=== PATIENT | female | born 1955 | race Caucasian/White ===

== ENCOUNTER 2016-11-27 12:32 | Inpatient (IN) | payer OTHER ==
[2016-11-27] MEDS ORDERED: ASPIRIN 81 MG CHEW PO STA (13:06)
[2016-11-27] MEDS ORDERED: NITROGLYCERIN OINT 1 INCH/GM PACKET TOPICAL STA (13:06)
--- NOTE | 2016-11-27 13:19 | ED ---
General Adult HPI - General Chief complaint: Extremity Problem,Nontraumatic Stated complaint: Left Arm/Leg Pain Time Seen by Provider: 11/27/16 13:02 Source: patient Mode of arrival: ambulatory Limitations: no limitations - History of Present Illness Initial comments: This 61-year-old white female presents with a complaint of having some left arm and left leg pain. She states that she has some numbness and tingling in her left arm as well. The onset occurred at approximately 9 AM today. It is intermittent in nature. It is associated with some chest tightness in the midsternal region as well some shortness of breath. It seems to radiate posteriorly her thorax. She states that the pain in her leg is more to the anterior aspect of the leg. She denies any previous similar incidents but apparently did have a myocardial infarction in 2 stents placed approximately one year ago. She denies any leg swelling or history of DVT or PE. She denies any other complaints or modifying factors. - Related Data Home Medications Medication Instructions Recorded Confirmed Albuterol Inhaler [Ventolin Hfa 2 puff INHALATION RT-Q6H PRN 11/27/16 11/27/16 Inhaler] L.acidoph,Paracasei, B.lactis 1 cap PO DAILY 11/27/16 11/27/16 [Probiotic] Lisinopril [Zestril] 2.5 mg PO DAILY 11/27/16 11/27/16 Spironolactone [Aldactone] 25 mg PO DAILY 11/27/16 11/27/16 Previous Rx's Medication Instructions Recorded Aspirin 325 mg PO DAILY #30 tab 07/17/15 Metoprolol Tartrate [Lopressor] 25 mg PO BID #60 tab 07/17/15 Atorvastatin [Lipitor] 80 mg PO HS #30 tab 08/05/15 Clopidogrel [Plavix] 75 mg PO DAILY #30 tab 08/05/15 Allergies Allergy/AdvReac Type Severity Reaction Status Date / Time cephalexin monohydrate Allergy Rash/Hives Verified 11/27/16 14:07 [From Keflex] Review of Systems ROS Statement: Those systems with pertinent positive or pertinent negative responses have been documented in the HPI. ROS Other: All systems not noted in ROS Statement are negative. Past Medical History Past Medical History: COPD, Hyperlipidemia, Hypertension History of Any Multi-Drug Resistant Organisms: None Reported Past Surgical History: Heart Catheterization With Stent, Orthopedic Surgery Past Anesthesia/Blood Transfusion Reactions: No Reported Reaction Date of Last Stent Placement:: 07/12/15 Past Psychological History: No Psychological Hx Reported Smoking Status: Former smoker Past Alcohol Use History: Daily Past Drug Use History: None Reported - Past Family History Mother Family Medical History: Cancer Father Family Medical History: No Reported History General Exam - General Exam Comments Initial Comments: GENERAL: The patient is well nourished and well hydrated. VITAL SIGNS: Heart rate, blood pressure, respiratory rate reviewed as recorded in nurse's notes. EYES: Pupils are round and reactive. Extraocular movements are intact. No conjunctival / lid redness or swelling. ENT: No external evidence of injury, swelling, or ecchymosis. Airway is patent. Throat is clear. NECK: Nontender. No swelling or evidence of injury. No subcutaneous emphysema. Trachea is midline. No thyroid mass. HEART: Regular rate and rhythm. Good peripheral pulses. LUNGS/CHEST: Mild wheezing noted bilaterally. No ecchymosis, subcutaneous emphysema, or tenderness. ABDOMEN: Abdomen soft without tenderness. No palpable masses or organomegaly. No peritoneal signs. No abdominal wall swelling or ecchymosis. EXTREMITIES: No extremity tenderness. Normal muscle tone and function. No thoracolumbar tenderness. NEUROLOGIC: Sensation is grossly intact. Cranial nerve exam reveals face is symmetrical, tongue is midline, speech is clear. SKIN: No abrasions or ecchymosis is noted. No induration or masses noted. PSYCHIATRIC: Alert and oriented. Appropriate behavior and judgment. Limitations: no limitations Course Vital Signs 11/27/16 11/27/16 11/27/16 12:50 13:30 14:19 Temperature 98.2 F Pulse Rate 63 59 L 56 L Respiratory 18 18 16 Rate Blood Pressure 184/77 165/71 167/70 O2 Sat by Pulse 99 98 98 Oximetry Medical Decision Making - Medical Decision Making The patient was seen and examined. All diagnostics were reviewed. EKG shows a normal sinus rhythm at a rate of 60. There is some T-wave inversions noted in V1 through the 4. These are actually improved as compared to old EKG. There is no ST elevation. The TN interval is 154, QRS duration is 88, and QTC intervals 422. She receives aspirin as well as some Nitropaste. Her blood pressure remains elevated and she receives labetalol intravenously. She is doing quite well on recheck and is in no distress. The chest x-ray shows signs of COPD but no other acute processes. The laboratory was all essentially within normal limits. Case will be discussed with internal medicine and she will be admitted for further cardiac evaluation and rule out the possibility of acute coronary syndrome. - Lab Data Result diagrams: 11/27/16 13:25 11/27/16 13:25 Lab Results 11/27/16 11/27/16 11/27/16 Range/Units 13:25 13:25 13:25 WBC 11.6 H (3.8-10.6) k/uL RBC 4.08 (3.80-5.40) m/uL Hgb 13.3 (11.4-16.0) gm/dL Hct 40.1 (34.0-46.0) % MCV 98.2 (80.0-100.0) fL MCH 32.6 (25.0-35.0) pg MCHC 33.2 (31.0-37.0) g/dL RDW 14.1 (11.5-15.5) % Plt Count 374 (150-450) k/uL Neutrophils % 74 % Lymphocytes % 17 % Monocytes % 4 % Eosinophils % 2 % Basophils % 1 % Neutrophils # 8.6 H (1.3-7.7) k/uL Lymphocytes # 2.0 (1.0-4.8) k/uL Monocytes # 0.5 (0-1.0) k/uL Eosinophils # 0.3 (0-0.7) k/uL Basophils # 0.1 (0-0.2) k/uL PT (9.0-12.0) sec INR (<1.1) APTT (22.0-30.0) sec Sodium 139 (137-145) mmol/L Potassium 4.7 (3.5-5.1) mmol/L Chloride 104 (98-107) mmol/L Carbon Dioxide 23 (22-30) mmol/L Anion Gap 12 mmol/L BUN 14 (7-17) mg/dL Creatinine 0.66 (0.52-1.04) mg/dL Est GFR (MDRD) Af Amer >60 (>60 ml/min/1.73 sqM) Est GFR (MDRD) Non-Af >60 (>60 ml/min/1.73 sqM) Glucose 96 (74-99) mg/dL Calcium 9.9 (8.4-10.2) mg/dL Magnesium 1.8 (1.6-2.3) mg/dL Total Bilirubin 0.9 (0.2-1.3) mg/dL AST 24 (14-36) U/L ALT 24 (9-52) U/L Alkaline Phosphatase 84 (38-126) U/L Total Creatine Kinase 41 (30-135) U/L CK-MB (CK-2) 0.6 (0.0-2.4) ng/mL CK-MB (CK-2) Rel Index 1.5 Troponin I <0.012 (0.000-0.034) ng/mL Total Protein 7.6 (6.3-8.2) g/dL Albumin 4.5 (3.5-5.0) g/dL 11/27/16 Range/Units 13:25 WBC (3.8-10.6) k/uL RBC (3.80-5.40) m/uL Hgb (11.4-16.0) gm/dL Hct (34.0-46.0) % MCV (80.0-100.0) fL MCH (25.0-35.0) pg MCHC (31.0-37.0) g/dL RDW (11.5-15.5) % Plt Count (150-450) k/uL Neutrophils % % Lymphocytes % % Monocytes % % Eosinophils % % Basophils % % Neutrophils # (1.3-7.7) k/uL Lymphocytes # (1.0-4.8) k/uL Monocytes # (0-1.0) k/uL Eosinophils # (0-0.7) k/uL Basophils # (0-0.2) k/uL PT 10.0 (9.0-12.0) sec INR 1.0 (<1.1) APTT 23.3 (22.0-30.0) sec Sodium (137-145) mmol/L Potassium (3.5-5.1) mmol/L Chloride (98-107) mmol/L Carbon Dioxide (22-30) mmol/L Anion Gap mmol/L BUN (7-17) mg/dL Creatinine (0.52-1.04) mg/dL Est GFR (MDRD) Af Amer (>60 ml/min/1.73 sqM) Est GFR (MDRD) Non-Af (>60 ml/min/1.73 sqM) Glucose (74-99) mg/dL Calcium (8.4-10.2) mg/dL Magnesium (1.6-2.3) mg/dL Total Bilirubin (0.2-1.3) mg/dL AST (14-36) U/L ALT (9-52) U/L Alkaline Phosphatase (38-126) U/L Total Creatine Kinase (30-135) U/L CK-MB (CK-2) (0.0-2.4) ng/mL CK-MB (CK-2) Rel Index Troponin I (0.000-0.034) ng/mL Total Protein (6.3-8.2) g/dL Albumin (3.5-5.0) g/dL Disposition Clinical Impression: Chest pain, Left arm pain, Left leg pain, Dyspnea, COPD (chronic obstructive pulmonary disease), Accelerated hypertension, Unstable angina Disposition: ADMITTED IP TO THIS [facility] Condition: Fair Time of Disposition: 14:58 Decision Date: 11/27/16 Decision Time: 14:58
[2016-11-27 14:03] LABS: Partial Thromboplastin Time 23.3 sec (22.0-30.0)
--- NOTE | 2016-11-27 14:03 | XR ---
EXAMINATION TYPE: XR chest 2V DATE OF EXAM: 11/27/2016 1:48 PM HISTORY: Chest Pain. REFERENCE: Previous study dated 08/01/2015. FINDINGS: The lungs are overinflated. The lungs are clear. Pleural space are clear. The heart is not enlarged. IMPRESSION: COPD.
[2016-11-27 14:05] LABS: Basophils # (A) 0.1 k/uL (0-0.2); Basophils % (A) 1 %; CH 32.6; CHCM 33.4; Eosinophils # (A) 0.3 k/uL (0-0.7); Eosinophils % (A) 2 %; HCT 40.1 % (34.0-46.0); HDW 2.38; HGB 13.3 gm/dL (11.4-16.0); Luc # (Auto) 0.18; Luc % (Auto) 2; Lymphocytes % (A) 17 %; MCH 32.6 pg (25.0-35.0); MCHC 33.2 g/dL (31.0-37.0); MCV 98.2 fL (80.0-100.0); Mean Platelet Volume 7.3; Monocytes # (A) 0.5 k/uL (0-1.0); Monocytes % (A) 4 %; Neutrophils # (A) 8.6 k/uL (1.3-7.7); Neutrophils % (A) 74 %; RBC 4.08 m/uL (3.80-5.40); RDW 14.1 % (11.5-15.5); WBC 11.6 k/uL (3.8-10.6); WBC (Perox) 11.01
[2016-11-27 14:07] LABS: ALT 24 U/L (9-52); AST 24 U/L (14-36); Alkaline Phosphatase 84 U/L (38-126); Anion Gap 12 mmol/L; Blood Urea Nitrogen 14 mg/dL (7-17); Calcium 9.9 mg/dL (8.4-10.2); Carbon Dioxide 23 mmol/L (22-30); Chloride 104 mmol/L (98-107); Glucose 96 mg/dL (74-99); Magnesium 1.8 mg/dL (1.6-2.3); Non-African American GFR(MDRD) >60 (>60 ml/min/1.73 sqM); Potassium 4.7 mmol/L (3.5-5.1); Sodium 139 mmol/L (137-145); Total Bilirubin 0.9 mg/dL (0.2-1.3); Total Protein 7.6 g/dL (6.3-8.2)
[2016-11-27 14:10] LABS: Creatine Kinase 41 U/L (30-135)
[2016-11-27 14:24] LABS: Creatine Kinase MB 0.6 ng/mL (0.0-2.4); Troponin I <0.012 ng/mL (0.000-0.034)
[2016-11-27] MEDS ORDERED: LABETALOL 5 MG/ML VIAL MDV IVP STA (14:55)
[2016-11-27] MEDS ORDERED: HEPARIN SODIUM,PORCINE 5,000 UNIT/ML 1 ML VIAL IV ONE (15:00)
[2016-11-27] MEDS ORDERED: hydrALAZINE HCL 20 MG/ML 1 ML VIAL IVP PRN (15:06)
[2016-11-27] MEDS ORDERED: NICOTINE 14MG/24HR PATCH TRANSDERM STA (15:07)
[2016-11-27] MEDS: HEPARIN SODIUM,PORCINE/D5W PMX 25,000 UNIT in DEXTROSE/WATER 1 500ML.BAG IV SCH (15:22)
[2016-11-27] MEDS: NITROGLYCERIN OINT 1 INCH/GM PACKET TOPICAL SCH ×2 (17:20→23:23)
[2016-11-27] MEDS: IPRATROPIUM-ALBUTEROL 3 ML NEB INHALATION SCH ×2 (18:38→21:07)
[2016-11-27] MEDS: NITROGLYCERIN SL TABS 0.4 MG TAB SUBLINGUAL PRN ×3 (19:33→19:44)
[2016-11-27] MEDS: METOPROLOL TARTRATE 25 MG TAB PO SCH (19:51)
[2016-11-27] MEDS: ATORVASTATIN 80 MG TAB PO SCH (19:56)
[2016-11-27 20:01] LABS: Creatine Kinase 37 U/L (30-135)
[2016-11-27] MEDS ORDERED: MORPHINE SULFATE 2 MG/ML SYRINGE IVP PRN (20:09)
[2016-11-27 20:14] LABS: Creatine Kinase MB 0.6 ng/mL (0.0-2.4); Troponin I <0.012 ng/mL (0.000-0.034)
[2016-11-27] MEDS: HEPARIN SODIUM,PORCINE 5,000 UNIT/ML 1 ML VIAL IV PRN (22:05)
[2016-11-28 02:26] LABS: Creatine Kinase 32 U/L (30-135)
[2016-11-28 02:39] LABS: Creatine Kinase MB 0.5 ng/mL (0.0-2.4); Troponin I <0.012 ng/mL (0.000-0.034)
[2016-11-28 05:02] LABS: Cholesterol 132 mg/dL (<200); HDL Cholesterol 57 mg/dL (40-60); Triglycerides 167 mg/dL (<150)
[2016-11-28] MEDS: NITROGLYCERIN OINT 1 INCH/GM PACKET TOPICAL SCH ×3 (05:14→20:39)
[2016-11-28] MEDS: HEPARIN SODIUM,PORCINE 5,000 UNIT/ML 1 ML VIAL IV PRN (05:18)
--- NOTE | 2016-11-28 08:08 | P.CRDCN ---
History of Present Illness Consult date: 11/28/16 Chief complaint: Chest discomfort History of present illness: This is a pleasant 61-year-old female patient with a past medical history significant for CAD with a prior stenting of the LAD was performed in 2014, hypertension, dyslipidemia, who continues to smoke, presented to the emergency room complaining of chest discomfort. The patient has been experiencing some left arm numbness. Yesterday she developed some chest discomfort with the left arm numbness and the chest discomfort did not go away so she decided to come to the hospital. She described the discomfort in the chest as a sharp kind of discomfort. Currently the patient is a pain free. The EKG showed sinus rhythm with T-wave inversion in the septal leads which is not known to her. She underwent 3 sets of cardiac enzymes came in to be unremarkable. The patient underwent stress test as an outpatient recently and I will obtain a copy of that. If the stress test was performed within the last 6 months and was normal we might be able to discharge the patient home. I will obtain the previous medical records from the office. Meanwhile the patient is in process to have an echocardiogram which we will follow-up with. Past Medical History Past Medical History: COPD, Hyperlipidemia, Hypertension, Myocardial Infarction ([place]) Additional Past Medical History / Comment(s): "HEARTBURN" Last Myocardial Infarction Date:: 2014 History of Any Multi-Drug Resistant Organisms: None Reported Past Surgical History: Heart Catheterization With Stent, Orthopedic Surgery Additional Past Surgical History / Comment(s): LT KNEE RECONSTRUCTIVE SX, CATARACTS, CYSTE REMOVED FROM BEHIND LT EAR Past Anesthesia/Blood Transfusion Reactions: No Reported Reaction Date of Last Stent Placement:: 07/12/15 Past Psychological History: No Psychological Hx Reported Additional Psychological History / Comment(s): PT LIVES WITH HER DESTINI IN A 2 STORY HOME-7 STEPS INTO HOME..PT INDEPENDANT. NO OUTSIDE SERVICES. NO MEDICAL EQUIPMENT Smoking Status: Current every day smoker Past Alcohol Use History: Heavy Additional Past Alcohol Use History / Comment(s): ADMIT TO AVERAGE OF 10 DRINKS PER WEEK BEER OR RUM PER WEEK. STARTED SMOKING 1967-SMOKING 1/2 PPD Past Drug Use History: None Reported - Past Family History Mother Family Medical History: Cancer Father Family Medical History: No Reported History Medications and Allergies Home Medications Medication Instructions Recorded Confirmed Type Albuterol Inhaler [Ventolin Hfa 2 puff INHALATION RT-Q6H PRN 05/01/17 05/01/17 History Inhaler] L.acidoph,Paracasei, B.lactis 1 cap PO DAILY 11/27/16 11/27/16 History [Probiotic] Lisinopril [Zestril] 2.5 mg PO DAILY 11/27/16 11/27/16 History Spironolactone [Aldactone] 25 mg PO DAILY 11/27/16 11/27/16 History Allergies Allergy/AdvReac Type Severity Reaction Status Date / Time cephalexin monohydrate Allergy Rash/Hives Verified 11/27/16 14:07 [From Keflex] Physical Exam Vitals: Vital Signs Temp Pulse Pulse Resp BP BP Pulse Ox 11/28/16 04:00 97.7 F 61 16 147/70 98 11/28/16 03:52 16 11/27/16 23:52 98.1 F 60 16 153/67 96 11/27/16 23:15 22 11/27/16 21:18 74 11/27/16 21:09 72 11/27/16 19:52 98.1 F 63 22 129/63 93 L 11/27/16 19:34 20 11/27/16 19:33 58 L 20 158/61 100 11/27/16 16:26 97.7 F 57 L 16 166/69 100 11/27/16 16:14 22 11/27/16 15:24 97.9 F 49 L 16 165/74 100 Intake and Output 11/27/16 11/28/16 11/28/16 22:59 06:59 14:59 Intake Total 95.255 259.911 Balance 95.255 259.911 Intake: IV 30 Heparin Sodium,Porcine/ 30 D5w Pmx 25,000 unit In Dextrose/Water 1 500ml. bag @ 12 UNITS/KG/HR 14. 36 mls/hr IV .Q24H BOYD Rx #:[id number] Intake, IV Titration 95.255 129.911 Amount Heparin Sodium,Porcine/ 95.255 129.911 D5w Pmx 25,000 unit In Dextrose/Water 1 500ml. bag @ 12 UNITS/KG/HR 14. 36 mls/hr IV .Q24H BOYD Rx #:[id number] Oral 100 Other: Voiding Method Toilet Toilet # Voids 3 Weight 58.8 kg - Constitutional General appearance: no acute distress - Respiratory Respiratory: bilateral: CTA - Cardiovascular Rhythm: regular Heart sounds: normal: S1, S2 Results 11/27/16 13:25 11/27/16 13:25 Cardiac Enzymes 11/27/16 11/28/16 Range/Units 19:11 01:29 CK-MB (CK-2) 0.6 0.5 (0.0-2.4) ng/mL Troponin I <0.012 <0.012 (0.000-0.034) ng/mL Coagulation 11/27/16 11/28/16 Range/Units 21:35 03:40 APTT 32.6 H 43.9 H (22.0-30.0) sec Lipids 11/28/16 Range/Units 03:40 Triglycerides 167 H (<150) mg/dL Cholesterol 132 (<200) mg/dL HDL Cholesterol 57 (40-60) mg/dL Current Medications Generic Name Dose Route Start Last Admin Trade Name Freq PRN Reason Stop Dose Admin Albuterol/Ipratropium 3 ml 11/27/16 16:00 11/27/16 21:07 Duoneb 0.5 Mg-3 Mg/3 Ml Soln INHALATION 3 ml RT-QID BOYD Administration Aspirin 325 mg 11/28/16 09:00 Aspirin PO DAILY [facility] Atorvastatin Calcium 80 mg 11/27/16 21:00 11/27/16 19:56 Lipitor PO 80 mg HS BOYD Administration Clopidogrel Bisulfate 75 mg 11/28/16 09:00 Plavix PO DAILY [facility] Heparin Sodium (Porcine) 0 unit 11/27/16 19:29 11/28/16 05:18 Heparin IV 1,470 unit PER PROTOCOL PRN Administration Low PTT Protocol Hydralazine HCl 10 mg 11/27/16 15:06 Apresoline IVP Q4H PRN Hypertension Heparin Sodium/Dextrose 25,000 500 mls @ 14.36 mls/hr 11/27/16 15:00 05:14 unit/ IV Solution IV 17 units/kg/hr .Q24H BOYD 20.35 mls/hr Protocol Titration 12 UNITS/KG/HR Lactobacillus Acidoph/Bulgaricus 1 each 11/28/16 09:00 Lactinex PO DAILY [facility] Lisinopril 2.5 mg 11/28/16 09:00 Zestril PO DAILY [facility] Metoprolol Tartrate 25 mg 11/27/16 21:00 11/27/16 19:51 Lopressor PO Not Given BID [facility] Morphine Sulfate 2 mg 11/27/16 20:09 11/27/16 20:47 Morphine Sulfate (Inj) IVP 2 mg Q4H PRN Administration Pain/Discomfort Nitroglycerin 1 inch 11/27/16 18:00 11/28/16 05:14 Nitro-Bid Oint TOPICAL Not Given Q6HR [facility] Nitroglycerin 0.4 mg 11/27/16 15:00 11/27/16 19:44 Nitrostat SUBLINGUAL 0.4 mg Q5M PRN Administration Chest Pain Spironolactone 25 mg 11/28/16 09:00 Aldactone PO DAILY [facility] Intake and Output 11/27/16 11/28/16 11/28/16 22:59 06:59 14:59 Intake Total 95.255 259.911 Balance 95.255 259.911 Intake: IV 30 Heparin Sodium,Porcine/ 30 D5w Pmx 25,000 unit In Dextrose/Water 1 500ml. bag @ 12 UNITS/KG/HR 14. 36 mls/hr IV .Q24H [facility]YD Rx #:[id number] Intake, IV Titration 95.255 129.911 Amount Heparin Sodium,Porcine/ 95.255 129.911 D5w Pmx 25,000 unit In Dextrose/Water 1 500ml. bag @ 12 UNITS/KG/HR 14. 36 mls/hr IV .Q24H BOYD Rx #:[id number] Oral 100 Other: Voiding Method Toilet Toilet # Voids 3 Weight 58.8 kg Assessment and Plan Plan: Assessment #1 atypical chest pain #2 known CAD with a prior stenting #3 significant history of smoking Plan #1 I will obtain the previous medical records from the office including the post a stress test #2 she had an echocardiogram which we will follow-up with.
[2016-11-28] MEDS ORDERED: DOBUTamine DRIP for NUC MED 500 MG in DEXTROSE/WATER 1 250ML.BAG IV ONE (08:23)
[2016-11-28] MEDS ORDERED: AMINOPHYLLINE 500 MG/20 ML VIAL IV PRN (09:17)
[2016-11-28] MEDS ORDERED: REGADENOSON 0.4 MG/5 ML SYRINGE IV ONE (09:17)
[2016-11-28] MEDS: IPRATROPIUM-ALBUTEROL 3 ML NEB INHALATION SCH ×5 (09:25→19:23)
--- NOTE | 2016-11-28 11:46 | NM ---
EXAMINATION TYPE: NM stress lexiscan cardiolite DATE OF EXAM: 11/28/2016 11:37 AM COMPARISON: NONE HISTORY: Chest pain TECHNIQUE: After the intravenous administration of 10.01 mCi Tc 99m Sestamibi - Cardiolite resting S PECT images acquired 45 minutes post injection. The patient received 0.4mg Lexiscan, 27.5 mCi Tc 99m Sestamibi - Stress images obtained [address] injection FINDINGS: Review of stress and rest SPECT images demonstrates decreased radio pharmaceutical uptake along the a nteroapical left ventricular myocardium on stress and rest images. In the periinfarct locations in th e anterior and inferior left ventricular ruggiero, there is some decreased uptake on stress images as co mpared to rest images. Gated analysis shows normal wall motion with an estimated left ventricular ej ection fraction of 46 %. IMPRESSION: Evidence of previous infarction along the anteroapical left ventricular myocardium with jose-infarct pharmacologically induced left ventricular myocardial ischemia.
--- NOTE | 2016-11-28 12:13 | ECHOF ---
Referral Reason:cp MEASUREMENTS -------- HEIGHT: 152.4 cm WEIGHT: 13.2 kg BP: 147/70 RVIDd: 2.4 cm (< 3.3) IVSd: 1.1 cm (0.6 - 1.1) LVIDd: 4.8 cm (3.9 - 5.3) LVPWd: 1.0 cm (0.6 - 1.1) IVSs: 1.9 cm LVIDs: 2.8 cm LVPWs: 1.4 cm LAESV Index (A-L): 50.44 ml/m Ao Diam: 3.1 cm (2.0 - 3.7) AV Cusp: 1.4 cm (1.5 - 2.6) LA Diam: 3.3 cm (2.7 - 3.8) MV EXCURSION: 17.918 mm (> 18.000) MV EF SLOPE: 98 mm/s (70 - 150) EPSS: 0.7 cm MV E Seamus: 0.94 m/s MV DecT: 239 ms MV A Seamus: 0.48 m/s MV E/A Ratio: 1.95 RAP: 5.00 mmHg RVSP: 47.86 mmHg FINDINGS -------- Sinus rhythm. This was a technically adequate study. There is borderline concentric left ventricular hypertrophy. Overall left ventricular systolic function is normal with, an EF between 60 - 65 %. The right ventricle is normal in size and function. LA is severely dilated >40 ml/m2 The right atrium is normal in size. Aortic valve is trileaflet and is mildly thickened. Mild mitral annular calcification present. There is trace to mild mitral regurgitation. [id number] tricuspid regurgitation present. There is mild pulmonary hypertension. The right ventricular systolic pressure, as measured by Doppler, is 47.86mmHg. The pulmonic valve is normal. The aortic root size is normal. There is no pericardial effusion. CONCLUSIONS -------- 1. Sinus rhythm. 2. The right ventricular systolic pressure, as measured by Doppler, is 47.86mmHg. 3. The aortic root size is normal. 4. There is no pericardial effusion. 5. There is borderline concentric left ventricular hypertrophy. 6. Overall left ventricular systolic function is normal with, an EF between 60 - 65 %. 7. LA is severely dilated >40 ml/m2 8. Aortic valve is trileaflet and is mildly thickened. 9. Mild mitral annular calcification present. 10. There is trace to mild mitral regurgitation. 11. Lgtl-km-fqolpiig tricuspid regurgitation present. 12. There is mild pulmonary hypertension. CREDIT OR LOANS OFFICER: Pretty Vega RDCS
[2016-11-28] MEDS: LACTOBACILLUS ACIDOPH & BULGAR 1 EACH PACKET PO SCH (13:13)
[2016-11-28] MEDS: CLOPIDOGREL 75 MG TAB PO SCH (13:14)
[2016-11-28] MEDS: SPIRONOLACTONE 25 MG TAB PO SCH (13:14)
[2016-11-28] MEDS: LISINOPRIL 2.5 MG TAB PO SCH (13:14)
[2016-11-28] MEDS: ASPIRIN 325 MG TAB PO SCH (13:14)
[2016-11-28] MEDS: METOPROLOL TARTRATE 25 MG TAB PO SCH ×2 (13:14→22:14)
--- NOTE | 2016-11-28 13:30 | US ---
EXAMINATION TYPE: US gallbladder DATE OF EXAM: 11/28/2016 12:53 PM COMPARISON: NONE CLINICAL HISTORY: abdominal pain. Chest and left arm pain EXAM MEASUREMENTS: Liver Length: 14.3 cm Gallbladder Wall: 0.2 cm CBD: 0.5 cm Right Kidney: 8.7 x 3.9 x 4.3 cm Pancreas: wnl in its visualized portions, pancreatic duct mildly prominent Liver: bowel gas limits views but appears somewhat coarse in echotexture Gallbladder: wnl Evidence for sonographic Meade's sign: no CBD: wnl Right Kidney: wnl Pancreatic duct mildly prominent at 4-5 mm. There is no ascites. IMPRESSION: Mildly prominent pancreatic duct. There may be underlying hepatocellular disease or fatty infiltration of the liver. Exam is limited.
--- NOTE | 2016-11-28 13:55 | EST ---
DATE OF SERVICE: 11/28/2016 AGE: 61Y SEX: F HT: 5'0" WT: 130 lbs. Lexiscan Cardiolite Stress Test *Heart Rate Blood Pressure *Rest: 61 Rest: 190/74 * *Max. Achieved: 102 Maximum BP: 205/82 85% PMHR: 128 100% PMHR: 134 *METS: - INDICATIONS: Chest pain. MEDICATIONS: - Baseline EKG revealed a normal sinus rhythm with precordial T-wave inversion, nonspecific type with minor nonspecific inferolateral ST abnormality. With Lexiscan administration, patient complained of transient shortness of breath and abdominal discomfort, heart rate ranged from 61 to 82 beats per minute and blood pressure changed from 180/80 to 205/84 and then came back to baseline. EKG remained inconclusive. IMPRESSION: 1. By EKG criteria, this is an inconclusive stress test because of resting EKG changes. 2. Patient was slightly hypertensive. 3. The nuclear scan results, which are more pertinent, will be reported by the radiologist.
--- NOTE | 2016-11-28 15:07 | HP ---
DATE OF ADMISSION: This dictation is both H&P and Discharge Summary. Patient is a 61-year-old, came in with numbness in the left arm which started yesterday morning when she woke up from sleep and lasted for 5 minutes. Not associated with food, nonpleuritic in nature, pressure-like sensation about 7/10 in severity and patient also has pain in the epigastric area and patient was evaluated by Cardiology. Troponins were obtained that were negative. EKG showed some old ischemic changes and patient is undergoing stress test. If that is negative, will obtain a right upper quadrant ultrasound for possibility of cholelithiasis. If both are negative, patient will be discharged on Prilosec as well. Patient was complaining of cough with brownish to greenish sputum production. Patient denied any shortness of breath and patient does have history of COPD and past medial history significant for COPD, hyperlipidemia, hypertension, myocardial infarction in the past, cardiac catheterization, a left knee constructive surgery. Patient continues to smoke. Denied any alcohol abuse or any drug abuse. REVIEW OF SYSTEMS: CONSTITUTIONAL: No fever, no malaise, no fatigue. HEENT: No recent visual problems or hearing problems. Denied any sore throat. CARDIOVASCULAR: As described in HPI. PULMONARY: No shortness of breath, no cough, no hemoptysis. GASTROINTESTINAL: No diarrhea, no nausea, no vomiting, no abdominal pain. Normoactive bowel sounds. NEUROLOGICAL: No headaches, no weakness, no numbness. HEMATOLOGICAL: Denies any bleeding or petechiae. GENITOURINARY: Denies any burning micturition, frequency, or urgency. MUSCULOSKELETAL/RHEUMATOLOGICAL: Denies any joint pain, swelling, or any muscle pain. ENDOCRINE: Denies any polyuria or polydipsia. The rest of the 14 point review of systems is negative. FAMILY HISTORY: Mother had cancer. Home medications include albuterol, lisinopril, spironolactone. ALLERGIES: Allergic to KEFLEX. PHYSICAL EXAM: Temperature 97.8, pulse of 64, respiratory rate of 16, blood pressure is 183/90, saturating at 98% on room air. GENERAL: The patient is alert and oriented x3, not in any acute distress. Well developed, well nourished. HEENT: Pupils are round and equally reacting to light. EOMI. No scleral icterus. No conjunctival pallor. Normocephalic, atraumatic. No pharyngeal erythema. No thyromegaly. CARDIOVASCULAR: S1 and S2 present. No murmurs, rubs, or gallops. PULMONARY: Chest is clear to auscultation, no wheezing or crackles. ABDOMEN: Soft, nontender, nondistended, normoactive bowel sounds. No palpable organomegaly. MUSCULOSKELETAL: No joint swelling or deformity. EXTREMITIES: No cyanosis, clubbing, or pedal edema. NEUROLOGICAL: Gross neurological examination did not reveal any focal deficits. SKIN: No rashes. LABORATORY DATA: CBC, CMP are abnormal for elevated WBC count of 11,600. ASSESSMENT AND PLAN: 1. Chest pain, appears to be atypical in nature although patient will undergo stress test. Patient is admitted for rule out unstable angina as well as acute coronary artery syndrome and gallbladder pathology needs to be ruled out as mentioned above. 2. Possibility of gastritis. 3. Coronary artery disease history with prior stenting. 4. Chronic obstructive pulmonary disease history, but patient does not have any chronic obstructive pulmonary disease exacerbation. Does have bronchitis for which patient will be discharged on doxycycline and leukocytosis secondary to bronchitis. After above-mentioned work-up and plan, patient will be discharged with doxycycline and Prilosec to follow with Dr. Farrell as an outpatient. 5. Extensive nicotine cessation counseling was provided. 6. Hyperlipidemia, hypertension.
[2016-11-28] MEDS: HEPARIN SODIUM,PORCINE/D5W PMX 25,000 UNIT in DEXTROSE/WATER 1 500ML.BAG IV SCH (20:38)
[2016-11-28] MEDS: ATORVASTATIN 80 MG TAB PO SCH (22:14)
[2016-11-29] MEDS: NITROGLYCERIN OINT 1 INCH/GM PACKET TOPICAL SCH ×3 (06:06→17:52)
[2016-11-29] MEDS: IPRATROPIUM-ALBUTEROL 3 ML NEB INHALATION SCH ×3 (07:47→16:05)
--- NOTE | 2016-11-29 08:36 | P.PN ---
Progress Note - Text This is a pleasant 61-year-old female patient with a past medical history significant for CAD with a prior stenting of the LAD was performed in 2015, hypertension, dyslipidemia, who continues to smoke, presented to the emergency room complaining of chest discomfort. The patient has been experiencing some left arm numbness. Yesterday she developed some chest discomfort with the left arm numbness and the chest discomfort did not go away so she decided to come to the hospital. She described the discomfort in the chest as a sharp kind of discomfort. Currently the patient is a pain free. The EKG showed sinus rhythm with T-wave inversion in the septal leads which is not known to her. She underwent 3 sets of cardiac enzymes came in to be unremarkable. The patient underwent myocardial perfusion imaging stress test and that showed apical infarct with jose-infarct ischemia. I am going to get the patient up and around and if she is asymptomatic she will be able to be discharged home. If she develop any chest discomfort or chest pain I would consider proceeding with heart catheterization.
[2016-11-29] MEDS: ASPIRIN 325 MG TAB PO SCH (09:23)
[2016-11-29] MEDS: LACTOBACILLUS ACIDOPH & BULGAR 1 EACH PACKET PO SCH (09:24)
[2016-11-29] MEDS: LISINOPRIL 2.5 MG TAB PO SCH (09:24)
[2016-11-29] MEDS: METOPROLOL TARTRATE 25 MG TAB PO SCH (09:24)
[2016-11-29] MEDS: CLOPIDOGREL 75 MG TAB PO SCH (09:24)
[2016-11-29] MEDS: SPIRONOLACTONE 25 MG TAB PO SCH (09:24)
[2016-11-29 12:19] VITALS: RESP 18
[2016-11-29 16:57] VITALS: BP 140/61; PULSE 55; TEMP 97.9
[2016-11-29] MEDS: HEPARIN SODIUM,PORCINE/D5W PMX 25,000 UNIT in DEXTROSE/WATER 1 500ML.BAG IV SCH (17:51)
--- NOTE | 2016-11-30 07:46 | DS ---
DATE OF ADMISSION: 11/29/2016 DATE OF DISCHARGE: 11/29/2016 I discharged the patient yesterday but Dr. Lambert of cardiology recommended to monitor her one more night because of her Lexiscan stress test findings, which basically showed old ischemic changes. Gallbladder ultrasound did not show any cholelithiasis. Patient is clinically doing well. Patient was seen and examined on the day of discharge. Vitals are stable. PHYSICAL EXAMINATION: GENERAL: The patient is alert and oriented x3, not in any acute distress. Well developed, well nourished. HEENT: Pupils are round and equally reacting to light. EOMI. No scleral icterus. No conjunctival pallor. Normocephalic, atraumatic. No pharyngeal erythema. No thyromegaly. CARDIOVASCULAR: S1 and S2 present. No murmurs, rubs, or gallops. PULMONARY: Chest is clear to auscultation, no wheezing or crackles. ABDOMEN: Soft, nontender, nondistended, normoactive bowel sounds. No palpable organomegaly. MUSCULOSKELETAL: No joint swelling or deformity. EXTREMITIES: No cyanosis, clubbing, or pedal edema. NEUROLOGICAL: Gross neurological examination did not reveal any focal deficits. SKIN: No rashes. Patient is being discharged today. Please refer to my dictation of H&P for further details of discharge from yesterday and hospital course.
== END 2016-11-29 18:05 | disposition home or self-care (01) | DRG 313 ==
LOC: EC 12:32 → 3OBS 15:01 → OBSVTOIN 11-29 12:02
PROVIDERS: ADMIT Internal Medicine; ATTEND Internal Medicine
DX: R07.89 Other chest pain (principal); I25.2 Old myocardial infarction; I10 Essential (primary) hypertension; I25.10 Atherosclerotic heart disease of native coronary artery without angina pectoris; J42 Unspecified chronic bronchitis; E78.5 Hyperlipidemia, unspecified; F17.200 Nicotine dependence, unspecified, uncomplicated; Z79.82 Long term (current) use of aspirin; Z79.02 Long term (current) use of antithrombotics/antiplatelets; Z79.899 Other long term (current) drug therapy; Z98.42 Cataract extraction status, left eye; Z98.41 Cataract extraction status, right eye
CPT/HCPCS: 36415; 71020; 76705; 78452; 80053; 80061; 82550; 82553; 83735; 84484; 85025; 85610; 85730; 93005; 93017; 93306; 94640; 94760; 96374; 96375; 96376; 99284

== ENCOUNTER 2017-02-14 13:33 | Day surgery (SDC) | payer OTHER ==
[2017-02-09 11:31] VITALS: BMI 25.7
[~2017-02-14 13:33] MED LIST: LACTATED RINGERS 1,000 ML IV SCH; LIDOCAINE 1% 20 ML VIAL (10MG/ML) FOR IV START INTRADERMA PRN
[2017-02-14 13:52] VITALS: RESP 16; TEMP 96.8
[2017-02-14] MEDS ORDERED: LIDOCAINE 1% INJ 10MG/ML (20 ML MDV) ONE (15:56)
[2017-02-14] MEDS ORDERED: PROPOFOL 10 MG/ML 20 ML VIAL IV ONE (15:56)
--- NOTE | 2017-02-14 15:57 | P.GSHP ---
History of Present Illness H&P Date: 02/14/17 Colonoscopy Screening Reported by patient. GI Symptoms: no abdominal pain; no color change in stool; no rectal bleeding; constipation Associated Symptoms: normal appetite; no fever; no chills; no nausea; no vomiting Context: no prior examination; no history of colon polyps; no history of ulcerative colitis or Crohn's Disease Family History: colon cancer (mother) ROS Additionally reports: Constitutional: No fever, chills or rigors. No weight loss or loss of appetite. HEENT: No difficulty with hearing, vision and swallowing. Lymphatic: No axillary, inguinal and cervical swellings. Endocrine: No thyroid disorders. Denies history of diabetes. Respiratory: No chest pain, shortness of breath, and cough. No hemoptysis. Cardiovascular: No palpitations, irregular HR Gastrointestinal: Denies heartburn. No change in bowel habits. No nausea or vomiting. Genitourinary: No increase in urinary frequency or urgency. No hematuria. Musculoskeletal: No back pain, joint stiffness or pain. Neurologic: No history of seizure disorder and headaches. Psychiatric: Denies depression or anxiety . No suicidal ideation. Hematologic: Denies any abnormal mucosal bleeding or easy bruising. Physical Exam Patient is a 61-year-old female. Constitutional: General Appearance: healthy-appearing and well-developed. Level of Distress: mild distress. Ambulation: ambulating normally. Psychiatric: Insight: good judgement. Orientation: to time, place, and person. Head: Head: normocephalic and atraumatic. Eyes: Lids and Conjunctivae: no discharge or pallor and non-injected. Sclerae: non-icteric. ENMT: Oropharynx: moist mucous membranes. Abdomen: Bowel Sounds: normal. Inspection and Palpation: no tenderness or guarding and soft and non-distended. Musculoskeletal:: Motor Strength and Tone: normal and normal tone. Joints, Bones , and Muscles: normal movement of all extremities. Extremities: no cyanosis or edema. Neurologic: Gait and Station: normal gait and station. Cranial Nerves: grossly intact. Assessment / Plan 1. Screening colonoscopy- . Cologuard postive 2. Informed consent obtained from the patient after explaining the risks, benefits and potential complications of colonoscopy including bleeding and perforation 3. Patient demonstrated understanding of the procedure and agreed to undergo colonoscopy with possible biopsy/polypectomy 4. Escript for bowel prep 5. Stop aspirin + plavix 5 days before . Get OK from micrographics services supervisor/Dr. Lambert 1. Constipation K59.00: Constipation, unspecified CONSTIPATION: CARE INSTRUCTIONS 2. Family history of cancer of colon Z80.0: Family history of malignant neoplasm of digestive organs 3. Chronic obstructive lung disease J44.9: Chronic obstructive pulmonary disease, unspecified CHRONIC OBSTRUCTIVE PULMONARY DISEASE (COPD): CARE INSTRUCTIONS LEARNING ABOUT COPD AND HOW TO PREVENT LUNG INFECTIONS 4. Hyperlipidemia E78.5: Hyperlipidemia, unspecified HIGH CHOLESTEROL: CARE INSTRUCTIONS 5. Stented coronary artery Z95.5: Presence of coronary angioplasty implant and graft 6. Nicotine dependence F17.200: Nicotine dependence, unspecified, uncomplicated STOPPING SMOKING: CARE INSTRUCTIONS Past Medical History Past Medical History: COPD, Hyperlipidemia, Hypertension, Myocardial Infarction ([place]) Additional Past Medical History / Comment(s): "HEARTBURN" Last Myocardial Infarction Date:: 2014 History of Any Multi-Drug Resistant Organisms: MRSA Date of last positivie culture/infection: ?2013 MDRO Source:: under nose Past Surgical History: Heart Catheterization With Stent, Orthopedic Surgery Additional Past Surgical History / Comment(s): LT KNEE RECONSTRUCTIVE SX, CATARACTS, CYSTE REMOVED FROM BEHIND LT EAR Past Anesthesia/Blood Transfusion Reactions: No Reported Reaction Date of Last Stent Placement:: 07/12/15 Smoking Status: Current every day smoker - Past Family History Mother Family Medical History: Cancer Father Family Medical History: No Reported History Medications and Allergies Home Medications Medication Instructions Recorded Confirmed Type Albuterol Inhaler [Ventolin Hfa 2 puff INHALATION RT-Q6H PRN 11/27/16 02/14/17 History Inhaler] Lisinopril [Zestril] 2.5 mg PO DAILY 11/27/16 02/14/17 History Spironolactone [Aldactone] 25 mg PO DAILY 11/27/16 02/14/17 History Allergies Allergy/AdvReac Type Severity Reaction Status Date / Time cephalexin monohydrate Allergy Rash/Hives Verified 02/14/17 13:39 [From Keflex] Surgical - Exam Vital Signs Temp Pulse Resp BP Pulse Ox 96.8 F L 78 16 176/62 100 02/14/17 13:51 02/14/17 13:51 02/14/17 13:51 02/14/17 13:51 02/14/17 13:51
--- NOTE | 2017-02-14 16:41 | P.OP ---
Date of Procedure: 02/14/17 Preoperative Diagnosis: Cologuard test positive Hyperlipidemia Myocardial infarction Coronary arteriosclerosis Pulmonary emphysema Chronic obstructive lung disease Postoperative Diagnosis: Same Procedure(s) Performed: Colonoscopy with cold bx 8 and hot snare polypectomy 1 Implants: Anesthesia: MAC Surgeon: Jeanine Reid Pathology: other Condition: stable Disposition: PACU Indications for Procedure: 61 years old female presents for screening colonoscopy. She had Colocort test which was positive. Informed consent obtained and she elected to undergo the procedure. Operative Findings: Multiple polyps throughout the colon. The largest one was in the rectum. Scattered diverticulosis throughout the colon. Description of Procedure: The patient was brought to the endoscopy suite and placed in lateral decubitus position. IV sedation was given as per anesthesia team. Patient was on continuous vitals and pulse oximetry monitoring throughout the procedure. A timeout was performed to verify correct patient and correct procedure. Perianal examination did not show any external hemorrhoids. Digital rectal examination was performed. No masses or gross blood. A well-lubricated Olympus colonoscope was passed per rectally and was gradually advanced beyond the sigmoid colon, splenic flexure, transverse colon, hepatic flexure and cecum. The ileocecal valve was visualized as well as the appendiceal orifice . The colonoscope was gradually withdrawn inspecting all the mucosal surfaces. Bowel prep was good. Multiple subcentimeter polyps identified. Polyp in the ascending colon 2, descending colon, rectum 4 were removed using cold biopsy forceps. There was large pedunculated polyp in the rectum which was removed using cold biopsy forceps. No masses, AV malformations noted. Scattered diverticulosis noted without any evidence of acute diverticulitis. The scope was gradually withdrawn and retroflexed in the rectum . Grade 1 internal hemorrhoids seen. Total withdrawal time was greater than 6 minutes . Patient tolerated the procedure well and was taken to post anesthesia care unit in stable condition. Recommend repeat colonoscopy in 1 year. Final Pathologic Diagnosis A. COLON, ASCENDING, BIOPSY: ADENOMA. B. COLON, ASCENDING, BIOPSY: ADENOMA. C. COLON, DESCENDING, BIOPSY: TWO FRAGMENTS OF ADENOMA. D. COLON, RECTUM, BIOPSY: COLONIC MUCOSA, PENDING DEEPER SECTIONS. E. COLON, RECTUM, BIOPSY: TWO FRAGMENTS OF ADENOMA. F. COLON, RECTUM, BIOPSY: MUCOSAL HYPERPLASIA WITH HEMOSIDERIN DEPOSITION AND FOCAL MUSCLE BANDS WITHIN THE MUCOSA SUGGESTIVE OF MUCOSAL PROLAPSE WITH SECONDARY MUCOSAL HYPERPLASIA; CANNOT COMPLETELY EXCLUDE SERRATED POLYP. SMALL PORTION OF ADENOMA. G. COLON, RECTUM, BIOPSY: HYPERPLASTIC POLYP. H. COLON, RECTUM, BIOPSY: HYPERPLASTIC POLYP AND LYMPHOID AGGREGATE FORMATION.
[2017-02-14 17:04] VITALS: BP 170/72; PULSE 70
== END 2017-02-14 17:31 | disposition home or self-care (01) ==
LOC: ORWHC2ENDO 13:33
PROVIDERS: ATTEND Surgery
DX: D12.2 Benign neoplasm of ascending colon (principal); D12.8 Benign neoplasm of rectum; D12.4 Benign neoplasm of descending colon; K62.89 Other specified diseases of anus and rectum; K62.1 Rectal polyp; K57.30 Diverticulosis of large intestine without perforation or abscess without bleeding; K64.0 First degree hemorrhoids; Z80.0 Family history of malignant neoplasm of digestive organs; E78.5 Hyperlipidemia, unspecified; J44.9 Chronic obstructive pulmonary disease, unspecified; Z95.5 Presence of coronary angioplasty implant and graft; F17.200 Nicotine dependence, unspecified, uncomplicated; I10 Essential (primary) hypertension; I25.2 Old myocardial infarction; Z79.899 Other long term (current) drug therapy; Z79.02 Long term (current) use of antithrombotics/antiplatelets; Z79.82 Long term (current) use of aspirin; Z88.1 Allergy status to other antibiotic agents
CPT/HCPCS: 88305; 45380; J2001; J2704; 45385

== ENCOUNTER → 2017-02-27 | Outpatient (CLI) | payer OTHER ==
[2017-02-27 12:50] LABS: Basophils # (A) 0.1 k/uL (0-0.2); Basophils % (A) 1 %; CH 32.5; CHCM 32.9; Eosinophils # (A) 0.3 k/uL (0-0.7); Eosinophils % (A) 3 %; HCT 41.3 % (34.0-46.0); HDW 2.37; HGB 13.5 gm/dL (11.4-16.0); Luc # (Auto) 0.15; Luc % (Auto) 1; Lymphocytes # (A) 2.4 k/uL (1.0-4.8); Lymphocytes % (A) 20 %; MCH 32.4 pg (25.0-35.0); MCHC 32.7 g/dL (31.0-37.0); MCV 99.2 fL (80.0-100.0); Mean Platelet Volume 7.5; Monocytes # (A) 0.5 k/uL (0-1.0); Monocytes % (A) 4 %; Neutrophils # (A) 8.4 k/uL (1.3-7.7); Neutrophils % (A) 72 %; RBC 4.16 m/uL (3.80-5.40); RDW 14.4 % (11.5-15.5); WBC 11.8 k/uL (3.8-10.6); WBC (Perox) 12.33
== END | disposition home or self-care (01) ==
LOC: LABPAT 12:32
PROVIDERS: ATTEND Obstetrics & Gynecology
DX: Z01.810 Encounter for preprocedural cardiovascular examination (principal); Z01.812 Encounter for preprocedural laboratory examination
CPT/HCPCS: 85025

== ENCOUNTER 2017-03-06 07:08 | Day surgery (SDC) | payer OTHER ==
[2017-03-01 11:58] VITALS: BMI 25.9
--- NOTE | 2017-03-05 16:17 | P.HPOB ---
History of Present Illness H&P Date: 03/05/17 Chief Complaint: SAGAR III 61 year old presents for LEEP for SAGAR III. Review of Systems All systems: negative Constitutional: Denies chills, Denies fever Eyes: denies blurred vision, denies pain Ears, nose, mouth and throat: Denies headache, Denies sore throat Cardiovascular: Denies chest pain, Denies shortness of breath Respiratory: Denies cough Gastrointestinal: Denies abdominal pain, Denies diarrhea, Denies nausea, Denies vomiting Genitourinary: Denies dysuria, Denies hematuria Musculoskeletal: Denies myalgias Integumentary: Denies pruritus, Denies rash Neurological: Denies numbness, Denies weakness Psychiatric: Denies anxiety, Denies depression Endocrine: Denies fatigue, Denies weight change Past Medical History Past Medical History: COPD, GERD/Reflux, Hyperlipidemia, Hypertension, Myocardial Infarction ([place]) Additional Past Medical History / Comment(s): "HEARTBURN" Last Myocardial Infarction Date:: 2014 History of Any Multi-Drug Resistant Organisms: MRSA Date of last positivie culture/infection: unsure of date stated "years ago" MDRO Source:: wound on face Past Surgical History: Heart Catheterization With Stent, Orthopedic Surgery Additional Past Surgical History / Comment(s): LT KNEE RECONSTRUCTIVE SX, CATARACTS, CYST REMOVED FROM BEHIND LT EAR Past Anesthesia/Blood Transfusion Reactions: No Reported Reaction Date of Last Stent Placement:: 07/12/15 Past Psychological History: No Psychological Hx Reported Additional Psychological History / Comment(s): PT LIVES WITH HER DESTINI IN A 2 STORY HOME-7 STEPS INTO HOME..PT INDEPENDANT. NO OUTSIDE SERVICES. NO MEDICAL EQUIPMENT Smoking Status: Current every day smoker Past Alcohol Use History: Heavy Additional Past Alcohol Use History / Comment(s): ADMIT TO AVERAGE OF 10 DRINKS PER WEEK BEER OR RUM PER WEEK. STARTED SMOKING 1967-SMOKING 1/2 PPD Past Drug Use History: None Reported - Past Family History Mother Family Medical History: Cancer Father Family Medical History: No Reported History Medications and Allergies Home Medications Medication Instructions Recorded Confirmed Type Albuterol Inhaler [Ventolin Hfa 2 puff INHALATION RT-Q6H PRN 11/27/16 03/01/17 History Inhaler] Lisinopril [Zestril] 2.5 mg PO DAILY 11/27/16 03/01/17 History Spironolactone [Aldactone] 25 mg PO DAILY 11/27/16 03/01/17 History Allergies Allergy/AdvReac Type Severity Reaction Status Date / Time cephalexin monohydrate Allergy Rash/Hives Verified 03/01/17 11:41 [From Keflex] Exam Osteopathic Statement: *. No significant issues noted on an osteopathic structural exam other than those noted in the History and Physical/Consult. 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 LEEP
[~2017-03-06 07:08] MED LIST changes: +DEXAMETHASONE SOD PHOSPHATE 10 MG/ML 1 ML VIAL IV ONE; +HYDROmorphone 1 MG/ML 1 ML SYRINGE IVP PRN; -LIDOCAINE 1% 20 ML VIAL (10MG/ML) FOR IV START INTRADERMA PRN; +MIDAZOLAM 2 MG/2 ML VIAL IV PRN; +ONDANSETRON 4 MG/2 ML VIAL IVP ONE; +Pre Op ABX Message 1 EACH MISC MISCELLANE ONE
[2017-03-06] MEDS ORDERED: LIDOCAINE 1% 20 ML VIAL (10MG/ML) FOR IV START INTRADERMA ONE (07:47)
[2017-03-06] MEDS ORDERED: KETOROLAC 30 MG/ML 1 ML VIAL ONE (08:35)
[2017-03-06] MEDS ORDERED: LIDOCAINE 1% INJ 10MG/ML (20 ML MDV) ONE (08:35)
[2017-03-06] MEDS ORDERED: MIDAZOLAM 2 MG/2 ML VIAL ONE (08:35)
[2017-03-06] MEDS ORDERED: fentaNYL (PF) 50 MCG/ML 2 ML AMP ONE (08:35)
[2017-03-06] MEDS ORDERED: PROPOFOL 10 MG/ML 20 ML VIAL IV ONE (08:35)
[2017-03-06] MEDS ORDERED: FERRIC SUBSULFATE (MONSELS) JAR TOPICAL ONE (09:00)
--- NOTE | 2017-03-06 09:04 | P.OP ---
Date of Procedure: 03/06/17 Preoperative Diagnosis: 1. SAGAR III Postoperative Diagnosis: 1. SAGAR III Procedure(s) Performed: LEEP Implants: Anesthesia: MAC Surgeon: Samira Haq Estimated Blood Loss (ml): 3 IV fluids (ml): 300 Urine output (ml): 10 Pathology: other (cervical cone) Condition: stable Disposition: PACU Indications for Procedure: Operative Findings: Description of Procedure: Patient is taken the operating room where general anesthesia and obtained without difficulty. She was prepped and draped in the normal sterile fashion in dorsal lithotomy position, legs placed in candycane stirrups. Bladder was drained of all urine. [place] speculum was placed in the vagina. The loop was sucked up to cautery and a biopsy was taken of the cervix first the anterior lip from left to right and then the posterior lip from [id number] including the endocervix. The ball tip cauterization used to cauterize the crater left from the biopsy taken. Monsel solution was used to ensure hemostasis. Patient tolerated the procedure well. Sponge and instrument counts are correct 2. She was taken to recovery room in stable condition.
[2017-03-06 09:15] VITALS: TEMP 96.8
[2017-03-06 09:55] VITALS: RESP 18
[2017-03-06 10:11] VITALS: PULSE 53
[2017-03-06 10:40] VITALS: BP 135/63
== END 2017-03-06 10:42 | disposition home or self-care (01) ==
LOC: OR 07:08
PROVIDERS: ATTEND Obstetrics & Gynecology
DX: R87.612 Low grade squamous intraepithelial lesion on cytologic smear of cervix (LGSIL) (principal); I25.10 Atherosclerotic heart disease of native coronary artery without angina pectoris; I10 Essential (primary) hypertension; I42.9 Cardiomyopathy, unspecified; E78.5 Hyperlipidemia, unspecified; Z95.5 Presence of coronary angioplasty implant and graft; J44.9 Chronic obstructive pulmonary disease, unspecified; Z79.82 Long term (current) use of aspirin; Z79.02 Long term (current) use of antithrombotics/antiplatelets; Z79.899 Other long term (current) drug therapy; Z88.1 Allergy status to other antibiotic agents; I25.2 Old myocardial infarction; Z82.49 Family history of ischemic heart disease and other diseases of the circulatory system; F17.210 Nicotine dependence, cigarettes, uncomplicated; Z86.14 Personal history of Methicillin resistant Staphylococcus aureus infection
CPT/HCPCS: J2250; J1100; J2405; J2001; J3010; J1885; J2704; 88307

== ENCOUNTER → 2018-01-22 | Outpatient (CLI) | payer OTHER ==
[2018-01-22 08:57] LABS: HCT 42.8 % (34.0-46.0); HGB 13.9 gm/dL (11.4-16.0); MCH 31.2 pg (25.0-35.0); MCHC 32.5 g/dL (31.0-37.0); Mean Platelet Volume 6.7; Platelet Count 380 k/uL (150-450); RBC 4.45 m/uL (3.80-5.40); RDW 14.7 % (11.5-15.5); WBC 11.6 k/uL (3.8-10.6)
[2018-01-22 09:25] LABS: Anion Gap 12 mmol/L; Blood Urea Nitrogen 20 mg/dL (7-17); Carbon Dioxide 25 mmol/L (22-30); Chloride 104 mmol/L (98-107); Potassium 4.5 mmol/L (3.5-5.1); Sodium 141 mmol/L (137-145)
== END | disposition home or self-care (01) ==
LOC: LABWHC1 08:23
PROVIDERS: ATTEND Internal Medicine Interventional Cardiology
DX: Z01.812 Encounter for preprocedural laboratory examination (principal); I25.10 Atherosclerotic heart disease of native coronary artery without angina pectoris
CPT/HCPCS: 36415; 80051; 82565; 84520; 85027

== ENCOUNTER 2018-01-23 11:27 | Day surgery (SDC) | payer OTHER ==
[2018-01-21 12:48] VITALS: BMI 24.4
[~2018-01-23 11:27] MED LIST changes: +ALPRAZolam 0.25 MG TAB PO PRN; +ASPIRIN 325 MG TAB PO ONE; +ATORVASTATIN 80 MG TAB PO STA; -DEXAMETHASONE SOD PHOSPHATE 10 MG/ML 1 ML VIAL IV ONE; -HYDROmorphone 1 MG/ML 1 ML SYRINGE IVP PRN; -LACTATED RINGERS 1,000 ML IV SCH; -MIDAZOLAM 2 MG/2 ML VIAL IV PRN; -ONDANSETRON 4 MG/2 ML VIAL IVP ONE; -Pre Op ABX Message 1 EACH MISC MISCELLANE ONE; +SODIUM CHLORIDE 0.9% 1,000 ML in EMPTY BAG 1 BAG IV ONE
[2018-01-23] MEDS ORDERED: SODIUM CHLORIDE 0.9% 1,000 ML IV ONE (11:57)
[2018-01-23] MEDS ORDERED: MIDAZOLAM 2 MG/2 ML VIAL IVP ONE (13:35)
[2018-01-23] MEDS ORDERED: LIDOCAINE 1% INJ 10MG/ML (20 ML MDV) SQ ONE (13:36)
[2018-01-23] MEDS: hydrALAZINE HCL 20 MG/ML 1 ML VIAL IVP ONE ×2 (13:44→13:47)
[2018-01-23] MEDS ORDERED: ENALAPRILAT 1.25 MG/ML 1 ML VIAL IVP ONE ×2 (13:45→14:15)
[2018-01-23] MEDS ORDERED: IOPAMIDOL-250 100ML BTL INTRAARTER ONE (13:48)
[2018-01-23] MEDS ORDERED: IOPAMIDOL-250 50ML BTL INTRAARTER ONE (13:48)
[2018-01-23] MEDS ORDERED: IOPAMIDOL-370 125ML BTL INJ ONE (13:54)
[2018-01-23] MEDS ORDERED: RX INFO: IV CONTRAST WAS GIVEN 1 EACH MISC MISCELLANE PRN (13:58)
[2018-01-23] MEDS ORDERED: SODIUM CHLORIDE 0.9% 1,000 ML IV SCH (14:00)
[2018-01-23] MEDS ORDERED: hydrALAZINE HCL 20 MG/ML 1 ML VIAL IVP ONE (14:09)
--- NOTE | 2018-01-23 14:35 | LTR ---
January 23, [address] Farrell: Ms. Taya Key underwent a peripheral angiogram and that revealed critical disease involving the right tibioperoneal trunk just behind her right knee and severe disease involving the left femoral artery. The patient will be scheduled to undergo a SIX COLOR PRESS OPERATOR in the next few days I want to thank you for allowing us to participate in her care and please do not hesitate to call for any questions or concerns. MMODL / IJN: [id number] /
--- NOTE | 2018-01-23 15:03 | CC ---
CARDIAC CATHETERIZATION REPORT . DATE OF SERVICE: 01/23/2018 PERFORMING PHYSICIAN: Peng Lambert MD, lead recreation assistant. PROCEDURE PERFORMED: 1. Selective right and left coronary angiogram. 2. Left heart catheterization. INDICATION: This is a pleasant 62-year-old female patient who does have history of coronary artery disease and she did undergo stenting of the stenting of the LAD and RCA in the past was experiencing chest discomfort concerning for angina. Because of that, a heart catheterization was recommended. APPROACH: Right common femoral artery. COMPLICATION: None. LEVEL OF SEDATION: Moderate with sedation length of 10 minutes. PROCEDURE DESCRIPTION: After obtaining informed consent, the patient was brought to cardiac pipelines laborer. The right common femoral artery was cannulated using micropuncture technique and a micropuncture wire passed easily. Then I placed a 6-[place] sheath in the right common femoral artery. After that, I did selective right and left coronary angiogram using JR4 and JL3.5 catheters. I did left heart catheterization using 6-[place] pigtail catheter. The procedure was completed without any complication. SELECTIVE CORONARY ANGIOGRAM: 1. The RCA is a large caliber vessel and it is a dominant vessel. The RCA proximally appeared to be angiographically normal. The mid RCA is stented and the stent is patent. The RCA distally appeared to be angiographically normal and bifurcates into PDA and PLV branches, both are angiographically normal. 2. The left main is angiographically normal. It bifurcates into into the circumflex and left anterior descending artery. 3. The left circumflex is a moderate caliber vessel, it is a nondominant vessel. The proximal circ appeared to be angiographically normal and gives rise into 2 OM branches both are angiographically normal. The mid circ is normal and gives rise into the third OM branch which appeared to be angiographically normal and the circ continued after that as a small-caliber vessel in the AV groove. 4. The LAD: The proximal LAD is angiographically normal. The LAD in the mid portion is stented and the stent is patent. Proximal to the stent, there is a lesion appeared to be in the range of 40%, seems to be unchanged compared to before. The LAD distally appeared to be angiographically normal. HEMODYNAMICS: The left ventricular end-diastolic pressure appeared to be 20-25 mmHg and no gradient was identified across the aortic valve. CONCLUSION: 1. Patent stent in the mid RCA. 2. Normal left circumflex coronary system. 3. Patent stent in the mid LAD. There was a lesion proximal to the stent appeared to be in the range of 40%, seems to be unchanged compared to before. 4. Normal left main coronary artery. 5. Elevated left ventricular end-diastolic pressure. POSTPROCEDURE MANAGEMENT: Maximize medical treatment and follow up with the patient. DELMY / ELIUD: [id number] /
--- NOTE | 2018-01-23 16:03 | AN ---
ANGIOGRAPHY REPORT DATE OF SERVICE: 01/23/2018 PERFORMING PHYSICIAN: Peng Lambert MD, polish compounder. PROCEDURES PERFORMED: 1. Abdominal aortogram. 2. Bilateral lower extremity runoff. INDICATION: This is a pleasant 62-year-old female patient who was experiencing bilateral lower extremity intermittent claudication, worse on the left side. She underwent an arterial duplex study that showed moderate to severe disease involving bilateral SFA. Because of that, an abdominal aortogram and bilateral lower extremity runoff were advised. APPROACH: Right common femoral artery. COMPLICATIONS: None. LEVEL OF SEDATION: Moderate with sedation length of 8 minutes. PROCEDURE DESCRIPTION: After obtaining informed consent, the patient was brought to the cardiac construction or leak gang laborer. The right common femoral artery was cannulated using micropuncture technique. The micropuncture wire passed easily. Then I placed a 6-[place] sheath in the right common femoral artery. After that I did an abdominal aortogram and bilateral lower extremity runoff using 5-[place] pigtail catheter which was initially placed at the level of the renal arteries, and it was pulled into above the bifurcation of the aorta to right and left common iliac arteries. The procedure was completed without any complication. PERIPHERAL ANGIOGRAM: 1. The aorta appeared to be calcified with mild disease only. 2. Common iliac arteries. The right and left common iliac arteries are angiographically normal. 3. Internal iliac arteries. The right and left internal iliac arteries are angiographically normal. 4. External iliac arteries. The right and left external iliac arteries are angiographically normal. 5. Common femoral arteries. The right and left common femoral arteries are angiographically normal. 6. Profundae. The right and left profundae are patent. 7. SFA. The ostial right SFA appeared to have mild disease only. The mid and distal SFA appeared to have mild disease only as well. The left SFA appeared to have 2 lesions in the proximal portion that seem to be in the range of 70%. 8. Popliteals. The right and left popliteals are angiographically normal. 9. Below the knee. There is 3-vessel runoff below the knee bilaterally. The TPT trunk on the right side has a tight lesion in the range of 80% to 90%. CONCLUSION: 1. Critical disease involving the right tibioperoneal trunk. 2. Severe disease involving the left SFA. POST-PROCEDURE MANAGEMENT: SWIMMING COACH of the right tibioperoneal trunk and subsequently SWIMMING COACH of the left SFA. MMODL / IJN: [id number] /
[2018-01-23 19:57] VITALS: BP 137/64; PULSE 79; RESP 16; TEMP 97.6
--- NOTE | 2018-01-24 09:31 | IR ---
Fluoroscopy HISTORY: Pain in legs 5.6 minutes fluoroscopy time supplied to the referring clinician. 355 intraoperative C-arm images do cument the procedure. See dictated report from cardiology.
== END 2018-01-23 20:40 | disposition home or self-care (01) ==
LOC: CATHCVL 11:27 → 3OBS 13:54 → CATHCVL 20:40
PROVIDERS: ATTEND Internal Medicine Interventional Cardiology
DX: I25.110 Atherosclerotic heart disease of native coronary artery with unstable angina pectoris (principal); I70.213 Atherosclerosis of native arteries of extremities with intermittent claudication, bilateral legs; Z95.5 Presence of coronary angioplasty implant and graft; R94.39 Abnormal result of other cardiovascular function study; E78.00 Pure hypercholesterolemia, unspecified; I10 Essential (primary) hypertension; I42.9 Cardiomyopathy, unspecified; I25.2 Old myocardial infarction; F17.210 Nicotine dependence, cigarettes, uncomplicated; Z79.02 Long term (current) use of antithrombotics/antiplatelets; Z79.82 Long term (current) use of aspirin; Z79.899 Other long term (current) drug therapy; Z88.1 Allergy status to other antibiotic agents; Z88.8 Allergy status to other drugs, medicaments and biological substances
CPT/HCPCS: 93458; 75625; 75716; C1894; C1769 ×2; J2250; J0360; J2001; Q9966 ×2; Q9967

== ENCOUNTER → 2018-03-11 | Outpatient (CLI) | payer OTHER ==
[2018-03-11 13:40] LABS: HCT 41.3 % (34.0-46.0); HGB 13.4 gm/dL (11.4-16.0); MCH 30.8 pg (25.0-35.0); MCHC 32.5 g/dL (31.0-37.0); Mean Platelet Volume 6.6; Platelet Count 375 k/uL (150-450); RBC 4.35 m/uL (3.80-5.40); RDW 13.9 % (11.5-15.5); WBC 9.9 k/uL (3.8-10.6)
[2018-03-11 13:55] LABS: Anion Gap 3 mmol/L; Blood Urea Nitrogen 17 mg/dL (7-17); Carbon Dioxide 30 mmol/L (22-30); Chloride 106 mmol/L (98-107); Potassium 5.1 mmol/L (3.5-5.1); Sodium 139 mmol/L (137-145)
== END | disposition home or self-care (01) ==
LOC: LABPAT 12:43
PROVIDERS: ATTEND Internal Medicine Interventional Cardiology
DX: Z01.812 Encounter for preprocedural laboratory examination (principal); I25.10 Atherosclerotic heart disease of native coronary artery without angina pectoris; I70.213 Atherosclerosis of native arteries of extremities with intermittent claudication, bilateral legs; I11.0 Hypertensive heart disease with heart failure; I50.9 Heart failure, unspecified
CPT/HCPCS: 36415; 80051; 82565; 84520; 85027

== ENCOUNTER 2018-03-13 10:49 | Day surgery (SDC) | payer OTHER ==
[2018-03-05 15:12] VITALS: BMI 24.4
[~2018-03-13 10:49] MED LIST changes: -ASPIRIN 325 MG TAB PO ONE; +ASPIRIN 325 MG TAB PO STA; -ATORVASTATIN 80 MG TAB PO STA
[2018-03-13] MEDS ORDERED: IV FLUID CONTINUATION 900 ML IV ONE (13:45)
[2018-03-13] MEDS: MIDAZOLAM 2 MG/2 ML VIAL IVP ONE ×2 (13:55→13:59)
[2018-03-13] MEDS ORDERED: LIDOCAINE 1% (PF) 10MG/ML VIAL SQ ONE (13:57)
[2018-03-13] MEDS ORDERED: HEPARIN SODIUM 1,000 UN/ML (10ML VL) IV ONE (14:00)
[2018-03-13] MEDS ORDERED: MIDAZOLAM 2 MG/2 ML VIAL IVP ONE (14:04)
[2018-03-13] MEDS ORDERED: fentaNYL (PF) 50 MCG/ML 2 ML AMP IVP ONE ×2 (14:11→16:29)
[2018-03-13] MEDS: NITROGLYCERIN 1000MCG/10ML SYRINGE INTRAARTER ONE ×2 (14:21→14:36)
[2018-03-13] MEDS ORDERED: CLOPIDOGREL 75 MG TAB PO ONE (14:24)
[2018-03-13] MEDS ORDERED: niCARdipine Syringe (1,000 mcg/10 mL) INTRAARTER ONE (14:36)
[2018-03-13] MEDS ORDERED: ALKA SELTZER PO PRN (14:47)
[2018-03-13] MEDS ORDERED: IOPAMIDOL-250 100ML BTL INTRAARTER ONE (14:51)
[2018-03-13] MEDS ORDERED: hydrALAZINE HCL 20 MG/ML 1 ML VIAL IVP STA (15:05)
[2018-03-13] MEDS ORDERED: SODIUM CHLORIDE 0.9% 1,000 ML IV SCH (17:00)
[2018-03-13] MEDS: hydrALAZINE HCL 10 MG TAB PO SCH ×2 (17:00→21:07)
[2018-03-13] MEDS: ALBUTEROL NEBULIZED 2.5 MG/3 ML INHALATION PRN (20:02)
--- NOTE | 2018-03-13 20:04 | LTR ---
DATE OF SERVICE: 03/13/[address] Farrell: Ms. Taya Key underwent successful balloon angioplasty and stenting of the left femoral artery with good angiographic results and reduction of stenosis from 70% to 0%. I want to thank you for allowing us to participate in her care and please do not hesitate to call if you have any questions or concerns. Sincerely, DELMY / ROMEON: [id number] /
[2018-03-13] MEDS: METOPROLOL TARTRATE 25 MG TAB PO SCH (20:17)
[2018-03-13] MEDS ORDERED: ATORVASTATIN 80 MG TAB PO SCH (21:00)
--- NOTE | 2018-03-13 21:02 | AN ---
ANGIOGRAPHY REPORT DATE OF PROCEDURE: March 13, 2018. PERFORMING PHYSICIAN: Peng Lambert MD, blow mold operator. PROCEDURES PERFORMED: 1. Selective right common femoral artery angiogram. 2. Selective left common iliac artery angiogram. 3. Selective left superficial femoral artery angiogram. 4. Selective left [id number]-[id number] angiogram. 5. Successful balloon angioplasty of the left femoral artery using 5.0 x 60 mm drug- coated balloon. 6. Successful stenting of the left SFA using 6.0 x 60 mm Zilver PTX drug coated stent with good angiographic results. INDICATION: This is a pleasant 62-year-old female patient with known history of coronary artery disease as well as peripheral arterial disease as well as hypertension and dyslipidemia who continues to smoke, unfortunately. She was experiencing bilateral lower extremities intermittent claudication and underwent a peripheral angiogram which revealed severe left SFA disease. Because of that, she was brought today to undergo an intervention of the left SFA. APPROACH: Right common femoral artery. COMPLICATION: None. LEVEL OF SEDATION: Moderate with sedation length of 45 minutes. PROCEDURE DESCRIPTION: After obtaining an informed consent, the patient was brought to the cardiac petroleum refinery laborer. The right common femoral artery was cannulated using micropuncture technique, the micropuncture wire passed easily. Then I placed a 6-Chilean sheath in the right common femoral artery. After that, I did . After that, I did place a 6-Chilean sheath in the right common femoral artery. Subsequently, I started anticoagulation using heparin and the patient was given 5000 units of heparin IV. Subsequently I did select the left SFA using a Rim catheter with 0.035 Glidewire. I did after that I exchanged my 11 cm 6-Chilean sheath into 55 cm 6-Chilean Raabe sheath using the Glidewire. After that, I did position the tip of the long sheath at the level of the left common femoral artery. After that, I did selective left laoqq-zqq-wwbm angiogram, as well as selective left SFA angiogram. After that, I did wire the left SFA using an 0.014 wire. I did balloon angioplasty using 5.0 x 60 mm drug-coated balloon and the subsequent angiogram showed dissection which was spiral confirmed by IVUS of the left SFA. I decided to cover the dissection with stent. I did deploy 6.0 x 60 mm Zilver PTX where the stent was positioned under fluoroscopy guidance and deployed under fluoroscopy guidance as well. I post dilated the stent using 5.5 mm balloon. The following angiogram showed excellent angiographic results and the procedure was completed without any complication. On the way back, I did selective left common iliac artery angiogram because I was suspecting a lesion in the left common iliac artery. The angiogram showed no lesions. After that, I did exchange my 55 cm 6-Chilean sheath into 11 cm 6-Chilean sheath using the 0.035 Advantage wire. By the end, I did selective right common femoral artery angiogram. The procedure was completed without any complication. POSTPROCEDURE MANAGEMENT: 1. Dual anti-platelet therapy. 2. Risk factors modifications and follow up with the patient. MMODL / IJN: [id number] /
[2018-03-14 05:54] LABS: Basophils % (A) 0 %; Eosinophils # (A) 0.2 k/uL (0-0.7); Eosinophils % (A) 2 %; HCT 37.1 % (34.0-46.0); HGB 12.1 gm/dL (11.4-16.0); Lymphocytes # (A) 1.7 k/uL (1.0-4.8); Lymphocytes % (A) 17 %; MCHC 32.6 g/dL (31.0-37.0); Mean Platelet Volume 6.5; Monocytes # (A) 0.5 k/uL (0-1.0); Monocytes % (A) 5 %; Neutrophils # (A) 7.6 k/uL (1.3-7.7); Neutrophils % (A) 75 %; Platelet Count 306 k/uL (150-450); RDW 13.9 % (11.5-15.5); WBC 10.1 k/uL (3.8-10.6)
[2018-03-14 06:02] LABS: Anion Gap 5 mmol/L; Blood Urea Nitrogen 17 mg/dL (7-17); Calcium 9.3 mg/dL (8.4-10.2); Carbon Dioxide 25 mmol/L (22-30); Chloride 106 mmol/L (98-107); Glucose 100 mg/dL (74-99); Potassium 4.1 mmol/L (3.5-5.1); Sodium 136 mmol/L (137-145)
[2018-03-14] MEDS: ALBUTEROL NEBULIZED 2.5 MG/3 ML INHALATION PRN (08:01)
[2018-03-14] MEDS: hydrALAZINE HCL 10 MG TAB PO SCH (08:10)
[2018-03-14] MEDS: METOPROLOL TARTRATE 25 MG TAB PO SCH (08:11)
[2018-03-14 08:41] VITALS: BP 147/84; PULSE 76; RESP 17; TEMP 97.1
[2018-03-14] MEDS ORDERED: ASPIRIN 81 MG PO SCH (09:00)
[2018-03-14] MEDS ORDERED: CLOPIDOGREL 75 MG TAB PO SCH (09:00)
--- NOTE | 2018-03-14 09:06 | IR ---
EXAMINATION TYPE: IR stent intravas non coronary DATE OF EXAM: 03/13/2018 COMPARISON: NONE HISTORY: Peripheral vascular occlusive disease. Fluoroscopy was provided to the referring clinician. See dictated report from cardiology.
--- NOTE | 2018-03-14 11:00 | DS ---
DISCHARGE SUMMARY ADMISSION DATE: 03/13/2018 DISCHARGE DATE: 03/14/2018 BRIEF HISTORY: This is a pleasant 62-year-old female patient who was admitted to the hospital yesterday and underwent successful balloon angioplasty and stenting of the left superficial femoral artery with good angiographic results and without any complication. On follow up with the patient today, she is doing good and asymptomatic. I was able to feel good left posterior tibial pulse. The right groin which is the access site is soft and nontender and without any bruises. The patient is going to be discharged home on dual antiplatelet therapy and I will follow up with the patient next week in the office. MMODL / IJN: [id number] /
[2018-03-14] MEDS ORDERED: SPIRONOLACTONE 25 MG TAB PO SCH (14:00)
[2018-03-14] MEDS ORDERED: LISINOPRIL 2.5 MG TAB PO SCH (14:00)
== END 2018-03-14 11:50 | disposition home or self-care (01) ==
LOC: CATHCVL 10:49 → 6SEL 17:16 → CATHCVL 03-14 11:50
PROVIDERS: ATTEND Internal Medicine Interventional Cardiology
DX: I70.213 Atherosclerosis of native arteries of extremities with intermittent claudication, bilateral legs (principal); I25.10 Atherosclerotic heart disease of native coronary artery without angina pectoris; I10 Essential (primary) hypertension; E78.5 Hyperlipidemia, unspecified; F17.210 Nicotine dependence, cigarettes, uncomplicated; I25.2 Old myocardial infarction; Z95.5 Presence of coronary angioplasty implant and graft; Z79.02 Long term (current) use of antithrombotics/antiplatelets; Z79.82 Long term (current) use of aspirin; Z79.899 Other long term (current) drug therapy; Z88.1 Allergy status to other antibiotic agents; Z88.8 Allergy status to other drugs, medicaments and biological substances
CPT/HCPCS: 94640 ×2; 37226; 85347; 37252; 80048; 85025; C1894 ×2; C1769 ×4; C1725; C1753; C1874; C2623; J2250; J0360; J3010; J1644; J2001; Q9966

== ENCOUNTER → 2018-04-13 | Outpatient (CLI) | payer OTHER ==
[2018-04-13 11:27] LABS: HCT 42.2 % (34.0-46.0); HGB 13.1 gm/dL (11.4-16.0); Hypochromasia Slight; MCH 29.9 pg (25.0-35.0); MCV 96.5 fL (80.0-100.0); Mean Platelet Volume 7.1; Platelet Count 472 k/uL (150-450); RBC 4.37 m/uL (3.80-5.40); RDW 13.4 % (11.5-15.5); WBC 12.8 k/uL (3.8-10.6)
[2018-04-13 11:39] LABS: Anion Gap 13 mmol/L; Blood Urea Nitrogen 26 mg/dL (7-17); Carbon Dioxide 22 mmol/L (22-30); Chloride 106 mmol/L (98-107); Potassium 5.3 mmol/L (3.5-5.1); Sodium 141 mmol/L (137-145)
== END | disposition home or self-care (01) ==
LOC: LABWHC1 10:42 → LABPAT 10:43
PROVIDERS: ATTEND Internal Medicine Interventional Cardiology
DX: Z01.812 Encounter for preprocedural laboratory examination (principal); I10 Essential (primary) hypertension; I25.10 Atherosclerotic heart disease of native coronary artery without angina pectoris; I70.213 Atherosclerosis of native arteries of extremities with intermittent claudication, bilateral legs
CPT/HCPCS: 36415; 80051; 82565; 84520; 85027

== ENCOUNTER 2018-04-16 06:27 | Day surgery (SDC) | payer OTHER ==
[2018-04-12 12:28] VITALS: BMI 24.4
[2018-04-16 07:03] LABS: Basophils # (A) 0.1 k/uL (0-0.2); Basophils % (A) 1 %; Eosinophils # (A) 0.6 k/uL (0-0.7); Eosinophils % (A) 5 %; HCT 38.5 % (34.0-46.0); HGB 12.5 gm/dL (11.4-16.0); Lymphocytes # (A) 2.7 k/uL (1.0-4.8); Lymphocytes % (A) 25 %; MCH 30.5 pg (25.0-35.0); MCHC 32.4 g/dL (31.0-37.0); Mean Platelet Volume 6.7; Monocytes # (A) 0.6 k/uL (0-1.0); Monocytes % (A) 5 %; Neutrophils # (A) 7.1 k/uL (1.3-7.7); Neutrophils % (A) 64 %; Platelet Count 430 k/uL (150-450); RDW 13.5 % (11.5-15.5); WBC 11.1 k/uL (3.8-10.6)
[2018-04-16 07:14] LABS: Calcium 9.5 mg/dL (8.4-10.2); Potassium 4.1 mmol/L (3.5-5.1)
[2018-04-16] MEDS: MIDAZOLAM 2 MG/2 ML VIAL IV ONE ×2 (07:41→07:56)
[2018-04-16] MEDS ORDERED: LIDOCAINE 1% INJ 10MG/ML (20 ML MDV) SQ ONE (07:44)
[2018-04-16] MEDS ORDERED: HEPARIN SODIUM 1,000 UN/ML (10ML VL) IV ONE (07:47)
[2018-04-16] MEDS ORDERED: niCARdipine Syringe (1,000 mcg/10 mL) INTRAARTER ONE (08:29)
[2018-04-16] MEDS ORDERED: NITROGLYCERIN 1000MCG/10ML SYRINGE INTRAARTER ONE (08:29)
[2018-04-16] MEDS ORDERED: CLOPIDOGREL 75 MG TAB PO ONE (08:35)
[2018-04-16] MEDS ORDERED: IOPAMIDOL-250 100ML BTL INTRAARTER ONE (08:36)
[2018-04-16] MEDS ORDERED: [UNRECOGNIZED DRUG - OTHER] PO PRN (08:39)
[2018-04-16] MEDS ORDERED: ASPIRIN PO PRN (08:39)
[2018-04-16] MEDS ORDERED: ALBUTEROL NEBULIZED 2.5 MG/3 ML INHALATION PRN (08:39)
[2018-04-16] MEDS ORDERED: SOD BICARB PO PRN (08:39)
[2018-04-16] MEDS ORDERED: CITRIC ACID PO PRN (08:39)
[2018-04-16] MEDS ORDERED: SODIUM CHLORIDE 0.9% 1,000 ML IV SCH (08:45)
--- NOTE | 2018-04-16 09:46 | LTR ---
DATE OF SERVICE: April 16, 2018 RE: Taya Key Dear Dr. Carrvi; Ms. Taya Key underwent successful balloon angioplasty of the right tibioperoneal trunk just below her right knee with good angiographic results and without any complication. I want to thank you for allowing me to participate in her care and please do not hesitate to call if you have any question or concern. Sincerely, MD DELMY Vaughan / ELIUD: [id number] /
--- NOTE | 2018-04-16 09:52 | PTCA ---
PERCUTANEOUSTRANS CORORONARY ANGIOGRAPHY DATE OF SERVICE: 04/16/2018 PERFORMING PHYSICIAN: Peng Lambert MD, Chairman And Ceo. PROCEDURE PERFORMED: 1. Selective right uuiil-kgi-[id number] angiogram. 2. Selective right tibioperoneal trunk angiogram. 3. Selective left common femoral artery angiogram. 4. Intravascular ultrasound IVUS of the right tibioperoneal trunk. 5. Successful balloon angioplasty of the right tibioperoneal trunk using 4-0 mm drug- coated balloon with excellent angiographic result and reduction of stenosis from 80% to 0%. INDICATION: This is a pleasant 62-year-old female patient with known history of CAD and PAD, who was experiencing bilateral lower extremities intermittent claudication. She underwent successful atherectomy and balloon angioplasty of the left SFA and she was brought today to undergo a CHIEF FUNDRAISING OFFICER of the right tibioperoneal trunk. APPROACH: Left common femoral artery. COMPLICATION: None. LEVEL OF SEDATION: Moderate with sedation length of 15 minutes. PROCEDURE DESCRIPTION: After obtaining an informed consent, the patient was brought to cardiac lab associate. The left common femoral artery was cannulated using micropuncture technique and a micropuncture wire passed easily, then I placed a 6-Argentine sheath in the left common femoral artery. After that, anticoagulation was initiated using heparin. The patient was given 6000 units of heparin IV. I did select the right SFA using 0.35 Advantage wire with a 5-Argentine rim catheter. After that, I did exchange my 11 cm 6-Argentine sheath into 55 cm 6-Argentine sheath using the Advantage wire. The tip of the sheath was positioned in the proximal right SFA. After that, I did cross the lesion in the right tibioperoneal trunk using 0.[address] wire. After that, I attempted doing atherectomy, but the device was not working well and because of that, I did balloon angioplasty using 3.0 mm balloon, then 3.5 mm AngioSculpt balloon, then 4 mm drug-coated balloon. The following angiogram showed excellent angiographic results with reduction of stenosis from 80% to 0%. The procedure was completed without any complication. After that I did exchange my 55 cm 6-Argentine sheath into 11 cm 6-Argentine sheath using the Advantage wire. I did selective left common femoral artery angiogram. The procedure was completed without any complication. POSTPROCEDURE MANAGEMENT: 1. Dual anti-platelet therapy. 2. Risk factor modification. 3. Follow up with the patient. MMODL / IJN: [id number] /
[2018-04-16] MEDS ORDERED: hydrALAZINE HCL 20 MG/ML 1 ML VIAL IVP PRN (12:52)
[2018-04-16] MEDS ORDERED: METOPROLOL TARTRATE 5 MG/5 ML VIAL IVP ONE (12:55)
[2018-04-16] MEDS ORDERED: hydrALAZINE HCL 20 MG/ML 1 ML VIAL ONE (12:56)
[2018-04-16] MEDS ORDERED: SPIRONOLACTONE 25 MG TAB PO SCH (14:00)
[2018-04-16] MEDS ORDERED: LISINOPRIL 2.5 MG TAB PO SCH (14:00)
[2018-04-16] MEDS: METOPROLOL TARTRATE 25 MG TAB PO SCH ×2 (16:05→18:30)
[2018-04-16] MEDS ORDERED: ATORVASTATIN 80 MG TAB PO SCH (21:00)
[2018-04-17 07:12] LABS: Basophils # (A) 0.1 k/uL (0-0.2); Basophils % (A) 1 %; Eosinophils # (A) 0.4 k/uL (0-0.7); Eosinophils % (A) 3 %; HCT 37.2 % (34.0-46.0); HGB 11.9 gm/dL (11.4-16.0); Lymphocytes # (A) 2.2 k/uL (1.0-4.8); Lymphocytes % (A) 19 %; MCH 30.4 pg (25.0-35.0); MCHC 32.1 g/dL (31.0-37.0); MCV 94.7 fL (80.0-100.0); Mean Platelet Volume 6.6; Monocytes # (A) 0.5 k/uL (0-1.0); Monocytes % (A) 4 %; Neutrophils # (A) 8.1 k/uL (1.3-7.7); Neutrophils % (A) 72 %; Platelet Count 359 k/uL (150-450); RBC 3.93 m/uL (3.80-5.40); RDW 13.6 % (11.5-15.5); WBC 11.2 k/uL (3.8-10.6)
[2018-04-17 07:26] LABS: Anion Gap 7 mmol/L; Blood Urea Nitrogen 28 mg/dL (7-17); Calcium 9.5 mg/dL (8.4-10.2); Carbon Dioxide 24 mmol/L (22-30); Chloride 108 mmol/L (98-107); Glucose 100 mg/dL (74-99); Potassium 5.1 mmol/L (3.5-5.1); Sodium 139 mmol/L (137-145)
[2018-04-17 08:25] VITALS: PULSE 78; RESP 18
[2018-04-17] MEDS: METOPROLOL TARTRATE 25 MG TAB PO SCH (08:51)
[2018-04-17] MEDS ORDERED: ASPIRIN 81 MG PO SCH (09:00)
[2018-04-17] MEDS ORDERED: CLOPIDOGREL 75 MG TAB PO SCH (09:00)
--- NOTE | 2018-04-17 09:29 | IR ---
Fluoroscopy HISTORY: Pain in right leg 8.6 minutes fluoroscopy time supplied to the referring clinician. 261 intraoperative C-arm images do cument the procedure. See dictated report from cardiology.
[2018-04-17 12:18] VITALS: BP 138/69; TEMP 96.9
--- NOTE | 2018-04-17 14:08 | DS ---
DISCHARGE SUMMARY ADMISSION DATE: 04/16/2018. DISCHARGE DATE: 04/17/2018 BRIEF HISTORY: This is a pleasant 62-year-old female patient who was admitted to the hospital yesterday and underwent successful balloon angioplasty of the right tibioperoneal trunk with good angiographic results and without any complication. On follow up with her today, she is doing good. The left groin is soft and nontender and without any bruises. The patient is going to be discharged home on dual anti- platelet therapy and I will follow up with her in the office in a week. DELMY / ROMEON: [id number] /
== END 2018-04-17 13:23 | disposition home or self-care (01) ==
LOC: CATHCVL 06:27 → 6SEL 08:33 → CATHCVL 04-17 13:23
PROVIDERS: ATTEND Internal Medicine Interventional Cardiology
DX: I70.213 Atherosclerosis of native arteries of extremities with intermittent claudication, bilateral legs (principal); I10 Essential (primary) hypertension; E78.5 Hyperlipidemia, unspecified; F17.210 Nicotine dependence, cigarettes, uncomplicated; I25.10 Atherosclerotic heart disease of native coronary artery without angina pectoris; Z95.5 Presence of coronary angioplasty implant and graft; I25.2 Old myocardial infarction; Z79.02 Long term (current) use of antithrombotics/antiplatelets; Z79.82 Long term (current) use of aspirin; Z79.899 Other long term (current) drug therapy; Z88.1 Allergy status to other antibiotic agents; Z88.8 Allergy status to other drugs, medicaments and biological substances
CPT/HCPCS: 37228; 85347; 37252; 80048 ×2; 85025 ×2; C1894 ×2; C1769 ×5; C1725 ×2; C1887; C1753; J2250; J0360; J2001; J1644; Q9966

== ENCOUNTER → 2019-04-25 | Outpatient (CLI) | payer BC ==
--- NOTE | 2019-04-28 12:55 | MM ---
Reason for exam: screening (asymptomatic). Last mammogram was performed 5 years and 5 months ago. History: Patient is postmenopausal. Family history of breast cancer in grandmother. Physical Findings: A clinical breast exam by your physician is recommended on an annual basis and results should be correlated with mammographic findings. MG 3D Screening Mammo W/Cad Bilateral CC and MLO view(s) were taken. Prior study comparison: November 28, 2013, bilateral MG screening mammo w CAD. February 26, 2008, bilateral digital screening mammogram. The breast tissue is heterogeneously dense. This may lower the sensitivity of mammography. No suspicious abnormality. No significant changes when compared with prior studies. ASSESSMENT: Negative, BI-RAD 1 RECOMMENDATION: Routine screening mammogram of both breasts in 1 year. Manage on a clinical basis with regard to left axilla pain. If breast pain, diagnostic exam/ultrasound recommended.
== END | disposition home or self-care (01) ==
LOC: RADMAMWWP 13:37
PROVIDERS: ATTEND Family Medicine
DX: Z12.31 Encounter for screening mammogram for malignant neoplasm of breast (principal)
CPT/HCPCS: 77063; 77067

== ENCOUNTER → 2019-08-25 | Outpatient (CLI) | payer MEDICARE ==
--- NOTE | 2019-08-25 20:02 | XR ---
EXAMINATION TYPE: XR chest 2V DATE OF EXAM: 08/25/2019 COMPARISON: Prior chest x-ray 11/27/2016 HISTORY: COPD TECHNIQUE: Frontal and lateral views of the chest are obtained. FINDINGS: There is no focal air space opacity, pleural effusion, or pneumothorax seen. The cardiac silhouette size is within normal limits. The osseous structures are intact. There are overlying car diac leads. Prominent lung volumes are noted consistent with COPD. Biapical pleural thickening is sta ble. There is flattening of hemidiaphragms. Aorta is dense. IMPRESSION: No acute cardiopulmonary process. Stable exam.
== END | disposition home or self-care (01) ==
LOC: RADXRMAIN 14:05
PROVIDERS: ATTEND Internal Medicine Sleep Medicine
DX: J44.9 Chronic obstructive pulmonary disease, unspecified (principal)
CPT/HCPCS: 71046

== ENCOUNTER → 2020-05-12 | Outpatient (CLI) | payer MEDICARE ==
--- NOTE | 2020-05-13 20:30 | BD ---
EXAMINATION TYPE: Axial Bone Density DATE OF EXAM: 05/12/2020 COMPARISON: 02.26.2008 CLINICAL HISTORY: 64 YR OLD FEMALE.....ICD-10 CODE: Z13.820 OSTEOPOROSIS SCREENING Height: 59 Weight: 144 FRAX RISK QUESTIONS: Glucocorticoids (More than 3mos): YES (Ex: prednisone, prednisolone, methylprednisolone, dexamethasone, and hydrocortisone). Current Tobacco Use: YES RISK FACTORS HISTORY OF: Diet low in dairy products/other sources of calcium: YES Postmenopausal woman: YES, AT AGE 49 Hyperparathyroidism: NO Adrenal Insufficiency: NO MEDICATIONS: Prednisone or other steroids: STEROIDS FOR COPD FOR MANY YRS Additional Medications: BP MEDS, REFLUX MEDS, CHOLESTEROL MEDS VIT D Additional History: HYPERTENSION, REFLUX, CHOLESTEROL EXAM MEASUREMENTS: Bone mineral densitometry was performed using the Exmovere System. Bone mineral density as measured about the Lumbar spine is: ----- L1-L4(G/cm2): 1.155 T Score Values are as follows: ---- L1: -0.9 ----- L2: -1.3 ----- L3: -0.3 ----- L4: 1.2 ----- L1-L4: -0.2 Bone mineral density has: Increased 13.6% since study of: 02.26.2008 Bone mineral density about the R hip (g/cm2): 0.723 Bone mineral density about the L hip (g/cm2): 0.679 T Score values are as follows: -----R Neck: -2.5 -----L Neck: -2.9 -----R Total: -2.3 -----L Total: -2.6 Bone mineral density has: Decreased -9.1% since study of: 11.27.2007 FRAX%s: THERE IS A 27.8% CHANCE FOR A MAJOR OSTEOPOROTIC FX AND A 12.9% FOR HIP.....PROBABILITY FOR FX IN 10 YRS TIME IMPRESSION: Osteoporosis (T Score less than -2.5). There is increased fracture risk and therapy is usually indicated based on age. Re-Screen 1-2 years. NOTE: T-SCORE=SD OF THE YOUNG ADULT MEAN.
--- NOTE | 2020-05-14 14:01 | MM ---
Reason for exam: screening (asymptomatic). Last mammogram was performed 1 year and 1 month ago. History: Patient is postmenopausal. Family history of breast cancer in grandmother. Physical Findings: A clinical breast exam by your physician is recommended on an annual basis and results should be correlated with mammographic findings. MG 3D Screening Mammo W/Cad Bilateral CC and MLO view(s) were taken. Prior study comparison: April 25, 2019, bilateral MG 3d screening mammo w/cad. November 28, 2013, bilateral MG screening mammo w CAD. There are scattered fibroglandular densities. There is chronic nodularity in the left breast. No significant changes when compared with prior studies. ASSESSMENT: Benign, BI-RAD 2 RECOMMENDATION: Routine screening mammogram of both breasts in 1 year.
== END | disposition home or self-care (01) ==
LOC: RADMAMWWP 08:56
PROVIDERS: ATTEND Family Medicine
DX: Z12.31 Encounter for screening mammogram for malignant neoplasm of breast (principal); Z13.820 Encounter for screening for osteoporosis; M81.0 Age-related osteoporosis without current pathological fracture
CPT/HCPCS: 77063; 77067; 77080

== ENCOUNTER 2020-06-06 15:16 | Emergency (ER) | payer MEDICARE ==
[2020-06-06 16:44] VITALS: RESP 18; TEMP 97.4
[2020-06-06] MEDS ORDERED: SODIUM CHLORIDE 0.9% 1,000 ML IV STA (17:02)
[2020-06-06] MEDS ORDERED: MORPHINE SULFATE 4 MG/ML SYRINGE IV STA (17:02)
--- NOTE | 2020-06-06 17:08 | ED ---
Abdominal Pain HPI - General Chief Complaint: Abdominal Pain Stated Complaint: Abd Pain Time Seen by Provider: 06/06/20 17:01 Source: patient, RN notes reviewed, old records reviewed Mode of arrival: wheelchair Limitations: no limitations - History of Present Illness Initial Comments: This is a 64-year-old female DF for nonspecific abdominal pain right-sided right lower quadrant abdominal pain. No dysuria, patient has no fevers no nausea vomiting no diarrhea. MD Complaint: abdominal pain -: days(s) Location: diffuse Radiation: none Severity: mild Severity scale (1-10): 3 Quality: cramping, stabbing Consistency: constant Improves With: nothing Worsens With: nothing Associated Symptoms: nausea Treatments Prior to Arrival: other (None) - Related Data Home Medications Medication Instructions Recorded Confirmed Albuterol Inhaler (Mhu) [Ventolin 2 puff INHALATION Q4-6H PRN 11/27/16 04/16/18 Hfa Inhaler (Mhu)] Spironolactone [Aldactone] 25 mg PO DAILY@1400 11/27/16 04/16/18 lisinopriL [Zestril] 2.5 mg PO DAILY@1400 11/27/16 04/16/18 Aspirin 81 mg PO DAILY 03/05/18 04/16/18 Aspirin/Sod Bicarb/Citric Acid 1 each PO DIRECTED PRN 04/12/18 04/16/18 [Ruth Original Tab Eff] Previous Rx's Medication Instructions Recorded Metoprolol Tartrate [Lopressor] 25 mg PO BID #60 tab 07/17/15 Atorvastatin [Lipitor] 80 mg PO HS #30 tab 08/05/15 Clopidogrel [Plavix] 75 mg PO DAILY #30 tab 08/05/15 Allergies Allergy/AdvReac Type Severity Reaction Status Date / Time cephalexin monohydrate Allergy Rash/Hives Verified 06/06/20 16:44 [From [employer]] Review of Systems ROS Statement: Those systems with pertinent positive or pertinent negative responses have been documented in the HPI. ROS Other: All systems not noted in ROS Statement are negative. Past Medical History Past Medical History: COPD, GERD/Reflux, Hyperlipidemia, Hypertension, Myocardial Infarction (ID), Vascular Disorder Additional Past Medical History / Comment(s): OCCASIONAL SOB., VARICOSE VEINS.,STATES LEGS PAINFUL AT TIMES., SEE CARDIOLOGY H & P. Last Myocardial Infarction Date:: 2014 History of Any Multi-Drug Resistant Organisms: MRSA Date of last positivie culture/infection: 2013 MDRO Source:: under nose Past Surgical History: Heart Catheterization With Stent, Orthopedic Surgery Additional Past Surgical History / Comment(s): LT KNEE RECONSTRUCTIVE SX, C ATARACTS, CYST REMOVED FROM BEHIND LT EAR., BALLOON ANGIOPLASTY WITH STENT LEFT FEMORAL ARTERY (02/2018) Past Anesthesia/Blood Transfusion Reactions: No Reported Reaction Date of Last Stent Placement:: 07/12/15 Past Psychological History: Anxiety Smoking Status: Current every day smoker Past Alcohol Use History: Daily Past Drug Use History: None Reported - Past Family History Mother Family Medical History: Cancer Father Family Medical History: No Reported History General Exam Limitations: no limitations General appearance: alert, in no apparent distress Head exam: Present: atraumatic, normocephalic, normal inspection Eye exam: Present: normal appearance, PERRL, EOMI. Absent: scleral icterus, conjunctival injection, periorbital swelling ENT exam: Present: normal exam, mucous membranes moist Neck exam: Present: normal inspection. Absent: tenderness, meningismus, lymphadenopathy Respiratory exam: Present: normal lung sounds bilaterally. Absent: respiratory distress, wheezes, rales, rhonchi, stridor Cardiovascular Exam: Present: regular rate, normal rhythm, normal heart sounds. Absent: systolic murmur, diastolic murmur, rubs, gallop, clicks GI/Abdominal exam: Present: soft, normal bowel sounds. Absent: distended, tenderness, guarding, rebound, rigid Extremities exam: Present: normal inspection, full ROM, normal capillary refill. Absent: tenderness, pedal edema, joint swelling, calf tenderness Back exam: Present: normal inspection Neurological exam: Present: alert, oriented X3, CN II-XII intact Psychiatric exam: Present: normal affect, normal mood Skin exam: Present: warm, dry, intact, normal color. Absent: rash Course Vital Signs 06/06/20 06/06/20 06/06/20 16:41 19:22 20:36 Temperature 97.4 F L Pulse Rate 71 67 68 Respiratory 18 18 18 Rate Blood Pressure 189/79 199/85 198/62 O2 Sat by Pulse 99 99 100 Oximetry - Reevaluation(s) Reevaluation #1: 06/06/20 20:44 Medical records reviewed Reevaluation #2: 06/06/20 20:44 Spoke with patient regarding findings and answers Reevaluation #3: 06/06/20 20:44 Patient feels better Medical Decision Making - Medical Decision Making 64 female abdominal pain. No acute cause found here in the ER patient can be discharged home - Lab Data Result diagrams: 06/06/20 19:03 06/06/20 19:03 Lab Results 06/06/20 06/06/20 06/06/20 Range/Units 19:03 19:03 19:03 WBC 10.4 (3.8-10.6) k/uL RBC 4.90 (3.80-5.40) m/uL Hgb 15.0 (11.4-16.0) gm/dL Hct 44.6 (34.0-46.0) % MCV 91.1 (80.0-100.0) fL MCH 30.6 (25.0-35.0) pg MCHC 33.6 (31.0-37.0) g/dL RDW 14.1 (11.5-15.5) % Plt Count 366 (150-450) k/uL Neutrophils % 69 % Lymphocytes % 21 % Monocytes % 5 % Eosinophils % 3 % Basophils % 1 % Neutrophils # 7.2 (1.3-7.7) k/uL Lymphocytes # 2.1 (1.0-4.8) k/uL Monocytes # 0.6 (0-1.0) k/uL Eosinophils # 0.3 (0-0.7) k/uL Basophils # 0.1 (0-0.2) k/uL Sodium 137 (137-145) mmol/L Potassium 5.1 (3.5-5.1) mmol/L Chloride 103 (98-107) mmol/L Carbon Dioxide 25 (22-30) mmol/L Anion Gap 9 mmol/L BUN 14 (7-17) mg/dL Creatinine 0.67 (0.52-1.04) mg/dL Est GFR (CKD-EPI)AfAm >90 (>60 ml/min/1.73 sqM) Est GFR (CKD-EPI)NonAf >90 (>60 ml/min/1.73 sqM) Glucose 95 (74-99) mg/dL Plasma Lactic Acid James (0.7-2.0) mmol/L Calcium 10.1 (8.4-10.2) mg/dL Total Bilirubin 1.1 (0.2-1.3) mg/dL AST 31 (14-36) U/L ALT 22 (4-34) U/L Alkaline Phosphatase 104 (38-126) U/L Total Protein 8.0 (6.3-8.2) g/dL Albumin 4.6 (3.5-5.0) g/dL Amylase 36 (30-110) U/L Lipase 33 (23-300) U/L Urine Color Light Yellow Urine Appearance Clear (Clear) Urine pH 7.5 (5.0-8.0) Ur Specific [place] 1.010 (1.001-1.035) Urine Protein Negative (Negative) Urine Glucose (UA) Negative (Negative) Urine Ketones Negative (Negative) Urine Blood Negative (Negative) Urine Nitrite Negative (Negative) Urine Bilirubin Negative (Negative) Urine Urobilinogen <2.0 (<2.0) mg/dL Ur Leukocyte Esterase Negative (Negative) 06/06/20 Range/Units 19:03 WBC (3.8-10.6) k/uL RBC (3.80-5.40) m/uL Hgb (11.4-16.0) gm/dL Hct (34.0-46.0) % MCV (80.0-100.0) fL MCH (25.0-35.0) pg MCHC (31.0-37.0) g/dL RDW (11.5-15.5) % Plt Count (150-450) k/uL Neutrophils % % Lymphocytes % % Monocytes % % Eosinophils % % Basophils % % Neutrophils # (1.3-7.7) k/uL Lymphocytes # (1.0-4.8) k/uL Monocytes # (0-1.0) k/uL Eosinophils # (0-0.7) k/uL Basophils # (0-0.2) k/uL Sodium (137-145) mmol/L Potassium (3.5-5.1) mmol/L Chloride (98-107) mmol/L Carbon Dioxide (22-30) mmol/L Anion Gap mmol/L BUN (7-17) mg/dL Creatinine (0.52-1.04) mg/dL Est GFR (CKD-EPI)AfAm (>60 ml/min/1.73 sqM) Est GFR (CKD-EPI)NonAf (>60 ml/min/1.73 sqM) Glucose (74-99) mg/dL Plasma Lactic Acid James 1.7 (0.7-2.0) mmol/L Calcium (8.4-10.2) mg/dL Total Bilirubin (0.2-1.3) mg/dL AST (14-36) U/L ALT (4-34) U/L Alkaline Phosphatase (38-126) U/L Total Protein (6.3-8.2) g/dL Albumin (3.5-5.0) g/dL Amylase (30-110) U/L Lipase (23-300) U/L Urine Color Urine Appearance (Clear) Urine pH (5.0-8.0) Ur Specific [place] (1.001-1.035) Urine Protein (Negative) Urine Glucose (UA) (Negative) Urine Ketones (Negative) Urine Blood (Negative) Urine Nitrite (Negative) Urine Bilirubin (Negative) Urine Urobilinogen (<2.0) mg/dL Ur Leukocyte Esterase (Negative) - Radiology Data Radiology results: report reviewed (CT head and pelvis negative for acute disease), image reviewed Disposition Clinical Impression: Abdominal pain Disposition: HOME SELF-CARE Condition: Good Instructions (If sedation given, give patient instructions): Abdominal Pain (ED) Is patient prescribed a controlled substance at d/c from ED?: No Referrals: Christopher Farrell MD [Primary Care Provider] - 1-2 days
[2020-06-06 19:21] LABS: Basophils # (A) 0.1 k/uL (0-0.2); Basophils % (A) 1 %; Eosinophils # (A) 0.3 k/uL (0-0.7); Eosinophils % (A) 3 %; HCT 44.6 % (34.0-46.0); Lymphocytes # (A) 2.1 k/uL (1.0-4.8); Lymphocytes % (A) 21 %; MCH 30.6 pg (25.0-35.0); MCHC 33.6 g/dL (31.0-37.0); MCV 91.1 fL (80.0-100.0); Mean Platelet Volume 7.6; Monocytes # (A) 0.6 k/uL (0-1.0); Monocytes % (A) 5 %; Neutrophils # (A) 7.2 k/uL (1.3-7.7); Neutrophils % (A) 69 %; Platelet Count 366 k/uL (150-450); RDW 14.1 % (11.5-15.5); WBC 10.4 k/uL (3.8-10.6)
[2020-06-06 19:24] LABS: Appearance,Urine Clear (Clear); Bilirubin,Urine Negative (Negative); Blood,Urine Negative (Negative); Color,Urine Light Yellow; Glucose,Urine (UA) Negative (Negative); Ketones,Urine Negative (Negative); Leukocyte Esterase,Urine Negative (Negative); Nitrite,Urine Negative (Negative); PH, Urine 7.5 (5.0-8.0); Protein,Urine Negative (Negative); Urobilinogen,Urine <2.0 mg/dL (<2.0)
[2020-06-06 19:31] LABS: ALT 22 U/L (4-34); AST 31 U/L (14-36); African American GFR (CKD) >90 (>60 ml/min/1.73 sqM); Albumin 4.6 g/dL (3.5-5.0); Alkaline Phosphatase 104 U/L (38-126); Amylase 36 U/L (30-110); Anion Gap 9 mmol/L; Blood Urea Nitrogen 14 mg/dL (7-17); Calcium 10.1 mg/dL (8.4-10.2); Carbon Dioxide 25 mmol/L (22-30); Chloride 103 mmol/L (98-107); Glucose 95 mg/dL (74-99); Lipase 33 U/L (23-300); Non-African American GFR(CKD) >90 (>60 ml/min/1.73 sqM); Potassium 5.1 mmol/L (3.5-5.1); Sodium 137 mmol/L (137-145); Total Bilirubin 1.1 mg/dL (0.2-1.3)
--- NOTE | 2020-06-06 20:40 | CT ---
EXAMINATION TYPE: CT abdomen pelvis w con DATE OF EXAM: 06/06/2020 COMPARISON: None HISTORY: abdominal pain CT DLP: 901 mGycm Automated exposure control for dose reduction was used. CONTRAST: Performed with IV Contrast, patient injected with 100 mL of Isovue 300. Lung bases are clear. There is no pleural effusion. Heart size is normal. There is no pericardial eff usion. Liver spleen stomach pancreas gallbladder appear normal. Bile ducts are not dilated. There is no adrenal mass. Kidneys show satisfactory contrast opacification. There is no hydronephrosi s. The ureters are not dilated. Delayed images show normal renal excretion. Bladder distends smoothly . There is no inguinal hernia. There is no free fluid in the pelvis. There are multiple sigmoid diver ticula. There is no evidence of diverticulitis. There is 3.5 cm calcified uterine fundal fibroid. Kimmie endix is posterior and appears normal. There is no mesenteric edema. There is no ascites or free air. There is no bowel obstruction. The lumbar vertebra have normal alignment. There is narrowing of L4-5 and L5-S1 disc spaces with spur ring. The bony pelvis is intact. IMPRESSION: Sigmoid diverticulosis without diverticulitis. Atherosclerotic vascular disease. Normal appendix.
[2020-06-06 21:21] VITALS: BP 197/92; PULSE 72
== END 2020-06-06 21:37 | disposition home or self-care (01) ==
LOC: EC 15:16
DX: R10.31 Right lower quadrant pain (principal); J44.9 Chronic obstructive pulmonary disease, unspecified; I10 Essential (primary) hypertension; I25.2 Old myocardial infarction; Z79.51 Long term (current) use of inhaled steroids; Z79.82 Long term (current) use of aspirin; Z88.1 Allergy status to other antibiotic agents; Z79.899 Other long term (current) drug therapy; Z95.5 Presence of coronary angioplasty implant and graft; Z86.14 Personal history of Methicillin resistant Staphylococcus aureus infection
CPT/HCPCS: 36415; 80053; 82150; 83605; 83690; 85025; 81003; 74177; 99284; 96374; 96361; J2270; Q9967

== ENCOUNTER → 2020-12-22 | Outpatient (CLI) | payer MEDICARE ==
[2020-12-22 16:00] LABS: HGB 13.6 gm/dL (11.4-16.0); MCH 31.2 pg (25.0-35.0); MCHC 33.9 g/dL (31.0-37.0); MCV 91.9 fL (80.0-100.0); Mean Platelet Volume 7.5; Platelet Count 323 k/uL (150-450); RBC 4.35 m/uL (3.80-5.40); RDW 13.6 % (11.5-15.5); WBC 10.9 k/uL (3.8-10.6)
[2020-12-22 16:15] LABS: African American GFR (CKD) >90 (>60 ml/min/1.73 sqM); Anion Gap 9 mmol/L; Blood Urea Nitrogen 20 mg/dL (7-17); Carbon Dioxide 27 mmol/L (22-30); Chloride 102 mmol/L (98-107); Non-African American GFR(CKD) 89 (>60 ml/min/1.73 sqM); Potassium 4.4 mmol/L (3.5-5.1); Sodium 138 mmol/L (137-145)
== END | disposition home or self-care (01) ==
LOC: LABPAT 15:00
PROVIDERS: ATTEND Internal Medicine Interventional Cardiology
DX: Z01.812 Encounter for preprocedural laboratory examination (principal); R94.39 Abnormal result of other cardiovascular function study
CPT/HCPCS: 36415; 80051; 82565; 84520; 85027

== ENCOUNTER → 2022-01-28 | Outpatient (CLI) | payer MEDICARE ==
[2022-01-28 16:06] LABS: African American GFR (CKD) 53.6 (60.0-200.0); Anion Gap 10.8 mmol/L (10.00-18.00); Blood Urea Nitrogen 17.1 mg/dL (9.0-27.0); Carbon Dioxide 28.2 mmol/L (20.0-27.5); Non-African American GFR(CKD) 46.3 (60.0-200.0); Potassium 4.3 mmol/L (3.5-5.5)
[2022-01-28 16:15] LABS: HGB 12.2 g/dL (12.0-15.0); MCH 30.3 pg (27.0-32.0); MCHC 31.3 g/dL (32.0-37.0); Mean Platelet Volume 10.6 fL (9.5-12.2); NRBC Per 100 WBC 0 /100 WBCS (0.0-0.0); Platelet Count 331 X 10*3/uL (140-440); RBC 4.02 X 10*6/uL (4.10-5.20); RDW 14.1 % (11.5-14.5); WBC 10.73 X 10*3/uL (4.50-10.00)
== END | disposition home or self-care (01) ==
LOC: LABWHC1 10:48
PROVIDERS: ATTEND Internal Medicine Interventional Cardiology
DX: Z01.812 Encounter for preprocedural laboratory examination (principal); I70.213 Atherosclerosis of native arteries of extremities with intermittent claudication, bilateral legs
CPT/HCPCS: 36415; 80051; 82565; 84520; 85027

== ENCOUNTER 2022-02-02 08:41 | Day surgery (SDC) | payer MEDICARE ==
[2022-01-27 14:19] VITALS: BMI 26.9
[~2022-02-02 08:41] MED LIST changes: +ASPIRIN 325 MG TAB PO PRN; -ASPIRIN 325 MG TAB PO STA; +HEPARIN SODIUM,PORCINE 10,000 UNIT in SODIUM CHLORIDE 0.9% 1,000 ML IRRIGATION PRN; +HEPARIN SODIUM,PORCINE 2,500 UNIT in SODIUM CHLORIDE 0.9% 250 ML IRRIGATION PRN; +ZOLPIDEM 5 MG TAB PO PRN
[2022-02-02] MEDS ORDERED: SODIUM CHLORIDE 0.9% 1,000 ML IV ONE (08:55)
[2022-02-02] MEDS ORDERED: ALPRAZolam 0.5 MG TAB ONE (09:05)
[2022-02-02 09:08] VITALS: TEMP 97.1
[2022-02-02] MEDS ORDERED: LIDOCAINE 1% INJ 10MG/ML (30 ML VIAL-PF) SQ ONE (10:56)
[2022-02-02] MEDS ORDERED: MIDAZOLAM 2 MG/2 ML VIAL IV ONE (10:57)
[2022-02-02] MEDS ORDERED: IOPAMIDOL-250 100ML BTL INTRAARTER ONE (11:05)
[2022-02-02] MEDS ORDERED: NALOXONE 0.4 MG/ML 1 ML VIAL IVP PRN (11:10)
--- NOTE | 2022-02-02 11:13 | P.PCN ---
Date of Procedure: 02/02/22 Operative Findings: AN ABDOMINAL AORTOGRAM AND BILATERAL LOWER EXTREMITIES RUNOFF PERFORMING PHYSICIAN: Peng Lambert MD PROCEDURE PERFORMED: 1. An abdominal aortogram 2. Bilateral lower extremities runoff INDICATION: This is a 66-year-old female patient with his coronary artery disease and lower extent his peripheral arterial disease and prior angioplasty of bilateral SFA as well as history of smoking was experiencing bilateral lower extremities discomfort concerning for intermittent claudication beach she underwent an arterial duplex study and that came in to be abnormal. COMPLICATION: None LEVEL OF SEDATION: Moderate was sedation length of 10 minutes APPROACH: Right common femoral artery PROCEDURE DESCRIPTION: After obtaining informed consent and explaining the procedure benefits, risks, and complications, the patient was brought to the cardiac label stamper. The right groin was prepped and draped in sterile fashion. The right common femoral artery was cannulated using micropuncture technique, under ultrasound guidance. A micropuncture wire was advanced, and the micropuncture sheath was advanced over the wire, then the micropuncture sheath was exchanged over an 0.35 wire into a 5-Malawian sheath dilator assembly then the wire and dilator were removed and sheath was flushed. We did an abdominal aortogram and bilateral lower extremities runoff using 5- Malawian pigtail catheter using a power injection. The catheter was initially placed at the level of the renal arteries, and it was pulled into above the bifurcation of the aorta into right and left common iliac arteries. The procedure was completed and there was no complications. SELECTIVE PERIPHERAL ANGIOGRAM: The abdominal aorta: Is angiographically normal The common iliac arteries: Have mild disease only The external iliac arteries: Have mild disease only The internal iliac arteries: Are patent The common femoral arteries: The right common femoral artery appeared to have mild disease only. The left common femoral artery appeared to have a tight lesion in the range of 70% appears to be eccentric Superficial femoral arteries: Both appeared to have mild diffuse disease. 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
[2022-02-02] MEDS ORDERED: SODIUM CHLORIDE 0.9% 1,000 ML in EMPTY BAG 1 BAG IV SCH (11:15)
--- NOTE | 2022-02-02 12:57 | IR ---
Fluoroscopy HISTORY: Peripheral vascular occlusive disease, leg pain 1.2 minutes fluoroscopy time supplied to the referring clinician. 72 intraoperative C-arm images doc ument the procedure. See dictated report from cardiology.
[2022-02-02 17:16] VITALS: BP 112/62; PULSE 58; RESP 18
== END 2022-02-02 17:00 | disposition home or self-care (01) ==
LOC: CATHCVL 08:41
PROVIDERS: ATTEND Internal Medicine Interventional Cardiology
DX: I70.213 Atherosclerosis of native arteries of extremities with intermittent claudication, bilateral legs (principal); I25.10 Atherosclerotic heart disease of native coronary artery without angina pectoris; I10 Essential (primary) hypertension; E78.5 Hyperlipidemia, unspecified; Z95.5 Presence of coronary angioplasty implant and graft; F17.200 Nicotine dependence, unspecified, uncomplicated; Z20.822 Contact with and (suspected) exposure to COVID-19; I25.2 Old myocardial infarction; I25.5 Ischemic cardiomyopathy; Z79.02 Long term (current) use of antithrombotics/antiplatelets; Z79.82 Long term (current) use of aspirin; Z79.899 Other long term (current) drug therapy; Z88.1 Allergy status to other antibiotic agents; Z88.8 Allergy status to other drugs, medicaments and biological substances
CPT/HCPCS: 36200; 75625; 75716; 76937; 87635; C1769 ×4; C1894; J2250; J2001; Q9966

== ENCOUNTER 2022-03-01 07:13 | Day surgery (SDC) | payer MEDICARE ==
[~2022-03-01 07:13] MED LIST changes: -ALPRAZolam 0.25 MG TAB PO PRN; -ASPIRIN 325 MG TAB PO PRN; -HEPARIN SODIUM,PORCINE 10,000 UNIT in SODIUM CHLORIDE 0.9% 1,000 ML IRRIGATION PRN; -HEPARIN SODIUM,PORCINE 2,500 UNIT in SODIUM CHLORIDE 0.9% 250 ML IRRIGATION PRN; -ZOLPIDEM 5 MG TAB PO PRN
[2022-03-01] MEDS ORDERED: SODIUM CHLORIDE 0.9% 1,000 ML IV ONE (07:20)
[2022-03-01] MEDS ORDERED: CLOPIDOGREL 75 MG TAB ONE (07:28)
[2022-03-01] MEDS ORDERED: ALPRAZolam 0.25 MG TAB ONE (07:40)
[2022-03-01 08:02] LABS: Basophils # (A) 0.1 k/uL (0-0.2); Basophils % (A) 1 %; Eosinophils # (A) 0.3 k/uL (0-0.7); Eosinophils % (A) 3 %; HCT 38.6 % (34.0-46.0); HGB 12.6 gm/dL (11.4-16.0); Lymphocytes # (A) 2.5 k/uL (1.0-4.8); Lymphocytes % (A) 24 %; MCH 31.1 pg (25.0-35.0); MCHC 32.5 g/dL (31.0-37.0); MCV 95.8 fL (80.0-100.0); Mean Platelet Volume 7.4; Monocytes # (A) 0.5 k/uL (0-1.0); Monocytes % (A) 5 %; Neutrophils # (A) 6.7 k/uL (1.3-7.7); Neutrophils % (A) 66 %; Platelet Count 348 k/uL (150-450); RBC 4.03 m/uL (3.80-5.40); RDW 13.9 % (11.5-15.5); WBC 10.1 k/uL (3.8-10.6)
[2022-03-01 08:17] LABS: Calcium 9.5 mg/dL (8.4-10.2); Potassium 4.5 mmol/L (3.5-5.1)
[2022-03-01] MEDS ORDERED: HEPARIN SODIUM 1,000 UN/ML (10ML VL) ONE (08:52)
[2022-03-01] MEDS ORDERED: MIDAZOLAM 2 MG/2 ML VIAL IV ONE (09:24)
[2022-03-01] MEDS ORDERED: LIDOCAINE 1% INJ 10MG/ML (30 ML VIAL-PF) SQ ONE (09:25)
[2022-03-01] MEDS ORDERED: HEPARIN SODIUM 1,000 UN/ML (10ML VL) IV ONE (09:40)
[2022-03-01] MEDS ORDERED: NALOXONE 0.4 MG/ML 1 ML VIAL IVP PRN (09:59)
[2022-03-01] MEDS ORDERED: IOPAMIDOL-250 100ML BTL INTRAARTER ONE (09:59)
[2022-03-01] MEDS ORDERED: SODIUM CHLORIDE 0.9% 1,000 ML in EMPTY BAG 1 BAG IV SCH (10:00)
--- NOTE | 2022-03-01 10:06 | P.PCN ---
Date of Procedure: 03/01/22 Operative Findings: PERCUTANEOUS PERIPHERAL ANGIOGRAM PERFORMING PHYSICIAN: Peng Lambert MD PROCEDURE PERFORMED: 1. Selective left common femoral artery angiogram 2. Gradient measurement across the left common femoral artery 3. Intravascular ultrasound of the left common femoral artery 4. Selective right common femoral artery angiogram 5. Ultrasound-guided access of the right common femoral artery INDICATION: This is a 66-year-old female patient who is known to have lower extremities peripheral arterial disease with prior angioplasty was experiencing left leg intermittent claudication. She underwent an angiogram recently and that showed an intermediate lesion involving the left common femoral artery but she was brought today for further investigation using ultrasound or gradient measurement and possible angioplasty COMPLICATION: None LEVEL OF SEDATION: Moderate was sedation length of 23 minutes APPROACH: Right common femoral artery PROCEDURE DESCRIPTION: After obtaining informed consent and explaining the procedure benefits, risks, and complications, the patient was brought to the cardiac laboratory animal care veterinarian. The right groin was prepped and draped in sterile fashion. The right common femoral artery was cannulated using micropuncture technique, under ultrasound guidance. A micropuncture wire was advanced, and the micropuncture sheath was advanced over the wire, then the micropuncture sheath was exchanged over an 0.35 wire into a 5-Malaysian sheath dilator assembly then the wire and dilator were removed and sheath was flushed. Subsequently I did selective the left external iliac artery using 035 stiff Glidewire with a backup support of 5-Malaysian rim catheter. The sheath was advanced over the wire and the catheter to the left external iliac artery. Selective left common femoral artery angiogram subsequently was performed. Then I did intravascular ultrasound after eye wired the left femoral artery using 014 wire. The area stenosis came in to be at 50% which is not significant. Also if the gradient measurement across it and that showed a gradient of only about 3 mmHg. After that I did exchange my long sheath into short sheath before I did selective right common femoral artery angiogram. The procedure was completed and there was no complications. CONCLUSION: #1 intermediate lesion involving the left common femoral artery. The lesion was hemodynamically not significant by intravascular ultrasound as well as gradient measurement POSTPROCEDURE MANAGEMENT: Medical treatment and follow-up with the patient
[2022-03-01] MEDS ORDERED: ALBUTEROL HFA INHALER INHALATION PRN (12:09)
[2022-03-01] MEDS ORDERED: hydrALAZINE HCL 20 MG/ML 1 ML VIAL ONE (12:57)
[2022-03-01] MEDS ORDERED: SODIUM CHLORIDE 0.9% 500 ML 500 ML IV ONE (13:00)
--- NOTE | 2022-03-01 13:51 | IR ---
Fluoroscopy HISTORY: Peripheral vascular occlusive disease 3.5 minutes fluoroscopy time supplied to the referring clinician. 57 intraoperative C-arm images doc ument the procedure. See dictated report from cardiology.
[2022-03-01 15:47] VITALS: TEMP 97.6
[2022-03-01 16:34] VITALS: PULSE 75; RESP 18
[2022-03-01 17:35] VITALS: BP 125/69
== END 2022-03-01 08:20 | disposition home or self-care (01) ==
LOC: CATHCVL 07:13 → 6NMEDSUR 09:47
PROVIDERS: ATTEND Internal Medicine Interventional Cardiology
DX: I70.213 Atherosclerosis of native arteries of extremities with intermittent claudication, bilateral legs (principal); I25.10 Atherosclerotic heart disease of native coronary artery without angina pectoris; E78.5 Hyperlipidemia, unspecified; I10 Essential (primary) hypertension; I25.5 Ischemic cardiomyopathy; Z20.822 Contact with and (suspected) exposure to COVID-19
CPT/HCPCS: 36200; 75710; 76937; 37252; 80048; 85025; 87635; C1894 ×2; C1769 ×5; C1753; J2250; J0360; J2001; J1644; Q9966

== ENCOUNTER 2023-03-30 14:24 | Observation (INO) | payer MEDICARE ==
[2023-03-30] MEDS ORDERED: ASPIRIN 81 MG PO STA (14:38)
--- NOTE | 2023-03-30 14:49 | ED ---
General Adult HPI - General Chief complaint: Chest Pain Stated complaint: Chest Pain Time Seen by Provider: 03/30/23 14:25 Source: patient, RN notes reviewed Mode of arrival: EMS Limitations: no limitations - History of Present Illness Initial comments: Patient is a pleasant 67-year-old female presenting to the emergency department with concerns with chest discomfort. Onset of symptoms was prior to arrival while doing light work/dishes. Discomfort is somewhat severe and felt like indigestion/burning. Patient did have some associated dyspnea. No back pain. No nausea vomiting. No diaphoresis. No history of similar symptoms previously however patient does have history of previous cardiac disease and stent. Symptoms have resolved and patient is currently symptom-free. - Related Data Home Medications Medication Instructions Recorded Confirmed Spironolactone [Aldactone] 25 mg PO DAILY 11/27/16 03/01/22 lisinopriL [Zestril] 2.5 mg PO DAILY 11/27/16 03/01/22 Aspirin 81 mg PO DAILY 03/05/18 03/01/22 Aspirin/Sod Bicarb/Citric Acid 1 tab PO Q8H PRN 04/12/18 03/01/22 [Kendra-Yadira Original Tab Eff] Albuterol Nebulized [Ventolin 2.5 mg INHALATION RT-Q4H PRN 06/06/20 03/01/22 Nebulized] Albuterol Sulfate [Ventolin HFA] 1 - 2 puff INHALATION RT-Q4H PRN 06/06/20 02/28/22 Cholecalciferol [Vitamin D3 (25 1,000 unit PO DAILY 06/06/20 03/01/22 Mcg = 1000 Iu)] Henry-3/Dha/Epa/Fish Oil [Fish Oil 2 each PO DAILY 01/27/22 03/01/22 1,000 mg Softgel] Previous Rx's Medication Instructions Recorded Metoprolol Tartrate [Lopressor] 25 mg PO BID #60 tab 07/17/15 Atorvastatin [Lipitor] 80 mg PO HS #30 tab 08/05/15 Clopidogrel [Plavix] 75 mg PO DAILY #30 tab 08/05/15 Allergies Allergy/AdvReac Type Severity Reaction Status Date / Time cephalexin monohydrate Allergy Rash/Hives Verified 03/30/23 14:27 [From Keflex] Review of Systems ROS Statement: Those systems with pertinent positive or pertinent negative responses have been documented in the HPI. ROS Other: All systems not noted in ROS Statement are negative. Constitutional: Denies: fever Eyes: Denies: eye pain ENT: Denies: ear pain Respiratory: Reports: as per HPI. Denies: cough Cardiovascular: Reports: as per HPI Endocrine: Denies: fatigue Gastrointestinal: Denies: abdominal pain, vomiting Past Medical History Past Medical History: COPD, GERD/Reflux, Hyperlipidemia, Hypertension, Myocardial Infarction (HI), Osteoarthritis (OA), Vascular Disorder Additional Past Medical History / Comment(s): OCCASIONAL SOB., VARICOSE VEINS.,STATES LEGS PAINFUL AT TIMES., constipation, Last Myocardial Infarction Date:: 2014 History of Any Multi-Drug Resistant Organisms: MRSA Date of last positivie culture/infection: 2013 MDRO Source:: under nose Past Surgical History: Heart Catheterization With Stent, Orthopedic Surgery Additional Past Surgical History / Comment(s): LT KNEE RECONSTRUCTIVE SX, CURTIS CATARACTS, CYST REMOVED FROM BEHIND LT EAR., BALLOON ANGIOPLASTY WITH STENT LEFT FEMORAL ARTERY (02/2018), 3 cardiact stents, recent aortogram Past Anesthesia/Blood Transfusion Reactions: No Reported Reaction Date of Last Stent Placement:: unknown Past Psychological History: No Psychological Hx Reported Smoking Status: Current every day smoker Past Alcohol Use History: Daily Past Drug Use History: None Reported - Past Family History Sister(s) Family Medical History: Deep Vein Thrombosis (DVT) Mother Family Medical History: Cancer Father Family Medical History: No Reported History General Exam Limitations: no limitations General appearance: alert, in no apparent distress Head exam: Present: normocephalic Eye exam: Present: normal appearance Neck exam: Present: normal inspection Respiratory exam: Present: wheezes (Mild expiratory wheeze). Absent: chest wall tenderness Cardiovascular Exam: Present: regular rate, normal rhythm, normal heart sounds Expanded Peripheral pulses: 2+: Radial (R), Radial (L), Posterior Tibialis (R), Posterior Tibialis (L) GI/Abdominal exam: Present: soft. Absent: tenderness Extremities exam: Present: normal inspection. Absent: pedal edema, calf tenderness Neurological exam: Present: alert Psychiatric exam: Present: normal affect, normal mood Skin exam: Present: normal color Course Vital Signs 03/30/23 14:29 Temperature 96.8 F L Pulse Rate 67 Respiratory 18 Rate Blood Pressure 161/66 O2 Sat by Pulse 96 Oximetry EKG Findings - EKG Results: EKG: interpreted by ERMD, sinus rhythm, normal axis, normal QRS, normal ST/T Medical Decision Making - Medical Decision Making Was pt. sent in by a medical professional or institution ([facility] Simmons, TERRAZZ[employer] MECHANIC HELPER, urgent care, hospital, or correction...) When possible be specific @ -No Did you speak to anyone other than the patient for history (EMS, parent, family, police, friend...)? What history was obtained from this source @ -No Did you review nursing and triage notes (agree or disagree)? Why? @ -I reviewed and agree with nursing and triage notes Were old charts reviewed (outside hosp., previous admission, EMS record, old EKG, old radiological studies, urgent care reports/EKG's, correction records)? Report findings @ -No old charts were reviewed Differential Diagnosis (chest pain, altered mental status, abdominal pain women, abdominal pain men, vaginal bleeding, weakness, fever, dyspnea, syncope, headache, dizziness, GI bleed, back pain, seizure, CVA, palpatations, mental health, musculoskeletal)? @ -Differential Chest Pain: Stable Angina, Unstable Angina, STEMI, NSTEMI Aortic Dissection, Pneumothorax, Musculoskeletal, Esophageal Spasm GERD, Cholecystitis, Pancreatitis, Zoster, this is not meant to be an all-inclusive list. EKG interpreted by me (3pts min.). @ -As above X-rays interpreted by me (1pt min.). @ -Chest x-ray shows no acute process CT interpreted by me (1pt min.). @ -None done U/S interpreted by me (1pt. min.). @ -None done What testing was considered but not performed or refused? (CT, X-rays, U/S, labs)? Why? @ -Computed tomography scan of the chest will be ordered What meds were considered but not given or refused? Why? @ -None Did you discuss the management of the patient with other professionals (professionals i.e. ALFR[facility]O Simmons, TERRAZZO MECHANIC HELPER, lab, RT, psych nurse, social insurance specialist, circulation assistant, teacher, staff air tactical officer, gearcase assembler)? Give summary @ -Case was discussed with Dr. Coffey, who will admit for Dr. Carrvi Was smoking cessation discussed for >3mins.? @ -No Was critical care preformed (if so, how long)? @ -No Were there social determinants of health that impacted care today? How? (Homelessness, low income, unemployed, alcoholism, drug addiction, transportation, low edu. Level, literacy, decrease access to med. care, residential, rehab)? @ -No Was there de-escalation of care discussed even if they declined (Discuss DNR or withdrawal of care, Hospice)? DNR status @ -No What co-morbidities impacted this encounter? (DM, HTN, Smoking, COPD, CAD, Cancer, CVA, ARF, Chemo, Hep., AIDS, mental health diagnosis, sleep apnea, morbid obesity)? @ -None Was patient admitted / discharged? Hospital course, mention meds given and route, prescriptions, significant lab abnormalities, going to OR and other pertinent info. @ -Patient reevaluated and resting comfortably in bed. Patient and family updated on results and plan. Patient will be admitted with cardiology consult. Computed tomography scan will be ordered. Undiagnosed new problem with uncertain prognosis? @ -No Drug Therapy requiring intensive monitoring for toxicity (Heparin, Nitro, Insulin, Cardizem)? @ -No Were any procedures done? @ -No Diagnosis/symptom? @ -Chest pain Acute, or Chronic, or Acute on Chronic? @ -Acute Uncomplicated (without systemic symptoms) or Complicated (systemic symptoms)? @ -default Side effects of treatment? @ -No Exacerbation, Progression, or Severe Exacerbation? @ -No Poses a threat to life or bodily function? How? (Chest pain, USA, HI, pneumonia, PE, COPD, DKA, ARF, appy, cholecystitis, CVA, Diverticulitis, Homicidal, Suicidal, threat to staff... and all critical care pts) @ -No - Lab Data Result diagrams: 03/30/23 14:30 03/30/23 14:45 Lab Results 03/30/23 03/30/23 03/30/23 Range/Units 14:30 14:45 14:45 WBC 8.8 (3.8-10.6) k/uL RBC 3.76 L (3.80-5.40) m/uL Hgb 12.2 (11.4-16.0) gm/dL Hct 36.2 (34.0-46.0) % MCV 96.1 (80.0-100.0) fL MCH 32.4 (25.0-35.0) pg MCHC 33.7 (31.0-37.0) g/dL RDW 13.9 (11.5-15.5) % Plt Count 259 (150-450) k/uL MPV 8.2 Neutrophils % 67 % Lymphocytes % 22 % Monocytes % 7 % Eosinophils % 3 % Basophils % 0 % Neutrophils # 5.9 (1.3-7.7) k/uL Lymphocytes # 1.9 (1.0-4.8) k/uL Monocytes # 0.6 (0-1.0) k/uL Eosinophils # 0.2 (0-0.7) k/uL Basophils # 0.0 (0-0.2) k/uL PT 9.7 (9.0-12.0) sec INR 0.9 (<1.2) APTT 19.6 L (22.0-30.0) sec D-Dimer 1.20 H (<0.60) mg/L FEU Sodium 138 (137-145) mmol/L Potassium 3.6 (3.5-5.1) mmol/L Chloride 99 (98-107) mmol/L Carbon Dioxide 30 (22-30) mmol/L Anion Gap 9 mmol/L BUN 25 H (7-17) mg/dL Creatinine 1.08 H (0.52-1.04) mg/dL Est GFR (CKD-EPI)AfAm 61 (>60 ml/min/1.73 sqM) Est GFR (CKD-EPI)NonAf 53 (>60 ml/min/1.73 sqM) Glucose 98 (74-99) mg/dL Calcium 9.6 (8.4-10.2) mg/dL Magnesium 1.9 (1.6-2.3) mg/dL Total Bilirubin 0.8 (0.2-1.3) mg/dL AST 33 (14-36) U/L ALT 23 (4-34) U/L Alkaline Phosphatase 63 (38-126) U/L Troponin I (0.000-0.034) ng/mL NT-Pro-B Natriuret Pep 848 pg/mL Total Protein 6.9 (6.3-8.2) g/dL Albumin 4.1 (3.5-5.0) g/dL Lipase 24 (23-300) U/L 03/30/23 Range/Units 14:45 WBC (3.8-10.6) k/uL RBC (3.80-5.40) m/uL Hgb (11.4-16.0) gm/dL Hct (34.0-46.0) % MCV (80.0-100.0) fL MCH (25.0-35.0) pg MCHC (31.0-37.0) g/dL RDW (11.5-15.5) % Plt Count (150-450) k/uL MPV Neutrophils % % Lymphocytes % % Monocytes % % Eosinophils % % Basophils % % Neutrophils # (1.3-7.7) k/uL Lymphocytes # (1.0-4.8) k/uL Monocytes # (0-1.0) k/uL Eosinophils # (0-0.7) k/uL Basophils # (0-0.2) k/uL PT (9.0-12.0) sec INR (<1.2) APTT (22.0-30.0) sec D-Dimer (<0.60) mg/L FEU Sodium (137-145) mmol/L Potassium (3.5-5.1) mmol/L Chloride (98-107) mmol/L Carbon Dioxide (22-30) mmol/L Anion Gap mmol/L BUN (7-17) mg/dL Creatinine (0.52-1.04) mg/dL Est GFR (CKD-EPI)AfAm (>60 ml/min/1.73 sqM) Est GFR (CKD-EPI)NonAf (>60 ml/min/1.73 sqM) Glucose (74-99) mg/dL Calcium (8.4-10.2) mg/dL Magnesium (1.6-2.3) mg/dL Total Bilirubin (0.2-1.3) mg/dL AST (14-36) U/L ALT (4-34) U/L Alkaline Phosphatase (38-126) U/L Troponin I <0.012 (0.000-0.034) ng/mL NT-Pro-B Natriuret Pep pg/mL Total Protein (6.3-8.2) g/dL Albumin (3.5-5.0) g/dL Lipase (23-300) U/L Disposition Clinical Impression: Chest pain Disposition: ADMITTED IP TO THIS HOSP Is patient prescribed a controlled substance at d/c from ED?: No Referrals: Christopher Farrell MD [Primary Care Provider] - 1-2 days Time of Disposition: 16:07
--- NOTE | 2023-03-30 15:06 | XR ---
EXAMINATION TYPE: XR chest 2V DATE OF EXAM: 03/30/2023 COMPARISON: 08/25/2019 TECHNIQUE: PA and lateral views submitted. HISTORY: Chest pain FINDINGS: The lungs are clear and there is no pneumothorax, pleural effusion, or focal pneumonia. Heart size normal and no overt failure. Osseous structures demonstrate hypertrophic and degenerative changes of the spine. Chronic deformity of the right lateral rib cage. Vascular calcifications noted. Diffuse os teopenia. Atherosclerotic change of the aorta. Hyperinflation suggests COPD. Biapical pleural thicken ing. IMPRESSION: 1. No acute process. Findings suggest COPD.
[2023-03-30 15:16] LABS: ALT 23 U/L (4-34); AST 33 U/L (14-36); African American GFR (CKD) 61 (>60 ml/min/1.73 sqM); Albumin 4.1 g/dL (3.5-5.0); Alkaline Phosphatase 63 U/L (38-126); Anion Gap 9 mmol/L; Blood Urea Nitrogen 25 mg/dL (7-17); Calcium 9.6 mg/dL (8.4-10.2); Carbon Dioxide 30 mmol/L (22-30); Chloride 99 mmol/L (98-107); Glucose 98 mg/dL (74-99); Lipase 24 U/L (23-300); Magnesium 1.9 mg/dL (1.6-2.3); Non-African American GFR(CKD) 53 (>60 ml/min/1.73 sqM); Potassium 3.6 mmol/L (3.5-5.1); Sodium 138 mmol/L (137-145); Total Bilirubin 0.8 mg/dL (0.2-1.3); Total Protein 6.9 g/dL (6.3-8.2)
[2023-03-30 15:21] LABS: Basophils % (A) 0 %; Eosinophils # (A) 0.2 k/uL (0-0.7); Eosinophils % (A) 3 %; HCT 36.2 % (34.0-46.0); HGB 12.2 gm/dL (11.4-16.0); Lymphocytes # (A) 1.9 k/uL (1.0-4.8); Lymphocytes % (A) 22 %; MCH 32.4 pg (25.0-35.0); MCHC 33.7 g/dL (31.0-37.0); MCV 96.1 fL (80.0-100.0); Mean Platelet Volume 8.2; Monocytes # (A) 0.6 k/uL (0-1.0); Monocytes % (A) 7 %; Neutrophils # (A) 5.9 k/uL (1.3-7.7); Neutrophils % (A) 67 %; Platelet Count 259 k/uL (150-450); RBC 3.76 m/uL (3.80-5.40); RDW 13.9 % (11.5-15.5); WBC 8.8 k/uL (3.8-10.6)
[2023-03-30 15:24] LABS: NT-Pro-B-Type Natriuretic Pept 848 pg/mL
[2023-03-30 15:28] LABS: INR 0.9 (<1.2); Prothrombin Time 9.7 sec (9.0-12.0)
[2023-03-30 15:39] LABS: Partial Thromboplastin Time 19.6 sec (22.0-30.0)
[2023-03-30] MEDS ORDERED: NITROGLYCERIN SL TABS 0.4 MG TAB SUBLINGUAL PRN (16:08)
--- NOTE | 2023-03-30 17:47 | CT ---
EXAMINATION TYPE: CT angio chest CT DLP: 284.2 mGycm, Automated exposure control for dose reduction was used. DATE OF EXAM: 03/30/2023 5:37 PM COMPARISON: Chest radiograph from same day. CLINICAL INDICATION:Female, 67 years old with history of cp; COPD, SOB, CP. TECHNIQUE/CONTRAST: CTA scan of the thorax is performed with IV Contrast, patient injected with 80 ml mL of Isovue 370, M IP images are created and reviewed these are created on a separate workstation.. FINDINGS: Pulmonary Artery: There is no evidence for a filling defect within the pulmonary vasculature to sugge st acute pulmonary embolism. The pulmonary artery is of normal size. Lungs/Pleura: Scattered paraseptal and centrilobular emphysema changes. No evidence of focal consolid ation, pleural effusion or pneumothorax. Left lower lobe 6 mm pulmonary nodule series 401 image 22. Airway: Large airways are patent. Heart: Heart is within normal limits for size. Vasculature: No evidence of aortic aneurysm. Moderate atherosclerosis of the arterial vasculature inc luding the carotid arteries at the bifurcation. Mediastinum: No gross evidence of adenopathy. Musculoskeletal: No acute osseous abnormalities Soft Tissues: Unremarkable. Lower neck: No significant findings. Upper Abdomen: No significant findings. IMPRESSION: 1. No evidence of pulmonary embolism. 2. Left lower lobe 6 mm pulmonary nodule follow-up in 6 months recommended to ensure stability. 3. Moderate to severe coronary artery atherosclerosis. 4. COPD with emphysema change.
[2023-03-30] MEDS ORDERED: ALBUTEROL HFA INHALER INHALATION PRN (20:10)
[2023-03-30] MEDS: METOPROLOL TARTRATE 25 MG TAB PO SCH (20:52)
[2023-03-30] MEDS ORDERED: ATORVASTATIN 80 MG TAB PO SCH (21:00)
[2023-03-30] MEDS ORDERED: NON FORMULARY DRUG (Omega-3/Dha/Epa/Fish Oil [Fish Oil 1,000 Mg Softgel] 1 EACH Capsule) PO SCH (21:00)
[2023-03-30] MEDS: IPRATROPIUM-ALBUTEROL 3 ML NEB INHALATION PRN (21:17)
[2023-03-31] MEDS: IPRATROPIUM-ALBUTEROL 3 ML NEB INHALATION PRN ×2 (08:03→11:47)
[2023-03-31] MEDS: METOPROLOL TARTRATE 25 MG TAB PO SCH (08:46)
[2023-03-31] MEDS ORDERED: CHOLECALCIFEROL 25 MCG (1000 IU) TABLET PO SCH (09:00)
[2023-03-31] MEDS ORDERED: ASPIRIN 325 MG TAB PO SCH (09:00)
[2023-03-31] MEDS ORDERED: CLOPIDOGREL 75 MG TAB PO SCH (09:00)
[2023-03-31 09:14] LABS: Chol/HDL Ratio 3.28 Ratio; LDL Cholesterol,Calculated 60.8 mg/dL (0.0-131.0)
[2023-03-31 09:44] VITALS: RESP 20
--- NOTE | 2023-03-31 11:25 | P.CRDCN ---
History of Present Illness Consult date: 03/31/23 Requesting physician: Rayray Jones Reason for Consult (text): chest pain Chief complaint: chest pain History of present illness: This is a pleasant 67-year-old female patient who follows with Dr. Lambert in the office. She has a history of CAD with prior stenting of the RCA and LAD with most recent cardiac catheterization in 2020 showing patent stents, ischemic cardiomyopathy, lower extremity peripheral artery disease with prior angioplasty of bilateral SFA/popliteal and also infrarenal abdominal aortic aneurysm, hypertension and mild carotid artery disease with most recent carotid duplex showing moderate plaque bilaterally and dyslipidemia. She is a current smoker about a half a pack a day and drinks 2-3 mixed drinks with ROM daily. She presented to the hospital with complaints of left-sided chest discomfort lasting about a minute and occurring a couple of times about 2 minutes apart. She is also been feeling more short of breath with worsening cough, chest congestion and wheezing. She has no orthopnea or PND and no edema. Troponins have been negative 3 Mary NT proBNP 848, BUN [address] of the chest was negative for PE, left lower lobe 6 mm pulmonary nodule and recommends six-month follow-up, moderate to severe coronary artery atherosclerosis, COPD with emphysema change. EKG shows sinus mechanism with nonspecific ST-T wave abnormalities but no evidence of ischemia. Chest x-ray shows no acute process, findings suggest COPD. Patient is resting in bed at the time of my exam. She is somewhat restless. Denies current complaints of chest discomfort. Complains of productive cough with mostly clear sputum. She follows with Dr. Monzon for pulmonary as an outpatient. Past Medical History Past Medical History: COPD, GERD/Reflux, Hyperlipidemia, Hypertension, Myocardial Infarction (PR), Osteoarthritis (OA), Vascular Disorder Additional Past Medical History / Comment(s): OCCASIONAL SOB., VARICOSE VEINS.,STATES LEGS PAINFUL AT TIMES., constipation, Last Myocardial Infarction Date:: 2014 History of Any Multi-Drug Resistant Organisms: MRSA Date of last positivie culture/infection: 2013 MDRO Source:: under nose Past Surgical History: Heart Catheterization With Stent, Orthopedic Surgery Additional Past Surgical History / Comment(s): LT KNEE RECONSTRUCTIVE SX, CURTIS CATARACTS, CYST REMOVED FROM BEHIND LT EAR., BALLOON ANGIOPLASTY WITH STENT LEFT FEMORAL ARTERY (02/2018), 3 cardiact stents, recent aortogram Past Anesthesia/Blood Transfusion Reactions: No Reported Reaction Date of Last Stent Placement:: unknown Past Psychological History: No Psychological Hx Reported Additional Psychological History / Comment(s): denies Smoking Status: Current every day smoker Past Alcohol Use History: Daily Additional Past Alcohol Use History / Comment(s): STARTED SMOKING AGE 19, SMOKED UP TO 2PPD., CURRENTLY SMOKING 10 CIGARETTES DAILY. DRINKS 1-2 DRINKS DAILY (RUM & COKE OR BEER) Past Drug Use History: None Reported - Past Family History Sister(s) Family Medical History: Deep Vein Thrombosis (DVT) Mother Family Medical History: Cancer Father Family Medical History: No Reported History Medications and Allergies Home Medications Medication Instructions Recorded Confirmed Type Metoprolol Tartrate [Lopressor] 25 mg PO BID #60 tab 07/17/15 03/30/23 Rx Atorvastatin [Lipitor] 80 mg PO HS #30 tab 08/05/15 03/30/23 Rx Clopidogrel [Plavix] 75 mg PO DAILY #30 tab 08/05/15 03/30/23 Rx Spironolactone [Aldactone] 25 mg PO PC-LUNCH 11/27/16 03/30/23 History Albuterol Sulfate [Ventolin HFA] 1 - 2 puff INHALATION RT-Q4H PRN 06/06/20 03/30/23 History [place]-3/Dha/Epa/Fish Oil [Fish Oil 1 cap PO HS 01/27/22 03/30/23 History 1,000 mg Softgel] Aspirin 81 mg PO DAILY 03/30/23 03/30/23 History Cholecalciferol [Vitamin D3 (25 25 mcg PO DAILY 03/30/23 03/30/23 History Mcg = 1000 Iu)] Ipratropium-Albuterol Nebulize 3 ml INHALATION RT-QID PRN 03/30/23 03/30/23 History [Duoneb 0.5 mg-3 mg/3 ml Soln] lisinopriL [Zestril] 5 mg PO PC-LUNCH 03/30/23 03/30/23 History Allergies Allergy/AdvReac Type Severity Reaction Status Date / Time cephalexin monohydrate Allergy Rash/Hives Verified 03/30/23 17:00 [From Keflex] Physical Exam Vitals: Vital Signs Temp Pulse Pulse Resp BP BP Pulse Ox 03/31/23 08:18 72 03/31/23 08:03 68 03/31/23 08:00 20 03/31/23 07:52 97.7 F 67 148/77 92 L 03/31/23 03:03 98.0 F 84 19 158/72 90 L 03/30/23 21:23 80 03/30/23 21:18 78 03/30/23 19:47 97.3 F L 91 16 151/66 93 L 03/30/23 18:24 98.2 F 78 18 122/71 98 03/30/23 17:57 96.8 F L 80 18 144/54 96 03/30/23 14:29 96.8 F L 67 18 161/66 96 Intake and Output 03/30/23 03/31/23 03/31/23 22:59 06:59 14:59 Other: Voiding Method Toilet Toilet # Voids 1 2 1 Weight 58.967 kg PHYSICAL EXAMINATION: This is a 67-year-old female who is somewhat restless at the time of my examination. HEENT: Head is atraumatic, normocephalic. Pupils are equal, round. Sclerae anicteric. Conjunctivae are clear. Mucous membranes of the mouth are moist. Neck is supple. There is no elevated jugular venous pressure. No carotid bruit is hea rd. CHEST EXAMINATION: Lungs reveal diffuse wheezing and scattered rhonchi. Respirations even and nonlabored. HEART EXAMINATION: Heart regular, positive S1 and S2. No S3. No S4. No clicks, rubs or murmurs. ABDOMEN: Soft, nontender. Bowel sounds are heard. No organomegaly noted. EXTREMITIES: Diminished peripheral pulses with no evidence of peripheral edema and no calf tenderness noted. NEUROLOGIC EXAMINATION: Patient is awake, alert and oriented x3. Results 03/30/23 14:30 03/30/23 14:45 Cardiac Enzymes 03/30/23 03/30/23 03/30/23 Range/Units 14:45 14:45 17:04 AST 33 (14-36) U/L Troponin I <0.012 <0.012 (0.000-0.034) ng/mL 03/30/23 Range/Units 20:38 AST (14-36) U/L Troponin I <0.012 (0.000-0.034) ng/mL Coagulation 03/30/23 Range/Units 14:45 PT 9.7 (9.0-12.0) sec APTT 19.6 L (22.0-30.0) sec Lipids 03/30/23 Range/Units 14:45 Triglycerides 179.00 H (0.00-149.00) mg/dL Cholesterol 139.00 (0.00-200.00) mg/dL HDL Cholesterol 42.40 (40.00-60.00) mg/dL Cholesterol/HDL Ratio 3.28 Ratio CBC 03/30/23 Range/Units 14:30 WBC 8.8 (3.8-10.6) k/uL RBC 3.76 L (3.80-5.40) m/uL Hgb 12.2 (11.4-16.0) gm/dL Hct 36.2 (34.0-46.0) % Plt Count 259 (150-450) k/uL Comprehensive Metabolic Panel 03/30/23 Range/Units 14:45 Sodium 138 (137-145) mmol/L Potassium 3.6 (3.5-5.1) mmol/L Chloride 99 (98-107) mmol/L Carbon Dioxide 30 (22-30) mmol/L BUN 25 H (7-17) mg/dL Creatinine 1.08 H (0.52-1.04) mg/dL Glucose 98 (74-99) mg/dL Calcium 9.6 (8.4-10.2) mg/dL AST 33 (14-36) U/L ALT 23 (4-34) U/L Alkaline Phosphatase 63 (38-126) U/L Total Protein 6.9 (6.3-8.2) g/dL Albumin 4.1 (3.5-5.0) g/dL Current Medications Generic Name Dose Route Start Last Admin Trade Name Freq PRN Reason Stop Dose Admin Albuterol/Ipratropium 3 ml 03/30/23 20:10 03/31/23 08:03 Ipratropium-Albuterol 3 Ml Neb INHALATION 3 ml RT-QID PRN Administration Shortness Of Breath Aspirin 325 mg 03/31/23 09:00 03/31/23 08:46 Aspirin 325 Mg Tab PO 325 mg DAILY BOYD Administration Atorvastatin Calcium 80 mg 03/30/23 21:00 03/30/23 20:52 Atorvastatin 80 Mg Tab PO 80 mg HS BOYD Administration Cholecalciferol 25 mcg 03/31/23 09:00 03/31/23 08:46 Cholecalciferol 25 Mcg (1000 Iu) Tablet PO 25 mcg DAILY BOYD Administration Clopidogrel Bisulfate 75 mg 03/31/23 09:00 03/31/23 08:46 Clopidogrel 75 Mg Tab PO 75 mg DAILY BOYD Administration Lisinopril 5 mg 03/31/23 13:30 Lisinopril 5 Mg Tab PO PC-LUNCH BOYD Metoprolol Tartrate 25 mg 03/30/23 21:00 03/31/23 08:46 Metoprolol Tartrate 25 Mg Tab PO 25 mg BID BOYD Administration Nitroglycerin 0.4 mg 03/30/23 16:08 Nitroglycerin Sl Tabs 0.4 Mg Tab SUBLINGUAL Q5M PRN Chest Pain Spironolactone 25 mg 03/31/23 13:30 Spironolactone 25 Mg Tab PO PC-LUNCH BOYD Intake and Output 03/30/23 03/31/23 03/31/23 22:59 06:59 14:59 Other: Voiding Method Toilet Toilet # Voids 1 2 1 Weight 58.967 kg 03/30/23 14:30 03/30/23 14:45 EKG Interpretations (text) Sinus rhythm with nonspecific ST-T wave abnormalities Assessment and Plan Assessment: 1 chest pain, acute coronary event has been ruled out, and troponins negative [address]-T wave abnormalities but no evidence of acute ischemia #2 CAD with prior stenting of the mid RCA and mid LAD with most recent cath in 2020 showing patent stents #3 PAD with prior peripheral intervention #4 ischemic cardiomyopathy most recent echocardiogram showing an ejection fraction of 45-50% with evidence of SWMA 5 hypertension 6 hyperlipidemia 7 nicotine dependence #8 COPD Plan: From cardiology perspective an acute coronary event has been ruled out. We will obtain a repeat 2-D echo with Doppler study to assess cardiac structure and function. She may be discharged from our standpoint. She will follow-up with Dr. Lambert as an outpatient. HANDS PARTER note has been reviewed, I agree with a documented findings and plan of care. Patient was seen and examined.
[2023-03-31] MEDS ORDERED: SPIRONOLACTONE 25 MG TAB PO SCH (13:30)
[2023-03-31] MEDS ORDERED: lisinopriL 5 MG TAB PO SCH (13:30)
[2023-03-31 14:09] VITALS: BP 136/68; PULSE 86; TEMP 97.5
--- NOTE | 2023-03-31 14:47 | CA ---
Transthoracic Echo Report Name: Taya Key Age: 67 Gender: F : 1955 Exam Date: 03/31/2023 10:55 Exam Location: [facility] Ht (in): 60 Wt (lb): 130 Ordering Physician: Yeimy Ruiz Attending/Referring Phys: [id number], Sara Mule Operator Roxanne Kim RDCS Procedure CPT: Indications: Chest Pain Cardiac Hx: Technical Quality: Fair Contrast 1: Total Dose (mL): Contrast 2: Total Dose (mL): MEASUREMENTS (Male / Female) Normal Values 2D ECHO LV Diastolic Diameter PLAX 3.7 cm 4.2 - 5.9 / 3.9 - 5.3 cm LV Systolic Diameter PLAX 2.2 cm IVS Diastolic Thickness 1.1 cm 0.6 - 1.0 / 0.6 - 0.9 cm LVPW Diastolic Thickness 1.2 cm 0.6 - 1.0 / 0.6 - 0.9 cm LV Relative Wall Thickness 0.6 RV Internal Dim ED PLAX 2.5 cm LA Volume 33.1 cm??? 18 - 58 / 22 - 52 cm??? M-MODE Aortic Root Diameter MM 3.1 cm LA Systolic Diameter MM 3.6 cm LA Ao Ratio MM 1.1 AV Cusp Separation MM 1.7 cm DOPPLER AV Peak Velocity 116.5 cm/s AV Peak Gradient 5.4 mmHg AV Mean Velocity 78.1 cm/s AV Mean Gradient 2.8 mmHg AV Velocity Time Integral 23.8 cm LVOT Peak Velocity 77.5 cm/s LVOT Peak Gradient 2.4 mmHg LVOT Velocity Time Integral 14.2 cm FINDINGS Left Ventricle Mildly increased left ventricular wall thickness. Left ventricular cavity size normal. Normal left ventricular systolic function with no obvious regional wall motion abnormalities. Left ventricular ejection fraction is estimated at 55-60 %. Right Ventricle Normal right ventricular size and function. Right ventricular systolic pressure within normal limits. Right Atrium Normal right atrial size. Left Atrium Normal left atrial size. Mitral Valve Structurally normal mitral valve. No mitral stenosis, or prolapse.trace mitral regurgitation. Aortic Valve Trileaflet aortic valve. No aortic valve stenosis or regurgitation. Tricuspid Valve Structurally normal tricuspid valve. mild tricuspid regurgitation. Pulmonic Valve Trace pulmonic regurgitation. Pericardium No pericardial effusion. Aorta Normal size aortic root and proximal ascending aorta. CONCLUSIONS 1. Normal left ventricle size and systolic function 2. Trace mitral and mild tricuspid regurgitation Previewed by: Dr. Melyssa Ramírez MD (Electronically Signed) Final Date: 31 March 2023 14:46
--- NOTE | 2023-04-01 10:07 | P.HPIM ---
History of Present Illness H&P Date: 03/30/23 Chief Complaint: Chest pain 67-year-old female, history of hypertension, hyperlipidemia, COPD, CAD, presenting to the emergency department with concerns with chest discomfort. Onset of symptoms was prior to arrival while doing light work/dishes. Discomfort is somewhat severe and felt like indigestion/burning. Patient did have some associated dyspnea. No back pain. No nausea vomiting. No diaphoresis. No history of similar symptoms previously however patient does perez ve history of previous cardiac disease and stent. Symptoms have resolved and patient is currently symptom-free. Troponins have been negative 3 Mary NT proBNP 848, BUN [address] of the chest was negative for PE, left lower lobe 6 mm pulmonary nodule and recommends six-month follow-up, moderate to severe coronary artery atherosclerosis, COPD with emphysema change. EKG shows sinus mechanism with nonspecific ST-T wave abnormalities but no evidence of ischemia. Chest x-ray shows no acute process, findings suggest COPD. Review of Systems REVIEW OF SYSTEMS: CONSTITUTIONAL: No fever, no malaise, no fatigue. HEENT: No recent visual problems or hearing problems. Denied any sore throat. CARDIOVASCULAR: No chest pain, orthopnea, PND, no palpitations, no syncope. PULMONARY: No shortness of breath, no cough, no hemoptysis. GASTROINTESTINAL: No diarrhea, no nausea, no vomiting, no abdominal pain. NEUROLOGICAL: No headaches, no weakness, no numbness. HEMATOLOGICAL: Denies any bleeding or petechiae. GENITOURINARY: Denies any burning micturition, frequency, or urgency. MUSCULOSKELETAL/RHEUMATOLOGICAL: Denies any joint pain, swelling, or any muscle pain. ENDOCRINE: Denies any polyuria or polydipsia. The rest of the 14-point review of systems is negative. Past Medical History Past Medical History: COPD, GERD/Reflux, Hyperlipidemia, Hypertension, Myocardial Infarction (ME), Osteoarthritis (OA), Vascular Disorder Additional Past Medical History / Comment(s): OCCASIONAL SOB., VARICOSE VEINS.,STATES LEGS PAINFUL AT TIMES., constipation, Last Myocardial Infarction Date:: 2014 History of Any Multi-Drug Resistant Organisms: MRSA Date of last positivie culture/infection: 2013 MDRO Source:: under nose Past Surgical History: Heart Catheterization With Stent, Orthopedic Surgery Additional Past Surgical History / Comment(s): LT KNEE RECONSTRUCTIVE SX, CURTIS CATARACTS, CYST REMOVED FROM BEHIND LT EAR., BALLOON ANGIOPLASTY WITH STENT LEFT FEMORAL ARTERY (02/2018), 3 cardiact stents, recent aortogram Past Anesthesia/Blood Transfusion Reactions: No Reported Reaction Date of Last Stent Placement:: unknown Past Psychological History: No Psychological Hx Reported Smoking Status: Current every day smoker Past Alcohol Use History: Daily Past Drug Use History: None Reported - Past Family History Sister(s) Family Medical History: Deep Vein Thrombosis (DVT) Mother Family Medical History: Cancer Father Family Medical History: No Reported History Medications and Allergies Home Medications Medication Instructions Recorded Confirmed Type Metoprolol Tartrate [Lopressor] 25 mg PO BID #60 tab 07/17/15 03/30/23 Rx Atorvastatin [Lipitor] 80 mg PO HS #30 tab 08/05/15 03/30/23 Rx Clopidogrel [Plavix] 75 mg PO DAILY #30 tab 08/05/15 03/30/23 Rx Spironolactone [Aldactone] 25 mg PO PC-LUNCH 11/27/16 03/30/23 History Albuterol Sulfate [Ventolin HFA] 1 - 2 puff INHALATION RT-Q4H PRN 06/06/20 03/30/23 History [place]-3/Dha/Epa/Fish Oil [Fish Oil 1 cap PO HS 01/27/22 03/30/23 History 1,000 mg Softgel] Aspirin 81 mg PO DAILY 03/30/23 03/30/23 History Cholecalciferol [Vitamin D3 (25 25 mcg PO DAILY 03/30/23 03/30/23 History Mcg = 1000 Iu)] Ipratropium-Albuterol Nebulize 3 ml INHALATION RT-QID PRN 03/30/23 03/30/23 History [Duoneb 0.5 mg-3 mg/3 ml Soln] lisinopriL [Zestril] 5 mg PO PC-LUNCH 03/30/23 03/30/23 History Allergies Allergy/AdvReac Type Severity Reaction Status Date / Time cephalexin monohydrate Allergy Rash/Hives Verified 03/30/23 17:00 [From Keflex] Physical Exam Vitals: Vital Signs Temp Pulse Resp BP Pulse Ox 03/30/23 14:29 96.8 F L 67 18 161/66 96 Intake and Output 03/30/23 03/30/23 03/30/23 06:59 14:59 22:59 Other: Weight 58.967 kg PHYSICAL EXAMINATION: This is a 67-year-old female who is somewhat restless at the time of my examination. HEENT: Head is atraumatic, normocephalic. Pupils are equal, round. Sclerae anicteric. Conjunctivae are clear. Mucous membranes of the mouth are moist. Neck is supple. There is no elevated jugular venous pressure. No carotid bruit is h eard. CHEST EXAMINATION: Lungs reveal diffuse wheezing and scattered rhonchi. Respirations even and nonlabored. HEART EXAMINATION: Heart regular, positive S1 and S2. No S3. No S4. No clicks, rubs or murmurs. ABDOMEN: Soft, nontender. Bowel sounds are heard. No organomegaly noted. EXTREMITIES: Diminished peripheral pulses with no evidence of peripheral edema and no calf tenderness noted. NEUROLOGIC EXAMINATION: Patient is awake, alert and oriented x3. Results CBC & Chem 7: 03/30/23 14:30 03/30/23 14:45 Labs: Abnormal Lab Results - Last 24 Hours (Table) 03/30/23 Range/Units 14:45 BUN 25 H (7-17) mg/dL Creatinine 1.08 H (0.52-1.04) mg/dL Assessment and Plan Assessment: 1. Chest pain - EKG reveals sinus rhythm with nonspecific ST and T wave abnormalities - Patient has history of coronary artery disease with prior stenting to mid RCA and mid LAD; most recent cardiac catheterization was done in 2020 which revealed patent stents - We will admit to telemetry and monitor EKG and trend troponin - Recommend 2-D echo - Cardiology is consulted; continue with aspirin, statin, Plavix and beta blockers 2. Ischemic cardiomyopathy; recent echocardiogram reveals ejection fraction of 45-50% 3. Acute renal injury; patient is started on IV fluid hydration; we will monitor strict NEO's, daily weights, renal function and electrolytes; avoid nephrotoxins and hypotension 4. Peripheral vascular disease; patient does have history of angiogram with i ntervention 5. Hypertension; metoprolol 25 mg twice a day; lisinopril 5 mg daily; Aldactone 25 mg daily 6. Hyperlipidemia; Lipitor 80 mg by mouth daily at bedtime 7. COPD; not in exacerbation; continue with home inhaler therapy
--- NOTE | 2023-04-01 10:08 | P.DS ---
Providers Date of admission: 03/30/23 16:08 Expected date of discharge: 03/31/23 Attending physician: Rayray Jones MD Consults: 03/30/23 16:08 Consult Physician Urgent Consulting Provider: Peng Lambert Consult Reason/Comments: cp Do you want consulting provider notified?: Yes Primary care physician: Anna Jaques Hospital Course: 67-year-old female, history of hypertension, hyperlipidemia, COPD, CAD, presenting to the emergency department with concerns with chest discomfort. Onset of symptoms was prior to arrival while doing light work/dishes. Discomfort is somewhat severe and felt like indigestion/burning. Patient did have some associated dyspnea. No back pain. No nausea vomiting. No diaphoresis. No history of similar symptoms previously however patient does have history of previous cardiac disease and stent. Symptoms have resolved and patient is currently symptom-free. Troponins have been negative 3 Mary NT proBNP 848, BUN [address] of the chest was negative for PE, left lower lobe 6 mm pulmonary nodule and recommends six-month follow-up, moderate to severe coronary artery atherosclerosis, COPD with emphysema change. EKG shows sinus mechanism with nonspecific ST-T wave abnormalities but no evidence of ischemia. Chest x-ray shows no acute process, findings suggest COPD. 1. Chest pain - EKG reveals sinus rhythm with nonspecific ST and T wave abnormalities - Patient has history of coronary artery disease with prior stenting to mid RCA and mid LAD; most recent cardiac catheterization was done in 2020 which revealed patent stents - We will admit to telemetry and monitor EKG and trend troponin - Recommend 2-D echo - Cardiology is consulted; continue with aspirin, statin, Plavix and beta blockers 2. Ischemic cardiomyopathy; recent echocardiogram reveals ejection fraction of 45-50% 3. Acute renal injury; patient is started on IV fluid hydration; we will monitor strict NEO's, daily weights, renal function and electrolytes; avoid nephrotoxins and hypotension 4. Peripheral vascular disease; patient does have history of angiogram with intervention 5. Hypertension; metoprolol 25 mg twice a day; lisinopril 5 mg daily; Aldactone 25 mg daily 6. Hyperlipidemia; Lipitor 80 mg by mouth daily at bedtime 7. COPD; not in exacerbation; continue with home inhaler therapy Cardiology evaluated the patient and recommended- repeat 2-D echo with Doppler study to assess cardiac structure and function. She may be discharged from our standpoint. She will follow-up with Dr. Lambert as an outpatient. Plan - Discharge Summary New Discharge Prescriptions: Continue Metoprolol Tartrate [Lopressor] 25 mg PO BID #60 tab Atorvastatin [Lipitor] 80 mg PO HS #30 tab Clopidogrel [Plavix] 75 mg PO DAILY #30 tab Spironolactone [Aldactone] 25 mg PO PC-LUNCH Albuterol Sulfate [Ventolin HFA] 1 - 2 puff INHALATION RT-Q4H PRN PRN Reason: Shortness Of Breath Aspirin 81 mg PO DAILY Cholecalciferol [Vitamin D3 (25 Mcg = 1000 Iu)] 25 mcg PO DAILY [place]-3/Dha/Epa/Fish Oil [Fish Oil 1,000 mg Softgel] 1 cap PO HS lisinopriL [Zestril] 5 mg PO PC-LUNCH Ipratropium-Albuterol Nebulize [Duoneb 0.5 mg-3 mg/3 ml Soln] 3 ml INHALATION RT-QID PRN PRN Reason: Shortness Of Breath Discharge Medication List Metoprolol Tartrate [Lopressor] 25 mg PO BID #60 tab 07/17/15 [Rx] Atorvastatin [Lipitor] 80 mg PO HS #30 tab 08/05/15 [Rx] Clopidogrel [Plavix] 75 mg PO DAILY #30 tab 08/05/15 [Rx] Spironolactone [Aldactone] 25 mg PO PC-LUNCH 11/27/16 [History] Albuterol Sulfate [Ventolin HFA] 1 - 2 puff INHALATION RT-Q4H PRN 06/06/20 [History] [place]-3/Dha/Epa/Fish Oil [Fish Oil 1,000 mg Softgel] 1 cap PO HS 01/27/22 [History] Aspirin 81 mg PO DAILY 03/30/23 [History] Cholecalciferol [Vitamin D3 (25 Mcg = 1000 Iu)] 25 mcg PO DAILY 03/30/23 [History] Ipratropium-Albuterol Nebulize [Duoneb 0.5 mg-3 mg/3 ml Soln] 3 ml INHALATION RT-QID PRN 03/30/23 [History] lisinopriL [Zestril] 5 mg PO PC-LUNCH 03/30/23 [History] Follow up Appointment(s)/Referral(s): Christopher Farrell MD [Primary Care Provider] - 1-2 days Patient Instructions/Handouts: Angina (GEN), Chest Pain (GEN), How to Stop Smoking (GEN), Cigarette Smoking and Your Health (GEN), COPD (Chronic Obstructive Pulmonary Disease) (GEN) Discharge Disposition: HOME SELF-CARE
== END 2023-03-31 16:44 | disposition home or self-care (01) ==
LOC: EC 14:24 → 6NMEDSUR 16:08
PROVIDERS: ADMIT Internal Medicine; ATTEND Internal Medicine
DX: N17.9 Acute kidney failure, unspecified (principal); I25.5 Ischemic cardiomyopathy; I25.10 Atherosclerotic heart disease of native coronary artery without angina pectoris; Z95.5 Presence of coronary angioplasty implant and graft; I73.9 Peripheral vascular disease, unspecified; I10 Essential (primary) hypertension; E78.5 Hyperlipidemia, unspecified; J44.9 Chronic obstructive pulmonary disease, unspecified; Z79.02 Long term (current) use of antithrombotics/antiplatelets; Z79.82 Long term (current) use of aspirin; Z79.899 Other long term (current) drug therapy; K21.9 Gastro-esophageal reflux disease without esophagitis; I25.2 Old myocardial infarction; Z86.14 Personal history of Methicillin resistant Staphylococcus aureus infection; Z98.42 Cataract extraction status, left eye; Z98.41 Cataract extraction status, right eye
CPT/HCPCS: 99285; 36415; 94640 ×3; 93005; 93306; 85379; 83880; 80061; 80053; 83690; 83735; 84484; 85025; 85610; 85730; 71046; 71275; G0378 ×2; Q9967

== ENCOUNTER → 2024-07-11 | Outpatient (CLI) | payer MEDICARE ==
--- NOTE | 2024-07-11 12:59 | XR ---
EXAMINATION TYPE: XR chest 2V DATE OF EXAM: 07/11/2024 12:37 PM COMPARISON: Chest radiographs from 03/30/2023 CLINICAL INDICATION: Female, 68 years old with history of J44.9CHRONIC OBSTRUCTIVE PULMONARY DISEASE, UNSPEC; H TECHNIQUE: XR chest 2V Frontal and lateral views of the chest. FINDINGS: Lungs/Pleura: There is no evidence of pleural effusion, focal consolidation, or pneumothorax. Pulmonary vascularity: Unremarkable. Heart/mediastinum: Cardiomediastinal silhouette is unremarkable. Atherosclerotic calcifications are seen in the aorta. Musculoskeletal: No acute osseous pathology. IMPRESSION: No acute cardiopulmonary disease/process. [facility], , 07/11/2024 12:57 PM
== END | disposition home or self-care (01) ==
LOC: RADXRMAIN 12:25
PROVIDERS: ATTEND Internal Medicine Sleep Medicine
DX: J44.9 Chronic obstructive pulmonary disease, unspecified (principal); I70.0 Atherosclerosis of aorta
CPT/HCPCS: 71046

== ENCOUNTER 2024-07-16 17:11 | Inpatient (IN) | payer MEDICARE ==
[2024-07-16] MEDS: methylPREDNISolone SOD SUCCI 125 MG/2 ML VIAL IV STA (17:55)
[2024-07-16 18:14] LABS: Basophils % (A) 0 %; Eosinophils # (A) 0.1 k/uL (0-0.7); Eosinophils % (A) 1 %; HCT 36.9 % (34.0-46.0); HGB 12.1 gm/dL (11.4-16.0); Lymphocytes # (A) 0.9 k/uL (1.0-4.8); Lymphocytes % (A) 6 %; MCH 30.7 pg (25.0-35.0); MCHC 32.8 g/dL (31.0-37.0); MCV 93.8 fL (80.0-100.0); Mean Platelet Volume 7.5; Monocytes # (A) 0.4 k/uL (0-1.0); Monocytes % (A) 3 %; Neutrophils # (A) 14.7 k/uL (1.3-7.7); Neutrophils % (A) 91 %; Platelet Count 446 k/uL (150-450); RBC 3.93 m/uL (3.80-5.40); RDW 12.9 % (11.5-15.5); WBC 16.2 k/uL (3.8-10.6)
[2024-07-16 18:26] LABS: ALT 32 U/L (4-34); AST 26 U/L (14-36); African American GFR (CKD) 68 (>60 ml/min/1.73 sqM); Albumin 3.9 g/dL (3.5-5.0); Alkaline Phosphatase 106 U/L (38-126); Anion Gap 8 mmol/L; Blood Urea Nitrogen 37 mg/dL (7-17); Calcium 9.6 mg/dL (8.4-10.2); Carbon Dioxide 30 mmol/L (22-30); Chloride 102 mmol/L (98-107); Glucose 157 mg/dL (74-99); Magnesium 1.6 mg/dL (1.6-2.3); Non-African American GFR(CKD) 59 (>60 ml/min/1.73 sqM); Potassium 4.2 mmol/L (3.5-5.1); Sodium 140 mmol/L (137-145); Total Bilirubin 0.4 mg/dL (0.2-1.3); Total Protein 6.3 g/dL (6.3-8.2)
--- NOTE | 2024-07-16 18:31 | XR ---
EXAMINATION TYPE: XR chest 2V DATE OF EXAM: 07/16/2024 6:15 PM COMPARISON: Chest radiographs from 07/28/2024 CLINICAL INDICATION: Female, 68 years old with history of SOB; [facility] TECHNIQUE: XR chest 2V Frontal and lateral views of the chest. FINDINGS: Lungs/Pleura: Prominent interstitial lung markings are seen scattered throughout the lungs. No eviden ce of focal consolidation, pneumothorax or pleural effusion. Pulmonary vascularity: Unremarkable. Heart/mediastinum: Cardiomediastinal silhouette is unremarkable. Atherosclerotic calcifications are seen in the aorta. Musculoskeletal: No acute osseous pathology. IMPRESSION: 1. Interstitial lung markings which are more pronounced than prior correlate for pulmonary edema. 2. COPD. [facility], , 07/16/2024 6:28 PM
[2024-07-16 18:35] LABS: NT-Pro-B-Type Natriuretic Pept 24300 pg/mL
[2024-07-16 18:37] LABS: Prothrombin Time 10.8 sec (10.0-12.5)
--- NOTE | 2024-07-16 19:34 | ED ---
General Adult HPI - General Chief complaint: Shortness of Breath Stated complaint: SOB Time Seen by Provider: 07/16/24 17:19 Source: patient, RN notes reviewed Mode of arrival: wheelchair Limitations: no limitations - History of Present Illness Initial comments: 68-year-old female presents to the emergency department for evaluation of shortness of breath. Patient reports that this has been ongoing for the past 10 days. She has seen her sound effects manager for this and was prescribed doxycycline and prednisone. She states that she is about fpc done with this course. She notes that her breathing continues to worsen. She does report a history of COPD. She denies recent fever, chills. Admits to mild lower extremity edema. No known history of CHF. Patient admits to intermittent chest discomfort with exertion which she describes as pressure. She denies any active chest pain. She is not on blood thinners. - Related Data Home Medications Medication Instructions Recorded Confirmed Spironolactone [Aldactone] 25 mg PO DAILY 11/27/16 07/16/24 Albuterol Sulfate [Ventolin HFA] 2 puff INHALATION RT-Q6H PRN 06/06/20 07/16/24 [place]-3/Dha/Epa/Fish Oil [Fish Oil 1 cap PO DAILY 01/27/22 07/16/24 1,000 mg Softgel] Cholecalciferol [Vitamin D3 (25 25 mcg PO DAILY 03/30/23 07/16/24 Mcg = 1000 Iu)] Ipratropium-Albuterol Nebulize 3 ml INHALATION RT-QID PRN 03/30/23 07/16/24 [Duoneb 0.5 mg-3 mg/3 ml Soln] Aspirin EC [Ecotrin] 325 mg PO DAILY 07/16/24 07/16/24 Doxycycline [Vibramycin] 100 mg PO BID 07/16/24 07/16/24 lisinopriL [Zestril] 10 mg PO DAILY 07/16/24 07/16/24 predniSONE [Deltasone] See Taper PO DAILY 07/16/24 07/16/24 Previous Rx's Medication Instructions Recorded Metoprolol Tartrate [Lopressor] 25 mg PO BID #60 tab 07/17/15 Atorvastatin [Lipitor] 80 mg PO HS #30 tab 08/05/15 Allergies Allergy/AdvReac Type Severity Reaction Status Date / Time cephalexin monohydrate Allergy Rash/Hives Verified 07/16/24 18:11 [From Keflex] Review of Systems ROS Statement: Those systems with pertinent positive or pertinent negative responses have been documented in the HPI. ROS Other: All systems not noted in ROS Statement are negative. Past Medical History Past Medical History: COPD, GERD/Reflux, Hyperlipidemia, Hypertension, Myocardial Infarction ([place]), Osteoarthritis (OA), Vascular Disorder Additional Past Medical History / Comment(s): OCCASIONAL SOB., VARICOSE VEINS.,STATES LEGS PAINFUL AT TIMES., constipation, Last Myocardial Infarction Date:: 2014 History of Any Multi-Drug Resistant Organisms: MRSA Date of last positivie culture/infection: 2013 MDRO Source:: under nose Past Surgical History: Heart Catheterization With Stent, Orthopedic Surgery Additional Past Surgical History / Comment(s): LT KNEE RECONSTRUCTIVE SX, CURTIS CATARACTS, CYST REMOVED FROM BEHIND LT EAR., BALLOON ANGIOPLASTY WITH STENT LEFT FEMORAL ARTERY (02/2018), 3 cardiact stents, recent aortogram Past Anesthesia/Blood Transfusion Reactions: No Reported Reaction Date of Last Stent Placement:: unknown Past Psychological History: No Psychological Hx Reported Smoking Status: Current every day smoker Past Alcohol Use History: Daily Past Drug Use History: None Reported - Past Family History Sister(s) Family Medical History: Deep Vein Thrombosis (DVT) Mother Family Medical History: Cancer Father Family Medical History: No Reported History General Exam Limitations: no limitations General appearance: alert, in no apparent distress Head exam: Present: atraumatic, normocephalic, normal inspection Eye exam: Present: normal appearance, PERRL, EOMI. Absent: scleral icterus, conjunctival injection, periorbital swelling ENT exam: Present: normal exam, mucous membranes moist Respiratory exam: Present: rales, rhonchi, accessory muscle use, decreased breath sounds. Absent: normal lung sounds bilaterally, chest wall tenderness Cardiovascular Exam: Present: regular rate, normal rhythm, normal heart sounds. Absent: systolic murmur, diastolic murmur, rubs, gallop, clicks GI/Abdominal exam: Present: soft. Absent: distended, tenderness, guarding, rebo und, rigid Extremities exam: Present: full ROM, normal capillary refill, pedal edema (1+ pitting edema bilateral lower extremities). Absent: tenderness, joint swelling, calf tenderness Neurological exam: Present: alert, oriented X3 Psychiatric exam: Present: normal affect, normal mood Skin exam: Present: warm, dry, intact, normal color. Absent: rash Course Vital Signs 07/16/24 07/16/24 07/16/24 17:13 18:15 18:36 Temperature 97.6 F Pulse Rate 77 Respiratory 22 30 H Rate Blood Pressure 173/81 O2 Sat by Pulse 96 97 89 L Oximetry 07/16/24 07/16/24 07/16/24 18:37 19:35 19:53 Temperature Pulse Rate 78 77 Respiratory Rate Blood Pressure O2 Sat by Pulse 95 Oximetry 07/16/24 20:25 Temperature Pulse Rate 77 Respiratory 18 Rate Blood Pressure 166/84 O2 Sat by Pulse 97 Oximetry Medical Decision Making - Medical Decision Making Was pt. sent in by a medical professional or institution (ALFREDO Simmons, EMBOSSING MACHINE OPERATOR, urgent care, hospital, or alf...) When possible be specific @ -No Did you speak to anyone other than the patient for history (EMS, parent, family, police, friend...)? What history was obtained from this source @ -Patient's daughter provided some history of this patient Did you review nursing and triage notes (agree or disagree)? Why? @ -I reviewed and agree with nursing and triage notes Were old charts reviewed (outside hosp., previous admission, EMS record, old EKG, old radiological studies, urgent care reports/EKG's, alf records)? Report findings @ -Prior chest x-ray from 2 days ago was reviewed revealing no acute process Differential Diagnosis (chest pain, altered mental status, abdominal pain women, abdominal pain men, vaginal bleeding, weakness, fever, dyspnea, syncope, headache, dizziness, GI bleed, back pain, seizure, CVA, palpatations, mental health, musculoskeletal)? @ -n differential Dyspnea: Coronary syndrome, arrhythmia, tamponade, asthma, COPD, pulmonary embolism, pneumonia, pneumothorax, pulmonary effusion, anaphylaxis, diabetic ketoacidosis, flailed chest, pulmonary contusion, diaphragmatic rupture, anemia, neuromuscular, this is not meant to be an all-inclusive list. EKG interpreted by me (3pts min.). @ -EKG at 1724 shows sinus rhythm rate 74, VT 138, QRS 98, QTQTc [id number] X-rays interpreted by me (1pt min.). @ -Chest x-ray shows pulmonary venous congestion CT interpreted by me (1pt min.). @ -None done U/S interpreted by me (1pt. min.). @ -None done What testing was considered but not performed or refused? (CT, X-rays, U/S, labs)? Why? @ -None What meds were considered but not given or refused? Why? @ -None Did you discuss the management of the patient with other professionals (professionals i.e. , PA, EMBOSSING MACHINE OPERATOR, lab, RT, psych nurse, child protective services social worker, nuclear physicist, teacher, rating officer, insurance case manager)? Give summary @ -Case discussed with Dr. Dc who is accepting of the admission and advised cardiology consultation Dr. Mccormack discussed the case with cardiology Was smoking cessation discussed for >3mins.? @ -No Was critical care preformed (if so, how long)? @ -No Were there social determinants of health that impacted care today? How? (Homelessness, low income, unemployed, alcoholism, drug addiction, transportation, low edu. Level, literacy, decrease access to med. care, usp, rehab)? @ -No Was there de-escalation of care discussed even if they declined (Discuss DNR or withdrawal of care, Hospice)? DNR status @ -No What co-morbidities impacted this encounter? (DM, HTN, Smoking, COPD, CAD, Cancer, CVA, ARF, Chemo, Hep., AIDS, mental health diagnosis, sleep apnea, morbid obesity)? @ -CAD, COPD Was patient admitted / discharged? Hospital course, mention meds given and route, prescriptions, significant lab abnormalities, going to OR and other pertinent info. @ -Admitted. Patient presented to the emergency department for evaluation of shortness of breath. Patient reports has been ongoing for the past 10 days. Patient dyspneic upon evaluation. She denies any active chest pain but does note that she has had been experiencing intermittent symptoms with exertion. Laboratory studies were obtained.CBC significant for leukocytosis with a WBC of 16.2; normal coagulation studies; CMP shows electrolytes within normal limits. Patient has BNP of 24,300 and a troponin of 1.36. Patient was negative for COVID, influenza, RSV. Serial troponin was ordered and was 1.4. Patient was provided 40 mg of Lasix, a dose of morphine which the patient refused, Nitropaste and was started on a heparin drip. Discussed the case with Dr. Precautions accepting of the admission. Undiagnosed new problem with uncertain prognosis? @ -No Drug Therapy requiring intensive monitoring for toxicity (Heparin, Nitro, Insulin, Cardizem)? @ -Heparin Were any procedures done? @ -No Diagnosis/symptom? @ -Dyspnea, CHF, elevated troponin Acute, or Chronic, or Acute on Chronic? @ -Acute Uncomplicated (without systemic symptoms) or Complicated (systemic symptoms)? @ -Complicated Side effects of treatment? @ -No Exacerbation, Progression, or Severe Exacerbation? @ -No Poses a threat to life or bodily function? How? (Chest pain, [place], [place], pneumonia, PE, COPD, DKA, ARF, appy, cholecystitis, CVA, Diverticulitis, Homicidal, Suicidal, threat to staff... and all critical care pts) @ -Yes, CHF - Lab Data Result diagrams: 07/16/24 17:47 07/16/24 17:47 Lab Results 07/16/24 07/16/24 07/16/24 Range/Units 17:47 17:47 17:47 WBC 16.2 H (3.8-10.6) k/uL RBC 3.93 (3.80-5.40) m/uL Hgb 12.1 (11.4-16.0) gm/dL Hct 36.9 (34.0-46.0) % MCV 93.8 (80.0-100.0) fL MCH 30.7 (25.0-35.0) pg MCHC 32.8 (31.0-37.0) g/dL RDW 12.9 (11.5-15.5) % Plt Count 446 (150-450) k/uL MPV 7.5 Neutrophils % 91 % Lymphocytes % 6 % Monocytes % 3 % Eosinophils % 1 % Basophils % 0 % Neutrophils # 14.7 H (1.3-7.7) k/uL Lymphocytes # 0.9 L (1.0-4.8) k/uL Monocytes # 0.4 (0-1.0) k/uL Eosinophils # 0.1 (0-0.7) k/uL Basophils # 0.0 (0-0.2) k/uL PT 10.8 (10.0-12.5) sec INR 1.0 (<1.2) APTT 22.0 (22.0-30.0) sec Sodium 140 (137-145) mmol/L Potassium 4.2 (3.5-5.1) mmol/L Chloride 102 (98-107) mmol/L Carbon Dioxide 30 (22-30) mmol/L Anion Gap 8 mmol/L BUN 37 H (7-17) mg/dL Creatinine 0.98 (0.52-1.04) mg/dL Est GFR (CKD-EPI)AfAm 68 (>60 ml/min/1.73 sqM) Est GFR (CKD-EPI)NonAf 59 (>60 ml/min/1.73 sqM) Glucose 157 H (74-99) mg/dL Plasma Lactic Acid James (0.7-2.0) mmol/L Calcium 9.6 (8.4-10.2) mg/dL Magnesium 1.6 (1.6-2.3) mg/dL Total Bilirubin 0.4 (0.2-1.3) mg/dL AST 26 (14-36) U/L ALT 32 (4-34) U/L Alkaline Phosphatase 106 (38-126) U/L Troponin I (0.000-0.034) ng/mL NT-Pro-B Natriuret Pep 31546 pg/mL Total Protein 6.3 (6.3-8.2) g/dL Albumin 3.9 (3.5-5.0) g/dL Influenza Type A (PCR) (Not Detectd) Influenza Type B (PCR) (Not Detectd) RSV (PCR) (Not Detectd) SARS-CoV-2 (PCR) (Not Detectd) 07/16/24 07/16/24 07/16/24 Range/Units 17:47 17:47 17:47 WBC (3.8-10.6) k/uL RBC (3.80-5.40) m/uL Hgb (11.4-16.0) gm/dL Hct (34.0-46.0) % MCV (80.0-100.0) fL MCH (25.0-35.0) pg MCHC (31.0-37.0) g/dL RDW (11.5-15.5) % Plt Count (150-450) k/uL MPV Neutrophils % % Lymphocytes % % Monocytes % % Eosinophils % % Basophils % % Neutrophils # (1.3-7.7) k/uL Lymphocytes # (1.0-4.8) k/uL Monocytes # (0-1.0) k/uL Eosinophils # (0-0.7) k/uL Basophils # (0-0.2) k/uL PT (10.0-12.5) sec INR (<1.2) APTT (22.0-30.0) sec Sodium (137-145) mmol/L Potassium (3.5-5.1) mmol/L Chloride (98-107) mmol/L Carbon Dioxide (22-30) mmol/L Anion Gap mmol/L BUN (7-17) mg/dL Creatinine (0.52-1.04) mg/dL Est GFR (CKD-EPI)AfAm (>60 ml/min/1.73 sqM) Est GFR (CKD-EPI)NonAf (>60 ml/min/1.73 sqM) Glucose (74-99) mg/dL Plasma Lactic Acid James 1.5 (0.7-2.0) mmol/L Calcium (8.4-10.2) mg/dL Magnesium (1.6-2.3) mg/dL Total Bilirubin (0.2-1.3) mg/dL AST (14-36) U/L ALT (4-34) U/L Alkaline Phosphatase (38-126) U/L Troponin I 1.360 H* (0.000-0.034) ng/mL NT-Pro-B Natriuret Pep pg/mL Total Protein (6.3-8.2) g/dL Albumin (3.5-5.0) g/dL Influenza Type A (PCR) Not Detected (Not Detectd) Influenza Type B (PCR) Not Detected (Not Detectd) RSV (PCR) Not Detected (Not Detectd) SARS-CoV-2 (PCR) Not Detected (Not Detectd) Disposition Clinical Impression: CHF exacerbation, Elevated troponin, Dyspnea Disposition: ADMITTED IP TO THIS HOSP Condition: Stable Is patient prescribed a controlled substance at d/c from ED?: No
[2024-07-16] MEDS: IPRATROPIUM-ALBUTEROL 3 ML NEB INHALATION STA (19:35)
[2024-07-16] MEDS: HEPARIN SOD,PORK IN 0.45% NACL 25,000 UNIT in 0.45% NACL 1 250ML.BAG IV SCH (20:06)
[2024-07-16] MEDS: HEPARIN SODIUM 1,000 UN/ML (10ML VL) IV ONE (20:09)
[2024-07-16] MEDS: FUROSEMIDE 10 MG/ML 4 ML VIAL IV STA (20:10)
[2024-07-16] MEDS: NITROGLYCERIN OINT 1 INCH/GM PACKET TOPICAL STA (20:16)
[2024-07-16] MEDS: MORPHINE SULFATE 4 MG/ML SYRINGE IVP STA (20:29)
[2024-07-16] MEDS ORDERED: NALOXONE 0.4 MG/ML 1 ML VIAL IV PRN (20:36)
[2024-07-16] MEDS ORDERED: ONDANSETRON 4 MG/2 ML VIAL IVP PRN (20:36)
[2024-07-16] MEDS ORDERED: ALBUTEROL NEBULIZED 2.5 MG/3 ML INHALATION PRN (20:46)
[2024-07-16] MEDS: ATORVASTATIN 80 MG TAB PO SCH (21:29)
[2024-07-16] MEDS: METOPROLOL TARTRATE 25 MG TAB PO SCH (21:29)
[2024-07-17] MEDS: MORPHINE SULFATE 4 MG/ML SYRINGE IV PRN (01:13)
[2024-07-17] MEDS: HEPARIN SODIUM 1,000 UN/ML (10ML VL) IV PRN (01:39)
[2024-07-17 07:33] LABS: Basophils % (A) 0 %; Eosinophils % (A) 0 %; HCT 37.3 % (34.0-46.0); Lymphocytes # (A) 1.1 k/uL (1.0-4.8); Lymphocytes % (A) 9 %; MCH 30.3 pg (25.0-35.0); MCHC 32.2 g/dL (31.0-37.0); Mean Platelet Volume 8.1; Monocytes # (A) 0.4 k/uL (0-1.0); Monocytes % (A) 3 %; Neutrophils # (A) 9.9 k/uL (1.3-7.7); Neutrophils % (A) 87 %; Platelet Count 435 k/uL (150-450); RBC 3.97 m/uL (3.80-5.40); RDW 13.3 % (11.5-15.5); WBC 11.4 k/uL (3.8-10.6)
[2024-07-17 07:37] LABS: Partial Thromboplastin Time 52.2 sec (22.0-30.0); Prothrombin Time 10.9 sec (10.0-12.5)
[2024-07-17] MEDS: IPRATROPIUM-ALBUTEROL 3 ML NEB INHALATION PRN (08:08)
[2024-07-17] MEDS: ASPIRIN 325 MG TAB PO SCH (09:51)
[2024-07-17] MEDS: SPIRONOLACTONE 25 MG TAB PO SCH (09:51)
[2024-07-17] MEDS: lisinopriL 10 MG TAB PO SCH (09:52)
[2024-07-17] MEDS: FUROSEMIDE 10 MG/ML 4 ML VIAL IV SCH (09:52)
[2024-07-17] MEDS: CHOLECALCIFEROL 25 MCG (1000 IU) TABLET PO SCH (09:53)
--- NOTE | 2024-07-17 10:55 | P.CRDCN ---
History of Present Illness Consult date: 07/17/24 Reason for Consult (text): CHF, elevated troponins History of present illness: This is a 68-year-old female patient of Dr. 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 We have been asked to evaluate patient for CHF and elevated troponin. Patient states that she came in the h ospital because she could not breathe. Patient apparently saw Dr. Monzon last week and her oxygen level was low and she was placed on antibiotics and steroid. She did not want to go to the hospital at that time. Yesterday, patient called her daughter to bring her into the hospital. She was having more shortness of breath. She does have heaviness in her chest that is off and on for the past few weeks but none now. No lower extremity edema. She states she has lost weight. She does state it is hard for her to sleep or rest lying down. She does have wheezing that wakes her up at night. Blood pressure 185/82, heart rate 74, pulse ox 99% on 2 L nasal cannula. Patient has been started on heparin drip. Patient continues to be an active smoker. Discussed option of cardiac catheterization which may be considered for tomorrow once her respiratory status has been stabilized. -EKG: Sinus rhythm 76 bpm, Q waves in the anterior leads, V6 T-wave inversion -Chest x-ray: Interstitial lung markings which are more pronounced than prior correlate for pulmonary edema. COPD. -Laboratory studies: WBC initially 16.2 now 11.4, hemoglobin 12. BUN 37 creatinine 0.98, potassium 4.2. Troponins 1.36, 1.4, 1.16. proBNP 24,300. Influenza A, influenza B, RSV, COVID-19 not detected. -Home cardiac medications: Aspirin 325 mg daily, atorvastatin 80 mg at bedtime, lisinopril 10 mg daily, Lopressor 25 mg twice daily, Aldactone 25 mg daily -Echocardiogram performed 03/31/2023 revealed normal left ventricular size and systolic function. Trace mitral and mild tricuspid regurgitation. -Cardiac catheterization performed 12/28/2020 revealed patent stent in the mid RCA and patent stent in the mid LAD. -Lexiscan Cardiolite stress test performed in the office on 05/25/2023 revealed normal study Review Of Systems: At the time of my exam: CONSTITUTIONAL: Denies fever or chills. HEENT: Denies blurred vision, vision changes, or eye pain. Denies hemoptysis CARDIOVASCULAR: Denies chest pain. Denies orthopnea. Denies PND. Denies palpitations RESPIRATORY: Reports dyspnea on exertion, reports wheezing, reports shortness of breath. GASTROINTESTINAL: Denies abdominal pain. Denies nausea or vomiting. HEMATOLOGIC: Denies bleeding disorders. GENITOURINARY: Denies any blood in urine. SKIN: Denies puritis. Denies rash. Physical examination: Gen: This is a 68-year-old female in mild respiratory distress VS: reviewed HEENT: Head is atraumatic, normocephalic. Pupils equal, round. Sclerae is anicteric. NECK: Supple. No JVD. LUNGS: Bilateral expiratory wheezing. Mild accessory muscle usage. HEART: Regular rate and rhythm. Soft systolic murmur. ABDOMEN: Soft No tenderness. EXTREMITIES: No pedal edema. No calf tenderness. NEUROLOGICAL: Patient is awake, alert and oriented x3. Assessment: Acute hypoxic respiratory failure secondary to COPD exacerbation and acute diastolic heart failure NSTEMI History of coronary artery disease with prior stenting of the RCA and LAD PAD with prior angioplasty of the bilateral SFA and intermediate disease of the left common femoral artery Carotid atherosclerosis AAA Hypertension Dyslipidemia Tobacco use and dependence Plan: Resume patient's home cardiac medications Continue patient on heparin drip Start patient on IV Lasix 40 mg every 12 hours Monitor NEO, daily weights, electrolytes and renal function Obtain 2-D echocardiogram and Doppler study to assess cardiac structure and function N.p.o. after midnight for possible cardiac catheterization tomorrow with Dr. Lambert Further recommendations to follow based upon clinical course Thank you kindly for this consultation. Nurse practitioner note has been reviewed, I agree with documented findings and plan of care. Patient was seen and examined. Past Medical History Past Medical History: COPD, GERD/Reflux, Hyperlipidemia, Hypertension, Myocardial Infarction ([place]), Osteoarthritis (OA), Vascular Disorder Additional Past Medical History / Comment(s): OCCASIONAL SOB., VARICOSE VEINS.,STATES LEGS PAINFUL AT TIMES., constipation, Last Myocardial Infarction Date:: 2014 History of Any Multi-Drug Resistant Organisms: MRSA Date of last positivie culture/infection: 2013 MDRO Source:: under nose Past Surgical History: Heart Catheterization With Stent, Orthopedic Surgery Additional Past Surgical History / Comment(s): LT KNEE RECONSTRUCTIVE SX, CURTIS CATARACTS, CYST REMOVED FROM BEHIND LT EAR., BALLOON ANGIOPLASTY WITH STENT LEFT FEMORAL ARTERY (02/2018), 3 cardiact stents, recent aortogram Past Anesthesia/Blood Transfusion Reactions: No Reported Reaction Date of Last Stent Placement:: unknown Past Psychological History: No Psychological Hx Reported Smoking Status: Current every day smoker Past Alcohol Use History: Daily Past Drug Use History: None Reported - Past Family History Sister(s) Family Medical History: Deep Vein Thrombosis (DVT) Mother Family Medical History: Cancer Father Family Medical History: No Reported History Medications and Allergies Home Medications Medication Instructions Recorded Confirmed Type Metoprolol Tartrate [Lopressor] 25 mg PO BID #60 tab 07/17/15 07/16/24 Rx Atorvastatin [Lipitor] 80 mg PO HS #30 tab 08/05/15 07/16/24 Rx Spironolactone [Aldactone] 25 mg PO DAILY 11/27/16 07/16/24 History Albuterol Sulfate [Ventolin HFA] 2 puff INHALATION RT-Q6H PRN 06/06/20 07/16/24 History [place]-3/Dha/Epa/Fish Oil [Fish Oil 1 cap PO DAILY 01/27/22 07/16/24 History 1,000 mg Softgel] Cholecalciferol [Vitamin D3 (25 25 mcg PO DAILY 03/30/23 07/16/24 History Mcg = 1000 Iu)] Ipratropium-Albuterol Nebulize 3 ml INHALATION RT-QID PRN 03/30/23 07/16/24 History [Duoneb 0.5 mg-3 mg/3 ml Soln] Aspirin EC [Ecotrin] 325 mg PO DAILY 07/16/24 07/16/24 History Doxycycline [Vibramycin] 100 mg PO BID 07/16/24 07/16/24 History lisinopriL [Zestril] 10 mg PO DAILY 07/16/24 07/16/24 History predniSONE [Deltasone] See Taper PO DAILY 07/16/24 07/16/24 History Allergies Allergy/AdvReac Type Severity Reaction Status Date / Time cephalexin monohydrate Allergy Rash/Hives Verified 12/18/24 18:11 [From Keflex] Physical Exam Vitals: Vital Signs Temp Pulse Pulse Resp BP BP Pulse Ox 07/17/24 04:00 97.6 F 74 18 185/82 99 07/17/24 02:00 97.5 F L 77 20 176/85 95 07/16/24 23:05 76 18 174/91 98 07/16/24 20:25 77 18 166/84 97 07/16/24 19:53 77 07/16/24 19:35 78 07/16/24 18:37 95 07/16/24 18:36 89 L 07/16/24 18:15 30 H 97 07/16/24 17:13 97.6 F 77 22 173/81 96 Intake and Output 07/16/24 07/17/24 07/17/24 22:59 06:59 14:59 Intake Total 47.876 Output Total 1999 450 Balance -1999 -402.124 Intake: IV 10 Invasive Line 1 10 Intake, IV Titration 37.876 Amount Heparin Sod,Pork in 0.45% 37.876 NaCl 25,000 unit In 0.45 % NaCl 1 250ml.bag @ 12 UNITS/KG/HR 6.804 mls/hr IV .Q24H [facility] Rx#: [id number] Output: Urine 1999 450 Other: Voiding Method External Catheter Weight 56.699 kg 54 kg Results 07/17/24 06:24 07/16/24 17:47 Cardiac Enzymes 07/16/24 07/16/24 07/16/24 Range/Units 17:47 17:47 20:34 AST 26 (14-36) U/L Troponin I 1.360 H* 1.400 H* (0.000-0.034) ng/mL 07/17/24 Range/Units 00:50 AST (14-36) U/L Troponin I 1.160 H* (0.000-0.034) ng/mL Coagulation 07/16/24 07/17/24 07/17/24 Range/Units 17:47 00:50 06:24 PT 10.8 10.9 (10.0-12.5) sec APTT 22.0 39.6 H 52.2 H (22.0-30.0) sec CBC 07/16/24 07/17/24 Range/Units 17:47 06:24 WBC 16.2 H 11.4 H (3.8-10.6) k/uL RBC 3.93 3.97 (3.80-5.40) m/uL Hgb 12.1 12.0 (11.4-16.0) gm/dL Hct 36.9 37.3 (34.0-46.0) % Plt Count 446 435 (150-450) k/uL Comprehensive Metabolic Panel 07/16/24 Range/Units 17:47 Sodium 140 (137-145) mmol/L Potassium 4.2 (3.5-5.1) mmol/L Chloride 102 (98-107) mmol/L Carbon Dioxide 30 (22-30) mmol/L BUN 37 H (7-17) mg/dL Creatinine 0.98 (0.52-1.04) mg/dL Glucose 157 H (74-99) mg/dL Calcium 9.6 (8.4-10.2) mg/dL AST 26 (14-36) U/L ALT 32 (4-34) U/L Alkaline Phosphatase 106 (38-126) U/L Total Protein 6.3 (6.3-8.2) g/dL Albumin 3.9 (3.5-5.0) g/dL Current Medications Generic Name Dose Route Start Last Admin Trade Name Freq PRN Reason Stop Dose Admin Acetaminophen 650 mg 07/16/24 20:36 Acetaminophen Tab 325 Mg Tab PO Q6HR PRN Mild Pain or Fever > 100.5 Albuterol Sulfate 2.5 mg 07/16/24 20:46 Albuterol Nebulized 2.5 Mg/3 Ml INHALATION RT-Q6H PRN Shortness Of Breath Albuterol/Ipratropium 3 ml 07/16/24 20:46 Ipratropium-Albuterol 3 Ml Neb INHALATION RT-QID PRN Shortness Of Breath Aspirin 325 mg 07/17/24 09:00 Aspirin 325 Mg Tab PO DAILY BOYD Atorvastatin Calcium 80 mg 07/16/24 21:00 07/16/24 21:29 Atorvastatin 80 Mg Tab PO 80 mg HS BOYD Administration Cholecalciferol 25 mcg 07/17/24 09:00 Cholecalciferol 25 Mcg (1000 Iu) Tablet PO DAILY BOYD Heparin Sodium (Porcine) 0 unit 07/16/24 18:51 07/17/24 01:39 Heparin Sodium 1,000 Un/Ml (10ml Vl) IV 1,417.47 unit PER PROTOCOL PRN Administration Low PTT Protocol Heparin Sodium/Sodium Chloride 250 mls @ 6.804 mls/hr 07/16/24 19:00 07/17/24 01:40 25,000 unit/ Sodium Chloride IV 14 units/kg/hr .Q24H BOYD 7.938 mls/hr Titration Protocol 12 UNITS/KG/HR Lisinopril 10 mg 07/17/24 09:00 Lisinopril 10 Mg Tab PO DAILY BOYD Metoprolol Tartrate 25 mg 07/16/24 21:00 07/16/24 21:29 Metoprolol Tartrate 25 Mg Tab PO 25 mg BID BOYD Administration Morphine Sulfate 4 mg 07/16/24 20:36 07/17/24 01:13 Morphine Sulfate 4 Mg/Ml Syringe IV 4 mg Q4HR PRN Administration Severe Pain (Scale 7 to 10) Naloxone HCl 0.2 mg 07/16/24 20:36 Naloxone 0.4 Mg/Ml 1 Ml Vial IV Q2M PRN Opioid Reversal Ondansetron HCl 4 mg 07/16/24 20:36 Ondansetron 4 Mg/2 Ml Vial IVP Q8HR PRN Nausea And Vomiting Spironolactone 25 mg 07/17/24 09:00 Spironolactone 25 Mg Tab PO DAILY [facility] Intake and Output 07/16/24 07/17/24 07/17/24 22:59 06:59 14:59 Intake Total 47.876 Output Total 1999 450 Balance -2000 -402.124 Intake: IV 10 Invasive Line 1 10 Intake, IV Titration 37.876 Amount Heparin Sod,Pork in 0.45% 37.876 NaCl 25,000 unit In 0.45 % NaCl 1 250ml.bag @ 12 UNITS/KG/HR 6.804 mls/hr IV .Q24H [facility] Rx#: [id number] Output: Urine 1999 Other: Voiding Method External Catheter Weight 56.699 kg 54 kg 07/17/24 06:24 07/16/24 17:47
--- NOTE | 2024-07-17 10:55 | P.CNPUL ---
History of Present Illness Consult date: 07/17/24 Reason for consult: dyspnea, cough, COPD, hypoxemia Chief complaint: Shortness of breath History of present illness: Patient is a 68-year-old female well-known to me seen in the office a week ago with increasing shortness of breath cough congestion for 2-day duration patient was prescribed oral prednisone and antibiotics advised if symptoms do not improve consider hospitalization. Patient has been taking antibiotics and steroid without any significant improvement, patient continued to smoke 1 pack/day down from 2 packs/day chest x-ray interstitial edema, also complaining of intermittent chest pain, cardiovascular evaluation is pending labs from today reviewed white cell count 16.2 CBC otherwise fairly within normal limit coags were okay however troponin 1.36 with a rising pattern and subsequent to up to 1.16 BNP is over 24,000, noted to have RSV with COVID-negative so has influenza A and influenza B Review of Systems All systems: negative Past Medical History Past Medical History: COPD, GERD/Reflux, Hyperlipidemia, Hypertension, Myocardial Infarction (MD), Osteoarthritis (OA), Vascular Disorder Additional Past Medical History / Comment(s): OCCASIONAL SOB., VARICOSE VEINS.,STATES LEGS PAINFUL AT TIMES., constipation, Last Myocardial Infarction Date:: 2014 History of Any Multi-Drug Resistant Organisms: MRSA Date of last positivie culture/infection: 2013 MDRO Source:: under nose Past Surgical History: Heart Catheterization With Stent, Orthopedic Surgery Additional Past Surgical History / Comment(s): LT KNEE RECONSTRUCTIVE SX, CURTIS CATARACTS, CYST REMOVED FROM BEHIND LT EAR., BALLOON ANGIOPLASTY WITH STENT LEFT FEMORAL ARTERY (02/2018), 3 cardiact stents, recent aortogram Past Anesthesia/Blood Transfusion Reactions: No Reported Reaction Date of Last Stent Placement:: unknown Past Psychological History: No Psychological Hx Reported Smoking Status: Current every day smoker Past Alcohol Use History: Daily Past Drug Use History: None Reported - Past Family History Sister(s) Family Medical History: Deep Vein Thrombosis (DVT) Mother Family Medical History: Cancer Father Family Medical History: No Reported History Medications and Allergies Home Medications Medication Instructions Recorded Confirmed Type Metoprolol Tartrate [Lopressor] 25 mg PO BID #60 tab 07/17/15 07/16/24 Rx Atorvastatin [Lipitor] 80 mg PO HS #30 tab 08/05/15 07/16/24 Rx Spironolactone [Aldactone] 25 mg PO DAILY 05/01/17 12/18/24 History Albuterol Sulfate [Ventolin HFA] 2 puff INHALATION RT-Q6H PRN 06/06/20 07/16/24 History [place]-3/Dha/Epa/Fish Oil [Fish Oil 1 cap PO DAILY 01/27/22 07/16/24 History 1,000 mg Softgel] Cholecalciferol [Vitamin D3 (25 25 mcg PO DAILY 03/30/23 07/16/24 History Mcg = 1000 Iu)] Ipratropium-Albuterol Nebulize 3 ml INHALATION RT-QID PRN 03/30/23 07/16/24 History [Duoneb 0.5 mg-3 mg/3 ml Soln] Aspirin EC [Ecotrin] 325 mg PO DAILY 07/16/24 07/16/24 History Doxycycline [Vibramycin] 100 mg PO BID 07/16/24 07/16/24 History lisinopriL [Zestril] 10 mg PO DAILY 07/16/24 07/16/24 History predniSONE [Deltasone] See Taper PO DAILY 07/16/24 07/16/24 History Allergies Allergy/AdvReac Type Severity Reaction Status Date / Time cephalexin monohydrate Allergy Rash/Hives Verified 07/16/24 18:11 [From Keflex] Physical Exam Vitals: Vital Signs Temp Pulse Pulse Resp BP BP Pulse Ox 07/17/24 09:45 81 16 178/79 99 07/17/24 08:18 80 07/17/24 08:09 78 07/17/24 04:00 97.6 F 74 18 185/82 99 07/17/24 02:00 97.5 F L 77 20 176/85 95 07/16/24 23:05 76 18 174/91 98 07/16/24 20:25 77 18 166/84 97 07/16/24 19:53 77 07/16/24 19:35 78 07/16/24 18:37 95 07/16/24 18:36 89 L 07/16/24 18:15 30 H 97 07/16/24 17:13 97.6 F 77 22 173/81 96 Intake and Output 07/16/24 07/17/24 07/17/24 22:59 06:59 14:59 Intake Total 47.876 10 Output Total 1999 450 Balance -1999 -402.124 10 Intake: IV 10 10 Invasive Line 1 10 10 Intake, IV Titration 37.876 Amount Heparin Sod,Pork in 0.45% 37.876 NaCl 25,000 unit In 0.45 % NaCl 1 250ml.bag @ 12 UNITS/KG/HR 6.804 mls/hr IV .Q24H [facility] Rx#: [id number] Output: Urine 1999 Other: Voiding Method External Catheter External Catheter Weight 56.699 kg 54 kg - Constitutional General appearance: average body habitus, cooperative, disheveled - EENT Eyes: EOMI, PERRLA ENT: normal oropharynx Ears: bilateral: normal - Neck Neck: normal ROM Carotids: bilateral: upstroke normal Thyroid: bilateral: normal size - Respiratory Respiratory: bilateral: diminished, wheezing (Fine and and expiratory) - Cardiovascular Rhythm: regular Heart sounds: normal: S1, S2 - Gastrointestinal General gastrointestinal: normal bowel sounds, soft - Integumentary Integumentary: normal turgor - Neurologic Neurologic: CNII-XII intact - Musculoskeletal Musculoskeletal: gait normal, generalized weakness, strength equal bilaterally - Psychiatric Psychiatric: A&O x's 3, appropriate affect, intact judgment & insight Results - Laboratory Findings CBC and BMP: 07/17/24 06:24 07/16/24 17:47 PT/INR, D-dimer PT 10.9 sec (10.0-12.5) 07/17/24 06:24 INR 1.0 (<1.2) 07/17/24 06:24 Abnormal lab findings: Abnormal Labs 07/16/24 07/16/24 07/16/24 17:47 17:47 17:47 WBC 16.2 H Neutrophils # 14.7 H Lymphocytes # 0.9 L APTT BUN 37 H Glucose 157 H Troponin I 1.360 H* 07/16/24 07/17/24 07/17/24 20:34 00:50 00:50 WBC Neutrophils # Lymphocytes # APTT 39.6 H BUN Glucose Troponin I 1.400 H* 1.160 H* 07/17/24 07/17/24 06:24 06:24 WBC 11.4 H Neutrophils # 9.9 H Lymphocytes # APTT 52.2 H BUN Glucose Troponin I - Diagnostic Findings Chest x-ray: report reviewed, image reviewed Assessment and Plan Assessment: Acute COPD exacerbation Extensive history of smoking and nicotine use Tracheobronchitis Rising troponin suggestive of non-STEMI Elevated BNP over 24,000 likely suggestive of cardiomyopathy/heart failure Plan: Agree with cardiovascular evaluation IV heparin 2D echo Bronchodilators IV steroids Further recommendations pending plan of care as per clinical response the patient Time with Patient: Greater than 30
[2024-07-17] MEDS: methylPREDNISolone SOD SUCCI 40 MG/ML 1 ML VIAL IV SCH (12:33)
--- NOTE | 2024-07-17 15:54 | CA ---
Transthoracic Echo Report Name: Taya Key Age: 68 Gender: F : 1955 Exam Date: 07/17/2024 10:11 Exam Location: [facility] Ht (in): 60 Wt (lb): 119 Ordering Physician: Aiyana Sweet Attending/Referring Phys: Pneumatic Tube Repairer Iesha Augustin RDCS Procedure CPT: Indications: LVF Cardiac Hx: Technical Quality: Fair Contrast 1: Definity Total Dose (mL): 2 Contrast 2: Total Dose (mL): MEASUREMENTS (Male / Female) Normal Values 2D ECHO LV Diastolic Diameter PLAX 4.7 cm 4.2 - 5.9 / 3.9 - 5.3 cm LV Systolic Diameter PLAX 3.7 cm IVS Diastolic Thickness 1.4 cm 0.6 - 1.0 / 0.6 - 0.9 cm LVPW Diastolic Thickness 1.1 cm 0.6 - 1.0 / 0.6 - 0.9 cm LV Relative Wall Thickness 0.5 RV Internal Dim ED PLAX 2.1 cm LA Systolic Diameter LX 4.1 cm 3.0 - 4.0 / 2.7 - 3.8 cm LV Diastolic Volume MOD 4C 66.0 cm??? LV Systolic Volume MOD 4C 51.1 cm??? LV Ejection Fraction MOD 4C 22.6 % LV Cardiac Index MOD 4C 743.8 cm???/min???m??? LV Diastolic Length 4C 6.9 cm LV Systolic Length 4C 6.5 cm M-MODE Aortic Root Diameter MM 3.1 cm LA Systolic Diameter MM 4.0 cm LA Ao Ratio MM 1.3 AV Cusp Separation MM 1.6 cm DOPPLER AI Peak Velocity 209.7 cm/s AI Peak Gradient 17.6 mmHg AI Pressure Half Time 510.1 ms Mitral E Point Velocity 79.9 cm/s Mitral A Point Velocity 64.3 cm/s Mitral E to A Ratio 1.2 MV Deceleration Time 179.0 ms MV E' Velocity 3.3 cm/s Mitral E to MV E' Ratio 24.6 TR Peak Velocity 344.2 cm/s TR Peak Gradient 68.3 mmHg Right Atrial Pressure 15.0 mmHg Pulmonary Artery Systolic Pressu 62.4 mmHg Right Ventricular Systolic Press 62.4 mmHg FINDINGS Left Ventricle Left ventricular ejection fraction is estimated at 20-25%. Moderately increased septal wall thickness. Mildly increased posterior wall thickness. Honor akinetic. Severely reduced global left ventricular systolic function. Right Ventricle Normal right ventricular size and function. Severe pulmonary hypertension. Right Atrium Normal right atrial size. Left Atrium Mildly increased left atrial diameter. Mitral Valve Structurally normal mitral valve. Trace mitral regurgitation. No mitral stenosis. Aortic Valve Trileaflet aortic valve. No aortic stenosis. Mild aortic regurgitation. Tricuspid Valve Structurally normal tricuspid valve. No tricuspid stenosis. Mild tricuspid regurgitation. Pulmonic Valve Trace pulmonic regurgitation. No pulmonic stenosis. Pericardium No pericardial or pleural effusion. Aorta Normal size aortic root and proximal ascending aorta. CONCLUSIONS Ischemic cardiomyopathy with severe LV systolic dysfunction with an ejection fraction of 20-25% Honor is akinetic Severe pulmonary hypertension Previewed by: Dr. Tom Curry MD (Electronically Signed) Final Date: 17 July 2024 15:54
--- NOTE | 2024-07-17 17:28 | P.HPIM ---
History of Present Illness H&P Date: 07/17/24 Chief Complaint: Short of breath Pleasant 68-year-old patient follows with Dr. Combs. [employer] Dr. Riley Monzon. Longstanding smoker. Medical conditions include COPD, GERD, hypertension, hyperlipidemia, varicose veins, PAD, osteoarthritis, CAD with stent balloon angioplasty with stent to the left femoral artery. Patient is chronically short of breath but more short of breath the last 2 weeks. Even short of breath at rest. Scattered cough with yellow-green sputum. Denies any fever and chills. Appetite is okay. Has about 2 bowel movements a week. Rather tired rundown. Review of systems: GEN.: Tired EYES: None HEENT: None NECK: None RESPIRATORY: [As above CARDIOVASCULAR: None GASTROINTESTINAL: None GENITOURINARY: None MUSCULOSKELETAL: OA LYMPHATICS: None HEMATOLOGICAL: None PSYCHIATRY: None NEUROLOGICAL: None Social history: Lives with daughter. Smoking a pack a day was up to 2 packs a day. Close to 50 years. Physical examination: VITAL SIGNS: 97.6, 74, 26, 1 8582, 99% 2 L GENERAL: [BMI 23.3, reclining bed awake short of bed tired. EYES: Pupils equal. Conjunctiva lonny l. HEENT: External appearance of nose and ears normal, oral cavity grossly normal. NECK: JVD not raised; masses not palpable. HEART: First and second heart sounds are normal; no edema. LUNGS: Respiratory rate increased, diminished breath sound prolonged expiration wheezing. Accessory muscles are working. Not able to speak in full sentences. ABDOMEN: Soft, nontender, liver spleen not palpable, no masses palpable. PSYCH: Alert and oriented x3; mood and affect anxious l. MUSCULOSKELETAL:No Clubbing/cyanosis;muscles-grossly intact. OA NEUROLOGICAL: Cranial nerves grossly intact; no facial asymmetry, power and sensation grossly intact. LYMPHATICS: No lymph nodes palpable in the axilla and neck INVESTIGATIONS, reviewed in the clinical context: July 17: White 11.4 hemoglobin 12 platelets 435 July 16: White count 16.2 hemoglobin 12.1 platelets 446 potassium 4.2 BUN 37 creatinine 0.98 Troponin I 1.36, 1.4, 1.16 proBNP 38982 Influenza type A, type B, RSV, COVID-19: Not detected EKG tracing personally reviewed by me-sinus rhythm. Some ST-T wave changes. Chest x-ray film personally reviewed by me-prominent interstitial markings/in filtrate especially at the right base. 2D echocardiogram: EF 20-25%. Global decreased function. Severe pulmonary hypertension. Assessment plan: -Acute non-ST relation myocardial infarction. Telemetry. Cardiology consulted. For possible cardiac catheterization. Aspirin. Lipitor. Lopressor. IV heparin -Probable right basal pneumonia suspect gram-negative organism IV ceftriaxone. Zithromax Sputum for Gram stain culture -Severe secondary pulmonary hypertension secondary to COPD -Acute severe COPD exacerbation in a current smoker DuoNeb every 4. Nebulized Pulmicort. IV Solu-Medrol. Dr. Riley Monzon pulmonary consulted -IV heparin monitoring Follow PTT -CAD with a prior history of coronary stent x 3 Lipitor. Lopressor. Aspirin -PAD with a prior history peripheral stent Lipitor. Aspirin -Primary osteoarthritis Tylenol as needed -Chronic nicotine dependence cigarette smoker Nicotine patch 21 -Full code Care was discussed with the patient. Past Medical History Past Medical History: COPD, GERD/Reflux, Hyperlipidemia, Hypertension, Myocardial Infarction ([place]), Osteoarthritis (OA), Vascular Disorder Additional Past Medical History / Comment(s): OCCASIONAL SOB., VARICOSE VEINS.,STATES LEGS PAINFUL AT TIMES., constipation, Last Myocardial Infarction Date:: 2014 History of Any Multi-Drug Resistant Organisms: MRSA Date of last positivie culture/infection: 2013 MDRO Source:: under nose Past Surgical History: Heart Catheterization With Stent, Orthopedic Surgery Additional Past Surgical History / Comment(s): LT KNEE RECONSTRUCTIVE SX, CURTIS CATARACTS, CYST REMOVED FROM BEHIND LT EAR., BALLOON ANGIOPLASTY WITH STENT LEFT FEMORAL ARTERY (02/2018), 3 cardiact stents, recent aortogram Past Anesthesia/Blood Transfusion Reactions: No Reported Reaction Date of Last Stent Placement:: unknown Past Psychological History: No Psychological Hx Reported Smoking Status: Current every day smoker Past Alcohol Use History: Daily Past Drug Use History: None Reported - Past Family History Sister(s) Family Medical History: Deep Vein Thrombosis (DVT) Mother Family Medical History: Cancer Father Family Medical History: No Reported History Medications and Allergies Home Medications Medication Instructions Recorded Confirmed Type Metoprolol Tartrate [Lopressor] 25 mg PO BID #60 tab 07/17/15 07/16/24 Rx Atorvastatin [Lipitor] 80 mg PO HS #30 tab 08/05/15 07/16/24 Rx Spironolactone [Aldactone] 25 mg PO DAILY 11/27/16 07/16/24 History Albuterol Sulfate [Ventolin HFA] 2 puff INHALATION RT-Q6H PRN 06/06/20 07/16/24 History [place]-3/Dha/Epa/Fish Oil [Fish Oil 1 cap PO DAILY 01/27/22 07/16/24 History 1,000 mg Softgel] Cholecalciferol [Vitamin D3 (25 25 mcg PO DAILY 03/30/23 07/16/24 History Mcg = 1000 Iu)] Ipratropium-Albuterol Nebulize 3 ml INHALATION RT-QID PRN 03/30/23 07/16/24 History [Duoneb 0.5 mg-3 mg/3 ml Soln] Aspirin EC [Ecotrin] 325 mg PO DAILY 07/16/24 07/16/24 History Doxycycline [Vibramycin] 100 mg PO BID 07/16/24 07/16/24 History lisinopriL [Zestril] 10 mg PO DAILY 07/16/24 07/16/24 History predniSONE [Deltasone] See Taper PO DAILY 07/16/24 07/16/24 History Allergies Allergy/AdvReac Type Severity Reaction Status Date / Time cephalexin monohydrate Allergy Rash/Hives Verified 07/16/24 18:11 [From Keflex] Physical Exam Vitals: Vital Signs Temp Pulse Pulse Resp BP BP Pulse Ox 07/17/24 11:41 76 07/17/24 09:45 81 16 178/79 99 07/17/24 08:18 80 07/17/24 08:09 78 07/17/24 04:00 97.6 F 74 18 185/82 99 07/17/24 02:00 97.5 F L 77 20 176/85 95 07/16/24 23:05 76 18 174/91 98 07/16/24 20:25 77 18 166/84 97 07/16/24 19:53 77 07/16/24 19:35 78 07/16/24 18:37 95 07/16/24 18:36 89 L 07/16/24 18:15 30 H 97 07/16/24 17:13 97.6 F 77 22 173/81 96 Intake and Output 07/16/24 07/17/24 07/17/24 22:59 06:59 14:59 Intake Total 47.876 10 Output Total 1999 450 Balance -1999 -402.124 10 Intake: IV 10 10 Invasive Line 1 10 10 Intake, IV Titration 37.876 Amount Heparin Sod,Pork in 0.45% 37.876 NaCl 25,000 unit In 0.45 % NaCl 1 250ml.bag @ 12 UNITS/KG/HR 6.804 mls/hr IV .Q24H [facility] Rx#: [id number] Output: Urine 1999 450 Other: Voiding Method External Catheter External Catheter Weight 56.699 kg 54 kg Results CBC & Chem 7: 07/17/24 06:24 07/16/24 17:47 Labs: Abnormal Lab Results - Last 24 Hours (Table) 07/16/24 07/16/24 07/16/24 Range/Units 17:47 17:47 17:47 WBC 16.2 H (3.8-10.6) k/uL Neutrophils # 14.7 H (1.3-7.7) k/uL Lymphocytes # 0.9 L (1.0-4.8) k/uL APTT (22.0-30.0) sec BUN 37 H (7-17) mg/dL Glucose 157 H (74-99) mg/dL Troponin I 1.360 H* (0.000-0.034) ng/mL 07/16/24 07/17/24 07/17/24 Range/Units 20:34 00:50 00:50 WBC (3.8-10.6) k/uL Neutrophils # (1.3-7.7) k/uL Lymphocytes # (1.0-4.8) k/uL APTT 39.6 H (22.0-30.0) sec BUN (7-17) mg/dL Glucose (74-99) mg/dL Troponin I 1.400 H* 1.160 H* (0.000-0.034) ng/mL 07/17/24 07/17/24 Range/Units 06:24 06:24 WBC 11.4 H (3.8-10.6) k/uL Neutrophils # 9.9 H (1.3-7.7) k/uL Lymphocytes # (1.0-4.8) k/uL APTT 52.2 H (22.0-30.0) sec BUN (7-17) mg/dL Glucose (74-99) mg/dL Troponin I (0.000-0.034) ng/mL Thrombosis Risk Factor Assmnt - Choose All That Apply Each Risk Factor Represents 2 Points: Age 61-74 years Thrombosis Risk Factor Assessment Total Risk Factor Score: 2 Thrombosis Risk Factor Assessment Level: Low Risk
[2024-07-17] MEDS: AZITHROMYCIN 500 MG TAB PO SCH (18:37)
[2024-07-17] MEDS: NICOTINE 21MG/24HR PATCH TRANSDERM SCH (18:38)
[2024-07-17] MEDS: guaiFENesin 600 MG TABLET.ER PO SCH (19:52)
[2024-07-17] MEDS: IPRATROPIUM-ALBUTEROL 3 ML NEB INHALATION SCH (20:46)
[2024-07-17] MEDS ORDERED: SULFAMETHOX-TMP 800-160MG 1 EACH TAB PO SCH (21:00)
[2024-07-17] MEDS: BUDESONIDE 1 MG/2 ML NEBU INHALATION SCH (21:24)
[2024-07-18] MEDS ORDERED: HEPARIN SODIUM,PORCINE (1 ML) 2,500 UNIT in SODIUM CHLORIDE 0.9% 250 ML IRRIGATION PRN (07:00)
[2024-07-18] MEDS ORDERED: HEPARIN SODIUM,PORCINE 10,000 UNIT in SODIUM CHLORIDE 0.9% 1,000 ML IRRIGATION PRN (07:00)
[2024-07-18 07:45] LABS: African American GFR (CKD) 55 (>60 ml/min/1.73 sqM); Anion Gap 4 mmol/L; Blood Urea Nitrogen 56 mg/dL (7-17); Carbon Dioxide 39 mmol/L (22-30); Chloride 92 mmol/L (98-107); Glucose 126 mg/dL (74-99); Non-African American GFR(CKD) 48 (>60 ml/min/1.73 sqM); Potassium 4.5 mmol/L (3.5-5.1); Sodium 135 mmol/L (137-145)
[2024-07-18] MEDS ORDERED: NITROGLYCERIN SL TABS 0.4 MG TAB SUBLINGUAL PRN ×2 (08:16→14:24)
[2024-07-18] MEDS ORDERED: ALPRAZolam 0.25 MG TAB PO PRN (08:16)
[2024-07-18] MEDS: ATORVASTATIN 80 MG TAB PO STA (08:46)
[2024-07-18] MEDS: ASPIRIN 325 MG TAB PO STA (08:46)
[2024-07-18] MEDS: ACETAMINOPHEN TAB 325 MG TAB PO PRN (09:03)
[2024-07-18] MEDS: fentaNYL (PF) 50 MCG/ML 2 ML AMP IVP ONE ×4 (12:58→14:18)
[2024-07-18] MEDS: MIDAZOLAM 2 MG/2 ML VIAL IVP ONE ×2 (12:58→13:05)
[2024-07-18] MEDS: LIDOCAINE 1% INJ 10MG/ML (20 ML MDV) SQ ONE (12:59)
[2024-07-18] MEDS: VERAPAMIL SYRINGE (5 MG/10 ML) INTRAARTER ONE (13:02)
[2024-07-18] MEDS: HEPARIN SODIUM 1,000 UN/ML (10ML VL) IVP ONE ×2 (13:05→13:15)
--- NOTE | 2024-07-18 13:05 | P.PN ---
Subjective Progress Note Date: 07/18/24 Reason for Consult (text): CHF, elevated troponins History of present illness: This is a 68-year-old female patient of Dr. 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 We have been asked to evaluate patient for CHF and elevated troponin. Patient states that she came in the hospital because she could not breathe. Patient apparently saw Dr. Monzon last week and her oxygen level was low and she was placed on antibiotics and steroid. She did not want to go to the hospital at that time. Yesterday, patient called her daughter to bring her into the hospital. She was having more shortness of breath. She does have heaviness in her chest that is off and on for the past few weeks but none now. No lower extremity edema. She states she has lost weight. She does state it is hard for her to sleep or rest lying down. She does have wheezing that wakes her up at night. Blood pressure 185/82, heart rate 74, pulse ox 99% on 2 L nasal cannula. Patient has been started on heparin drip . Patient continues to be an active smoker. Discussed option of cardiac catheterization which may be considered for tomorrow once her respiratory status has been stabilized. -EKG: Sinus rhythm 76 bpm, Q waves in the anterior leads, V6 T-wave inversion -Chest x-ray: Interstitial lung markings which are more pronounced than prior correlate for pulmonary edema. COPD. -Laboratory studies: WBC initially 16.2 now 11.4, hemoglobin 12. BUN 37 creatinine 0.98, potassium 4.2. Troponins 1.36, 1.4, 1.16. proBNP 24,300. Influenza A, influenza B, RSV, COVID-19 not detected. -Home cardiac medications: Aspirin 325 mg daily, atorvastatin 80 mg at bedtime, lisinopril 10 mg daily, Lopressor 25 mg twice daily, Aldactone 25 mg daily -Echocardiogram performed 03/31/2023 revealed normal left ventricular size and systolic function. Trace mitral and mild tricuspid regurgitation. -Cardiac catheterization performed 12/28/2020 revealed patent stent in the mid RCA and patent stent in the mid LAD. -Lexiscan Cardiolite stress test performed in the office on 05/25/2023 revealed normal study 07/18/2024 Patient seen and examined. Patient's echocardiogram reveals EF of 20 to 25%, ischemic cardiomyopathy with severe LV systolic dysfunction and severe LV systolic dysfunction. [place] is akinetic. Severe pulmonary hypertension. Reviewed results of the echocardiogram with the patient and her daughter. She states her breathing is better today. She denies having any chest pain. Patient recommended to undergo cardiac catheterization today and she is agreeable to move forward. She feels that she is able to lay flat for the procedure. Blood pressure 156/73, heart rate 82, pulse ox 94% on 2 L nasal cannula. Repeat blood work reveals sodium 135, potassium 4.5, BUN 56 and creatinine 1.17. CO2 39. Patient is maintained on IV Lasix 40 mg every 12 hours which will be continued Physical examination: Gen: This is a 68-year-old female in no respiratory distress VS: reviewed HEENT: Head is atraumatic, normocephalic. Pupils equal, round. Sclerae is anicteric. NECK: Supple. No JVD. LUNGS: Bilateral expiratory wheezing. No accessory muscle usage. HEART: Regular rate and rhythm. Soft systolic murmur. ABDOMEN: Soft No tenderness. EXTREMITIES: No pedal edema. No calf tenderness. NEUROLOGICAL: Patient is awake, alert and oriented x3. Assessment: Acute hypoxic respiratory failure secondary to COPD exacerbation and acute diastolic heart failure NSTEMI Cardiomyopathy, ischemic, EF 20 to 25% History of coronary artery disease with prior stenting of the RCA and LAD PAD with prior angioplasty of the bilateral SFA and intermediate disease of the left common femoral artery Carotid atherosclerosis AAA Hypertension Dyslipidemia Tobacco use and dependence Plan: Continue patient's home cardiac medications Continue patient on heparin drip Continue patient on IV Lasix 40 mg every 12 hours Monitor NEO, daily weights, electrolytes and renal function Schedule patient for cardiac catheterization today with Dr. Lambert Further recommendations to follow based upon clinical course Nurse practitioner note has been reviewed, I agree with documented findings and plan of care. Patient was seen and examined. Objective - Vital Signs Vital signs: Vital Signs Temp 98.2 F 07/18/24 04:00 Pulse 68 07/18/24 08:08 Resp 18 07/18/24 04:00 BP 155/76 07/18/24 04:00 Pulse Ox 97 07/18/24 08:08 FiO2 Intake & Output 07/17/24 07/18/24 07/18/24 18:59 06:59 18:59 Intake Total 20 171.196 Output Total 650 Balance 20 -478.804 Weight 54.4 kg Intake: IV 20 Invasive Line 1 20 Intake, IV Titration 171.196 Amount Heparin Sod,Pork in 0.45% 171.196 NaCl 25,000 unit In 0.45 % NaCl 1 250ml.bag @ 12 UNITS/KG/HR 6.804 mls/hr IV .Q24H [facility] Rx#: [id number] Output: Urine 650 Other: Voiding Method External Catheter External Catheter # Voids 3 - Labs CBC & Chem 7: 07/17/24 06:24 07/18/24 06:49 Labs: Abnormal Lab Results - Last 24 Hours (Table) 07/18/24 Range/Units 06:49 Sodium 135 L (137-145) mmol/L Chloride 92 L (98-107) mmol/L Carbon Dioxide 39 H (22-30) mmol/L BUN 56 H (7-17) mg/dL Creatinine 1.17 H (0.52-1.04) mg/dL Glucose 126 H (74-99) mg/dL
[2024-07-18] MEDS: NITROGLYCERIN SL TABS 0.4 MG TAB SUBLINGUAL ONE (13:10)
[2024-07-18] MEDS: TICAGRELOR 90 MG TAB PO ONE (13:15)
[2024-07-18] MEDS: SODIUM CHLORIDE 0.9% 1,000 ML IV ONE (13:40)
[2024-07-18] MEDS: HEPARIN SODIUM,PORCINE (1 ML) 2,500 UNIT in SODIUM CHLORIDE 0.9% 250 ML IRRIGATION ONE (13:40)
[2024-07-18] MEDS: HEPARIN SODIUM,PORCINE 10,000 UNIT in SODIUM CHLORIDE 0.9% 1,000 ML IRRIGATION ONE (13:40)
[2024-07-18] MEDS ORDERED: ZOLPIDEM 5 MG TAB PO PRN (14:24)
[2024-07-18] MEDS ORDERED: ATROPINE SULFATE 0.1 MG/ML 10ML SYRINGE IV PRN (14:24)
[2024-07-18] MEDS ORDERED: MAG HYDROX/AL HYDROX/SIMETH 30 ML CUP PO PRN (14:24)
[2024-07-18] MEDS ORDERED: RX INFO: IV CONTRAST WAS GIVEN 1 EACH MISC MISCELLANE PRN (14:24)
[2024-07-18] MEDS: HEPARIN SODIUM 1,000 UN/ML (10ML VL) IV ONE (14:27)
[2024-07-18] MEDS: IOPAMIDOL-370 200ML BTL INJ ONE (14:28)
--- NOTE | 2024-07-18 15:23 | P.PN ---
Progress Note - Text Progress Note Date: 07/18/24 Chief Complaint: Short of breath Pleasant 68-year-old patient follows with Dr. Combs. 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 Longstanding smoker. Medical conditions include COPD, GERD, hypertension, hyperlipidemia, varicose veins, PAD, osteoarthritis, CAD with stent balloon angioplasty with stent to the left femoral artery. Patient is chronically short of breath but more short of breath the last 2 weeks. Even short of breath at rest. Scattered cough with yellow-green sputum. Denies any fever and chills. Appetite is okay. Has about 2 bowel movements a week. Rather tired rundown. July 18: Propped up in bed. Slight improvement in breathing. Patient is n.p.o. for cardiac catheterization later this afternoon. Getting IV ceftriaxone. IV heparin. IV Solu-Medrol. No chest pain. Active Medications Acetaminophen (Acetaminophen Tab 325 Mg Tab) 650 mg PO Q6HR PRN PRN Reason: Mild Pain or Fever > 100.5 Last Admin: 07/18/24 09:03 Dose: 650 mg Al Hydroxide/Mg Hydroxide (Mag Hydrox/Al Hydrox/Simeth 30 Ml Cup) 30 ml PO Q4HR PRN PRN Reason: Heartburn Albuterol Sulfate (Albuterol Nebulized 2.5 Mg/3 Ml) 2.5 mg INHALATION RT-Q6H PRN PRN Reason: Shortness Of Breath Albuterol/Ipratropium (Ipratropium-Albuterol 3 Ml Neb) 3 ml INHALATION Q4H [facility] Last Admin: 07/18/24 11:46 Dose: 3 ml Alprazolam (Alprazolam 0.25 Mg Tab) 0.25 mg PO Q6HR PRN PRN Reason: Mild Anxiety Alprazolam (Alprazolam 0.5 Mg Tab) 0.5 mg PO Q6HR PRN PRN Reason: Moderate Anxiety Aspirin (Aspirin 81 Mg) 81 mg PO DAILY [facility] Atorvastatin Calcium (Atorvastatin 80 Mg Tab) 80 mg PO HS [facility] Last Admin: 07/17/24 19:52 Dose: 80 mg Atropine Sulfate (Atropine Sulfate 0.1 Mg/Ml 10ml Syringe) 0.5 mg IV ONCE PRN PRN Reason: Symptomatic Bradycardia Azithromycin (Azithromycin 500 Mg Tab) 500 mg PO DAILY [facility]; Protocol Stop: 07/19/24 09:01 Last Admin: 07/18/24 08:46 Dose: 500 mg Budesonide (Budesonide 1 Mg/2 Ml Nebu) 1 mg INHALATION RT-BID [facility] Last Admin: 07/18/24 08:04 Dose: 1 mg Cholecalciferol (Cholecalciferol 25 Mcg (1000 Iu) Tablet) 25 mcg PO DAILY [facility] Last Admin: 07/18/24 08:46 Dose: 25 mcg Furosemide (Furosemide 10 Mg/Ml 4 Ml Vial) 40 mg IV Q12HR [facility] Last Admin: 07/18/24 08:47 Dose: 40 mg Guaifenesin (Guaifenesin 600 Mg Tablet.Er) 1,200 mg PO Q12HR [facility] Last Admin: 07/18/24 08:46 Dose: 1,200 mg Ceftriaxone Sodium 1 gm/ (Sodium Chloride) 50 mls @ 100 mls/hr IVPB Q24HR [facility]; Protocol Last Admin: 07/18/24 08:47 Dose: 100 mls/hr Heparin Sodium (Porcine) 10, (000 unit/ Sodium Chloride) 1,001 mls @ 999 mls/hr IRRIGATION ONCE PRN PRN Reason: INTRA-OP Stop: 07/18/24 23:00 Heparin Sodium (Porcine) 2,500 (unit/ Sodium Chloride) 250.5 mls @ 250 mls/hr IRRIGATION ONCE PRN PRN Reason: INTRA-OP Stop: 07/18/24 23:00 Sodium Chloride 1,000 ml/ IV (Solution) 1,000 mls @ 75 mls/hr IV .[id number] [facility] Stop: 07/18/24 19:29 Lisinopril (Lisinopril 10 Mg Tab) 10 mg PO DAILY [facility] Last Admin: 07/18/24 08:46 Dose: 10 mg Methylprednisolone Sodium Succinate (Methylprednisolone Sod Succi 40 Mg/Ml 1 Ml Vial) 40 mg IV Q12HR [facility] Last Admin: 07/18/24 08:47 Dose: 40 mg Metoprolol Tartrate (Metoprolol Tartrate 25 Mg Tab) 25 mg PO BID [facility] Last Admin: 07/18/24 08:46 Dose: 25 mg Miscellaneous Information (Rx Info: Iv Contrast Was Given 1 Each Misc) 1 each MISCELLANE DAILY PRN PRN Reason: Per Protocol Stop: 07/20/24 14:24 Naloxone HCl (Naloxone 0.4 Mg/Ml 1 Ml Vial) 0.2 mg IV Q2M PRN PRN Reason: Opioid Reversal Nicotine (Nicotine 21mg/24hr Patch) 1 patch TRANSDERM DAILY [facility] Last Admin: 07/18/24 08:47 Dose: 1 patch Nitroglycerin (Nitroglycerin Sl Tabs 0.4 Mg Tab) 0.4 mg SUBLINGUAL Q5M PRN PRN Reason: Chest Pain Ondansetron HCl (Ondansetron 4 Mg/2 Ml Vial) 4 mg IVP Q8HR PRN PRN Reason: Nausea And Vomiting Spironolactone (Spironolactone 25 Mg Tab) 25 mg PO DAILY [facility] Last Admin: 07/18/24 08:46 Dose: 25 mg Ticagrelor (Ticagrelor 90 Mg Tab) 90 mg PO BID [facility]; Protocol Zolpidem Tartrate (Zolpidem 5 Mg Tab) 5 mg PO HS PRN PRN Reason: Insomnia Social history: Lives with daughter. Smoking a pack a day was up to 2 packs a day. Close to 50 years. Physical examination: VITAL SIGNS: 98, 61, 18, 135 x 65, 97% on 2 L GENERAL: [BMI 23.3, propped in bed, a bit short of breath EYES: Pupils equal. Conjunctiva lonny l. HEENT: External appearance of nose and ears normal, oral cavity grossly normal. NECK: JVD not raised; masses not palpable. HEART: First and second heart sounds are normal; no edema. LUNGS: Respiratory rate increased, diminished breath sound prolonged expiration wheezing. ABDOMEN: Soft, nontender, liver spleen not palpable, no masses palpable. PSYCH: Alert and oriented x3; mood and affect anxious l. MUSCULOSKELETAL:No Clubbing/cyanosis;muscles-grossly intact. OA INVESTIGATIONS, reviewed in the clinical context: July 18: Sodium 135 potassium 4.5 BUN 56 creatinine 1.17 July 17: White 11.4 hemoglobin 12 platelets 435 July 16: White count 16.2 hemoglobin 12.1 platelets 446 potassium 4.2 BUN 37 creatinine 0.98 Troponin I 1.36, 1.4, 1.16 proBNP 20149 Influenza type A, type B, RSV, COVID-19: Not detected EKG tracing personally reviewed by me-sinus rhythm. Some ST-T wave changes. Chest x-ray film personally reviewed by me-prominent interstitial markings/infiltrate especially at the right base. 2D echocardiogram: EF 20-25%. Global decreased function. Severe pulmonary hypertension. Assessment plan: -Acute non-ST relation myocardial infarction. Telemetry. Cardiology consulted. For cardiac catheterization today Aspirin. Lipitor. Lopressor. IV heparin -Probable right basal pneumonia suspect gram-negative organism IV ceftriaxone. Zithromax Sputum for Gram stain culture -Severe secondary pulmonary hypertension secondary to COPD -Acute severe COPD exacerbation in a current smoker DuoNeb every 4. Nebulized Pulmicort. IV Solu-Medrol. Dr. Riley Monzon pulmonary following -IV heparin monitoring Follow PTT -Acute on chronic congestive heart failure exacerbation of systolic dysfunction EF 20-25% IV Lasix -CAD with a prior history of coronary stent x 3 Lipitor. Lopressor. Aspirin -PAD with a prior history peripheral stent Lipitor. Aspirin -Primary osteoarthritis Tylenol as needed -Chronic nicotine dependence cigarette smoker Nicotine patch 21 -Full code Continue antibiotics. Steroids. IV heparin. IV Lasix. Due for cardiac catheterization today. Follow renal function. Past Medical History Past Medical History: COPD, GERD/Reflux, Hyperlipidemia, Hypertension, Myocardial Infarction (ND), Osteoarthritis (OA), Vascular Disorder Additional Past Medical History / Comment(s): OCCASIONAL SOB., VARICOSE VEINS.,STATES LEGS PAINFUL AT TIMES., constipation, Last Myocardial Infarction Date:: 2014 History of Any Multi-Drug Resistant Organisms: MRSA Date of last positivie culture/infection: 2013 MDRO Source:: under nose Past Surgical History: Heart Catheterization With Stent, Orthopedic Surgery Additional Past Surgical History / Comment(s): LT KNEE RECONSTRUCTIVE SX, CURTIS CATARACTS, CYST REMOVED FROM BEHIND LT EAR., BALLOON ANGIOPLASTY WITH STENT LEFT FEMORAL ARTERY (02/2018), 3 cardiact stents, recent aortogram Past Anesthesia/Blood Transfusion Reactions: No Reported Reaction Date of Last Stent Placement:: unknown Past Psychological History: No Psychological Hx Reported Smoking Status: Current every day smoker Past Alcohol Use History: Daily Past Drug Use History: None Reported
[2024-07-18] MEDS: SODIUM CHLORIDE 0.9% 1,000 ML in EMPTY BAG 1 BAG IV SCH (16:02)
--- NOTE | 2024-07-18 20:50 | P.PCN ---
Date of Procedure: 07/18/24 Operative Findings: Cardiac catheterization and percutaneous coronary intervention Performing physician Peng Lambert MD Procedure performed 1. Selective right and left coronary angiogram and left heart catheterization 2.0 Successful PCI of a complex (critical/calcified/eccentric) lesion in the proximal LAD using a 3.0 x 23 mm Xience MAYA which was postdilated using 3.5 mm NC balloon with an excellent angiographic results and reduction of stenosis from 99% to 0% 3. Adjunctive use of IVUS and lithotripsy balloon 4. Ultrasound-guided access of the right radial artery Indication The patient is a pleasant 68-year-old female patient with extensive cardiovascular history consistent of CAD with prior stenting of the LAD and also lower extremities PAD with prior angioplasty/revascularization as well as hypertension and dyslipidemia and extensive history of smoking who was admitted to the hospital with acute non-ST ovation myocardial infarction. The decision was made toward heart catheterization with possible PCI Approach Right radial artery Complication None Level of sedation Moderate with sedation length of 80 minutes Procedure description After obtaining an informed consent the patient was brought to the cardiac Home [employer] Service Supervisor. The right radial artery was cannulated using micropuncture technique under ultrasound guidance the micropuncture wire passed easily then I placed a 6 [place] 11 cm sheath at the right radial artery. After that I gave the patient 2 mg of bilateral intra-arterial and subsequently heparin IV was given with continuous ACT monitoring at the dose was based on the ACT. That was performed throughout the case. Selective right and left coronary angiogram performed us ing JR4 and JL 3.5 catheters. Left heart catheterization was performed as well. After that we decided to intervene on the left anterior descending artery. Antiplatelet was initiated using Brilinta and the patient was given a loading dose of friend of 180 mg once. Subsequently anticoagulation was initiated using heparin with continuous ACT monitoring. I did engage the left main using JL 3.5 guiding catheter. Attempting wiring the LAD using a whisper wire was unsuccessful but was successful with adjunctive use of support microcatheter. Subsequently the microcatheter was advanced with difficulties across the lesion to the mid to distal LAD and then I pulled a whisper wire out and I placed evidence to the wire for better support. Subsequently the microcatheter was taken out over the wire with keeping the wire in position. Intravascular ultrasound IVUS was performed but the fibrous was not crossed across the lesion because the lesion was very calcified and very tight but proximal to the lesion the artery diameter was about 3 mm and appeared to be heavily calcified and with that I decided to treat the artery with lithotripsy balloon. Attempting advancing 2.5 mm NC balloon was unsuccessful. Attempting advancing 2.0 mm c-Myc compliant balloon was also unsuccessful. I was able to advance 1.5 mm balloon with difficulties in with adjunctive use of GuideLiner. Multiple balloon angioplasty was performed using a 1.5 mm balloon which was inflated multiple times across the lesion and proximal and distal to the lesions. After that I was able to advance 2 mm balloon and also multiple angioplasty was performed across the lesion as well as proximal and distal to the lesion. After that I did advance 2.5 mm balloon and then 3 mm noncompliant balloon. After that I was able to advance the 3 mm lithotripsy balloon and I did multiple balloon angioplasty of the LAD. After that I was able to advance a 3.0 x 23 mm Xience MAYA where the stent was positioned under fluoroscopy guidance with adjunctive use of GuideLiner and the stent was deployed under fluoroscopy guidance and postdilated using 3.5 mm noncompliant balloon with final angiogram showing excellent angiographic results with VIOLA-3 flow and the procedure was completed with no complication and the patient tolerated the procedure very well Selective coronary angiogram The RCA is a large-caliber vessel and the dominant vessel with no evidence of high-grade stenosis was identified but only intermediate disease The left main appeared to be calcified with mild disease only The LCx is a large-caliber vessel nondominant vessel with no evidence of high- grade stenosis The LAD in the proximal portion has very calcified and eccentric lesion with possible plaque rupture in that area and the lesion appeared to be in the range of 99.9% Hemodynamics LVEDP was about 12 mmHg with no significant gradient across the aortic valve Conclusion Heavily calcified right and left coronary system Critical disease involving the proximal LAD with heavily calcified and eccentric lesion with plaque rupture. I did perform PCI of the LAD with an excellent angiographic results as described above Postprocedure management Continue dual antiplatelet therapy using aspirin and Brilinta for at least 12 months Aggressive risk factors modification Smoking cessation Follow-up with the patient
[2024-07-18] MEDS: TICAGRELOR 90 MG TAB PO SCH (21:02)
[2024-07-19] MEDS: ALPRAZolam 0.5 MG TAB PO PRN (01:22)
[2024-07-19 07:23] LABS: African American GFR (CKD) 73 (>60 ml/min/1.73 sqM); Anion Gap 5 mmol/L; Blood Urea Nitrogen 57 mg/dL (7-17); Calcium 9.7 mg/dL (8.4-10.2); Carbon Dioxide 30 mmol/L (22-30); Chloride 100 mmol/L (98-107); Glucose 139 mg/dL (74-99); Non-African American GFR(CKD) 63 (>60 ml/min/1.73 sqM); Potassium 4.1 mmol/L (3.5-5.1); Sodium 135 mmol/L (137-145)
[2024-07-19] MEDS: ASPIRIN 81 MG PO SCH (08:33)
[2024-07-19] MEDS ORDERED: ASPIRIN 325 MG TAB PO SCH (09:00)
--- NOTE | 2024-07-19 13:05 | P.PN ---
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 Longstanding smoker. Medical conditions include COPD, GERD, hypertension, hyperlipidemia, varicose veins, PAD, osteoarthritis, CAD with stent balloon angioplasty with stent to the left femoral artery. Patient is chronically short of breath but more short of breath the last 2 weeks. Even short of breath at rest. Scattered cough with yellow-green sputum. Denies any fever and chills. Appetite is okay. Has about 2 bowel movements a week. Rather tired rundown. July 18: Propped up in bed. Slight improvement in breathing. Patient is n.p.o. for cardiac catheterization later this afternoon. Getting IV ceftriaxone. IV heparin. IV Solu-Medrol. No chest pain. 07/19. Patient seen and examined. States she feels better. Still having shortness of breath on exertion REVIEW OF SYSTEMS: CONSTITUTIONAL: No fever, no malaise,. CARDIOVASCULAR: No chest pain, no palpitations, no syncope. PULMONARY: As mentioned above GASTROINTESTINAL: No diarrhea, no nausea, no vomiting, no abdominal pain. NEUROLOGICAL: No headaches, no weakness, PHYSICAL EXAMINATION: GENERAL: The patient is alert and oriented x3, not in any acute distress. Well developed, well nourished. HEENT: Pupils are round and equally reacting to light. EOMI. No scleral icterus. No conjunctival pallor. Normocephalic, atraumatic. No pharyngeal erythema. No thyromegaly. CARDIOVASCULAR: S1 and S2 present. No murmurs, rubs, or gallops. PULMONARY: Coarse breath sound bilaterally, no wheezing or crackles. ABDOMEN: Soft, nontender, nondistended, normoactive bowel sounds. No palpable organomegaly. MUSCULOSKELETAL: No joint swelling or deformity. EXTREMITIES: No cyanosis, clubbing, or pedal edema. NEUROLOGICAL: Gross neurological examination did not reveal any focal deficits. SKIN: No rashes. Assessment and plan -Acute non-ST relation myocardial infarction. Monitor vital sign Monitor CBC Monitor CMP Status post cardiac cath, cath report reviewed successful PCI of a complex (critical/calcified/eccentric) lesion in the proximal LAD using a 3.0 x 23 mm Xience MAYA which was postdilated using 3.5 mm NC balloon with an excellent angiographic results and reduction of stenosis from 99% to 0% Continue aspirin, Lipitor, Brilinta -Probable right basal pneumonia suspect gram-negative organism IV ceftriaxone. Zithromax Sputum for Gram stain culture -Severe secondary pulmonary hypertension secondary to COPD Acute severe COPD exacerbation in a current smoker DuoNeb every 4. Nebulized Pulmicort. IV Solu-Medrol. Dr. Riley Monzon pulmonary following -Acute on chronic congestive heart failure exacerbation of systolic dysfunction EF 20-25% Strict I's and O's, daily weights, IV Lasix -CAD with a prior history of coronary stent x 3 Lipitor. Lopressor. Aspirin -PAD with a prior history peripheral stent Lipitor. Aspirin -Primary osteoarthritis Tylenol as needed -Chronic nicotine dependence cigarette smoker Nicotine patch 21 Labs and medication were reviewed.. Continue same treatment. Continue with symptomatic treatment. Resume home medication. Monitor labs and vitals. DVT and GI prophylaxis. Further recommendations as per clinical course of the p atient Dictation was produced using [employer] dictation software. please excuse any grammatical, word or spelling errors. Objective - Vital Signs Vital signs: Vital Signs Temp 98.1 F 07/19/24 08:00 Pulse 78 07/19/24 08:00 Resp 18 07/19/24 08:00 BP 154/72 07/19/24 08:00 Pulse Ox 94 L 07/19/24 08:00 FiO2 Intake & Output 07/18/24 07/19/24 07/19/24 18:59 06:59 18:59 Intake Total 178.057 Balance 178.057 Weight 54 kg Intake: IV 100 Intake, IV Titration 78.057 Amount Heparin Sod,Pork in 0.45% 78.057 NaCl 25,000 unit In 0.45 % NaCl 1 250ml.bag @ 12 UNITS/KG/HR 6.804 mls/hr IV .Q24H [facility] Rx#: [id number] Other: Voiding Method External Catheter Toilet - Labs CBC & Chem 7: 07/17/24 06:24 07/19/24 06:34 Labs: Abnormal Lab Results - Last 24 Hours (Table) 07/19/24 Range/Units 06:34 Sodium 135 L (137-145) mmol/L BUN 57 H (7-17) mg/dL Glucose 139 H (74-99) mg/dL
[2024-07-19 13:11] VITALS: BMI 23.2
--- NOTE | 2024-07-19 17:25 | P.PN ---
Subjective Progress Note Date: 07/19/24 This is a 68-year-old female patient of Dr. 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 We have been asked to evaluate patient for CHF and elevated troponin. Patient states that she came in the hospital because she could not breathe. Patient apparently saw Dr. Monzon last week and her oxygen level was low and she was placed on antibiotics and steroid. She did not want to go to the hospital at that time. Yesterday, patient called her daughter to bring her into the hospital. She was having more shortness of breath. She does have heaviness in her chest that is off and on for the past few weeks but none now. No lower extremity edema. She states she has lost weight. She does state it is hard for her to sleep or rest lying down. She does have wheezing that wakes her up at night. Blood pressure 185/82, heart rate 74, pulse ox 99% on 2 L nasal cannula. Patient has been started on heparin drip. Patient continues to be an active smoker. Discussed option of cardiac catheterization which may be considered for tomorrow once her respiratory status has been stabilized. -EKG: Sinus rhythm 76 bpm, Q waves in the anterior leads, V6 T-wave inversion -Chest x-ray: Interstitial lung markings which are more pronounced than prior correlate for pulmonary edema. COPD. -Laboratory studies: WBC initially 16.2 now 11.4, hemoglobin 12. BUN 37 creatinine 0.98, potassium 4.2. Troponins 1.36, 1.4, 1.16. proBNP 24,300. Influenza A, influenza B, RSV, COVID-19 not detected. -Home cardiac medications: Aspirin 325 mg daily, atorvastatin 80 mg at bedtime, lisinopril 10 mg daily, Lopressor 25 mg twice daily, Aldactone 25 mg daily -Echocardiogram performed 03/31/2023 revealed normal left ventricular size and systolic function. Trace mitral and mild tricuspid regurgitation. -Cardiac catheterization performed 12/28/2020 revealed patent stent in the mid RCA and patent stent in the mid LAD. -Lexiscan Cardiolite stress test performed in the office on 05/25/2023 revealed normal study 07/18/2024 Patient seen and examined. Patient's echocardiogram reveals EF of 20 to 25%, ischemic cardiomyopathy with severe LV systolic dysfunction and severe LV systolic dysfunction. [place] is akinetic. Severe pulmonary hypertension. Reviewed results of the echocardiogram with the patient and her daughter. She states her breathing is better today. She denies having any chest pain. Patient recommended to undergo cardiac catheterization today and she is agreeable to move forward. She feels that she is able to lay flat for the procedure. Blood pressure 156/73, heart rate 82, pulse ox 94% on 2 L nasal cannula. Repeat blood work reveals sodium 135, potassium 4.5, BUN 56 and creatinine 1.17. CO2 39. Patient is maintained on IV Lasix 40 mg every 12 hours which will be continued 07/19/2024 Status post PCI to LAD, no immediate vascular complications encountered. Hemodynamically stable, coming along well. Denies any chest pain chest pressure shortness of breath. Physical examination: Gen: This is a 68-year-old female in no respiratory distress VS: reviewed HEENT: Head is atraumatic, normocephalic. Pupils equal, round. Sclerae is anicteric. NECK: Supple. No JVD. LUNGS: Bilateral expiratory wheezing. No accessory muscle usage. HEART: Regular rate and rhythm. Soft systolic murmur. ABDOMEN: Soft No tenderness. EXTREMITIES: No pedal edema. No calf tenderness. NEUROLOGICAL: Patient is awake, alert and oriented x3. Assessment: Acute hypoxic respiratory failure secondary to COPD exacerbation and acute diastolic heart failure NSTEMI status post PCI to LAD Cardiomyopathy, ischemic, EF 20 to 25% History of coronary artery disease with prior stenting of the RCA and LAD PAD with prior angioplasty of the bilateral SFA and intermediate disease of the left common femoral artery Carotid atherosclerosis AAA Hypertension Dyslipidemia Tobacco use and dependence Plan: Continue aspirin 81 mg, Brilinta 90 mg twice daily, Lipitor 80 mg daily Continue lisinopril 10 mg daily, Aldactone 25 g daily, Lasix 40 mg IV twice lizett y, Monitor transition Lasix to 1 mg Bumex p.o. daily. Add Farxiga 10 mg daily. Patient should be clear from cardiovascular standpoint tomorrow Objective - Vital Signs Vital signs: Vital Signs Temp 98.3 F 07/19/24 15:24 Pulse 85 07/19/24 16:36 Resp 18 12/21/24 15:24 BP 112/65 07/19/24 15:24 Pulse Ox 93 L 07/19/24 15:24 FiO2 Intake & Output 07/18/24 07/19/24 07/19/24 18:59 06:59 18:59 Intake Total 503.927 1496 Balance 774.415 7421 Weight 54 kg 54 kg Intake: IV 100 Intake, IV Titration 78.057 Amount Heparin Sod,Pork in 0.45% 78.057 NaCl 25,000 unit In 0.45 % NaCl 1 250ml.bag @ 12 UNITS/KG/HR 6.804 mls/hr IV .Q24H [facility]S [facility] 234 BEDS AT THE [facility] Rx#: [id number] Oral 1320 Other: Voiding Method External Catheter Toilet Toilet - Labs CBC & Chem 7: 07/17/24 06:24 07/19/24 06:34 Labs: Abnormal Lab Results - Last 24 Hours (Table) 07/19/24 Range/Units 06:34 Sodium 135 L (137-145) mmol/L BUN 57 H (7-17) mg/dL Glucose 139 H (74-99) mg/dL Microbiology - Last 24 Hours (Table) 07/18/24 11:50 Gram Stain - Preliminary Sputum Sputum Culture - Preliminary Pseudomonas aeruginosa
[2024-07-19] MEDS: DAPAGLIFLOZIN PROPANEDIOL 10 MG TABLET PO SCH (18:29)
[2024-07-20 07:44] VITALS: RESP 16
[2024-07-20] MEDS: BUMETANIDE 1 MG TAB PO SCH (08:36)
--- NOTE | 2024-07-20 10:42 | P.PN ---
Subjective Progress Note Date: 07/20/24 Principal diagnosis: Non-ST segment elevated VA Ischemic cardiomyopathy with ejection fraction of 20% Secondary pulmonary hypertension group 2 and 3 Acute COPD exacerbation Extensive history of smoking and nicotine use Tracheobronchitis Rising troponin suggestive of non-STEMI Elevated BNP over 24,000 likely suggestive of cardiomyopathy/heart failure July 20, 2024, patient seen eval examined during rounds labs reviewed medications and care plan discussed, patient is s/p cardiac cath angiogram for non-ST segment elevated VA significant critical obstruction and LAD was noted which has been stented, patient has been on dual agent antiplatelet and high intensity statins remains on IV antibiotics patient has been counseled about smoking cessation nicotine patch has been provided, patient remains afebrile hemodynamically stable oxygen saturation 95% on room air. Remains on bronchodilator along with inhaled aerosolized steroids, broad-spectrum IV antibiotics with Rocephin patient has been on Solu-Medrol 40 mg every 12 hours however can be changed to oral at the time of discharge, echocardiogram results reviewed ejection fraction 25% with severe pulmonary hypertension likely group 2 and 3 Patient is a 68-year-old female well-known to me seen in the office a week ago with increasing shortness of breath cough congestion for 2-day duration patient was prescribed oral prednisone and antibiotics advised if symptoms do not improve consider hospitalization. Patient has been taking antibiotics and steroid without any significant improvement, patient continued to smoke 1 pack/day down from 2 packs/day chest x-ray interstitial edema, also complaining of intermittent chest pain, cardiovascular evaluation is pending labs from today reviewed white cell count 16.2 CBC otherwise fairly within normal limit coags were okay however troponin 1.36 with a rising pattern and subsequent to up to 1.16 BNP is over 24,000, noted to have RSV with COVID-negative so has influenza A and influenza B Objective - Vital Signs Vital signs: Vital Signs Temp 98.1 F 07/20/24 07:42 Pulse 72 07/20/24 08:47 Resp 16 07/20/24 08:47 BP 141/63 07/20/24 07:42 Pulse Ox 95 07/20/24 07:42 FiO2 Intake & Output 07/19/24 07/20/24 07/20/24 18:59 06:59 18:59 Intake Total 1320 Balance 1320 Weight 54 kg 54.3 kg Intake: Oral 1320 Other: Voiding Method Toilet Toilet Toilet - Exam - Constitutional General appearance: average body habitus, cooperative, disheveled - EENT Eyes: EOMI, PERRLA ENT: normal oropharynx Ears: bilateral: normal - Neck Neck: normal ROM Carotids: bilateral: upstroke normal Thyroid: bilateral: normal size - Respiratory Respiratory: bilateral: diminished, wheezing (Fine and and expiratory) - Cardiovascular Rhythm: regular Heart sounds: normal: S1, S2 - Gastrointestinal General gastrointestinal: normal bowel sounds, soft - Integumentary Integumentary: normal turgor - Neurologic Neurologic: CNII-XII intact - Musculoskeletal Musculoskeletal: gait normal, generalized weakness, strength equal bilaterally - Psychiatric Psychiatric: A&O x's 3, appropriate affect, intact judgment & insight - Labs CBC & Chem 7: 07/17/24 06:24 07/19/24 06:34 Labs: Microbiology - Last 24 Hours (Table) 07/18/24 11:50 Gram Stain - Preliminary Sputum Sputum Culture - Preliminary Pseudomonas aeruginosa Assessment and Plan Assessment: Non-ST segment elevated VA Ischemic cardiomyopathy with ejection fraction of 20% Secondary pulmonary hypertension group 3 Coronary artery disease with critical stenosis in LAD status post stent placement Acute COPD exacerbation Extensive history of smoking and nicotine use Tracheobronchitis Rising troponin suggestive of non-STEMI Elevated BNP over 24,000 likely suggestive of cardiomyopathy/heart failure Plan: On high intensity statins and dual antiplatelet agent consider Entresto, will defer it to cardiovascular service Bronchodilators IV steroids can be changed to oral at the time of discharge Further recommendations pending plan of care as per clinical response the pat ient Time with Patient: Greater than 30
--- NOTE | 2024-07-20 12:47 | P.DS ---
Providers Date of admission: 07/17/24 07:15 Expected date of discharge: 07/20/24 Attending physician: Antonio Dc Consults: 07/17/24 00:14 Consult Physician Routine Consulting Provider: Peng Lambert Consult Reason/Comments: chf, elevated trop Do you want consulting provider notified?: Already Contacted 07/18/24 14:24 Consult Physician Routine Consulting Provider: [facility] Consult Reason/Comments: Post Interventional patient Do you want consulting provider notified?: Already Contacted [facility] Course: Discharge diagnoses; -Acute non-ST relation myocardial infarction. Status post cardiac cath, cath report reviewed successful PCI of a complex (critical/calcified/eccentric) lesion in the proximal LAD using a 3.0 x 23 mm Xience MAYA which was postdilated using 3.5 mm NC balloon with an excellent angiographic results and reduction of stenosis from 99% to 0% Continue aspirin, Lipitor, Brilinta -Probable right basal pneumonia suspect gram-negative organism Completed course of antibiotic -Severe secondary pulmonary hypertension secondary to COPD Continue home regimen of inhalers and steroid -Acute on chronic congestive heart failure exacerbation of systolic dysfunction EF 20-25% Discharged on oral Bumex -CAD with a prior history of coronary stent x 3 As mentioned above -PAD with a prior history peripheral stent Lipitor. Aspirin -Primary osteoarthritis Tylenol as needed -Chronic nicotine dependence cigarette smoker Nicotine patch Hospital course; Pleasant 68-year-old patient follows with Dr. Combs. 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 Longstanding smoker. Medical conditions include COPD, GERD, hypertension, hyperlipidemia, varicose veins, PAD, osteoarthritis, CAD with stent balloon angioplasty with stent to the left femoral artery. Patient is chronically short of breath but more short of breath the last 2 weeks. Even short of breath at rest. Scattered cough with yellow-green sputum. Denies any fever and chills. Appetite is okay. Has about 2 bowel movements a week. Rather tired rundown. July 18: Propped up in bed. Slight improvement in breathing. Patient is n.p.o. for cardiac catheterization later this afternoon. Getting IV ceftriaxone. IV heparin. IV Solu-Medrol. No chest pain. 07/19. Patient seen and examined. States she feels better. Still having shortness of breath on exertion.Status post cardiac cath, cath report reviewed s uccessful PCI of a complex (critical/calcified/eccentric) lesion in the proximal LAD using a 3.0 x 23 mm Xience MAYA which was postdilated using 3.5 mm NC balloon with an excellent angiographic results and reduction of stenosis from 99% to 0% 07/20. Patient seen and examined. Doing much better. Cardiology has cleared the patient for discharge, recommend aspirin 81 mg, Brilinta 90 mg twice daily, Lipitor 80 mg daily Continue lisinopril 10 mg daily, Aldactone 25 g daily, 1 mg Bumex p.o. daily. Add Farxiga 10 mg daily. Discharged in stable condition PHYSICAL EXAMINATION: GENERAL: The patient is alert and oriented x3, not in any acute distress. Well developed, well nourished. HEENT: Pupils are round and equally reacting to light. EOMI. No scleral icterus. No conjunctival pallor. Normocephalic, atraumatic. No pharyngeal erythema. No thyromegaly. CARDIOVASCULAR: S1 and S2 present. No murmurs, rubs, or gallops. PULMONARY: Chest is clear to auscultation, no wheezing or crackles. ABDOMEN: Soft, nontender, nondistended, normoactive bowel sounds. No palpable organomegaly. MUSCULOSKELETAL: No joint swelling or deformity. EXTREMITIES: No cyanosis, clubbing, or pedal edema. NEUROLOGICAL: Gross neurological examination did not reveal any focal deficits. SKIN: No rashes. Dictation was produced using [employer] dictation software. please excuse any grammatical, word or spelling errors. Patient Condition at Discharge: Stable Plan - Discharge Summary Discharge Rx Participant: Yes New Discharge Prescriptions: New Ticagrelor [Brilinta] 90 mg PO BID 30 Days #60 tab Bumetanide [BUMEX] 1 mg PO DAILY 30 Days #30 tab Dapagliflozin Propanediol [Farxiga] 10 mg PO DAILY 30 Days #30 tab Aspirin [Adult Low Dose Aspirin EC] 81 mg PO DAILY 30 Days #30 tab Continue Metoprolol Tartrate [Lopressor] 25 mg PO BID #60 tab Atorvastatin [Lipitor] 80 mg PO HS #30 tab Spironolactone [Aldactone] 25 mg PO DAILY Albuterol Sulfate [Ventolin HFA] 2 puff INHALATION RT-Q6H PRN PRN Reason: Shortness Of Breath Cholecalciferol [Vitamin D3 (25 Mcg = 1000 Iu)] 25 mcg PO DAILY lisinopriL [Zestril] 10 mg PO DAILY Custar-3/Dha/Epa/Fish Oil [Fish Oil 1,000 mg Softgel] 1 cap PO DAILY Ipratropium-Albuterol Nebulize [Duoneb 0.5 mg-3 mg/3 ml Soln] 3 ml INHALATION RT-QID PRN PRN Reason: Shortness Of Breath predniSONE [Deltasone] See Taper PO DAILY Discontinued Doxycycline [Vibramycin] 100 mg PO BID Aspirin EC [Ecotrin] 325 mg PO DAILY Discharge Medication List Metoprolol Tartrate [Lopressor] 25 mg PO BID #60 tab 07/17/15 [Rx] Atorvastatin [Lipitor] 80 mg PO HS #30 tab 08/05/15 [Rx] Spironolactone [Aldactone] 25 mg PO DAILY 11/27/16 [History] Albuterol Sulfate [Ventolin HFA] 2 puff INHALATION RT-Q6H PRN 06/06/20 [History] Custar-3/Dha/Epa/Fish Oil [Fish Oil 1,000 mg Softgel] 1 cap PO DAILY 01/27/22 [History] Cholecalciferol [Vitamin D3 (25 Mcg = 1000 Iu)] 25 mcg PO DAILY 03/30/23 [History] Ipratropium-Albuterol Nebulize [Duoneb 0.5 mg-3 mg/3 ml Soln] 3 ml INHALATION RT-QID PRN 03/30/23 [History] lisinopriL [Zestril] 10 mg PO DAILY 07/16/24 [History] predniSONE [Deltasone] See Taper PO DAILY 07/16/24 [History] Aspirin [Adult Low Dose Aspirin EC] 81 mg PO DAILY 30 Days #30 tab 07/20/24 [Rx] Bumetanide [BUMEX] 1 mg PO DAILY 30 Days #30 tab 07/20/24 [Rx] Dapagliflozin Propanediol [Farxiga] 10 mg PO DAILY 30 Days #30 tab 07/20/24 [Rx] Ticagrelor [Brilinta] 90 mg PO BID 30 Days #60 tab 07/20/24 [Rx] Follow up Appointment(s)/Referral(s): Mal Combs DO [Primary Care Provider] - 1-2 days Indra Monzon [STAFF PHYSICIAN] - 1 Week
[2024-07-20 15:02] VITALS: BP 147/90; PULSE 82; TEMP 97.8
== END 2024-07-20 15:11 | disposition home or self-care (01) | DRG 323 ==
LOC: EC 17:11 → 3SCARD 19:47 → OBSVTOIN 07-17 07:15
PROVIDERS: ADMIT Hospitalist; ATTEND Hospitalist
PROC: 4A023N7 Measurement of Cardiac Sampling and Pressure, Left Heart, Percutaneous Approach (ICD-10-PCS; 2024-07-18)
PROC: 027034Z Dilation of Coronary Artery, One Artery with Drug-eluting Intraluminal Device, Percutaneous Approach (ICD-10-PCS; principal; 2024-07-18 14:20)
PROC: 02F03ZZ Fragmentation in Coronary Artery, One Artery, Percutaneous Approach (ICD-10-PCS; 2024-07-18 14:20)
PROC: B2111ZZ Fluoroscopy of Multiple Coronary Arteries using Low Osmolar Contrast (ICD-10-PCS; 2024-07-18 14:20)
PROC: B240ZZ3 Ultrasonography of Single Coronary Artery, Intravascular (ICD-10-PCS; 2024-07-18 14:20)
DX: I21.4 Non-ST elevation (NSTEMI) myocardial infarction (principal); I50.23 Acute on chronic systolic (congestive) heart failure; J18.9 Pneumonia, unspecified organism; J96.01 Acute respiratory failure with hypoxia; J44.0 Chronic obstructive pulmonary disease with (acute) lower respiratory infection; J44.1 Chronic obstructive pulmonary disease with (acute) exacerbation; I27.29 Other secondary pulmonary hypertension; I25.10 Atherosclerotic heart disease of native coronary artery without angina pectoris; I73.9 Peripheral vascular disease, unspecified; M19.91 Primary osteoarthritis, unspecified site; F17.210 Nicotine dependence, cigarettes, uncomplicated; I11.0 Hypertensive heart disease with heart failure; K21.9 Gastro-esophageal reflux disease without esophagitis; E78.5 Hyperlipidemia, unspecified; I25.5 Ischemic cardiomyopathy; I65.29 Occlusion and stenosis of unspecified carotid artery; I71.40 Abdominal aortic aneurysm, without rupture, unspecified; Z95.5 Presence of coronary angioplasty implant and graft; Z79.899 Other long term (current) drug therapy; Z79.82 Long term (current) use of aspirin; Z88.8 Allergy status to other drugs, medicaments and biological substances
CPT/HCPCS: 36415; 71046; 80048; 80053; 83605; 83735; 83880; 84484; 85025; 85610; 85730; 87070; 87077; 87186; 87205; 87636; 92972; 92978; 93005; 93306; 93458; 94640; 94760; 96365; 96366; 96375; 99285

== ENCOUNTER 2024-08-01 16:41 | Inpatient (IN) | payer MEDICARE ==
--- NOTE | 2024-08-01 17:28 | ED ---
General Adult HPI - General Chief complaint: Chest Pain Stated complaint: CP Time Seen by Provider: 08/01/24 17:05 Source: patient, family, RN notes reviewed, old records reviewed Mode of arrival: wheelchair Limitations: no limitations - History of Present Illness Initial comments: Is a 69-year-old female who presents emergency department complaining of neurological symptoms. Patient was having some chest pain last night and earlier this morning which is since resolved. However patient is having weakness in the left lower extremity as well as left upper extremity and some mild slurred speech. Symptoms began sometimes last night and has been persistent since she awoke this morning and had radiantly recent cardiac stent placed in mid June. Patient is on Brilinta, baby aspirin. She denies any falls or injuries. Denies any headaches. States she was having some left-sided chest pain as well which is since resolved. Currently is only complaining of the left upper and lower extremity weakness as well as some paresthesias in both. Patient's daughter also noticed some slurred speech. Patient presents for further evaluation. Vital signs are within acceptable limits. I was made aware the patient evaluated patient ATP. I evaluated the patient and activated as a code stroke.Last known well was sometime last night. Not a thrombolytic candidate. - Related Data Home Medications Medication Instructions Recorded Confirmed Spironolactone [Aldactone] 25 mg PO DAILY 11/27/16 08/01/24 Albuterol Sulfate [Ventolin HFA] 2 puff INHALATION RT-Q6H PRN 06/06/20 08/01/24 Floyd-3/Dha/Epa/Fish Oil [Fish Oil 1 cap PO DAILY 01/27/22 08/01/24 1,000 mg Softgel] Cholecalciferol [Vitamin D3 (25 25 mcg PO DAILY 03/30/23 08/01/24 Mcg = 1000 Iu)] Ipratropium-Albuterol Nebulize 3 ml INHALATION RT-QID PRN 03/30/23 08/01/24 [Duoneb 0.5 mg-3 mg/3 ml Soln] lisinopriL [Zestril] 10 mg PO DAILY 07/16/24 08/01/24 Previous Rx's Medication Instructions Recorded Metoprolol Tartrate [Lopressor] 25 mg PO BID #60 tab 07/17/15 Atorvastatin [Lipitor] 80 mg PO HS #30 tab 08/05/15 Aspirin [Adult Low Dose Aspirin EC] 81 mg PO DAILY 30 Days #30 tab 07/20/24 Bumetanide [BUMEX] 1 mg PO DAILY 30 Days #30 tab 07/20/24 Dapagliflozin Propanediol [Farxiga] 10 mg PO DAILY 30 Days #30 tab 07/20/24 Ticagrelor [Brilinta] 90 mg PO BID 30 Days #60 tab 07/20/24 Allergies Allergy/AdvReac Type Severity Reaction Status Date / Time cephalexin monohydrate Allergy Rash/Hives Verified 08/01/24 18:59 [From Keflex] Review of Systems ROS Statement: Those systems with pertinent positive or pertinent negative responses have been documented in the HPI. Review of Systems: CONST: Denies fever EYES: Denies blurry vision ENT: Denies nasal congestion C/V: Endorses resolved chest pain RESP: Denies shortness of breath GI: Denies abdominal pain : Denies dysuria SKIN: Denies rash. MSK: Denies joint pain. NEURO: Endorses left arm and left leg weakness, numbness. ROS Other: All systems not noted in ROS Statement are negative. Past Medical History Past Medical History: Heart Failure, COPD, GERD/Reflux, Hyperlipidemia, Hypertension, Myocardial Infarction (CA), Osteoarthritis (OA), Vascular Disorder Additional Past Medical History / Comment(s): OCCASIONAL SOB., VARICOSE VEINS.,STATES LEGS PAINFUL AT TIMES., constipation, Last Myocardial Infarction Date:: 2014 History of Any Multi-Drug Resistant Organisms: MRSA Date of last positivie culture/infection: 2013 MDRO Source:: under nose Past Surgical History: Heart Catheterization With Stent, Orthopedic Surgery Additional Past Surgical History / Comment(s): LT KNEE RECONSTRUCTIVE SX, CURTIS CATARACTS, CYST REMOVED FROM BEHIND LT EAR., BALLOON ANGIOPLASTY WITH STENT LEFT FEMORAL ARTERY (02/2018), 3 cardiact stents, recent aortogram Past Anesthesia/Blood Transfusion Reactions: No Reported Reaction Date of Last Stent Placement:: unknown Past Psychological History: No Psychological Hx Reported Smoking Status: Current every day smoker Past Alcohol Use History: Daily Past Drug Use History: None Reported - Past Family History Sister(s) Family Medical History: Deep Vein Thrombosis (DVT) Mother Family Medical History: Cancer Father Family Medical History: No Reported History General Exam - General Exam Comments Initial Comments: General: Appears in no acute distress. HEAD: Normal with no signs of head trauma. EYES: PERRLA, EOMI, conjunctiva normal, no discharge. Pupils are 2 to 3 mm and equal bilaterally. ENT: Hearing grossly intact, normal oropharynx. RESPIRATORY: Clear breath sounds bilaterally. No wheezes, rales, or rhonchi. C/V: Regular rate and rhythm. S1 and S2 auscultated, no edema, peripheral pulses 2+ and intact throughout ABD: Abd is soft, nontender, nondistended EXT: Normal range of motion, no obvious deformity SKIN: No rashes or lesions observed on exposed skin. NEURO: Alert and oriented x 4. NIH of 3-4, 1 point each for left upper and left lower extremity weakness. 1 point for mild slurred speech. 1 point for mild sensory deficits of the left lower extremity and left upper extremity which seem more like paresthesias. Limitations: no limitations Course Vital Signs 08/01/24 08/01/24 16:52 18:03 Temperature 97.5 F L Pulse Rate 61 76 Respiratory 18 18 Rate Blood Pressure 98/54 132/56 O2 Sat by Pulse 96 97 Oximetry Medical Decision Making - Medical Decision Making Was pt. sent in by a medical professional or institution (, PA, SPARMAKER, urgent care, hospital, or custodial...) When possible be specific @ -No Did you speak to anyone other than the patient for history (EMS, parent, family, police, friend...)? What history was obtained from this source @ -Spoke with patient's daughter who helps with HPI. Did you review nursing and triage notes (agree or disagree)? Why? @ -I reviewed and agree with nursing and triage notes Were old charts reviewed (outside hosp., previous admission, EMS record, old EKG, old radiological studies, urgent care reports/EKG's, custodial records)? Report findings @ -Charts reviewed from June 2024 when patient had a cardiac stent placed. Differential Diagnosis (chest pain, altered mental status, abdominal pain women, abdominal pain men, vaginal bleeding, weakness, fever, dyspnea, syncope, headache, dizziness, GI bleed, back pain, seizure, CVA, palpatations, mental health, musculoskeletal)? @ -Differential CVA Ischemic stroke, hemorrhagic stroke, brain tumor, atypical migraine, Wernicke's encephalopathy, seizure, multiple sclerosis, meningitis, encephalitis, hypoglycemia, Guillain-Campos, electrolytes disturbance, myasthenia gravis.... This is not meant to be an all-inclusive list Differential Chest Pain: Stable Angina, Unstable Angina, STEMI, NSTEMI Aortic Dissection, Pneumothorax, Musculoskeletal, Esophageal Spasm GERD, Cholecystitis, Pancreatitis, Zoster, this is not meant to be an all-inclusive list. EKG interpreted by me (3pts min.). @ -As above X-rays interpreted by me (1pt min.). @ -Chest x-ray reveals no obvious acute cardiopulmonary process. CT interpreted by me (1pt min.). @ -CT brain, CT angiogram head and neck negative for any obvious acute stroke. Chronic degenerative changes seen of CT brain. No significant stenosis or large vessel occlusion seen on CT angiogram of the head and neck. U/S interpreted by me (1pt. min.). @ -None done What testing was considered but not performed or refused? (CT, X-rays, U/S, labs)? Why? @ -None What meds were considered but not given or refused? Why? @ -None Did you discuss the management of the patient with other professionals (professionals i.e. , PA, SPARMAKER, lab, RT, psych nurse, web content & social media manager, certified medication technician, teacher, duty officer, insurance case manager)? Give summary @ -Discussed with on-call neuro crit care physician Dr. Anderson who was in agreement with plan for code stroke, and that patient is not a tenecteplase candidate as she is outside the window and risks far outweigh benefits. Was smoking cessation discussed for >3mins.? @ -No Was critical care preformed (if so, how long)? @ -Yes, 32 minutes Were there social determinants of health that impacted care today? How? (Homelessness, low income, unemployed, alcoholism, drug addiction, transportation, low edu. Level, literacy, decrease access to med. care, group home, rehab)? @ -No Was there de-escalation of care discussed even if they declined (Discuss DNR or withdrawal of care, Hospice)? DNR status @ -No What co-morbidities impacted this encounter? (DM, HTN, Smoking, COPD, CAD, Cancer, CVA, ARF, Chemo, Hep., AIDS, mental health diagnosis, sleep apnea, morbid obesity)? @ -CAD Was patient admitted / discharged? Hospital course, mention meds given and route, prescriptions, significant lab abnormalities, going to OR and other pertinent info. @ -Based on the patient's presentation and physical exam, presents emergency department with strokelike symptoms. Patient made a code stroke. NIH is 3-4. Last normal sometime last night. Patient is outside window for thrombolytic therapy due to the time. Outside the window, being on Brilinta, as well as risks being far outweighed by the benefits. Discussed with the neurointensivist Dr. Anderson who was in agreement with this. Patient be worked up for stroke as well as cardiac due to her chest pain that is since resolved. Patient was in agreement this plan. Vitals are within acceptable limits at this time. She will be given a 1 L fluid bolus. Will obtain CT imaging cardiac workup.Dr. Anderson will be notified if any significant findings on imaging. Patient has no signs of acute ischemia. Laboratory studies remarkable for troponin within acceptable limits at 0.028. Patient has very mild RENITA with slightly elevated BUN and creatinine of 36 1.31. Being treated with IV fluids. Mild leukocytosis of 12.7 which is likely reactive. Imaging returned unremarkable. Urine is still pending. At this time, I discussed the results with the patient. Symptoms have mostly improved at this time. Patient will be medically managed for what seems like a TIA and we will admit for cardiac observation as well. Cardiology will be consulted. Neurology will be consulted. Patient given 325 mg of aspirin and we will continue with aspirin and Brilinta at this time. Patient was in agreement this plan. I discussed the case with the admitting provider, Dr. Renteria who is covering for Dr. Dc who accepted the admission. Undiagnosed new problem with uncertain prognosis? @ -No Drug Therapy requiring intensive monitoring for toxicity (Heparin, Nitro, In sulin, Cardizem)? @ -No Were any procedures done? @ -No Diagnosis/symptom? @ -TIA, chest pain Acute, or Chronic, or Acute on Chronic? @ -Acute Uncomplicated (without systemic symptoms) or Complicated (systemic symptoms)? @ -Complicated Side effects of treatment? @ -None Exacerbation, Progression, or Severe Exacerbation] @ -No Poses a threat to life or bodily function? @ -Potentially, yes - Lab Data Result diagrams: 08/01/24 17:05 08/01/24 17:05 Lab Results 08/01/24 08/01/24 08/01/24 Range/Units 17:05 17:05 17:05 WBC 12.7 H (3.8-10.6) k/uL RBC 4.27 (3.80-5.40) m/uL Hgb 12.9 (11.4-16.0) gm/dL Hct 39.8 (34.0-46.0) % MCV 93.2 (80.0-100.0) fL MCH 30.3 (25.0-35.0) pg MCHC 32.5 (31.0-37.0) g/dL RDW 13.5 (11.5-15.5) % Plt Count 339 (150-450) k/uL MPV 7.5 Neutrophils % 81 % Lymphocytes % 10 % Monocytes % 5 % Eosinophils % 2 % Basophils % 0 % Neutrophils # 10.3 H (1.3-7.7) k/uL Lymphocytes # 1.3 (1.0-4.8) k/uL Monocytes # 0.7 (0-1.0) k/uL Eosinophils # 0.3 (0-0.7) k/uL Basophils # 0.0 (0-0.2) k/uL PT 10.5 (10.0-12.5) sec INR 0.9 (<1.2) APTT 22.4 (22.0-30.0) sec Sodium 135 L (137-145) mmol/L Potassium 4.7 (3.5-5.1) mmol/L Chloride 99 (98-107) mmol/L Carbon Dioxide 22 (22-30) mmol/L Anion Gap 14 mmol/L BUN 36 H (7-17) mg/dL Creatinine 1.31 H (0.52-1.04) mg/dL Est GFR (CKD-EPI)AfAm 48 (>60 ml/min/1.73 sqM) Est GFR (CKD-EPI)NonAf 41 (>60 ml/min/1.73 sqM) Glucose 109 H (74-99) mg/dL POC Glucose (mg/dL) (70-110) mg/dL POC Glu [employer] Worker ID Calcium 9.9 (8.4-10.2) mg/dL Total Bilirubin 1.2 (0.2-1.3) mg/dL AST 24 (14-36) U/L ALT 23 (4-34) U/L Alkaline Phosphatase 95 (38-126) U/L Creatine Kinase 40 (30-135) U/L Troponin I (0.000-0.034) ng/mL Total Protein 7.2 (6.3-8.2) g/dL Albumin 4.4 (3.5-5.0) g/dL Urine RBC (0-5) /hpf Urine WBC (0-5) /hpf Ur Squamous Epith Cells (0-4) /hpf 08/01/24 08/01/24 08/01/24 Range/Units 17:05 17:33 18:45 WBC (3.8-10.6) k/uL RBC (3.80-5.40) m/uL Hgb (11.4-16.0) gm/dL Hct (34.0-46.0) % MCV (80.0-100.0) fL MCH (25.0-35.0) pg MCHC (31.0-37.0) g/dL RDW (11.5-15.5) % Plt Count (150-450) k/uL MPV Neutrophils % % Lymphocytes % % Monocytes % % Eosinophils % % Basophils % % Neutrophils # (1.3-7.7) k/uL Lymphocytes # (1.0-4.8) k/uL Monocytes # (0-1.0) k/uL Eosinophils # (0-0.7) k/uL Basophils # (0-0.2) k/uL PT (10.0-12.5) sec INR (<1.2) APTT (22.0-30.0) sec Sodium (137-145) mmol/L Potassium (3.5-5.1) mmol/L Chloride (98-107) mmol/L Carbon Dioxide (22-30) mmol/L Anion Gap mmol/L BUN (7-17) mg/dL Creatinine (0.52-1.04) mg/dL Est GFR (CKD-EPI)AfAm (>60 ml/min/1.73 sqM) Est GFR (CKD-EPI)NonAf (>60 ml/min/1.73 sqM) Glucose (74-99) mg/dL POC Glucose (mg/dL) 131 H (70-110) mg/dL POC Glu [employer] Worker ID October Calcium (8.4-10.2) mg/dL Total Bilirubin (0.2-1.3) mg/dL AST (14-36) U/L ALT (4-34) U/L Alkaline Phosphatase (38-126) U/L Creatine Kinase (30-135) U/L Troponin I 0.028 (0.000-0.034) ng/mL Total Protein (6.3-8.2) g/dL Albumin (3.5-5.0) g/dL Urine RBC 1 (0-5) /hpf Urine WBC 3 (0-5) /hpf Ur Squamous Epith Cells 1 (0-4) /hpf - EKG Data -: EKG Interpreted by Me EKG Comments: 12-lead Electrocardiogram Interpretation Note EKG was reviewed and interpreted by myself. 12-lead ECG performed at 1742 is interpreted by me as revealing normal sinus rhythm at a rate of 73 beats per minute. [place] is normal. MO interval is 240 ms, QRS duration is 103 ms, QTc is 448 ms.. T wave inversions present over the precordial leads as well as aVL.. R wave progression across the precordium was satisfactory.. Critical Care Time Critical Care Time: Yes Total Critical Care Time: 32 Disposition Clinical Impression: TIA (transient ischemic attack), Chest pain Disposition: ADMITTED IP TO THIS HOSP Condition: Stable Time of Disposition: 19:00
--- NOTE | 2024-08-01 17:29 | CT ---
EXAMINATION TYPE: CODE STROKE: CT brain wo contr DATE OF EXAM: 08/01/2024 COMPARISON: None. CLINICAL INDICATION: Female, 69 years old with history of numbness; PHH, Code stroke. Neuro deficit TECHNIQUE: CT scan of the head is performed without contrast. CT DLP: [address] CTDI: 49.1 mGy Automated exposure control for dose reduction was used. FINDINGS: There is no acute intracranial hemorrhage or midline shift identified. There is mild diff use ventricular and sulcal prominence consistent with diffuse age-related cerebral atrophy. There is moderate to severe low-attenuation in the deep and periventricular white matter most likely consiste nt with chronic small vessel ischemic change in patient of this age. Bilateral aphakia is present. Vi sualized sinuses are clear. IMPRESSION: No acute intracranial hemorrhage or midline shift. There is mild diffuse age-related ce rebral atrophy and moderate to severe probable chronic small vessel ischemic change noted. [facility], , 08/01/2024 5:27 PM
[2024-08-01 17:33] LABS: Basophils % (A) 0 %; Eosinophils # (A) 0.3 k/uL (0-0.7); Eosinophils % (A) 2 %; HCT 39.8 % (34.0-46.0); HGB 12.9 gm/dL (11.4-16.0); Lymphocytes # (A) 1.3 k/uL (1.0-4.8); Lymphocytes % (A) 10 %; MCH 30.3 pg (25.0-35.0); MCHC 32.5 g/dL (31.0-37.0); MCV 93.2 fL (80.0-100.0); Mean Platelet Volume 7.5; Monocytes # (A) 0.7 k/uL (0-1.0); Monocytes % (A) 5 %; Neutrophils # (A) 10.3 k/uL (1.3-7.7); Neutrophils % (A) 81 %; Platelet Count 339 k/uL (150-450); RBC 4.27 m/uL (3.80-5.40); RDW 13.5 % (11.5-15.5); WBC 12.7 k/uL (3.8-10.6)
[2024-08-01] MEDS: SODIUM CHLORIDE 0.9% 1,000 ML IV STA (17:33)
[2024-08-01 17:34] LABS: Glucose,Whole Blood 131 mg/dL (70-110)
[2024-08-01 17:52] LABS: ALT 23 U/L (4-34); AST 24 U/L (14-36); African American GFR (CKD) 48 (>60 ml/min/1.73 sqM); Albumin 4.4 g/dL (3.5-5.0); Alkaline Phosphatase 95 U/L (38-126); Anion Gap 14 mmol/L; Blood Urea Nitrogen 36 mg/dL (7-17); Calcium 9.9 mg/dL (8.4-10.2); Carbon Dioxide 22 mmol/L (22-30); Chloride 99 mmol/L (98-107); Creatine Kinase 40 U/L (30-135); Glucose 109 mg/dL (74-99); Non-African American GFR(CKD) 41 (>60 ml/min/1.73 sqM); Potassium 4.7 mmol/L (3.5-5.1); Sodium 135 mmol/L (137-145); Total Bilirubin 1.2 mg/dL (0.2-1.3); Total Protein 7.2 g/dL (6.3-8.2)
[2024-08-01 17:59] LABS: INR 0.9 (<1.2); Partial Thromboplastin Time 22.4 sec (22.0-30.0); Prothrombin Time 10.5 sec (10.0-12.5)
--- NOTE | 2024-08-01 18:15 | XR ---
EXAMINATION TYPE: XR chest 2V DATE OF EXAM: 08/01/2024 CLINICAL HISTORY: Altered mental status TECHNIQUE: Frontal and lateral views of the chest are obtained. COMPARISON: Prior chest x-ray July 16, 2024 FINDINGS: There is chronic emphysematous change without suspicious focal air space opacity, pleural effusion, or pneumothorax seen. The cardiac silhouette size is stable and within normal limits with atherosclerotic thoracic aorta redemonstrated. The osseous structures are intact. IMPRESSION: Chronic emphysematous changes without acute pulmonary process. [facility], , 08/01/2024 6:12 PM
--- NOTE | 2024-08-01 18:24 | CT ---
EXAMINATION TYPE: CODE STROKE: CTA head neck DATE OF EXAM: 08/01/2024 COMPARISON: None. CLINICAL INDICATION: Female, 69 years old with history of numbness; PHH, cva, left arm numbness TECHNIQUE: CTA scan of the head and neck is performed with IV Contrast, patient injected with 65cc m L of Isovue 370, axial images are obtained, coronal and sagittal reformatted images are reviewed. 3D reconstructed images are created on an independent workstation and reviewed. CT DLP: 284.[address] CTDI: mGy Automated exposure control for dose reduction was used. NASCET criteria was used in interpretation of this exam? FINDINGS: Right Carotid System: The common carotid artery and external carotid artery are patent. Mild peripheral plaque along course of the right common carotid artery. The carotid bifurcation demonstrates no evidence of hemodynamica lly significant stenosis. Moderate peripheral plaque extends into proximal internal carotid artery. T he remaining portions of the internal carotid artery demonstrate normal size without significant narr owing. Left Carotid System: The common carotid artery and external carotid artery are patent. Akve-[id number] peripheral plaque along the left common carotid artery. The carotid bifurcation demonstrates no evidence of hemodynamic ally significant stenosis. Moderate plaquing left carotid bulb extending into the proximal internal c arotid artery The remaining portions of the internal carotid artery demonstrate normal size without s ignificant narrowing. Vertebral arteries are patent without evidence hemodynamically significant stenosis. Patent anterior communicating artery is seen. No large vessel occlusion or aneurysm in the posterior circulation. There is a three-vessel aortic arch. The origins of the great vessels are patent. No evidence of hemo dynamically significant stenosis. Moderate peripheral plaque is seen. Other: Mild to moderate emphysematous change in the visualized upper lungs. Slight grade 1 retrolisth esis C4 on C5 with moderate disc space narrowing. IMPRESSION: 1. No evidence of significant stenosis at the carotid bifurcations. No large vessel occlusion or an eurysm at the level of atka of [place]. [facility], , 08/01/2024 6:22 PM
[2024-08-01 20:33] LABS: Appearance,Urine Clear (Clear); Bilirubin,Urine Negative (Negative); Blood,Urine Negative (Negative); Color,Urine Colorless; Glucose,Urine (UA) 2+ (Negative); Ketones,Urine Negative (Negative); Leukocyte Esterase,Urine Moderate (Negative); Nitrite,Urine Negative (Negative); PH, Urine 7.5 (5.0-8.0); Protein,Urine Negative (Negative); RBC,Urine 2 /hpf (0-5); Specific Gravity,Urine 1.035 (1.001-1.035); Squamous Epithelial Cell,Urine 2 /hpf (0-4); Urobilinogen,Urine <2.0 mg/dL (<2.0); WBC,Urine 2 /hpf (0-5)
[2024-08-01] MEDS: ASPIRIN 325 MG TAB PO STA (21:16)
[2024-08-02] MEDS: TICAGRELOR 90 MG TAB PO SCH (08:20)
[2024-08-02] MEDS: ASPIRIN 81 MG PO SCH (08:20)
[2024-08-02] MEDS: ALBUTEROL NEBULIZED 2.5 MG/3 ML INHALATION PRN (09:02)
[2024-08-02 10:01] LABS: Chol/HDL Ratio 3.05 Ratio; LDL Cholesterol,Calculated 65.9 mg/dL (0.0-131.0)
[2024-08-02] MEDS ORDERED: DAPAGLIFLOZIN PROPANEDIOL 10 MG TABLET PO SCH (10:15)
[2024-08-02] MEDS ORDERED: lisinopriL 10 MG TAB PO SCH (10:15)
[2024-08-02] MEDS ORDERED: SPIRONOLACTONE 25 MG TAB PO SCH (10:15)
[2024-08-02] MEDS ORDERED: BUMETANIDE 1 MG TAB PO SCH (10:15)
--- NOTE | 2024-08-02 10:50 | P.CRDCN ---
History of Present Illness History of present illness: HISTORY OF PRESENT ILLNESS: This is a 69-year-old female with a past medical history significant for ischemic cardiomyopathy, coronary artery disease, peripheral arterial disease with previous lower extremity angioplasty, AAA, hypertension, hyperlipidemia, COPD, and nicotine dependence. Patient follows in the office with Dr. Lambert. We have been asked to see the patient in consultation for chest pain. Patient examined at the bedside. Patient was recently hospitalized secondary to non- STEMI and underwent stenting of the proximal LAD on 07/18/2024. Patient states that she was not able to get all of her medications once she was discharged. She states 2 days ago she started taking her Farxiga and her Bumex. She states for the past 2 days she has been having spasms on both sides of her abdomen. She also reports having some discomfort in her chest. She denied any radiation of the pain. She denied any shortness of breath. She states by the time she got here the pain had resolved. She also reports that she has had a headache the past couple days. Additionally, the patient has had weakness of her left arm and left leg. She also notes that her family has noted that her speech was slower than normal. She states that her speech feels back to normal this morning. She continues to report some weakness and tingling in her left leg. She denies any palpitations. She continues to smoke about a half a pack per day. DIAGNOSTICS: - EKG reveals sinus mechanism with T wave inversions in lead I, lead II, V2V6 - Chest xray chronic emphysema changes without acute pulmonary process - CT brain: Negative for intracranial hemorrhage or midline shift. Mild diffuse age-related cerebral atrophy and moderate to severe probable chronic small vessel ischemic changes - CTA head and neck: No evidence of significant stenosis at the carotid bifurcation. No large vessel occlusion or aneurysm at the level of [place]. - Laboratory data: WBC 12.7. Hemoglobin 12.9. Platelet count 339. Sodium 135. Potassium 4.7. BUN 36. Creatinine 1.31. Troponin negative x 3. - Current home cardiac medications include aspirin 81 mg daily, Lipitor 80 mg night, Bumex 1 mg daily, Farxiga 10 mg daily, metoprolol titrate 25 mg twice a day, Aldactone 25 mg daily, Brilinta 90 mg twice a day, lisinopril 10 mg daily - Most recent echocardiogram obtained in June 2024 revealed ejection fraction 20 to 25%, apex akinetic, severe pulmonary hypertension - Cardiac catheterization history: 07/18/2024 with stenting of the proximal LAD REVIEW OF SYSTEMS: At the time of my exam: CONSTITUTIONAL: Denies fever or chills. HEENT: Denies blurred vision, vision changes, or eye pain. Denies hemoptysis CARDIOVASCULAR: Denies chest pain. Denies orthopnea. Denies PND. Denies palpitations RESPIRATORY: Denies shortness of breath. GASTROINTESTINAL: Denies abdominal pain. Denies nausea or vomiting. HEMATOLOGIC: Denies bleeding disorders. GENITOURINARY: Denies any blood in urine. SKIN: Denies pruitis. Denies rash. PHYSICAL EXAM: VITAL SIGNS: Reviewed. GENERAL: Well-developed in no acute distress. HEENT: Head is normocephalic. Pupils are equal, round. Sclerae anicteric. Mucous membranes of the mouth are moist. Neck supple. No JVD or thyromegaly LUNGS: Respirations even and unlabored. Lungs essentially clear to auscultation bilaterally. HEART: Regular rate and rhythm. S1 and S2 heard. ABDOMEN: Soft. Nondistended. Nontender. EXTREMITIES: Normal range of motion. No clubbing or cyanosis. Peripheral pulses intact. No lower extremity edema NEUROLOGIC: Awake and alert. Oriented x 3. ASSESSMENT: Left-sided weakness with slowed/slurred speech, rule out TIA Chest pain, troponin negative x 3 Mild acute kidney injury Coronary artery disease with recent stenting of the LAD, 07/18/2024 Ischemic cardiomyopathy, EF 20 to 25% Severe pulmonary pretension Peripheral arterial disease with previous lower extremity angioplasty History of AAA Hypertension Hyperlipidemia COPD Nicotine dependence, patient reports smoking half a pack per day PLAN: An acute coronary event has been ruled out Continue dual antiplatelet therapy with aspirin and Brilinta Continue high intensity statin Hold Bumex, Farxiga, Aldactone, and lisinopril due to RENITA. Repeat kidney function. Await neurology consultation Continue telemetry monitoring to assess for any arrhythmias Obtain limited echo to assess LV function and assess for LV thrombus Further recommendations pending patient course Nurse practitioner note has been reviewed by physician. Signing provider agrees with the documented findings, assessment, and plan of care documented by IMAGE CONSULTANT as a scribe. Past Medical History Past Medical History: Heart Failure, COPD, GERD/Reflux, Hyperlipidemia, Hyper tension, Myocardial Infarction ([place]), Osteoarthritis (OA), Vascular Disorder Additional Past Medical History / Comment(s): OCCASIONAL SOB., VARICOSE VEINS.,STATES LEGS PAINFUL AT TIMES., constipation, Last Myocardial Infarction Date:: 2014 History of Any Multi-Drug Resistant Organisms: MRSA Date of last positivie culture/infection: 2013 MDRO Source:: under nose Past Surgical History: Heart Catheterization With Stent, Orthopedic Surgery Additional Past Surgical History / Comment(s): LT KNEE RECONSTRUCTIVE SX, CURTIS CATARACTS, CYST REMOVED FROM BEHIND LT EAR., BALLOON ANGIOPLASTY WITH STENT LEFT FEMORAL ARTERY (02/2018), 3 cardiact stents, recent aortogram Past Anesthesia/Blood Transfusion Reactions: No Reported Reaction Date of Last Stent Placement:: unknown Past Psychological History: No Psychological Hx Reported Additional Psychological History / Comment(s): denies Smoking Status: Current every day smoker Past Alcohol Use History: Daily Additional Past Alcohol Use History / Comment(s): STARTED SMOKING AGE 19, SMOKES LESS THAN 1PPD. DRINKS 1-2 DRINKS DAILY (RUM & COKE OR BEER) Past Drug Use History: None Reported - Past Family History Sister(s) Family Medical History: Deep Vein Thrombosis (DVT) Mother Family Medical History: Cancer Father Family Medical History: No Reported History Medications and Allergies Home Medications Medication Instructions Recorded Confirmed Type Metoprolol Tartrate [Lopressor] 25 mg PO BID #60 tab 07/17/15 08/01/24 Rx Atorvastatin [Lipitor] 80 mg PO HS #30 tab 08/05/15 08/01/24 Rx Spironolactone [Aldactone] 25 mg PO DAILY 11/27/16 08/01/24 History Albuterol Sulfate [Ventolin HFA] 2 puff INHALATION RT-Q6H PRN 06/06/20 08/01/24 History [place]-3/Dha/Epa/Fish Oil [Fish Oil 1 cap PO DAILY 01/27/22 08/01/24 History 1,000 mg Softgel] Cholecalciferol [Vitamin D3 (25 25 mcg PO DAILY 03/30/23 08/01/24 History Mcg = 1000 Iu)] Ipratropium-Albuterol Nebulize 3 ml INHALATION RT-QID PRN 03/30/23 08/01/24 History [Duoneb 0.5 mg-3 mg/3 ml Soln] lisinopriL [Zestril] 10 mg PO DAILY 07/16/24 08/01/24 History Aspirin [Adult Low Dose Aspirin EC] 81 mg PO DAILY 30 Days #30 tab 07/20/2410/21 Rx Bumetanide [BUMEX] 1 mg PO DAILY 30 Days #30 tab 07/20/24 08/01/24 Rx Dapagliflozin Propanediol [Farxiga] 10 mg PO DAILY 30 Days #30 tab 07/20/24 08/01/24 Rx Ticagrelor [Brilinta] 90 mg PO BID 30 Days #60 tab 07/20/24 08/01/24 Rx Allergies Allergy/AdvReac Type Severity Reaction Status Date / Time cephalexin monohydrate Allergy Rash/Hives Verified 08/01/24 18:59 [From Keflex] Physical Exam Vitals: Vital Signs Temp Pulse Pulse Resp BP BP Pulse Ox 08/02/24 03:30 97.8 F 60 15 116/65 97 08/01/24 23:30 97.5 F L 70 16 100/56 95 08/01/24 20:47 97.4 F L 80 16 152/80 97 08/01/24 20:16 70 16 144/65 94 L 08/01/24 18:03 76 18 132/56 97 08/01/24 16:52 97.5 F L 61 18 98/54 96 Intake and Output 08/01/24 08/02/24 08/02/24 22:59 06:59 14:59 Intake Total 10 Output Total 200 150 Balance -200 -140 Intake: IV 10 Invasive Line 1 10 Output: Urine 200 150 Other: Voiding Method Bedside Commode Weight 53.977 kg 53.2 kg Results 08/01/24 17:05 08/02/24 10:37 Cardiac Enzymes 08/01/24 08/01/24 08/01/24 Range/Units 00:00 17:05 17:05 AST 24 (14-36) U/L Troponin I 0.030 0.028 (0.000-0.034) ng/mL 08/01/24 Range/Units 20:09 AST (14-36) U/L Troponin I 0.023 (0.000-0.034) ng/mL Coagulation 08/01/24 Range/Units 17:05 PT 10.5 (10.0-12.5) sec APTT 22.4 (22.0-30.0) sec CBC 08/01/24 Range/Units 17:05 WBC 12.7 H (3.8-10.6) k/uL RBC 4.27 (3.80-5.40) m/uL Hgb 12.9 (11.4-16.0) gm/dL Hct 39.8 (34.0-46.0) % Plt Count 339 (150-450) k/uL Comprehensive Metabolic Panel 08/01/24 Range/Units 17:05 Sodium 135 L (137-145) mmol/L Potassium 4.7 (3.5-5.1) mmol/L Chloride 99 (98-107) mmol/L Carbon Dioxide 22 (22-30) mmol/L BUN 36 H (7-17) mg/dL Creatinine 1.31 H (0.52-1.04) mg/dL Glucose 109 H (74-99) mg/dL Calcium 9.9 (8.4-10.2) mg/dL AST 24 (14-36) U/L ALT 23 (4-34) U/L Alkaline Phosphatase 95 (38-126) U/L Total Protein 7.2 (6.3-8.2) g/dL Albumin 4.4 (3.5-5.0) g/dL Current Medications Generic Name Dose Route Start Last Admin Trade Name Freq PRN Reason Stop Dose Admin Albuterol Sulfate 2.5 mg 08/02/24 06:13 Albuterol Nebulized 2.5 Mg/3 Ml INHALATION RT-Q6H PRN Shortness Of Breath Aspirin 81 mg 08/02/24 09:00 Aspirin 81 Mg PO DAILY BOYD Atorvastatin Calcium 80 mg 08/02/24 21:00 Atorvastatin 80 Mg Tab PO HS BOYD Ticagrelor 90 mg 08/02/24 09:00 Ticagrelor 90 Mg Tab PO BID BOYD Intake and Output 08/01/24 08/02/24 08/02/24 22:59 06:59 14:59 Intake Total 10 Output Total 200 150 Balance -200 -140 Intake: IV 10 Invasive Line 1 10 Output: Urine 200 150 Other: Voiding Method Bedside Commode Weight 53.977 kg 53.2 kg 08/01/24 17:05 08/01/24 17:05
[2024-08-02 11:23] LABS: African American GFR (CKD) 64 (>60 ml/min/1.73 sqM); Anion Gap 11 mmol/L; Blood Urea Nitrogen 34 mg/dL (7-17); Calcium 9.8 mg/dL (8.4-10.2); Carbon Dioxide 24 mmol/L (22-30); Chloride 105 mmol/L (98-107); Glucose 94 mg/dL (74-99); Non-African American GFR(CKD) 55 (>60 ml/min/1.73 sqM); Potassium 4.1 mmol/L (3.5-5.1); Sodium 140 mmol/L (137-145)
[2024-08-02] MEDS: METOPROLOL TARTRATE 25 MG TAB PO SCH (11:33)
[2024-08-02] MEDS: NICOTINE 21MG/24HR PATCH TRANSDERM SCH (12:52)
--- NOTE | 2024-08-02 13:45 | P.CNNES ---
History of Present Illness Consult date: 08/02/24 Requesting physician: Tan Santoro Reason for Consult: tia, stroke activation History of Present Illness: This is a 69-year-old woman with history of coronary artery disease status post recent stent, COPD, hypertension hypercholesteremia who present emergency department because of numbness tingling over the left upper lower extremity with slurring of the speech. Patient's daughter and son-in-law are at bedside who helps with some of the history. Seems that the patient's symptoms started this night in which she had tingling over the left arm and leg but worsened yesterday and the daughter felt her speech was slurred and was slow. She does not have any history of stroke in the past. Seems to the patient does have a history of recent coronary artery disease and she had a recent stent on July 18, 2024. She is on aspirin 81 mg and Brilinta and she has been compliant taking those medications since she received on the third week of June 2024. She does smoke about a pack a day. She drinks about 2 glasses of alcohol daily. She does have underlying history of hypertension hypercholesteremia. She had myocardial infarction in the past. Some of the workup during this hospital visit consisted of: Lipid panel is triglycerides 188, cholesterol is 154, LDL 65 and HDL is 50. I reviewed the rest of the lab workup. CT of the head is reported as no acute intracranial hemorrhage or midline shift. There is mild diffuse age-related cerebral atrophy and moderate to severe probable chronic small vessel ischemic change noted. I personally reviewed the CT and I agree there is no acute or subacute stroke. I also felt the patient had lacunar stroke over the basal ganglia bilaterally and just outside of the basal ganglia. CT angiography of the head and neck is reported as no evidence of significant stenosis at the carotid bifurcation. No large vessel occlusion or aneurysm at the level of [place] of [place]. Code stroke was activated by the ED team and they spoke with Dr. Ortiz and NIH stroke scale was 3-4 per ED team. No IV thrombolytic since the patient is outside the window and the risk outweighed the benefit. Review of Systems As per HPI. Past Medical History Past Medical History: Heart Failure, COPD, GERD/Reflux, Hyperlipidemia, Hypertension, Myocardial Infarction ([place]), Osteoarthritis (OA), Vascular Disorder Additional Past Medical History / Comment(s): OCCASIONAL SOB., VARICOSE VEINS.,STATES LEGS PAINFUL AT TIMES., constipation, Last Myocardial Infarction Date:: 2014 History of Any Multi-Drug Resistant Organisms: MRSA Date of last positivie culture/infection: 2013 MDRO Source:: under nose Past Surgical History: Heart Catheterization With Stent, Orthopedic Surgery Additional Past Surgical History / Comment(s): LT KNEE RECONSTRUCTIVE SX, CURTIS CATARACTS, CYST REMOVED FROM BEHIND LT EAR., BALLOON ANGIOPLASTY WITH STENT LEFT FEMORAL ARTERY (02/2018), 3 cardiact stents, recent aortogram Past Anesthesia/Blood Transfusion Reactions: No Reported Reaction Date of Last Stent Placement:: unknown Past Psychological History: No Psychological Hx Reported Additional Psychological History / Comment(s): denies Smoking Status: Current every day smoker Past Alcohol Use History: Daily Additional Past Alcohol Use History / Comment(s): STARTED SMOKING AGE 19, SMOKES LESS THAN 1PPD. DRINKS 1-2 DRINKS DAILY (RUM & COKE OR BEER) Past Drug Use History: None Reported - Past Family History Sister(s) Family Medical History: Deep Vein Thrombosis (DVT) Mother Family Medical History: Cancer Father Family Medical History: No Reported History Medications and Allergies Home Medications Medication Instructions Recorded Confirmed Type Metoprolol Tartrate [Lopressor] 25 mg PO BID #60 tab 07/17/15 08/01/24 Rx Atorvastatin [Lipitor] 80 mg PO HS #30 tab 08/05/15 08/01/24 Rx Spironolactone [Aldactone] 25 mg PO DAILY 11/27/16 08/01/24 History Albuterol Sulfate [Ventolin HFA] 2 puff INHALATION RT-Q6H PRN 06/06/20 08/01/24 History [place]-3/Dha/Epa/Fish Oil [Fish Oil 1 cap PO DAILY 01/27/22 08/01/24 History 1,000 mg Softgel] Cholecalciferol [Vitamin D3 (25 25 mcg PO DAILY 03/30/23 08/01/24 History Mcg = 1000 Iu)] Ipratropium-Albuterol Nebulize 3 ml INHALATION RT-QID PRN 03/30/23 08/01/24 History [Duoneb 0.5 mg-3 mg/3 ml Soln] lisinopriL [Zestril] 10 mg PO DAILY 07/16/24 08/01/24 History Aspirin [Adult Low Dose Aspirin EC] 81 mg PO DAILY 30 Days #30 tab 07/20/24 08/01/24 Rx Bumetanide [BUMEX] 1 mg PO DAILY 30 Days #30 tab 07/20/24 08/01/24 Rx Dapagliflozin Propanediol [Farxiga] 10 mg PO DAILY 30 Days #30 tab 07/20/24 08/01/24 Rx Ticagrelor [Brilinta] 90 mg PO BID 30 Days #60 tab 07/20/24 08/01/24 Rx Allergies Allergy/AdvReac Type Severity Reaction Status Date / Time cephalexin monohydrate Allergy Rash/Hives Verified 08/01/24 18:59 [From Keflex] Physical Examination - Vital Signs Vital Signs: Vital Signs Temp Pulse Pulse Resp BP BP Pulse Ox 08/02/24 12:00 71 18 149/76 98 08/02/24 09:03 66 97 08/02/24 08:00 98.1 F 77 18 103/59 95 08/02/24 03:30 97.8 F 60 15 116/65 97 08/01/24 23:30 97.5 F L 70 16 100/56 95 08/01/24 20:47 97.4 F L 80 16 152/80 97 08/01/24 20:16 70 16 144/65 94 L 08/01/24 18:03 76 18 132/56 97 08/01/24 16:52 97.5 F L 61 18 98/54 96 FiO2 08/02/24 12:00 08/02/24 09:03 21 08/02/24 08:00 08/02/24 03:30 08/01/24 23:30 08/01/24 20:47 08/01/24 20:16 08/01/24 18:03 08/01/24 16:52 Intake and Output 08/01/24 08/02/24 08/02/24 22:59 06:59 14:59 Intake Total 10 10 Output Total 200 150 Balance -200 -140 10 Intake: IV 10 10 Invasive Line 1 10 10 Output: Urine 200 150 Other: Voiding Method Bedside Commode Weight 53.977 kg 53.2 kg GENERAL: The patient is lying in bed and is not in acute distress. NEUROLOGICAL: Higher mental function: The patient is awake, alert, oriented to self, place and time. Patient is following commands. No aphasia and no neglect. Cranial nerves: The pupils are round, equal and reactive to light and accommodation. Visual glez are full to confrontation throughout. Extraocular movement is intact no nystagmus is noted. Facial sensation is Decrease to touch over the left side. The facial strength is normal throughout. Hearing is normal bilaterally to hand rub. Tongue is midline and moved [id number] without any difficulty. No dysarthria is noted. Shoulder shrug is normal bilaterally. Motor: The strength is left lower extremity is 4-4+. Otherwise 5 over 5 throughout. Normal tone and bulk. Cerebellum: Normal finger to nose bilaterally. Sensation: Sensation is decreased to touch over the left side. Reflexes (right/left): 2+ throughout. Plantars are downgoing bilaterally. Results - Laboratory Findings CBC and BMP: 08/01/24 17:05 08/02/24 10:37 Abnormal Lab Findings: Abnormal Labs 08/01/24 08/01/24 08/01/24 17:05 17:05 17:05 WBC 12.7 H Neutrophils # 10.3 H Sodium 135 L BUN 36 H Creatinine 1.31 H Glucose 109 H POC Glucose (mg/dL) Triglycerides 188.00 H Urine Glucose (UA) Ur Leukocyte Esterase 08/01/24 08/01/24 08/02/24 17:33 18:45 10:37 WBC Neutrophils # Sodium BUN 34 H Creatinine Glucose POC Glucose (mg/dL) 131 H Triglycerides Urine Glucose (UA) 2+ H Ur Leukocyte Esterase Moderate H Assessment and Plan Assessment: This is a 69-year-old woman who presents to the emergency department because of left-sided numbness with tingling as well as a weakness over the left lower extremity with slurring of the speech and slow to respond. Symptoms began this past night but worsened the next day course with the daughter. Had a recent cardiac stent on July 18, 2024. Acute ischemic stroke and symptoms is left paresthesia, left lower extremity wea kness. NIH stroke scale on presentation was 3-4. No IV thrombolytic since outside the window and the risk outweigh the benefit. Has multiple risk factors for stroke: Significant cardiac issues and she has history of myocardial infarction and multiple cardiac stents, hypertension, hyperlipidemia, tobacco use, age and sex History of recent coronary artery disease status post stent. Patient had multiple cardiac stent in the past. Old multiple lacunar stroke on CT of the head. History of COPD Hypertension Hypercholesteremia Tobacco use Plan: Patient is resumed on her home dose of aspirin 81 mg as well as Brilinta 90 mg 1 tablet twice daily. She is on Lipitor 80 mg nightly and that sufficient for secondary stroke prophylaxis. I ordered MRI of the brain. 2D echo limited as ordered by cardiology team is pending Continue neurochecks Cardiac monitoring PT OT and BRASS ROLLER are consulted Cardiology team is consulted Patient was counseled on tobacco cessation Will defer the rest of the medical management to primary and other specialist For DVT prophylaxis I started the patient on subcu heparin 5000 every 12 hours Plan discussed with the patient, her daughter was at bedside and the nurse Thank you for the consultation Time with Patient: Greater than 30
--- NOTE | 2024-08-02 14:00 | CA ---
Transthoracic Echo Report Name: Taya Key Age: 69 Gender: F : 1955 Exam Date: 08/02/2024 09:51 Exam Location: [facility] Ht (in): 60 Wt (lb): 114 Ordering Physician: Valerie Meza Attending/Referring Phys: [id number], Derrick Distribution Collection Operator Iesha Augustin, CLARISSA Procedure CPT: Indications: LV function, r/o thrombus, likely TIA Cardiac Hx: Technical Quality: Fair Contrast 1: Definity Total Dose (mL): 2 Contrast 2: Total Dose (mL): MEASUREMENTS (Male / Female) Normal Values 2D ECHO LV Diastolic Diameter PLAX 4.4 cm 4.2 - 5.9 / 3.9 - 5.3 cm LV Systolic Diameter PLAX 3.4 cm IVS Diastolic Thickness 1.1 cm 0.6 - 1.0 / 0.6 - 0.9 cm LVPW Diastolic Thickness 0.9 cm 0.6 - 1.0 / 0.6 - 0.9 cm LV Relative Wall Thickness 0.5 RV Internal Dim ED PLAX 2.0 cm LA Systolic Diameter LX 3.4 cm 3.0 - 4.0 / 2.7 - 3.8 cm FINDINGS Left Ventricle Left ventricular ejection fraction is estimated at 25 to 30% %. Mildly increased septal wall thickness. Anteroapical and anteroseptal severe hypokinesis to akinesis, no evidence of apical thrombus. Right Ventricle Normal right ventricular size and function. Right Atrium Normal right atrial size. Left Atrium Normal left atrial size. Mitral Valve Aortic Valve Tricuspid Valve Pulmonic Valve Pericardium No pericardial or pleural effusion. Aorta CONCLUSIONS 1. Severely impaired low ventricle systolic function with segmental wall motion abnormality 2. No evidence to suggest apical thrombus Previewed by: Dr. Melyssa Ramírez MD (Electronically Signed) Final Date: 02 August 2024 13:59
--- NOTE | 2024-08-02 14:44 | P.HPIM ---
History of Present Illness H&P Date: 08/02/24 Chief Complaint: Neurological symptoms Patient is a 69-year-old female with history of GERD, hyperlipidemia, hypertension, history of myocardial infarction presented with chest pain and weakness in the left lower extremity and upper extremity that started last night. Patient reportedly was walking when the symptoms started. Patient endorsed a sharp stabbing chest pain that was intermittent, nonradiating, substernal. Patient reports that this does not feel like a previous heart attack. She also reported some tingling and weakness sensation in the left lower extremity and left upper extremity. Patient recently had a cardiac stent placed about 5 days before [place]. Patient denies other complaints at this time. Denies fever, chills, shortness of breath, belly pain, nausea/vomiting, diarrhea/constipation, melena, hematochezia. ED documentation reviewed. In the ED patient was treated with a bolus of normal saline, aspirin 325 mg x 1, Bumex 1 mg daily, Farxiga 10 mg daily, lisinopril 10 mg daily, Aldactone 25 mg daily Vitals on admission temperature 98.1, heart rate 66, respiratory rate 18, blood pressure 103/59, O2 sat 97% on room air EKG independently interpreted as sinus rhythm with first-degree AV block. 448 ms QTc. CXR shows chronic emphysematous changes without acute pulmonary process CT angiography of head and neck shows no evidence of significant stenosis at carotid bifurcations. No large vessel occlusion or aneurysm at level of [place] of [place]. Labs on admission show WBC 12.7, hemoglobin 12.9, hematocrit 39.8, platelets 339, PT 10.5, PTT 22.4, INR 0.9, sodium 140, potassium 4.1, chloride 105, carbon dioxide 24, BUN 34, creatinine 1.03, glucose 94 UA shows negative for nitrites and moderate leukocyte esterase Review of systems: Pertinent positives and negatives as discussed in HPI, a complete review of systems was performed and all other systems are negative. PMH: GERD, hyperlipidemia, hypertension, history of myocardial infarction PSH: Heart cath with stent, orthopedic surgery FMH: Sister had a history of DVT Allergies: Cephalexin Social history: Tobacco: Every day smoker half pack a day for 55 years Alcohol: A couple drinks a day Recreational drugs: No drug use Travel: No travel history Sick contacts: No sick contacts Physical examination: Vital signs reviewed General: nontoxic, no distress, appears at stated age Derm: warm, dry, intact Head: atraumatic, normocephalic, symmetric Eyes: EOMI, anicteric sclera Mouth: no lip lesion, mucus membranes moist Cardiovascular: S1 S2 reg, no murmur Lungs: CTA bilateral, no rhonchi, no rales, no accessory muscle use Abdominal: soft, non-tender to palpation Extremities: No cyanosis, clubbing, or pedal edema. Neuro: Alert, Gross neurological examination did not reveal any focal deficits. Cranial nerves II to XII grossly intact. Bilateral upper extremity muscle stre ngth intact. Slightly reduced left lower extremity muscle strength compared to the right. Sensation in upper and lower extremity bilaterally intact Psych: well appearing, appropriate affect Assessment/Plan: Patient is a 69-year-old female with history of GERD, hyperlipidemia, hypertension, history of myocardial infarction presenting with chest pain and weakness in the left lower extremity and upper extremity that started last night. Patient will be admitted to internal medicine service. Active: #. TIA/stroke #. Chest pain with atypical features, rule out ACS Consult neurology Consider MRI Continue cardiac monitoring Consult PT and OT Neurochecks Continue aspirin 81 mg daily and Lipitor 80 mg at bedtime and Brilinta 90 mg twice daily Continue metoprolol to tartrate 25 mg twice daily Troponin at 0.03, 0.028, 0.023 EKG showed sinus rhythm with first-degree AV block Obtain echocardiogram #. Mild hyponatremia, now resolved Sodium 135, now 140 Continue to monitor morning CMP #. Acute kidney injury, now resolved Creatinine 1.31, now 1.03 Hold Bumex, Farxiga, Aldactone, and lisinopril due to RENITA. Monitor morning CMP #. Leukocytosis, likely secondary to acute stress WBC 12.7 Monitor morning CBC Chronic: #. Hyperlipidemia Continue Lipitor 80 mg at bedtime #. Hypertension Hold lisinopril and Aldactone due to RENITA Continue metoprolol titrate 25 mg twice daily F: No restrictions E: Replete as needed N: Heart healthy diet A: Wheelchair DVT prophylaxis: Heparin 5000 units subcu every 12 hours The patient is admitted with an anticipated more than 2 midnight stay for evaluation of TIA/stroke CODE STATUS: Full code Discussed with: Patient and family Anticipated discharge place: Home Past Medical History Past Medical History: Heart Failure, COPD, GERD/Reflux, Hyperlipidemia, Hypertension, Myocardial Infarction (ID), Osteoarthritis (OA), Vascular Disorder Additional Past Medical History / Comment(s): OCCASIONAL SOB., VARICOSE VEINS.,STATES LEGS PAINFUL AT TIMES., constipation, Last Myocardial Infarction Date:: 2014 History of Any Multi-Drug Resistant Organisms: MRSA Date of last positivie culture/infection: 2013 MDRO Source:: under nose Past Surgical History: Heart Catheterization With Stent, Orthopedic Surgery Additional Past Surgical History / Comment(s): LT KNEE RECONSTRUCTIVE SX, CURTIS CATARACTS, CYST REMOVED FROM BEHIND LT EAR., BALLOON ANGIOPLASTY WITH STENT LEFT FEMORAL ARTERY (02/2018), 3 cardiact stents, recent aortogram Past Anesthesia/Blood Transfusion Reactions: No Reported Reaction Date of Last Stent Placement:: unknown Past Psychological History: No Psychological Hx Reported Additional Psychological History / Comment(s): denies Smoking Status: Current every day smoker Past Alcohol Use History: Daily Additional Past Alcohol Use History / Comment(s): STARTED SMOKING AGE 19, SMOKES LESS THAN 1PPD. DRINKS 1-2 DRINKS DAILY (RUM & COKE OR BEER) Past Drug Use History: None Reported - Past Family History Sister(s) Family Medical History: Deep Vein Thrombosis (DVT) Mother Family Medical History: Cancer Father Family Medical History: No Reported History Medications and Allergies Home Medications Medication Instructions Recorded Confirmed Type Metoprolol Tartrate [Lopressor] 25 mg PO BID #60 tab 07/17/15 08/01/24 Rx Atorvastatin [Lipitor] 80 mg PO HS #30 tab 08/05/15 08/01/24 Rx Spironolactone [Aldactone] 25 mg PO DAILY 11/27/16 08/01/24 History Albuterol Sulfate [Ventolin HFA] 2 puff INHALATION RT-Q6H PRN 06/06/20 08/01/24 History [place]-3/Dha/Epa/Fish Oil [Fish Oil 1 cap PO DAILY 01/27/22 08/01/24 History 1,000 mg Softgel] Cholecalciferol [Vitamin D3 (25 25 mcg PO DAILY 03/30/23 08/01/24 History Mcg = 1000 Iu)] Ipratropium-Albuterol Nebulize 3 ml INHALATION RT-QID PRN 03/30/23 08/01/24 History [Duoneb 0.5 mg-3 mg/3 ml Soln] lisinopriL [Zestril] 10 mg PO DAILY 07/16/24 08/01/24 History Aspirin [Adult Low Dose Aspirin EC] 81 mg PO DAILY 30 Days #30 tab 07/20/24 08/01/24 Rx Bumetanide [BUMEX] 1 mg PO DAILY 30 Days #30 tab 07/20/24 08/01/24 Rx Dapagliflozin Propanediol [Farxiga] 10 mg PO DAILY 30 Days #30 tab 07/20/24 08/01/24 Rx Ticagrelor [Brilinta] 90 mg PO BID 30 Days #60 tab 07/20/24 08/01/24 Rx Allergies Allergy/AdvReac Type Severity Reaction Status Date / Time cephalexin monohydrate Allergy Rash/Hives Verified 08/01/24 18:59 [From Keflex] Physical Exam Vitals: Vital Signs Temp Pulse Pulse Resp BP BP Pulse Ox 08/02/24 09:03 66 97 08/02/24 08:00 98.1 F 77 18 103/59 95 08/02/24 03:30 97.8 F 60 15 116/65 97 08/01/24 23:30 97.5 F L 70 16 100/56 95 08/01/24 20:47 97.4 F L 80 16 152/80 97 08/01/24 20:16 70 16 144/65 94 L 08/01/24 18:03 76 18 132/56 97 08/01/24 16:52 97.5 F L 61 18 98/54 96 FiO2 08/02/24 09:03 21 08/02/24 08:00 08/02/24 03:30 08/01/24 23:30 08/01/24 20:47 08/01/24 20:16 08/01/24 18:03 08/01/24 16:52 Intake and Output 08/01/24 08/02/24 08/02/24 22:59 06:59 14:59 Intake Total 10 10 Output Total 200 150 Balance -200 -140 10 Intake: IV 10 10 Invasive Line 1 10 10 Output: Urine 200 150 Other: Voiding Method Bedside Commode Weight 53.977 kg 53.2 kg Results CBC & Chem 7: 08/01/24 17:05 08/02/24 10:37 Labs: Abnormal Lab Results - Last 24 Hours (Table) 0108/01/24 08/01/24 Range/Units 17:05 17:05 17:33 WBC 12.7 H (3.8-10.6) k/uL Neutrophils # 10.3 H (1.3-7.7) k/uL Sodium 135 L (137-145) mmol/L BUN 36 H (7-17) mg/dL Creatinine 1.31 H (0.52-1.04) mg/dL Glucose 109 H (74-99) mg/dL POC Glucose (mg/dL) 131 H (70-110) mg/dL Urine Glucose (UA) (Negative) Ur Leukocyte Esterase (Negative) 08/01/24 Range/Units 18:45 WBC (3.8-10.6) k/uL Neutrophils # (1.3-7.7) k/uL Sodium (137-145) mmol/L BUN (7-17) mg/dL Creatinine (0.52-1.04) mg/dL Glucose (74-99) mg/dL POC Glucose (mg/dL) (70-110) mg/dL Urine Glucose (UA) 2+ H (Negative) Ur Leukocyte Esterase Moderate H (Negative) Thrombosis Risk Factor Assmnt - Choose All That Apply Any of the Below Risk Factors Present?: Yes Each Factor Represents 1 point: Varicose veins Other Risk Factors: Yes Each Risk Factor Represents 2 Points: Age 61-74 years Other congenital or acquired thrombophilia - If yes, enter type in comment: No Thrombosis Risk Factor Assessment Total Risk Factor Score: 3 Thrombosis Risk Factor Assessment Level: Moderate Risk
[2024-08-02] MEDS: ATORVASTATIN 80 MG TAB PO SCH (20:49)
[2024-08-02] MEDS: ACETAMINOPHEN TAB 325 MG TAB PO PRN (20:49)
[2024-08-02] MEDS: HEPARIN SODIUM,PORCINE 5,000 UNIT/ML 1 ML VIAL SQ SCH (20:49)
[2024-08-03 08:28] LABS: Basophils % (A) 1 %; Eosinophils # (A) 0.2 k/uL (0-0.7); Eosinophils % (A) 3 %; HCT 40.9 % (34.0-46.0); HGB 12.9 gm/dL (11.4-16.0); Hypochromasia Slight; Lymphocytes # (A) 1.7 k/uL (1.0-4.8); Lymphocytes % (A) 23 %; MCH 29.7 pg (25.0-35.0); MCHC 31.5 g/dL (31.0-37.0); MCV 94.5 fL (80.0-100.0); Mean Platelet Volume 7.7; Monocytes # (A) 0.5 k/uL (0-1.0); Monocytes % (A) 6 %; Neutrophils % (A) 67 %; Platelet Count 251 k/uL (150-450); RBC 4.33 m/uL (3.80-5.40); RDW 13.6 % (11.5-15.5); WBC 7.5 k/uL (3.8-10.6)
[2024-08-03 08:54] LABS: African American GFR (CKD) 71 (>60 ml/min/1.73 sqM); Anion Gap 9 mmol/L; Blood Urea Nitrogen 34 mg/dL (7-17); Calcium 9.6 mg/dL (8.4-10.2); Carbon Dioxide 21 mmol/L (22-30); Chloride 107 mmol/L (98-107); Glucose 126 mg/dL (74-99); Non-African American GFR(CKD) 61 (>60 ml/min/1.73 sqM); Potassium 4.7 mmol/L (3.5-5.1); Sodium 137 mmol/L (137-145)
[2024-08-03] MEDS: lisinopriL 5 MG TAB PO SCH (12:07)
--- NOTE | 2024-08-03 13:29 | P.PN ---
Subjective HISTORY OF PRESENT ILLNESS: This is a 69-year-old female with a past medical history significant for ischemic cardiomyopathy, coronary artery disease, peripheral arterial disease with previous lower extremity angioplasty, AAA, hypertension, hyperlipidemia, COPD, and nicotine dependence. Patient follows in the office with Dr. Lambert. We have been asked to see the patient in consultation for chest pain. Patient examined at the bedside. Patient was recently hospitalized secondary to non- STEMI and underwent stenting of the proximal LAD on 07/18/2024. Patient states that she was not able to get all of her medications once she was discharged. She states 2 days ago she started taking her Farxiga and her Bumex. She states for the past 2 days she has been having spasms on both sides of her abdomen. She also reports having some discomfort in her chest. She denied any radiation of the pain. She denied any shortness of breath. She states by the time she got here the pain had resolved. She also reports that she has had a headache the past couple days. Additionally, the patient has had weakness of her left arm and left leg. She also notes that her family has noted that her speech was slower than normal. She states that her speech feels back to normal this morning. She continues to report some weakness and tingling in her left leg. She denies any palpitations. She continues to smoke about a half a pack per day. DIAGNOSTICS: - EKG reveals sinus mechanism with T wave inversions in lead I, lead II, V2V6 - Chest xray chronic emphysema changes without acute pulmonary process - CT brain: Negative for intracranial hemorrhage or midline shift. Mild diffuse age-related cerebral atrophy and moderate to severe probable chronic small vessel ischemic changes - CTA head and neck: No evidence of significant stenosis at the carotid bifurcation. No large vessel occlusion or aneurysm at the level of [place] of [place]. - Laboratory data: WBC 12.7. Hemoglobin 12.9. Platelet count 339. Sodium 135. Potassium 4.7. BUN 36. Creatinine 1.31. Troponin negative x 3. - Current home cardiac medications include aspirin 81 mg daily, Lipitor 80 mg night, Bumex 1 mg daily, Farxiga 10 mg daily, metoprolol titrate 25 mg twice a day, Aldactone 25 mg daily, Brilinta 90 mg twice a day, lisinopril 10 mg daily - Most recent echocardiogram obtained in June 2024 revealed ejection fraction 20 to 25%, apex akinetic, severe pulmonary hypertension - Cardiac catheterization history: 07/18/2024 with stenting of the proximal LAD 08/03/2024 Patient examined this morning at the bedside. Patient currently denies chest pain or pressure. She denies any shortness of breath. She denies any left- sided weakness this morning. She reports some mild discomfort of her left leg. She denies any issues with her speech. Patient's kidney function today has normalized. She has been evaluated by neurology and is scheduled for MRI. Echocardiogram completed revealing ejection fraction 25 to 30% with no LV thrombus noted. PHYSICAL EXAM: VITAL SIGNS: Reviewed. GENERAL: Well-developed in no acute distress. HEENT: Head is normocephalic. Pupils are equal, round. Sclerae anicteric. Mucous membranes of the mouth are moist. Neck supple. No JVD or thyromegaly LUNGS: Respirations even and unlabored. Lungs essentially clear to auscultation bilaterally. HEART: Regular rate and rhythm. S1 and S2 heard. ABDOMEN: Soft. Nondistended. Nontender. EXTREMITIES: Normal range of motion. No clubbing or cyanosis. Peripheral pulses intact. No lower extremity edema NEUROLOGIC: Awake and alert. Oriented x 3. ASSESSMENT: Left-sided weakness with slowed/slurred speech, rule out TIA Chest pain, troponin negative x 3 Mild acute kidney injury, resolved Coronary artery disease with recent stenting of the LAD, 07/18/2024 Ischemic cardiomyopathy, EF 20 to 25% Severe pulmonary pretension Peripheral arterial disease with previous lower extremity angioplasty History of AAA Hypertension Hyperlipidemia COPD Nicotine dependence, patient reports smoking half a pack per day PLAN: An acute coronary event has been ruled out Continue dual antiplatelet therapy with aspirin and Brilinta Continue high intensity statin Continue to hold Bumex, Farxiga, and Aldactone Resume lisinopril at a decreased dose of 5 mg daily Continue telemetry monitoring to assess for any arrhythmias Neurology following. MRI pending. Further recommendations pending patient course Nurse practitioner note has been reviewed by physician. Signing provider agrees with the documented findings, assessment, and plan of care documented by [employer] as a scribe. Objective - Vital Signs Vital signs: Vital Signs Temp 97.7 F 08/03/24 07:54 Pulse 72 08/03/24 09:00 Resp 18 08/03/24 07:54 BP 136/79 08/03/24 07:54 Pulse Ox 99 08/03/24 07:54 FiO2 21 08/02/24 09:03 Intake & Output 08/02/24 08/03/24 08/03/24 18:59 06:59 18:59 Intake Total 130 10 240 Balance 130 10 240 Weight 117 kg Intake: IV 10 10 Invasive Line 1 10 10 Oral 120 240 Other: Voiding Method Bedside Commode Toilet # Voids 1 2 - Labs CBC & Chem 7: 08/03/24 07:52 08/03/24 07:52 Labs: Abnormal Lab Results - Last 24 Hours (Table) 08/03/24 Range/Units 07:52 Carbon Dioxide 21 L (22-30) mmol/L BUN 34 H (7-17) mg/dL Glucose 126 H (74-99) mg/dL
--- NOTE | 2024-08-03 13:54 | P.PN ---
Subjective Progress Note Date: 08/03/24 This is a pleasant 69-year-old female who comes in with complaints of left upper extremity numbness tingling as well as slurred speech. She was admitted for neurology workup and currently pending a brain MRI. Patient also with recent cardiac stenting and has been continued on aspirin Brilinta and started on high- dose Lipitor 80 mg at bedtime. Ejection fraction comes back with an EF of 25 to 30% which is slightly improved from her prior echo. Review of Systems Constitutional: Denied any fatigue denied any fever. Cardio vascular: denied any chest pain, palpitations Gastrointestinal: denied any nausea, vomiting, diarrhea Pulmonary: Denied any shortness of breath cough Neurologic denied any new focal deficits All inpatient medications were reviewed and appropriate changes in these medications as dictated in the interval history and assessment and plan. PHYSICAL EXAMINATION: GENERAL: The patient is alert and oriented x3, not in any acute distress. Well developed, well nourished. HEENT: Pupils are round and equally reacting to light. EOMI. No scleral icterus. No conjunctival pallor. Normocephalic, atraumatic. No pharyngeal erythema. No thyromegaly. CARDIOVASCULAR: S1 and S2 present. No murmurs, rubs, or gallops. PULMONARY: Chest is clear to auscultation, no wheezing or crackles. ABDOMEN: Soft, nontender, nondistended, normoactive bowel sounds. No palpable organomegaly. MUSCULOSKELETAL: No joint swelling or deformity. EXTREMITIES: No cyanosis, clubbing, or pedal edema. NEUROLOGICAL: Gross neurological examination did not reveal any focal deficits. Left upper extremity weakness 4 out of 5 strength SKIN: No rashes. Assessment Acute ischemic stroke/TIA with symptoms of left upper extremity numbness tingling weakness and slurred speech Chest pain with atypical features acute coronary syndrome has been ruled out Coronary artery disease with recent cardiac stenting continues on aspirin Brilinta Acute kidney injury resolved Schema cardiomyopathy with an EF of 20 to 25% Severe pulmonary hypertension COPD with no acute exacerbation Leukocytosis reactive Hyperlipidemia Hypertension Chronic and ongoing nicotine use GI prophylaxis Continue aspirin Brilinta therapy Continue high density statin therapy Bumex Farxiga and Aldactone remain on hold Cardiology has resume lisinopril at a decreased dose of 5 mg daily Brain MRI currently pending which will hopefully be done tomorrow 08/04 Neurology following, cardiology following The impression and plan of care has been dictated by Jennifer Gonzalez Nurse Practitioner as directed. Dr. Hal MD I have performed a history and physical examination and medical decision making of this patient, discussed the same with the dictator, and agree with the dictators assessment and plan as written, documented as a scribe. Based on total visit time, I have performed more than 50% of this visit. Objective - Vital Signs Vital signs: Vital Signs Temp 97.7 F 08/03/24 07:54 Pulse 72 08/03/24 09:00 Resp 18 08/03/24 07:54 BP 136/79 08/03/24 07:54 Pulse Ox 99 08/03/24 07:54 FiO2 21 08/02/24 09:03 Intake & Output 08/02/24 08/03/24 08/03/24 18:59 06:59 18:59 Intake Total 130 10 240 Balance 130 10 240 Weight 117 kg Intake: IV 10 10 Invasive Line 1 10 10 Oral 120 240 Other: Voiding Method Bedside Commode Toilet # Voids 1 2 - Labs CBC & Chem 7: 08/03/24 07:52 08/03/24 07:52 Labs: Abnormal Lab Results - Last 24 Hours (Table) 08/03/24 Range/Units 07:52 Carbon Dioxide 21 L (22-30) mmol/L BUN 34 H (7-17) mg/dL Glucose 126 H (74-99) mg/dL Assessment and Plan Time with Patient: Less than 30
[2024-08-04 04:15] VITALS: TEMP 97.8
[2024-08-04 08:40] LABS: African American GFR (CKD) 76 (>60 ml/min/1.73 sqM); Anion Gap 12 mmol/L; Blood Urea Nitrogen 28 mg/dL (7-17); Carbon Dioxide 19 mmol/L (22-30); Chloride 107 mmol/L (98-107); Glucose 95 mg/dL (74-99); Non-African American GFR(CKD) 66 (>60 ml/min/1.73 sqM); Potassium 4.6 mmol/L (3.5-5.1); Sodium 138 mmol/L (137-145)
[2024-08-04] MEDS: ALPRAZolam 0.5 MG TAB PO STA (09:36)
--- NOTE | 2024-08-04 10:31 | MR ---
EXAMINATION TYPE: MR brain wo con DATE OF EXAM: 08/04/2024 10:12 AM COMPARISON: 08/01/2024. CLINICAL INDICATION: Female, 69 years old with history of left sided weakness, dysathria. cva, Left sided weakness, dysarthria, CVA. TECHNIQUE: Multi planar, multi sequence imaging was performed through the brain including: T1, T2, In version recovery, Diffusion weighted imaging, and gradient echo imaging. No gadolinium was given. FINDINGS: The saenz-white junctions, ventricular system, basal cisterns appear unremarkable. Scattered foci an d extensive confluent areas of high T2 signal intensity are seen within the periventricular white mat ter. Midline structures show no abnormality. Diffusion-weighted imaging shows no evidence of restrict ed diffusion. The susceptibility weighted images do not reveal any evidence for micro-hemorrhage. The bone marrow signal is within normal limits. Paranasal sinuses and mastoid air cells: Mild scattered paranasal sinus disease. Trace high T2 signal in the mastoid air cells. Visualized orbits: Bilateral aphakia IMPRESSION: 1. No evidence of intracranial mass or acute/subacute infarct. 2. Nonspecific white matter changes, likely secondary to small vessel ischemic disease. [facility], , 08/04/2024 10:29 AM
[2024-08-04 11:03] VITALS: RESP 18
--- NOTE | 2024-08-04 11:19 | P.PN ---
Subjective HISTORY OF PRESENT ILLNESS: This is a 69-year-old female with a past medical history significant for ischemic cardiomyopathy, coronary artery disease, peripheral arterial disease with previous lower extremity angioplasty, AAA, hypertension, hyperlipidemia, COPD, and nicotine dependence. Patient follows in the office with Dr. Lambert. We have been asked to see the patient in consultation for chest pain. Patient examined at the bedside. Patient was recently hospitalized secondary to non- STEMI and underwent stenting of the proximal LAD on 07/18/2024. Patient states that she was not able to get all of her medications once she was discharged. She states 2 days ago she started taking her Farxiga and her Bumex. She states for the past 2 days she has been having spasms on both sides of her abdomen. She also reports having some discomfort in her chest. She denied any radiation of the pain. She denied any shortness of breath. She states by the time she got here the pain had resolved. She also reports that she has had a headache the past couple days. Additionally, the patient has had weakness of her left arm and left leg. She also notes that her family has noted that her speech was slower than normal. She states that her speech feels back to normal this morning. She continues to report some weakness and tingling in her left leg. She denies any palpitations. She continues to smoke about a half a pack per day. DIAGNOSTICS: - EKG reveals sinus mechanism with T wave inversions in lead I, lead II, V2V6 - Chest xray chronic emphysema changes without acute pulmonary process - CT brain: Negative for intracranial hemorrhage or midline shift. Mild diffuse age-related cerebral atrophy and moderate to severe probable chronic small vessel ischemic changes - CTA head and neck: No evidence of significant stenosis at the carotid bifurcation. No large vessel occlusion or aneurysm at the level of tejon of Jones. - Laboratory data: WBC 12.7. Hemoglobin 12.9. Platelet count 339. Sodium 135. Potassium 4.7. BUN 36. Creatinine 1.31. Troponin negative x 3. - Current home cardiac medications include aspirin 81 mg daily, Lipitor 80 mg night, Bumex 1 mg daily, Farxiga 10 mg daily, metoprolol titrate 25 mg twice a day, Aldactone 25 mg daily, Brilinta 90 mg twice a day, lisinopril 10 mg daily - Most recent echocardiogram obtained in June 2024 revealed ejection fraction 20 to 25%, apex akinetic, severe pulmonary hypertension - Cardiac catheterization history: 07/18/2024 with stenting of the proximal LAD 08/03/2024 Patient examined this morning at the bedside. Patient currently denies chest pain or pressure. She denies any shortness of breath. She denies any left- sided weakness this morning. She reports some mild discomfort of her left leg. She denies any issues with her speech. Patient's kidney function today has normalized. She has been evaluated by neurology and is scheduled for MRI. Echocardiogram completed revealing ejection fraction 25 to 30% with no LV thrombus noted. 08/04/2024 Patient examined this morning at the bedside. Patient denies chest pain or pressure. Denies SOB. Vital signs are stable. MRI negative for CVA. PHYSICAL EXAM: VITAL SIGNS: Reviewed. GENERAL: Well-developed in no acute distress. HEENT: Head is normocephalic. Pupils are equal, round. Sclerae anicteric. Mucous membranes of the mouth are moist. Neck supple. No JVD or thyromegaly LUNGS: Respirations even and unlabored. Lungs essentially clear to auscultation bilaterally. HEART: Regular rate and rhythm. S1 and S2 heard. ABDOMEN: Soft. Nondistended. Nontender. EXTREMITIES: Normal range of motion. No clubbing or cyanosis. Peripheral pulses intact. No lower extremity edema NEUROLOGIC: Awake and alert. Oriented x 3. ASSESSMENT: Left-sided weakness with slowed/slurred speech, MRI negative for CVA Chest pain, troponin negative x 3 Mild acute kidney injury, resolved Coronary artery disease with recent stenting of the LAD, 07/18/2024 Ischemic cardiomyopathy, EF 20 to 25% Severe pulmonary pretension Peripheral arterial disease with previous lower extremity angioplasty History of AAA Hypertension Hyperlipidemia COPD Nicotine dependence, patient reports smoking half a pack per day PLAN: An acute coronary event has been ruled out Continue dual antiplatelet therapy with aspirin and Brilinta Continue high intensity statin Continue to hold Bumex, Farxiga, and Aldactone. Will re-evaluate on an outpa tient basis Continue Lisinopril 5mg daily Continue telemetry monitoring to assess for any arrhythmias Patient is stable for discharge home today from a cardiac standpoint Nurse practitioner note has been reviewed by physician. Signing provider agrees with the documented findings, assessment, and plan of care documented by [employer] as a scribe. Objective - Vital Signs Vital signs: Vital Signs Temp 97.8 F 01/06/25 04:02 Pulse 86 08/04/24 08:00 Resp 18 08/04/24 08:00 BP 134/65 08/04/24 08:00 Pulse Ox 100 08/04/24 08:00 FiO2 21 08/02/24 09:03 Intake & Output 08/03/24 08/04/24 08/04/24 18:59 06:59 18:59 Intake Total 702 370 240 Balance 702 370 240 Weight 117.1 kg Intake: IV 10 Invasive Line 1 10 Oral 702 360 240 Other: Voiding Method Toilet Toilet # Voids 1 1 # Bowel Movements 1 - Labs CBC & Chem 7: 08/03/24 07:52 08/04/24 07:00 Labs: Abnormal Lab Results - Last 24 Hours (Table) 08/04/24 Range/Units 07:00 Carbon Dioxide 19 L (22-30) mmol/L BUN 28 H (7-17) mg/dL
[2024-08-04 14:29] VITALS: BP 113/56; PULSE 76
--- NOTE | 2024-08-04 15:38 | P.DS ---
Providers Date of admission: 08/04/24 08:50 Expected date of discharge: 08/04/24 Attending physician: Antonio Dc Consults: 08/01/24 19:24 Consult Physician Routine Consulting Provider: Joshua Cisneros Consult Reason/Comments: tia. stroke activation Do you want consulting provider notified?: Yes Consult Physician Routine Consulting Provider: [facility] Consult Reason/Comments: chest pain Do you want consulting provider notified?: Yes [facility] Course: This is a pleasant [id number] with Dr. Combs. Who comes in with complaints of left upper extremity numbness tingling as well as slurred speech. She was admitted for neurology workup and currently pending a brain MRI. Patient also with recent cardiac stenting and has been continued on aspirin Brilinta and started on high-dose Lipitor 80 mg at bedtime. Ejection fraction comes back with an EF of 25 to 30% which is slightly improved from her prior echo. August 04: Patient doing well. Walked about 250 feet with physical therapy. Spoke to her. Will need some PT OT outpatient. Spoke to case planner. MRI results discussed with the patient and daughter. Continue current medications. Patient's Bumex and Farxiga continues to be held. Aldactone added to 12.5 mg daily. Patient follow-up with her parcel contractor Dr. Lambert. Discussion and discharge planning more than 35 minutes Social history: Lives with daughter. Smoking a pack a day was up to 2 packs a day. Close to 50 years. Physical examination: VITAL SIGNS: 97.8, 76, 18, 113 x 56, 99% room air GENERAL: Sitting at the edge of the bed, comfortable EYES: Pupils equal. Conjunctiva lonny l. HEENT: External appearance of nose and ears normal, oral cavity grossly normal. NECK: JVD not raised; masses not palpable. HEART: First and second heart sounds are normal; no edema. LUNGS: Respiratory rate i normal, diminished breath sound ABDOMEN: Soft, nontender, liver spleen not palpable, no masses palpable. PSYCH: Alert and oriented x3; mood and affect slightly anxious. MUSCULOSKELETAL:No Clubbing/cyanosis;muscles-grossly intact. OA INVESTIGATIONS, reviewed in the clinical context: August 04: Potassium 4.6 creatinine 0.89 August 03: White count 7.5 hemoglobin 12.9 platelets 251 MRI brain [August 04, 2024] no evidence of acute affect. Nonspecific white matter changes. 2D echo [Limited] severely impaired left ventricular systolic function. No evidence of apical thrombus. CT angiography head and neck: No evidence of any significant stenosis at the carotid bifurcations. CT brain: Chronic changes Assessment TIA with symptoms of left upper extremity numbness tingling weakness and slurred speech: Resolved Chest pain with atypical features acute coronary syndrome has been ruled out Coronary artery disease with recent cardiac stenting continues on aspirin Brilinta Acute kidney injury resolved Chronic congestive heart failure/ischemic cardiomyopathy with an EF of 20 to 25% Severe secondary pulmonary hypertension, due to COPD Advanced COPD in a current smoker Leukocytosis reactive Hyperlipidemia Primary osteoarthritis Essential hypertension Chronic and ongoing nicotine use PAD with a prior history of peripheral stent Full code Disposition: Home with daughter Outpatient PT OT Plan - Discharge Summary Discharge Rx Participant: No New Discharge Prescriptions: New Nicotine 21Mg/24Hr Patch [Habitrol] 1 patch TRANSDERM DAILY #30 patch Continue Metoprolol Tartrate [Lopressor] 25 mg PO BID #60 tab Atorvastatin [Lipitor] 80 mg PO HS #30 tab Albuterol Sulfate [Ventolin HFA] 2 puff INHALATION RT-Q6H PRN PRN Reason: Shortness Of Breath Cholecalciferol [Vitamin D3 (25 Mcg = 1000 Iu)] 25 mcg PO DAILY Ticagrelor [Brilinta] 90 mg PO BID 30 Days #60 tab [place]-3/Dha/Epa/Fish Oil [Fish Oil 1,000 mg Softgel] 1 cap PO DAILY Ipratropium-Albuterol Nebulize [Duoneb 0.5 mg-3 mg/3 ml Soln] 3 ml INHALATION RT-QID PRN PRN Reason: Shortness Of Breath Aspirin [Adult Low Dose Aspirin EC] 81 mg PO DAILY 30 Days #30 tab Changed lisinopriL [Zestril] 5 mg PO DAILY #0 Spironolactone [Aldactone] 12.5 mg PO DAILY@1400 #0 Discontinued Bumetanide [BUMEX] 1 mg PO DAILY 30 Days #30 tab Dapagliflozin Propanediol [Farxiga] 10 mg PO DAILY 30 Days #30 tab Discharge Medication List Metoprolol Tartrate [Lopressor] 25 mg PO BID #60 tab 07/17/15 [Rx] Atorvastatin [Lipitor] 80 mg PO HS #30 tab 01/07/16 [Rx] Albuterol Sulfate [Ventolin HFA] 2 puff INHALATION RT-Q6H PRN 06/06/20 [History] [place]-3/Dha/Epa/Fish Oil [Fish Oil 1,000 mg Softgel] 1 cap PO DAILY 01/27/22 [History] Cholecalciferol [Vitamin D3 (25 Mcg = 1000 Iu)] 25 mcg PO DAILY 03/30/23 [History] Ipratropium-Albuterol Nebulize [Duoneb 0.5 mg-3 mg/3 ml Soln] 3 ml INHALATION RT-QID PRN 03/30/23 [History] Aspirin [Adult Low Dose Aspirin EC] 81 mg PO DAILY 30 Days #30 tab 07/20/24 [Rx] Ticagrelor [Brilinta] 90 mg PO BID 30 Days #60 tab 07/20/24 [Rx] Nicotine 21Mg/24Hr Patch [Habitrol] 1 patch TRANSDERM DAILY #30 patch 08/04/24 [Rx] Spironolactone [Aldactone] 12.5 mg PO DAILY@1400 #0 08/04/24 [Rx] lisinopriL [Zestril] 5 mg PO DAILY #0 08/04/24 [Rx] Follow up Appointment(s)/Referral(s): Mal Combs DO [Primary Care Provider] - 1-2 days Peng Lambert MD [STAFF PHYSICIAN] - 08/08/24 10:30 am Activity/Diet/Wound Care/Special Instructions: no new Rx for lisinopril and aldactone Discharge Disposition: HOME SELF-CARE
--- NOTE | 2024-08-05 16:04 | CDI ---
Documentation Clarification Form Date: 08/05/2024 03:47:20 PM From: Abby Phan Phone: Admit Date: 08/04/2024 08:50:00 AM Patient Name: Taya Key Visit Number: [id number] Discharge Date: 08/04/2024 02:21:00 PM ATTENTION: The Clinical Documentation Specialists (CDI) and [facility] Coding Staff appreciate your assistance in clarifying documentation. Please respond to the clarification below the line at the bottom and electronically sign. The CDI & [facility] Coding staff will review the response and follow-up if needed. Please note: Queries are made part of the Legal Health Record. If you have any questions, please contact the author of this message via ITS. Doctor/Provider: Melyssa Ramírez Your patient has the documented diagnosis of chronic CHF as documented throughout the notes. Additional information regarding the type of CHF is requested. History/Risk Factors: 69yo F, TIA w LUEnumbnesstinglingweakness,slurred speech, AAA, atypical chest pain, CAD w recent NSTEMI & stent, RENITA, CHF, ICM, PHTN, COPD, HLD, OA, HTN, PAD sp stent, leukocytosisreactive, smoker Clinical Indicators: VS/Pulse OX: 96-97 Echo: Severelyimpairedlow ventricle systolic function with segmental wall motionabnormality. No evidence to suggestapicalthrombus. Chest x ray: The cardiac silhouette size is stable and within normal limits withatheroscleroticthoracic aorta redemonstrated. Treatment: Continue dualantiplatelet therapywith aspirin and Brilinta. Continue high intensity statin. Continue to hold Bumex, Farxiga, and Aldactone. Resume lisinopril at a decreased dose of 5 mg daily. Continuetelemetry monitoringto assess for anyarrhythmias. In your professional opinion, can you please clarify the type of CHF if known? [ ] Chronic Systolic Heart Failure (reduced EF) [ ] Chronic Diastolic Heart Failure (preserved EF) [ ] Chronic Systolic & Diastolic Heart Failure [ ] Other, please specify [ ] Unable to determine (Template Last Revised: August 2020) MTDD
--- NOTE | 2024-08-06 11:27 | CDI ---
Documentation Clarification Form Date: 08/06/2024 11:19:56 AM From: Abby Phan Phone: Admit Date: 08/04/2024 08:50:00 AM Patient Name: Taya Key Visit Number: [id number] Discharge Date: 08/04/2024 02:21:00 PM ATTENTION: The Clinical Documentation Specialists (CDI) and [facility] Coding Staff appreciate your assistance in clarifying documentation. Please respond to the clarification below the line at the bottom and electronically sign. The CDI & [facility] Coding staff will review the response and follow-up if needed. Please note: Queries are made part of the Legal Health Record. If you have any questions, please contact the author of this message via ITS. Doctor/Provider: Melyssa Ramírez Thank you for acknowledging the previous query; however, it lack a response. Your patient has the documented diagnosis of chronicCHFas documented throughout the notes. Additional information regarding the type ofCHFis requested. History/Risk Factors: 69yo F,TIAw LUEnumbnesstinglingweakness,slurred speech,AAA,atypical chest pain,CADw recentNSTEMIstent,RENITA,CHF, ICM, HTN,COPD,HLD,OA,HTN,PADspstent,leukocytosisreactive,smoker Clinical Indicators: VS/Pulse OX: 96-97 Echo: Severelyimpairedlow ventricle systolic function with segmental wall motionabnormality. No evidence to suggestapicalthrombus. Chest x ray: The cardiac silhouette size is stable andwithin normal limits withatheroscleroticthoracic aorta redemonstrated. Treatment: Continue dualantiplatelet therapywith aspirin and Brilinta. Continue high intensity statin. Continue to hold Bumex, Farxiga, and Aldactone. Resume lisinopril at a decreased dose of 5 mg daily. Continuetelemetry monitoringto assess for anyarrhythmias. In your professional opinion, can you please clarify the type ofCHFif known? [ xx]Chronic Systolic Heart Failure(reducedEF) [ ]Chronic Diastolic Heart Failure(preserved EF) [ ] Chronic SystolicDiastolic Heart Failure [ ] Other, please specify [ ] Unable to determine (Template LastRevised: August 2020) MTDD
== END 2024-08-04 14:21 | disposition home or self-care (01) | DRG 69 ==
LOC: EC 16:41 → 3SCARD 19:25 → OBSVTOIN 08-04 08:50
PROVIDERS: ADMIT Hospitalist; ATTEND Hospitalist
DX: G45.9 Transient cerebral ischemic attack, unspecified (principal); I21.4 Non-ST elevation (NSTEMI) myocardial infarction; G81.94 Hemiplegia, unspecified affecting left nondominant side; E87.1 Hypo-osmolality and hyponatremia; N17.9 Acute kidney failure, unspecified; I50.22 Chronic systolic (congestive) heart failure; I27.23 Pulmonary hypertension due to lung diseases and hypoxia; I11.0 Hypertensive heart disease with heart failure; J43.9 Emphysema, unspecified; I71.40 Abdominal aortic aneurysm, without rupture, unspecified; I73.9 Peripheral vascular disease, unspecified; Z95.820 Peripheral vascular angioplasty status with implants and grafts; F17.210 Nicotine dependence, cigarettes, uncomplicated; I25.10 Atherosclerotic heart disease of native coronary artery without angina pectoris; D72.828 Other elevated white blood cell count; E78.00 Pure hypercholesterolemia, unspecified; I25.5 Ischemic cardiomyopathy; M19.91 Primary osteoarthritis, unspecified site; R20.0 Anesthesia of skin; R07.89 Other chest pain; R29.703 NIHSS score 3; R20.2 Paresthesia of skin; R47.81 Slurred speech; Z95.5 Presence of coronary angioplasty implant and graft; Z79.02 Long term (current) use of antithrombotics/antiplatelets; Z79.82 Long term (current) use of aspirin; Z79.899 Other long term (current) drug therapy; Z79.84 Long term (current) use of oral hypoglycemic drugs; I25.2 Old myocardial infarction; Z86.14 Personal history of Methicillin resistant Staphylococcus aureus infection; Z86.73 Personal history of transient ischemic attack (TIA), and cerebral infarction without residual deficits
CPT/HCPCS: 36415; 70450; 70496; 70498; 70551; 71046; 80048; 80053; 80061; 81001; 82550; 84484; 85025; 85610; 85730; 93005; 93308; 94640; 94760; 96360; 99291

== ENCOUNTER → 2024-11-10 | Outpatient (CLI) | payer MEDICARE ==
--- NOTE | 2024-11-10 15:41 | XR ---
EXAMINATION TYPE: XR chest 2V DATE OF EXAM: 11/10/2024 2:24 PM COMPARISON: 08/01/2024 CLINICAL INDICATION: Female, 69 years old with history of J44.9, R06.02, history of COPD and hospital ization back in 2023, TECHNIQUE: Frontal and lateral views FINDINGS: Heart normal size. Atherosclerotic aortic calcifications. Hyperinflation. Vague density at the left m idlung remains unchanged. Some strandy atelectasis at the lower lungs. Vascular calcifications at the apices. No tiffanie consolidation or pleural effusion. IMPRESSION: COPD and chronic appearing changes. No definite acute process. Recommend follow-up CT per recommendat ion on 03/30/[address] can also further assess the vague density at the left midlung. [facility], , 11/10/2024 3:39 PM
== END | disposition home or self-care (01) ==
LOC: RADXRMAIN 14:04
PROVIDERS: ATTEND Internal Medicine Sleep Medicine
DX: J44.9 Chronic obstructive pulmonary disease, unspecified (principal)
CPT/HCPCS: 71046

== ENCOUNTER 2025-02-01 22:41 | Inpatient (IN) | payer MEDICARE ==
[2025-02-01 23:35] LABS: Basophils # (A) 0.03 10*3/uL (0.00-0.10); Basophils % (A) 0.2 %; Eosinophils # (A) 0.05 10*3/uL (0.04-0.35); Eosinophils % (A) 0.3 %; HCT 31.3 % (37.2-46.3); HGB 9.5 g/dL (12.0-15.0); Lymphocytes # (A) 1.07 10*3/uL (0.90-5.00); Lymphocytes % (A) 6.0 %; MCH 28.7 pg (27.0-32.0); MCHC 30.4 g/dL (32.0-37.0); MCV 94.6 fL (80.0-97.0); Monocytes # (A) 1.08 10*3/uL (0.20-1.00); Monocytes % (A) 6.1 %; Neutrophils # (A) 15.47 10*3/uL (1.80-7.70); Neutrophils % (A) 86.9 %; Platelet Count 213 10*3/uL (140-440); RBC 3.31 10*6/uL (4.10-5.20); RDW 16.5 % (11.5-14.5); WBC 17.79 10*3/uL (4.50-10.00)
[2025-02-01] MEDS: IPRATROPIUM-ALBUTEROL 3 ML NEB INHALATION STA (23:46)
[2025-02-01] MEDS: methylPREDNISolone SOD SUCCI 125 MG/2 ML VIAL IV STA (23:51)
[2025-02-01] MEDS: SODIUM CHLORIDE 0.9% 1,000 ML IV ONE (23:51)
[2025-02-01 23:52] LABS: ALT 17 U/L (4-34); AST 25 U/L (14-36); African American GFR (CKD) 62 (>60 ml/min/1.73 sqM); Albumin 3.9 g/dL (3.5-5.0); Alkaline Phosphatase 94 U/L (38-126); Anion Gap 13 mmol/L; Blood Urea Nitrogen 45 mg/dL (7-17); Calcium 9.7 mg/dL (8.4-10.2); Carbon Dioxide 21 mmol/L (22-30); Chloride 106 mmol/L (98-107); Glucose 108 mg/dL (74-99); INR 1.0 (<1.2); Magnesium 1.4 mg/dL (1.6-2.3); Non-African American GFR(CKD) 54 (>60 ml/min/1.73 sqM); Potassium 4.7 mmol/L (3.5-5.1); Prothrombin Time 11.5 sec (10.0-12.5); Sodium 140 mmol/L (137-145); Total Protein 6.4 g/dL (6.3-8.2)
[2025-02-02 00:03] LABS: Partial Thromboplastin Time 21.5 sec (22.0-30.0)
[2025-02-02] MEDS: LABETALOL 5 MG/ML VIAL MDV IVP STA (00:18)
[2025-02-02] MEDS ORDERED: Magnesium Replacement Protocol 1 EACH MISC MISCELLANE PRN (00:23)
[2025-02-02] MEDS: NITROGLYCERIN-D5W PMX 50 MG in DEXTROSE/WATER 1 250ML.BAG IV ONE (00:37)
[2025-02-02] MEDS: MAGNESIUM SULFATE-D5W PMX 1 GM in DEXTROSE/WATER 1 100ML.BAG IVPB SCH (00:47)
--- NOTE | 2025-02-02 02:17 | XR ---
EXAM: XR Chest, 2 Views CLINICAL HISTORY: ITS.REASON XR Reason: difficulty breathing TECHNIQUE: Frontal and lateral views of the chest. COMPARISON: 08/01/2024. FINDINGS: Lungs: Pulmonary vascular congestion. Trace bilateral pleural effusions, concerning for CHF. Heart: Cardiomegaly. Mediastinum: Unremarkable. Bones/joints: Unremarkable. IMPRESSION: CHF.
[2025-02-02] MEDS: FUROSEMIDE 10 MG/ML 4 ML VIAL IV STA (02:19)
[2025-02-02] MEDS ORDERED: NALOXONE 0.4 MG/ML 1 ML VIAL IV PRN (02:22)
--- NOTE | 2025-02-02 02:26 | ED ---
SOB HPI - General Source: patient, EMS Mode of arrival: EMS Limitations: no limitations <Daya Lundberg - Last Filed: 02/02/25 03:54> <Chava Mccromack - Last Filed: 02/13/25 20:27> - General Chief Complaint: Shortness of Breath Stated Complaint: Shortness of Breath Time Seen by Provider: 02/01/25 22:55 - History of Present Illness Initial Comments: 69-year-old female with history of CHF, COPD, hypertension, hyperlipidemia, CAD presenting with chief complaint of shortness of breath. Started this morning when she woke up and has been worsening throughout the day. She has been coughing as well. She has been trying updraft treatments at home which have not helped. No known fever. Denies chest pain. There is a little bit of lower extremity swelling. (Daya Lundberg) - Related Data Home Medications Medication Instructions Recorded Confirmed Albuterol Sulfate [Ventolin HFA] 2 puff INHALATION RT-Q6H PRN 06/06/20 02/02/25 Cholecalciferol (Vitamin D3) 50 mcg PO DAILY 02/02/25 02/02/25 [Vitamin D3 (50 Mcg = 2000 Iu)] Clopidogrel [Plavix] 75 mg PO DAILY 02/02/25 02/02/25 Previous Rx's Medication Instructions Recorded Aspirin [Adult Low Dose Aspirin EC] 81 mg PO DAILY 30 Days #30 tab 07/20/24 Acetaminophen Tab [Tylenol] 650 mg PO Q6HR PRN tab 02/13/25 Atorvastatin [Lipitor] 40 mg PO HS #30 tab 02/13/25 Budesonide/Formoterol Fumarate 1 puff INHALATION BID #10.2 gm 02/13/25 [Symbicort 160-4.5 Mcg Inhaler] Furosemide [Lasix] 40 mg PO DAILY #30 tab 02/13/25 Ipratropium-Albuterol Nebulize 3 ml INHALATION TID #0 02/13/25 [Duoneb 0.5 mg-3 mg/3 ml Soln] Isosorbide Mononitrate ER [Imdur] 30 mg PO DAILY #30 tab 02/13/25 Nicotine 14Mg/24Hr Patch [Habitrol] 1 patch TRANSDERM DAILY #30 patch 02/13/25 amLODIPine [Norvasc] 5 mg PO DAILY #30 tab 02/13/25 carvediloL [Coreg] 25 mg PO BID #60 tablet 02/13/25 hydrALAZINE HCL [Apresoline] 50 mg PO TID #90 tab 02/13/25 Allergies Allergy/AdvReac Type Severity Reaction Status Date / Time cephalexin monohydrate Allergy Rash/Hives Verified 02/02/25 07:43 [From Keflex] Review of Systems ROS Other: All systems not noted in ROS Statement are negative. <Daya Lundberg - Last Filed: 02/02/25 03:54> ROS Other: All systems not noted in ROS Statement are negative. <Chava Mccormack - Last Filed: 02/13/25 20:27> ROS Statement: Those systems with pertinent positive or pertinent negative responses have been documented in the HPI. Past Medical History Past Medical History: Heart Failure, COPD, GERD/Reflux, Hyperlipidemia, Hypertension, Myocardial Infarction ([place]), Osteoarthritis (OA), Vascular Disorder Additional Past Medical History / Comment(s): OCCASIONAL SOB., VARICOSE VEINS.,STATES LEGS PAINFUL AT TIMES., constipation, Last Myocardial Infarction Date:: 2014 History of Any Multi-Drug Resistant Organisms: MRSA Date of last positivie culture/infection: 2013 MDRO Source:: under nose Past Surgical History: Heart Catheterization With Stent, Orthopedic Surgery Additional Past Surgical History / Comment(s): LT KNEE RECONSTRUCTIVE SX, CURTIS CATARACTS, CYST REMOVED FROM BEHIND LT EAR., BALLOON ANGIOPLASTY WITH STENT LEFT FEMORAL ARTERY (02/2018), 3 cardiact stents, recent aortogram Past Anesthesia/Blood Transfusion Reactions: No Reported Reaction Date of Last Stent Placement:: unknown Past Psychological History: No Psychological Hx Reported Smoking Status: Current every day smoker Past Alcohol Use History: Daily Past Drug Use History: None Reported - Past Family History Sister(s) Family Medical History: Deep Vein Thrombosis (DVT) Mother Family Medical History: Cancer Father Family Medical History: No Reported History <Daya Lundberg - Last Filed: 02/02/25 03:54> General Exam Limitations: no limitations General appearance: alert, in no apparent distress Head exam: Present: atraumatic, normocephalic, normal inspection Eye exam: Present: normal appearance, EOMI Neck exam: Present: normal inspection. Absent: meningismus Respiratory exam: Present: normal lung sounds bilaterally. Absent: respiratory distress, wheezes, rales, rhonchi, stridor Cardiovascular Exam: Present: regular rate, normal rhythm, normal heart sounds. Absent: systolic murmur, diastolic murmur, rubs, gallop, clicks Extremities exam: Present: pedal edema Neurological exam: Present: alert, oriented X3 Psychiatric exam: Present: normal affect, normal mood Skin exam: Present: warm, dry, normal color <Daya Lundberg - Last Filed: 02/02/25 03:54> Course Vital Signs 02/01/25 02/01/25 02/01/25 22:44 23:47 23:50 Temperature 99.3 F Pulse Rate 79 73 84 Respiratory 22 20 Rate Blood Pressure 172/82 O2 Sat by Pulse 100 Oximetry Fraction of Inspired Oxygen (FIO2) 02/01/25 02/02/25 02/02/25 23:52 00:15 00:42 Temperature Pulse Rate 77 87 Respiratory 22 Rate Blood Pressure 214/101 187/91 O2 Sat by Pulse 99 94 L Oximetry Fraction of Inspired Oxygen (FIO2) 02/02/25 02/02/25 02/02/25 00:48 01:24 01:55 Temperature Pulse Rate 83 75 Respiratory 20 16 Rate Blood Pressure 166/90 192/88 O2 Sat by Pulse 95 96 Oximetry Fraction of 40 Inspired Oxygen (FIO2) 02/02/25 02/02/25 02/02/25 02:11 03:18 03:33 Temperature Pulse Rate 72 69 Respiratory 22 18 Rate Blood Pressure 181/76 170/75 O2 Sat by Pulse 98 97 Oximetry Fraction of 40 Inspired Oxygen (FIO2) 02/02/25 02/02/25 02/02/25 04:10 04:28 04:30 Temperature Pulse Rate 78 Respiratory 16 Rate Blood Pressure 180/85 183/88 172/86 O2 Sat by Pulse 98 Oximetry Fraction of Inspired Oxygen (FIO2) 02/02/25 02/02/25 02/02/25 05:04 05:29 05:44 Temperature Pulse Rate Respiratory Rate Blood Pressure 187/90 186/88 207/92 O2 Sat by Pulse Oximetry Fraction of Inspired Oxygen (FIO2) 02/02/25 02/02/25 02/02/25 05:58 06:11 06:49 Temperature Pulse Rate 70 Respiratory 18 Rate Blood Pressure 152/77 142/67 153/74 O2 Sat by Pulse 99 Oximetry Fraction of Inspired Oxygen (FIO2) 02/02/25 02/02/25 02/02/25 07:15 07:51 08:03 Temperature Pulse Rate 67 68 68 Respiratory 17 20 20 Rate Blood Pressure 153/63 182/82 181/83 O2 Sat by Pulse 99 100 99 Oximetry Fraction of Inspired Oxygen (FIO2) 02/02/25 02/02/25 02/02/25 08:10 08:30 08:49 Temperature Pulse Rate 70 73 70 Respiratory 21 18 Rate Blood Pressure 166/76 179/85 O2 Sat by Pulse 99 99 Oximetry Fraction of 40 Inspired Oxygen (FIO2) 02/02/25 02/02/25 02/02/25 08:59 09:03 09:33 Temperature 97.3 F L Pulse Rate 74 81 83 Respiratory 20 17 Rate Blood Pressure 179/85 171/91 O2 Sat by Pulse 99 99 Oximetry Fraction of Inspired Oxygen (FIO2) 02/02/25 02/02/25 02/02/25 09:45 10:10 10:30 Temperature Pulse Rate 74 67 Respiratory 18 21 Rate Blood Pressure 168/82 160/83 183/85 O2 Sat by Pulse 99 99 Oximetry Fraction of Inspired Oxygen (FIO2) 02/02/25 02/02/25 02/02/25 11:05 11:25 11:35 Temperature Pulse Rate 65 66 Respiratory 18 18 Rate Blood Pressure 152/82 154/88 174/86 O2 Sat by Pulse 99 99 Oximetry Fraction of Inspired Oxygen (FIO2) 02/02/25 02/02/25 02/02/25 12:00 12:23 12:35 Temperature Pulse Rate 65 64 68 Respiratory 20 Rate Blood Pressure 158/80 O2 Sat by Pulse 99 Oximetry Fraction of 40 Inspired Oxygen (FIO2) 02/02/25 02/02/25 02/02/25 13:00 14:05 14:25 Temperature Pulse Rate 71 71 67 Respiratory 24 17 17 Rate Blood Pressure 163/82 170/79 167/76 O2 Sat by Pulse 100 97 98 Oximetry Fraction of Inspired Oxygen (FIO2) 02/02/25 02/02/25 02/02/25 15:00 15:58 16:00 Temperature Pulse Rate 64 64 64 Respiratory 16 16 Rate Blood Pressure 135/75 161/77 O2 Sat by Pulse 100 100 Oximetry Fraction of 40 Inspired Oxygen (FIO2) 02/02/25 02/02/25 02/02/25 16:09 17:00 18:00 Temperature Pulse Rate 72 67 67 Respiratory 22 20 Rate Blood Pressure 163/76 163/76 O2 Sat by Pulse 99 100 Oximetry Fraction of Inspired Oxygen (FIO2) 02/02/25 02/02/25 02/02/25 19:43 19:53 19:54 Temperature Pulse Rate 75 78 78 Respiratory Rate Blood Pressure O2 Sat by Pulse Oximetry Fraction of 40 Inspired Oxygen (FIO2) 02/02/25 02/02/25 02/02/25 19:56 20:05 21:36 Temperature Pulse Rate 84 80 79 Respiratory 16 18 Rate Blood Pressure 173/84 162/72 O2 Sat by Pulse 100 99 Oximetry Fraction of Inspired Oxygen (FIO2) 02/02/25 02/03/25 02/03/25 22:26 00:12 00:27 Temperature 97.9 F Pulse Rate 77 82 89 Respiratory 18 Rate Blood Pressure 158/80 O2 Sat by Pulse 99 Oximetry Fraction of Inspired Oxygen (FIO2) 02/03/25 02/03/25 02/03/25 00:30 01:42 03:08 Temperature Pulse Rate 74 85 Respiratory 18 16 Rate Blood Pressure 167/73 167/77 O2 Sat by Pulse 96 100 99 Oximetry Fraction of Inspired Oxygen (FIO2) 02/03/25 02/03/25 02/03/25 04:38 06:31 08:31 Temperature 97.8 F 97.8 F Pulse Rate 90 85 85 Respiratory 18 16 20 Rate Blood Pressure 158/73 137/65 155/67 O2 Sat by Pulse 99 98 98 Oximetry Fraction of Inspired Oxygen (FIO2) 02/03/25 02/03/25 02/03/25 09:02 09:08 10:33 Temperature Pulse Rate 82 77 Respiratory 18 20 Rate Blood Pressure 165/70 137/61 O2 Sat by Pulse 98 99 99 Oximetry Fraction of Inspired Oxygen (FIO2) 02/03/25 02/03/25 02/03/25 11:52 11:53 11:57 Temperature Pulse Rate 80 74 Respiratory 20 16 Rate Blood Pressure 145/64 O2 Sat by Pulse 98 Oximetry Fraction of 40 Inspired Oxygen (FIO2) 02/03/25 02/03/25 02/03/25 12:00 14:25 15:17 Temperature Pulse Rate 79 83 88 Respiratory 18 20 22 Rate Blood Pressure 136/61 133/82 O2 Sat by Pulse 99 98 Oximetry Fraction of Inspired Oxygen (FIO2) 02/03/25 02/03/25 02/03/25 15:19 15:27 17:07 Temperature Pulse Rate 82 78 87 Respiratory 18 18 20 Rate Blood Pressure 135/61 O2 Sat by Pulse 93 L Oximetry Fraction of Inspired Oxygen (FIO2) 02/03/25 02/03/25 02/03/25 17:43 18:00 18:52 Temperature Pulse Rate 96 103 H 89 Respiratory 20 20 22 Rate Blood Pressure 137/72 128/85 125/70 O2 Sat by Pulse 94 L 96 98 Oximetry Fraction of Inspired Oxygen (FIO2) 02/03/25 02/03/25 02/03/25 20:05 20:11 20:59 Temperature Pulse Rate 89 88 98 Respiratory 18 18 19 Rate Blood Pressure 133/63 O2 Sat by Pulse 97 Oximetry Fraction of Inspired Oxygen (FIO2) 02/03/25 21:46 Temperature Pulse Rate Respiratory 28 H Rate Blood Pressure O2 Sat by Pulse Oximetry Fraction of Inspired Oxygen (FIO2) Medical Decision Making - Lab Data Result diagrams: 02/01/25 23:13 02/01/25 23:13 <Daya Lundberg - Last Filed: 02/02/25 03:54> - Lab Data Result diagrams: 02/05/25 03:36 02/13/25 14:22 <Chava Mccormack - Last Filed: 02/13/25 20:27> - Medical Decision Making Was pt. sent in by a medical professional or institution ([facility] Simmons, COMMUNITY RESOURCE OFFICER, urgent care, hospital, or [facility]...) When possible be specific @ -No Did you speak to anyone other than the patient for history (EMS, parent, family, police, friend...)? What history was obtained from this source @ -No Did you review nursing and triage notes (agree or disagree)? Why? @ -I reviewed and agree with nursing and triage notes Were old charts reviewed (outside hosp., previous admission, EMS record, old EKG, old radiological studies, urgent care reports/EKG's, [facility] records)? Report findings @ -No old charts were reviewed Differential Diagnosis (chest pain, altered mental status, abdominal pain women, abdominal pain men, vaginal bleeding, weakness, fever, dyspnea, syncope, headach e, dizziness, GI bleed, back pain, seizure, CVA, palpatations, mental health, musculoskeletal)? @ -MDM Differential Dyspnea: Coronary syndrome, arrhythmia, tamponade, asthma, COPD, pulmonary embolism, pneumonia, pneumothorax, pulmonary effusion, anaphylaxis, diabetic ketoacidosis, flailed chest, pulmonary contusion, diaphragmatic rupture, anemia, neuromuscular… this is not meant to be an all-inclusive list. EKG interpreted by me (3pts min.). @ -EKG shows sinus rhythm ventricular rate 75. VA interval 141 QRS 103 QT 355 QTc 383 X-rays interpreted by me (1pt min.). @ -Chest x-ray shows pulmonary vascular congestion with trace bilateral pleural effusions concerning for CHF, cardiomegaly CT interpreted by me (1pt min.). @ -None done U/S interpreted by me (1pt. min.). @ -None done What testing was considered but not performed or refused? (CT, X-rays, U/S, labs)? Why? @ -None What meds were considered but not given or refused? Why? @ -None Did you discuss the management of the patient with other professionals (professionals i.e. , PA, COMMUNITY RESOURCE OFFICER, lab, RT, psych nurse, social media content manager, wrap knitting machine operator, teacher, airplane first officer, family preservation caseworker)? Give summary @ -Spoke with Dr. Dc accepts admission. Spoke with Trip nurse practitioner from pulmonology for ICU admission Was smoking cessation discussed for >3mins.? @ -No Was critical care preformed (if so, how long)? @ -No Were there social determinants of health that impacted care today? How? (Homelessness, low income, unemployed, alcoholism, drug addiction, transportation, low edu. Level, literacy, decrease access to med. care, senior care, rehab)? @ -No Was there de-escalation of care discussed even if they declined (Discuss DNR or withdrawal of care, Hospice)? DNR status @ -No What co-morbidities impacted this encounter? (DM, HTN, Smoking, COPD, CAD, Cancer, CVA, ARF, Chemo, Hep., AIDS, mental health diagnosis, sleep apnea, morbid obesity)? @ -CHF Was patient admitted / discharged? Hospital course, mention meds given and route, prescriptions, significant lab abnormalities, going to OR and other pertinent info. @ -69-year-old female presenting with chief complaint of difficulty breathing. Patient initially presents mildly dyspneic however throughout her course patient became increasingly short of breath and had a drastic increase in respiratory effort. We attempted to lower her blood pressure using labetalol and nitro, however the patient remained short of breath and blood pressure remained elevated. Patient was placed on BiPAP. She had significant relief of her dyspnea reports that she felt much better after starting BiPAP. Nitro drip was maintained at 40 mcg/min. Patient was given 40 mg of Lasix. Patient will require admission. She is agreeable with this plan. I discussed this case with my attending Dr. Mccormack Undiagnosed new problem with uncertain prognosis? @ -No Drug Therapy requiring intensive monitoring for toxicity (Heparin, Nitro, Insulin, Cardizem)? @ -Nitro Were any procedures done? @ -No Diagnosis/symptom? @ -CHF exacerbation, hypertensive urgency Acute, or Chronic, or Acute on Chronic? @ -Acute Uncomplicated (without systemic symptoms) or Complicated (systemic symptoms)? @ -Complicated Side effects of treatment? @ -No Exacerbation, Progression, or Severe Exacerbation? @ -No Poses a threat to life or bodily function? How? (Chest pain, [place], [place], pneumonia, PE, COPD, DKA, ARF, appy, cholecystitis, CVA, Diverticulitis, Homicidal, Suicidal, threat to staff... and all critical care pts) @ -Yes (Daya Lundberg) This is an addendum to the note there was critical care time involved, 40 minutes, while the patient was given IV nitroglycerin and this was titrated. In addition patient on BiPAP, both these treatments for her dyspnea due to acute pulmonary edema due to congestive heart failure also component of COPD. (Chava Mccormack) - Lab Data Lab Results 02/01/25 02/01/25 02/01/25 Range/Units 23:13 23:13 23:13 WBC 17.79 H (4.50-10.00) 10*3/uL RBC 3.31 L (4.10-5.20) 10*6/uL Hgb 9.5 L (12.0-15.0) g/dL Hct 31.3 L (37.2-46.3) % MCV 94.6 (80.0-97.0) fL MCH 28.7 (27.0-32.0) pg MCHC 30.4 L (32.0-37.0) g/dL Plt Count 213 (140-440) 10*3/uL MPV 11.9 (9.5-12.2) fL Immature Gran % (Auto) 0.5 % Neutrophils % 86.9 % Lymphocytes % 6.0 % Monocytes % 6.1 % Eosinophils % 0.3 % Basophils % 0.2 % Immature Gran # 0.09 H (0.00-0.04) 10*3/uL Neutrophils # 15.47 H (1.80-7.70) 10*3/uL Lymphocytes # 1.07 (0.90-5.00) 10*3/uL Monocytes # 1.08 H (0.20-1.00) 10*3/uL Eosinophils # 0.05 (0.04-0.35) 10*3/uL Basophils # 0.03 (0.00-0.10) 10*3/uL PT 11.5 (10.0-12.5) sec INR 1.0 (<1.2) APTT 21.5 L (22.0-30.0) sec Sodium 140 (137-145) mmol/L Potassium 4.7 (3.5-5.1) mmol/L Chloride 106 (98-107) mmol/L Carbon Dioxide 21 L (22-30) mmol/L Anion Gap 13 mmol/L BUN 45 H (7-17) mg/dL Creatinine 1.06 H (0.52-1.04) mg/dL Est GFR (CKD-EPI)AfAm 62 (>60 ml/min/1.73 sqM) Est GFR (CKD-EPI)NonAf 54 (>60 ml/min/1.73 sqM) Glucose 108 H (74-99) mg/dL Plasma Lactic Acid James (0.7-2.0) mmol/L Calcium 9.7 (8.4-10.2) mg/dL Magnesium 1.4 L (1.6-2.3) mg/dL Total Bilirubin 1.9 H (0.2-1.3) mg/dL AST 25 (14-36) U/L ALT 17 (4-34) U/L Alkaline Phosphatase 94 (38-126) U/L Troponin I (0.000-0.034) ng/mL NT-Pro-B Natriuret Pep pg/mL Total Protein 6.4 (6.3-8.2) g/dL Albumin 3.9 (3.5-5.0) g/dL 02/01/25 02/01/25 02/01/25 Range/Units 23:13 23:13 23:13 WBC (4.50-10.00) 10*3/uL RBC (4.10-5.20) 10*6/uL Hgb (12.0-15.0) g/dL Hct (37.2-46.3) % MCV (80.0-97.0) fL MCH (27.0-32.0) pg MCHC (32.0-37.0) g/dL Plt Count (140-440) 10*3/uL MPV (9.5-12.2) fL Immature Gran % (Auto) % Neutrophils % % Lymphocytes % % Monocytes % % Eosinophils % % Basophils % % Immature Gran # (0.00-0.04) 10*3/uL Neutrophils # (1.80-7.70) 10*3/uL Lymphocytes # (0.90-5.00) 10*3/uL Monocytes # (0.20-1.00) 10*3/uL Eosinophils # (0.04-0.35) 10*3/uL Basophils # (0.00-0.10) 10*3/uL PT (10.0-12.5) sec INR (<1.2) APTT (22.0-30.0) sec Sodium (137-145) mmol/L Potassium (3.5-5.1) mmol/L Chloride (98-107) mmol/L Carbon Dioxide (22-30) mmol/L Anion Gap mmol/L BUN (7-17) mg/dL Creatinine (0.52-1.04) mg/dL Est GFR (CKD-EPI)AfAm (>60 ml/min/1.73 sqM) Est GFR (CKD-EPI)NonAf (>60 ml/min/1.73 sqM) Glucose (74-99) mg/dL Plasma Lactic Acid James 1.7 (0.7-2.0) mmol/L Calcium (8.4-10.2) mg/dL Magnesium (1.6-2.3) mg/dL Total Bilirubin (0.2-1.3) mg/dL AST (14-36) U/L ALT (4-34) U/L Alkaline Phosphatase (38-126) U/L Troponin I 0.029 (0.000-0.034) ng/mL NT-Pro-B Natriuret Pep 79854 pg/mL Total Protein (6.3-8.2) g/dL Albumin (3.5-5.0) g/dL Disposition Time of Disposition: 02:26 <Daya Lundberg - Last Filed: 02/02/25 03:54> <Chava Mccormack - Last Filed: 02/13/25 20:27> Clinical Impression: CHF (congestive heart failure), Hypertensive urgency Disposition: ADMITTED IP TO THIS HOSP Condition: Serious
--- NOTE | 2025-02-02 04:41 | P.CNPUL ---
History of Present Illness Consult date: 02/02/25 Requesting physician: Daya Lundberg Reason for consult: other (ICU management) Chief complaint: Shortness of breath History of present illness: Patient is a 69-year-old female with past medical history significant for coronary artery disease with previous PCI/stents, AL, ischemic cardiomyopathy, hypertension, hyperlipidemia, peripheral vascular disease, COPD, and current everyday smoker. Presented the emergency department by EMS last night. Chief complaint of progressively worsening shortness of breath throughout the day. While in the emergency department, noted to be in some respiratory distress. Placed on BiPAP. Also, she was severely hypertensive, with a blood pressure recorded as high as 214/101 millimeters Hg. Received a one-time dose of 10 mg of IV labetalol. Subsequently, started on IV nitroglycerin infusion. Also, received 40 mg of IVP Lasix once. Chest x-ray remarkable for pulmonary edema with trace bilateral pleural effusions. NT proBNP 53,200. Most recent a vailable echocardiogram from June, for estimating left ventricular ejection fraction of 20 to 25%, as well as, severe pulmonary hypertension. Labs including a CBC with a WBC count of 17.8, hemoglobin 9.5, platelets 213. CMP: Sodium 140, potassium 4.7, chloride 106, serum bicarb 21, BUN 45, creatinine 1.06, glucose 108. Troponin 0.029. Patient currently being evaluated in the emergency department. She is sitting in the bedside recliner. Alert and tries to answer questions, however, BiPAP makes it difficult to communicate. Conversation is limited to yes and no answers. Current BiPAP settings 10/5 and FiO2 up 40%. Nondistressed. Nonlabored breathing. Denies chest pain. Endorses occasional nonproductive cough. Denies any fevers or chills or sick contacts. Denies any sputum production, hemoptysis, chest pain. Does endorse some mild lower extremity swelling. She states she has been compliant with her antihypertensive medications. Nitroglycerin infusing at 45 mics per minute. Most recent blood pressure 170/75 mmHg. Review of Systems Limited communication secondary to BiPAP Past Medical History Past Medical History: Heart Failure, COPD, GERD/Reflux, Hyperlipidemia, Hypertension, Myocardial Infarction ([place]), Osteoarthritis (OA), Vascular Disorder Additional Past Medical History / Comment(s): OCCASIONAL SOB., VARICOSE VEINS.,STATES LEGS PAINFUL AT TIMES., constipation, Last Myocardial Infarction Date:: 2014 History of Any Multi-Drug Resistant Organisms: MRSA Date of last positivie culture/infection: 2013 MDRO Source:: under nose Past Surgical History: Heart Catheterization With Stent, Orthopedic Surgery Additional Past Surgical History / Comment(s): LT KNEE RECONSTRUCTIVE SX, CURTIS CATARACTS, CYST REMOVED FROM BEHIND LT EAR., BALLOON ANGIOPLASTY WITH STENT LEFT FEMORAL ARTERY (02/2018), 3 cardiact stents, recent aortogram Past Anesthesia/Blood Transfusion Reactions: No Reported Reaction Date of Last Stent Placement:: unknown Past Psychological History: No Psychological Hx Reported Smoking Status: Current every day smoker Past Alcohol Use History: Daily Past Drug Use History: None Reported - Past Family History Sister(s) Family Medical History: Deep Vein Thrombosis (DVT) Mother Family Medical History: Cancer Father Family Medical History: No Reported History Medications and Allergies Home Medications Medication Instructions Recorded Confirmed Type Metoprolol Tartrate [Lopressor] 25 mg PO BID #60 tab 07/17/15 08/01/24 Rx Atorvastatin [Lipitor] 80 mg PO HS #30 tab 08/05/15 08/01/24 Rx Albuterol Sulfate [Ventolin HFA] 2 puff INHALATION RT-Q6H PRN 06/06/20 08/01/24 History [place]-3/Dha/Epa/Fish Oil [Fish Oil 1 cap PO DAILY 01/27/22 08/01/24 History 1,000 mg Softgel] Cholecalciferol [Vitamin D3 (25 25 mcg PO DAILY 03/30/23 08/01/24 History Mcg = 1000 Iu)] Ipratropium-Albuterol Nebulize 3 ml INHALATION RT-QID PRN 03/30/23 08/01/24 History [Duoneb 0.5 mg-3 mg/3 ml Soln] Aspirin [Adult Low Dose Aspirin EC] 81 mg PO DAILY 30 Days #30 tab 07/20/24 08/01/24 Rx Ticagrelor [Brilinta] 90 mg PO BID 30 Days #60 tab 07/20/24 08/01/24 Rx Nicotine 21Mg/24Hr Patch [Habitrol] 1 patch TRANSDERM DAILY #30 patch 08/04/24 Rx Spironolactone [Aldactone] 12.5 mg PO DAILY@1400 #0 08/04/24 08/01/24 Rx lisinopriL [Zestril] 5 mg PO DAILY #0 08/04/24 08/01/24 Rx Allergies Allergy/AdvReac Type Severity Reaction Status Date / Time cephalexin monohydrate Allergy Rash/Hives Verified 02/01/25 22:50 [From Keflex] Physical Exam Vitals: Vital Signs Temp Pulse Resp BP Pulse Ox FiO2 02/02/25 03:33 69 18 170/75 97 02/02/25 03:18 40 02/02/25 02:11 72 22 181/76 98 02/02/25 01:55 75 16 192/88 96 02/02/25 01:24 40 02/02/25 00:48 83 20 166/90 95 02/02/25 00:42 187/91 94 L 02/02/25 00:15 87 22 214/101 99 02/01/25 23:52 77 02/01/25 23:50 84 20 02/01/25 23:47 73 02/01/25 22:44 99.3 F 79 22 172/82 100 Intake and Output 02/01/25 02/01/25 02/02/25 14:59 22:59 06:59 Intake Total 8.8 Balance 8.8 Intake: Intake, IV Titration 8.8 Amount Nitroglycerin-D5w Pmx 50 8.8 mg In Dextrose/Water 1 250ml.bag @ 5 MCG/MIN 1.5 mls/hr IV .Q24H ONE Rx#: [id number] Other: Weight 58.967 kg GENERAL EXAM: Alert, 69-year-old female, on BiPAP, comfortable in no apparent distress. HEAD: Normocephalic and atraumatic EYES: Normal reaction of pupils, equal size. NOSE: Clear with pink turbinates. THROAT: No erythema or exudates. NECK: No masses, no JVD. CHEST: No chest wall deformity. LUNGS: Equal air entry with bibasilar inspiratory crackles. No wheezing, rhonchi, focal dullness. On BiPAP with settings 10/5 and FiO2 of 40%. Nontachypneic, achieving adequate tidal volumes. No accessory muscle use. CVS: S1 and S2 normal with no audible murmur, regular rhythm. No extra heart jb nds ABDOMEN: No hepatosplenomegaly, active bowel sounds, no guarding or rigidity. SPINE: No scoliosis or deformity SKIN: No rashes CENTRAL NERVOUS SYSTEM: No focal deficits, tone is normal in all 4 extremities. EXTREMITIES: There is no peripheral edema, clubbing, or cyanosis. Peripheral pulses are intact. Results - Laboratory Findings CBC and BMP: 02/01/25 23:13 02/01/25 23:13 PT/INR, D-dimer PT 11.5 sec (10.0-12.5) 02/01/25 23:13 INR 1.0 (<1.2) 02/01/25 23:13 Abnormal lab findings: Abnormal Labs 02/01/25 02/01/25 02/01/25 23:13 23:13 23:13 WBC 17.79 H RBC 3.31 L Hgb 9.5 L Hct 31.3 L MCHC 30.4 L Immature Gran # 0.09 H Neutrophils # 15.47 H Monocytes # 1.08 H APTT 21.5 L Carbon Dioxide 21 L BUN 45 H Creatinine 1.06 H Glucose 108 H Magnesium 1.4 L Total Bilirubin 1.9 H - Diagnostic Findings Chest x-ray: image reviewed Assessment and Plan Assessment: Acute CHF exacerbation, with reduced ejection fraction Hypertensive urgency, currently on IV nitroglycerin infusion Possible acute COPD exacerbation Acute hypoxemic respiratory failure, secondary to above, currently requiring BiPAP Acute leukocytosis History of hyperlipidemia History of coronary disease with previous PCI/stents History of ischemic cardiomyopathy, most recent available echocardiogram from June, for estimating left ventricular ejection fraction of 20 to 25%, as well as, severe pulmonary hypertension History of peripheral vascular disease History of CVA/TIA Chronic obstructive pulmonary disease Current ongoing tobacco dependence, current 1/2 pack/day smoker Plan: Patient's medications, labs, chest x-ray reviewed Continue on BiPAP overnight with current settings Chest x-ray remarkable for pulmonary vascular congestion and trace bilateral pleural effusions. NT proBNP elevated at 53,200 Did receive a one-time dose of IV Lasix 40 mg in the ED, continue with Lasix twice daily Currently on IV nitroglycerin infusion for management of hypertension Restart oral antihypertensive, once medications verified. Cardiology is consulted Previously given DuoNeb treatment and loaded with IV Solu-Medrol in the ED. Continue DuoNebs and IV Solu-Medrol Case to be reviewed with my supervising physician, additional recommendations forthcoming I have personally seen and examined the patient, performed the documentation and the assessment and plan as written. Number of minutes spent on the visit:20 This dictation was produced using [employer] dictation software please excuse grammatical errors Time with Patient: Greater than 30
[2025-02-02] MEDS: methylPREDNISolone SOD SUCCI 125 MG/2 ML VIAL IV SCH (06:35)
[2025-02-02 06:52] LABS: Basophils # (A) 0.01 10*3/uL (0.00-0.10); Basophils % (A) 0.1 %; Eosinophils # (A) 0.00 10*3/uL (0.04-0.35); Eosinophils % (A) 0.0 %; HCT 29.7 % (37.2-46.3); HGB 9.1 g/dL (12.0-15.0); Lymphocytes # (A) 0.42 10*3/uL (0.90-5.00); Lymphocytes % (A) 4.2 %; MCH 28.4 pg (27.0-32.0); MCHC 30.6 g/dL (32.0-37.0); MCV 92.8 fL (80.0-97.0); Monocytes # (A) 0.13 10*3/uL (0.20-1.00); Monocytes % (A) 1.3 %; Neutrophils # (A) 9.35 10*3/uL (1.80-7.70); Neutrophils % (A) 93.9 %; Platelet Count 254 10*3/uL (140-440); RBC 3.20 10*6/uL (4.10-5.20); RDW 16.3 % (11.5-14.5); WBC 9.96 10*3/uL (4.50-10.00)
[2025-02-02 07:06] LABS: African American GFR (CKD) 62 (>60 ml/min/1.73 sqM); Anion Gap 11 mmol/L; Blood Urea Nitrogen 39 mg/dL (7-17); Calcium 9.1 mg/dL (8.4-10.2); Carbon Dioxide 23 mmol/L (22-30); Chloride 107 mmol/L (98-107); Glucose 164 mg/dL (74-99); Non-African American GFR(CKD) 54 (>60 ml/min/1.73 sqM); Potassium 4.0 mmol/L (3.5-5.1); Sodium 141 mmol/L (137-145)
[2025-02-02] MEDS: IPRATROPIUM-ALBUTEROL 3 ML NEB INHALATION PRN (08:46)
[2025-02-02] MEDS: ASPIRIN 81 MG PO SCH (09:21)
[2025-02-02] MEDS: CHOLECALCIFEROL 25 MCG (1000 IU) TABLET PO SCH (09:21)
[2025-02-02] MEDS: FUROSEMIDE 10 MG/ML 4 ML VIAL IV SCH (09:22)
[2025-02-02] MEDS: CLOPIDOGREL 75 MG TAB PO SCH (09:22)
[2025-02-02] MEDS: SPIRONOLACTONE 25 MG TAB PO SCH (09:22)
--- NOTE | 2025-02-02 09:26 | XR ---
EXAMINATION TYPE: XR chest 1V portable DATE OF EXAM: 02/02/2025 9:04 AM COMPARISON: Chest radiographs from 02/02/2025, 11/10/2024 TECHNIQUE: XR chest 1V portable Portable AP radiograph of the chest. CLINICAL INDICATION:Female, 69 years old with history of follow up pulmonary edema; FINDINGS: Lungs/Pleura: Hyperinflation. No pneumothorax or pleural effusion. Chronic interstitial prominence. S trandy atelectasis within both lung bases again. Pulmonary vascularity: Unremarkable. Heart/mediastinum: Cardiomediastinal silhouette is prominent in size. Atherosclerotic calcifications are seen in the aorta. Musculoskeletal: No acute osseous pathology. IMPRESSION: Background COPD changes with bilateral lower lung strandy atelectatic change. [facility], , 02/02/2025 9:23 AM
[2025-02-02] MEDS: METOPROLOL TARTRATE 25 MG TAB PO SCH (09:46)
[2025-02-02] MEDS: amLODIPine 2.5 MG TAB PO SCH (10:21)
[2025-02-02] MEDS ORDERED: SACUBITRIL/VALSARTAN 24 MG-26 MG TABLET PO SCH (10:30)
--- NOTE | 2025-02-02 14:05 | P.CONS ---
History of Present Illness - Reason for Consult Consult date: 02/02/25 - Chief Complaint CHF exacerbation - History of Present Illness Dr. Grimaldo's addendum Patient seen and examined with the resident. # Acute on chronic systolic CHF exacerbation, 1 EF of 25 to 30% from 07/2024 # CAD status post PCI to proximal LAD 06/2024 # History of PAD, CVA, TIA, smoking, hypertension, dyslipidemia Presents with acute on chronic CHF exacerbation. Plan is to diurese with IV diuretics and optimize GDMT. Will discontinue lisinopril introduce Entresto and once IV diuretic is done add Farxiga Continue to monitor electrolytes and renal function ......................................................................... This is a 69-year-old female with a history of significant ischemic cardiomyopathy CHF, COPD, hypertension, CAD, peripheral arterial disease, hypertension, hyperlipidemia. Patient follows in the office with Dr. Spears. Cardiology service has been consulted for CHF exacerbation and hypertensive emergency. The patient presented to the ER in the morning of 02/02/2025 with complaint of worsening shortness of breath on exertion associated with orthopnea and PND since yesterday. Patient reports that she had flulike symptoms about 2- 3 weeks ago and was on outpatient treatment with doxycycline and steroids. Her blood pressure on arrival was 214/101. Patient was started on IV nitroglycerin infusion. Patient was also put on BiPAP. She was previously adm itted to the hospital in July 2024 for TIA and chest pain. Echocardiogram July 2024 showed LVEF of 25 to 30%. Severely impaired low ventricle systolic function with segmental wall motion abnormality. Patient also underwent stenting of the proximal LAD on 07/18/2024. In the past she had stenting of the mid RCA and mid LAD. Her cardiac medication at home include lisinopril, Aldactone, Lipitor Lopressor, aspirin and Plavix. At the time of the interview, patient denies chest pain. Currently she is on BiPAP. Patient reports improvement in her shortness of breath. Her heart rate is 71 bpm, respiratory rate is 24, blood pressure is 163/82, saturating 100% on BiPAP. Pertinent laboratory data: WBC 9.96, hemoglobin 9.1, hematocrit 29.7, sodium 141, potassium 4.0, BUN 39, creatinine 1.06 NT proBNP 53,200, troponin I 0.029 NT proBNP in June 2024 was [id number] Pertinent images: Chest x-ray shows pulmonary vascular congestion with trace bilateral pleural effusion EKG shows normal sinus rhythm with ventricular rate of 79 bpm, NE interval 148 ms, QRS duration of 102 ms, QTc [address]-T wave changes noted. Review of systems: Pertinent positives and negatives as discussed in HPI, a complete review of systems was performed and all other systems are negative. Social history: Tobacco: Current everyday smoker Alcohol: Occasional EtOH Recreational drugs: None Travel: No recent travel Physical examination: Vital signs reviewed General: non toxic, no distress, appears at stated age, overweight Neck: No cervical lymphadenopathy, trachea midline, supple, elevated JVP Mouth: no lip lesion, mucus membranes moist Cardiovascular: S1S2 reg, no murmur, positive dorsalis pedis pulse bilateral, 2+ bilateral lower extremity edema Lungs: Mild bilateral crackles with no wheezing or rhonchi noted. No use of accessory muscles. Currently on BiPAP. Abdominal: soft, nontender to palpation, no guarding Psych: Alert, oriented, appropriate affect Assessment: #Acute on chronic congestive heart failure exacerbation, likely secondary to recent upper respiratory tract infection #COPD exacerbation likely secondary to recent upper respiratory tract infection and CHF #Acute hypoxemic respiratory failure secondary to above, currently on BiPAP #Hypertensive emergency #Leukocytosis #History of coronary artery disease status post previous PCI/stenting #History of PAD #History of CVA/TIA #Nicotine dependence, current everyday smoker #Hypertension, hyperlipidemia Plan: Diuresis with IV Lasix 40 mg every 12 hour Monitor I's and O's, daily weights, fluid restriction to 2 L daily Continue with dual antiplatelet therapy with aspirin and Plavix Continue with Lopressor 25 mg p.o. twice daily Continue with Aldactone 25 mg p.o. daily Reduce Lipitor to 40 mg p.o. at bedtime Add Entresto 24-26 mg tablet once daily Will consider adding Farxiga in next 24 to 48 hours Add amlodipine 2.5 mg once daily Continue with nitro drip Order TSH and lipid panel DuoNebs as scheduled and [id number] Continue with IV Solu-Medrol 60 mg every 6 hours Past Medical History Past Medical History: Heart Failure, COPD, GERD/Reflux, Hyperlipidemia, Hyperte nsion, Myocardial Infarction ([place]), Osteoarthritis (OA), Vascular Disorder Additional Past Medical History / Comment(s): OCCASIONAL SOB., VARICOSE VEINS.,STATES LEGS PAINFUL AT TIMES., constipation, Last Myocardial Infarction Date:: 2014 History of Any Multi-Drug Resistant Organisms: MRSA Year Discovered:: 2013 MDRO Source:: under nose Past Surgical History: Heart Catheterization With Stent, Orthopedic Surgery Additional Past Surgical History / Comment(s): LT KNEE RECONSTRUCTIVE SX, CURTIS CATARACTS, CYST REMOVED FROM BEHIND LT EAR., BALLOON ANGIOPLASTY WITH STENT LEFT FEMORAL ARTERY (02/2018), 3 cardiact stents, recent aortogram Past Anesthesia/Blood Transfusion Reactions: No Reported Reaction Date of Last Stent Placement:: unknown Past Psychological History: No Psychological Hx Reported Smoking Status: Current every day smoker Past Alcohol Use History: Daily Past Drug Use History: None Reported - Past Family History Sister(s) Family Medical History: Deep Vein Thrombosis (DVT) Mother Family Medical History: Cancer Father Family Medical History: No Reported History Medications and Allergies Home Medications Medication Instructions Recorded Confirmed Type Metoprolol Tartrate [Lopressor] 25 mg PO BID #60 tab 07/17/15 02/02/25 Rx Atorvastatin [Lipitor] 80 mg PO HS #30 tab 08/05/15 02/02/25 Rx Albuterol Sulfate [Ventolin HFA] 2 puff INHALATION RT-Q6H PRN 06/06/20 02/02/25 History [place]-3/Dha/Epa/Fish Oil [Fish Oil 1 cap PO DAILY 01/27/22 02/02/25 History 1,000 mg Softgel] Ipratropium-Albuterol Nebulize 3 ml INHALATION RT-QID PRN 03/30/23 02/02/25 History [Duoneb 0.5 mg-3 mg/3 ml Soln] Aspirin [Adult Low Dose Aspirin EC] 81 mg PO DAILY 30 Days #30 tab 07/20/24 02/02/25 Rx Cholecalciferol (Vitamin D3) 50 mcg PO DAILY 02/02/25 02/02/25 History [Vitamin D3 (50 Mcg = 2000 Iu)] Clopidogrel [Plavix] 75 mg PO DAILY 02/02/25 02/02/25 History Spironolactone [Aldactone] 25 mg PO DAILY 02/02/25 02/02/25 History lisinopriL [Zestril] 10 mg PO DAILY 02/02/25 02/02/25 History Allergies Allergy/AdvReac Type Severity Reaction Status Date / Time cephalexin monohydrate Allergy Rash/Hives Verified 02/02/25 07:43 [From Keflex] Physical Exam Vitals: Vital Signs Temp Pulse Resp BP Pulse Ox FiO2 02/02/25 13:00 71 24 163/82 100 02/02/25 12:35 68 02/02/25 12:23 64 40 02/02/25 12:00 65 20 158/80 99 02/02/25 11:35 174/86 02/02/25 11:25 66 18 154/88 99 02/02/25 11:05 65 18 152/82 99 02/02/25 10:30 67 21 183/85 99 02/02/25 10:10 74 18 160/83 99 02/02/25 09:45 168/82 02/02/25 09:33 97.3 F L 83 17 171/91 99 02/02/25 09:03 81 20 179/85 99 02/02/25 08:59 74 02/02/25 08:49 70 40 02/02/25 08:30 73 18 179/85 99 02/02/25 08:10 70 21 166/76 99 02/02/25 08:03 68 20 181/83 99 02/02/25 07:51 68 20 182/82 100 02/02/25 07:15 67 17 153/63 99 02/02/25 06:49 70 18 153/74 99 02/02/25 06:11 142/67 02/02/25 05:58 152/77 02/02/25 05:44 207/92 02/02/25 05:29 186/88 02/02/25 05:04 187/90 02/02/25 04:30 172/86 02/02/25 04:28 78 16 183/88 98 02/02/25 04:10 180/85 02/02/25 03:33 69 18 170/75 97 02/02/25 03:18 40 02/02/25 02:11 72 22 181/76 98 02/02/25 01:55 75 16 192/88 96 02/02/25 01:24 40 02/02/25 00:48 83 20 166/90 95 02/02/25 00:42 187/91 94 L 02/02/25 00:15 87 22 214/101 99 02/01/25 23:52 77 02/01/25 23:50 84 20 02/01/25 23:47 73 02/01/25 22:44 99.3 F 79 22 172/82 100 Intake and Output 02/01/25 02/02/25 02/02/25 22:59 06:59 14:59 Intake Total 64.625 158.050 Output Total 900 Balance 64.625 -741.950 Intake: Intake, IV Titration 64.625 158.050 Amount Nitroglycerin-D5w Pmx 50 64.625 158.050 mg In Dextrose/Water 1 250ml.bag @ 5 MCG/MIN 1.5 mls/hr IV .Q24H ONE Rx#: [id number] Output: Urine 900 Other: Weight 58.967 kg Results CBC & Chem 7: 02/02/25 06:36 02/02/25 06:36 Labs: Abnormal Lab Results - Last 24 Hours (Table) 02/01/25 02/01/25 02/01/25 Range/Units 23:13 23:13 23:13 WBC 17.79 H (4.50-10.00) 10*3/uL RBC 3.31 L (4.10-5.20) 10*6/uL Hgb 9.5 L (12.0-15.0) g/dL Hct 31.3 L (37.2-46.3) % MCHC 30.4 L (32.0-37.0) g/dL Immature Gran # 0.09 H (0.00-0.04) 10*3/uL Neutrophils # 15.47 H (1.80-7.70) 10*3/uL Lymphocytes # (0.90-5.00) 10*3/uL Monocytes # 1.08 H (0.20-1.00) 10*3/uL Eosinophils # (0.04-0.35) 10*3/uL APTT 21.5 L (22.0-30.0) sec Carbon Dioxide 21 L (22-30) mmol/L BUN 45 H (7-17) mg/dL Creatinine 1.06 H (0.52-1.04) mg/dL Glucose 108 H (74-99) mg/dL Magnesium 1.4 L (1.6-2.3) mg/dL Total Bilirubin 1.9 H (0.2-1.3) mg/dL 02/02/25 02/02/25 Range/Units 06:36 06:36 WBC (4.50-10.00) 10*3/uL RBC 3.20 L (4.10-5.20) 10*6/uL Hgb 9.1 L (12.0-15.0) g/dL Hct 29.7 L (37.2-46.3) % MCHC 30.6 L (32.0-37.0) g/dL Immature Gran # 0.05 H (0.00-0.04) 10*3/uL Neutrophils # 9.35 H (1.80-7.70) 10*3/uL Lymphocytes # 0.42 L (0.90-5.00) 10*3/uL Monocytes # 0.13 L (0.20-1.00) 10*3/uL Eosinophils # 0.00 L (0.04-0.35) 10*3/uL APTT (22.0-30.0) sec Carbon Dioxide (22-30) mmol/L BUN 39 H (7-17) mg/dL Creatinine 1.06 H (0.52-1.04) mg/dL Glucose 164 H (74-99) mg/dL Magnesium (1.6-2.3) mg/dL Total Bilirubin (0.2-1.3) mg/dL
--- NOTE | 2025-02-02 17:39 | P.HPIM ---
History of Present Illness H&P Date: 02/02/25 Chief Complaint: Short of breath This is a pleasant [id number] with Dr. Combs. Chronic medical conditions include CAD with stent, CHF EF of 2025%, severe secondary pulmonary hypertension of COPD, advanced COPD, hyperlipidemia, osteoarthritis, essential hypertension, PAD with history of peripheral stent. Patient presented worsening short of breath. Was brought via EMS to the ER. Patient's breathing is getting worse over last few days. Patient continues smoke about less than half a pack a day. Daughter at the bedside. Lives with daughter. She was placed on nonrebreather by the EMS. Overnight patient's placed on a BiPAP. Patient had flulike symptoms 2 to 3 weeks ago was treated outpatient with doxycycline and steroids. Her blood pressure running high over 200 systolic hence we will start on IV nitroglycerin infusion. This morning patient seen in the ER. On a BiPAP. Slight cough. Decreased appetite. No fever no chills. Review of systems: GEN.: Tired decreased appetite EYES: None HEENT: None NECK: None RESPIRATORY: As above CARDIOVASCULAR: None GASTROINTESTINAL: None GENITOURINARY: None MUSCULOSKELETAL: None LYMPHATICS: None HEMATOLOGICAL: None PSYCHIATRY: None NEUROLOGICAL: None Social history: Lives with daughter. Smoked a pack a day was up to 2 packs a day. Close to 50 years. Now less than half a pack a day Physical examination: VITAL SIGNS: Afebrile, 70, 21, 166 x 76, on BiPAP GENERAL: In a recliner, short of breath EYES: Pupils equal. Conjunctiva lonny l. HEENT: External appearance of nose and ears normal, oral cavity grossly normal. NECK: JVD not raised; masses not palpable. HEART: First and second heart sounds are normal; no edema. LUNGS: Respiratory rate increased, poor air entry, not able to speak in full sentences, accessory muscles working ABDOMEN: Soft, nontender, liver spleen not palpable, no masses palpable. PSYCH: Alert and oriented x3; mood and affect slightly anxious. MUSCULOSKELETAL:No Clubbing/cyanosis;muscles-grossly intact. OA INVESTIGATIONS, reviewed in the clinical context: February 02, 2025: White count 9.9 hemoglobin 9.1 platelets 254 sodium 141 potassium 4 BUN 39 creatinine 1.06 TSH 0.744 Chest x-ray film personally reviewed by me-hyperinflation. Some possible basilar infiltrates EKG tracing personally reviewed by me-normal sinus rhythm. T wave changes Previous testing 2D echo limited severely impaired left ventricular systolic function. No evidence of apical thrombus. Assessment and plan: - Acute severe COPD exacerbation in a current smoker DuoNeb every 4. Nebulized Perforomist 10 Pulmicort. IV Solu-Medrol. - Acute on chronic hypoxic respiratory failure. Secondary to COPD Currently on BiPAP -Coronary artery disease cardiac s stent. Last intervention June 2024 to LAD Aspirin Plavix Lipitor. -Acute on chronic congestive heart failure/ischemic cardiomyopathy with an EF of 20 to 25% IV Lasix. Fluid restriction Aldactone Entresto added by cardiology -Severe secondary pulmonary hypertension, due to COPD -Chronic nicotine dependence cigarette smoker Nicotine patch -Hyperlipidemia Lipitor -Primary osteoarthritis Tylenol as needed -Essential hypertension, accelerated IV nitroglycerin drip Lopressor Entresto -PAD with a prior history of peripheral stent Aspirin. Lipitor. Full code Case discussed with the daughter at the bedside. Questions answered. Past Medical History Past Medical History: Heart Failure, COPD, GERD/Reflux, Hyperlipidemia, Hypertension, Myocardial Infarction (DC), Osteoarthritis (OA), Vascular Disorder Additional Past Medical History / Comment(s): OCCASIONAL SOB., VARICOSE VEINS.,STATES LEGS PAINFUL AT TIMES., constipation, Last Myocardial Infarction Date:: 2014 History of Any Multi-Drug Resistant Organisms: MRSA Date of last positivie culture/infection: 2013 MDRO Source:: under nose Past Surgical History: Heart Catheterization With Stent, Orthopedic Surgery Additional Past Surgical History / Comment(s): LT KNEE RECONSTRUCTIVE SX, CURTIS CATARACTS, CYST REMOVED FROM BEHIND LT EAR., BALLOON ANGIOPLASTY WITH STENT LEFT FEMORAL ARTERY (02/2018), 3 cardiact stents, recent aortogram Past Anesthesia/Blood Transfusion Reactions: No Reported Reaction Date of Last Stent Placement:: unknown Past Psychological History: No Psychological Hx Reported Smoking Status: Current every day smoker Past Alcohol Use History: Daily Past Drug Use History: None Reported - Past Family History Sister(s) Family Medical History: Deep Vein Thrombosis (DVT) Mother Family Medical History: Cancer Father Family Medical History: No Reported History Medications and Allergies Home Medications Medication Instructions Recorded Confirmed Type Metoprolol Tartrate [Lopressor] 25 mg PO BID #60 tab 07/17/15 02/02/25 Rx Atorvastatin [Lipitor] 80 mg PO HS #30 tab 08/05/15 02/02/25 Rx Albuterol Sulfate [Ventolin HFA] 2 puff INHALATION RT-Q6H PRN 06/06/20 02/02/25 History [place]-3/Dha/Epa/Fish Oil [Fish Oil 1 cap PO DAILY 01/27/22 02/02/25 History 1,000 mg Softgel] Ipratropium-Albuterol Nebulize 3 ml INHALATION RT-QID PRN 03/30/23 02/02/25 History [Duoneb 0.5 mg-3 mg/3 ml Soln] Aspirin [Adult Low Dose Aspirin EC] 81 mg PO DAILY 30 Days #30 tab 07/20/24 02/02/25 Rx Cholecalciferol (Vitamin D3) 50 mcg PO DAILY 02/02/25 02/02/25 History [Vitamin D3 (50 Mcg = 2000 Iu)] Clopidogrel [Plavix] 75 mg PO DAILY 02/02/25 02/02/25 History Spironolactone [Aldactone] 25 mg PO DAILY 02/02/25 02/02/25 History lisinopriL [Zestril] 10 mg PO DAILY 02/02/25 02/02/25 History Allergies Allergy/AdvReac Type Severity Reaction Status Date / Time cephalexin monohydrate Allergy Rash/Hives Verified 02/02/25 07:43 [From Keflex] Physical Exam Vitals: Vital Signs Temp Pulse Resp BP Pulse Ox FiO2 02/02/25 15:00 64 16 135/75 100 02/02/25 14:25 67 17 167/76 98 02/02/25 13:00 71 24 163/82 100 02/02/25 12:35 68 02/02/25 12:23 64 40 02/02/25 12:00 65 20 158/80 99 02/02/25 11:35 174/86 02/02/25 11:25 66 18 154/88 99 02/02/25 11:05 65 18 152/82 99 02/02/25 10:30 67 21 183/85 99 02/02/25 10:10 74 18 160/83 99 02/02/25 09:45 168/82 02/02/25 09:33 97.3 F L 83 17 171/91 99 02/02/25 09:03 81 20 179/85 99 02/02/25 08:59 74 02/02/25 08:49 70 40 02/02/25 08:30 73 18 179/85 99 02/02/25 08:10 70 21 166/76 99 02/02/25 08:03 68 20 181/83 99 02/02/25 07:51 68 20 182/82 100 02/02/25 07:15 67 17 153/63 99 02/02/25 06:49 70 18 153/74 99 02/02/25 06:11 142/67 02/02/25 05:58 152/77 02/02/25 05:44 207/92 02/02/25 05:29 186/88 02/02/25 05:04 187/90 02/02/25 04:30 172/86 02/02/25 04:28 78 16 183/88 98 02/02/25 04:10 180/85 02/02/25 03:33 69 18 170/75 97 02/02/25 03:18 40 02/02/25 02:11 72 22 181/76 98 02/02/25 01:55 75 16 192/88 96 02/02/25 01:24 40 02/02/25 00:48 83 20 166/90 95 02/02/25 00:42 187/91 94 L 02/02/25 00:15 87 22 214/101 99 02/01/25 23:52 77 02/01/25 23:50 84 20 02/01/25 23:47 73 02/01/25 22:44 99.3 F 79 22 172/82 100 Intake and Output 02/02/25 02/02/25 02/02/25 06:59 14:59 22:59 Intake Total 64.625 173.350 Output Total 900 Balance 64.625 -726.650 Intake: Intake, IV Titration 64.625 173.350 Amount Nitroglycerin-D5w Pmx 50 64.625 173.350 mg In Dextrose/Water 1 250ml.bag @ 5 MCG/MIN 1.5 mls/hr IV .Q24H [facility] Rx#: [id number] Output: Urine 900 Results CBC & Chem 7: 02/02/25 06:36 02/02/25 06:36 Labs: Abnormal Lab Results - Last 24 Hours (Table) 02/01/25 02/01/25 02/01/25 Range/Units 23:13 23:13 23:13 WBC 17.79 H (4.50-10.00) 10*3/uL RBC 3.31 L (4.10-5.20) 10*6/uL Hgb 9.5 L (12.0-15.0) g/dL Hct 31.3 L (37.2-46.3) % MCHC 30.4 L (32.0-37.0) g/dL Immature Gran # 0.09 H (0.00-0.04) 10*3/uL Neutrophils # 15.47 H (1.80-7.70) 10*3/uL Lymphocytes # (0.90-5.00) 10*3/uL Monocytes # 1.08 H (0.20-1.00) 10*3/uL Eosinophils # (0.04-0.35) 10*3/uL APTT 21.5 L (22.0-30.0) sec Carbon Dioxide 21 L (22-30) mmol/L BUN 45 H (7-17) mg/dL Creatinine 1.06 H (0.52-1.04) mg/dL Glucose 108 H (74-99) mg/dL Magnesium 1.4 L (1.6-2.3) mg/dL Total Bilirubin 1.9 H (0.2-1.3) mg/dL 02/02/25 02/02/25 Range/Units 06:36 06:36 WBC (4.50-10.00) 10*3/uL RBC 3.20 L (4.10-5.20) 10*6/uL Hgb 9.1 L (12.0-15.0) g/dL Hct 29.7 L (37.2-46.3) % MCHC 30.6 L (32.0-37.0) g/dL Immature Gran # 0.05 H (0.00-0.04) 10*3/uL Neutrophils # 9.35 H (1.80-7.70) 10*3/uL Lymphocytes # 0.42 L (0.90-5.00) 10*3/uL Monocytes # 0.13 L (0.20-1.00) 10*3/uL Eosinophils # 0.00 L (0.04-0.35) 10*3/uL APTT (22.0-30.0) sec Carbon Dioxide (22-30) mmol/L BUN 39 H (7-17) mg/dL Creatinine 1.06 H (0.52-1.04) mg/dL Glucose 164 H (74-99) mg/dL Magnesium (1.6-2.3) mg/dL Total Bilirubin (0.2-1.3) mg/dL
[2025-02-02] MEDS: NICOTINE 14MG/24HR PATCH TRANSDERM SCH (18:03)
[2025-02-02] MEDS: IPRATROPIUM-ALBUTEROL 3 ML NEB INHALATION SCH (19:42)
[2025-02-02] MEDS: FORMOTEROL FUMARATE 20 MCG/2 ML NEBU INHALATION SCH (19:43)
[2025-02-02] MEDS: BUDESONIDE 1 MG/2 ML NEBU INHALATION SCH (19:43)
[2025-02-02] MEDS: TEMAZEPAM 7.5 MG CAP PO PRN (20:15)
[2025-02-02] MEDS: ATORVASTATIN 40 MG TAB PO SCH (20:15)
[2025-02-02] MEDS ORDERED: ATORVASTATIN 80 MG TAB PO SCH (21:00)
[2025-02-02 23:41] LABS: Cholesterol 116.00 mg/dL (0.00-200.00); HDL Cholesterol 64.30 mg/dL (40.00-60.00); LDL Cholesterol,Calculated 35.2 mg/dL (0.0-131.0); Triglycerides 82.70 mg/dL (0.00-149.00); VLDL Calculation 16.54 mg/dL (5.00-40.00)
[2025-02-02] MEDS: NITROGLYCERIN-D5W PMX 50 MG in DEXTROSE/WATER 1 250ML.BAG IV SCH (23:52)
[2025-02-03 08:08] LABS: Basophils # (A) 0.01 10*3/uL (0.00-0.10); Basophils % (A) 0.1 %; Eosinophils # (A) 0.00 10*3/uL (0.04-0.35); Eosinophils % (A) 0.0 %; HCT 26.8 % (37.2-46.3); HGB 8.4 g/dL (12.0-15.0); Lymphocytes # (A) 0.48 10*3/uL (0.90-5.00); Lymphocytes % (A) 3.0 %; MCH 28.8 pg (27.0-32.0); MCHC 31.3 g/dL (32.0-37.0); MCV 91.8 fL (80.0-97.0); Monocytes # (A) 0.38 10*3/uL (0.20-1.00); Monocytes % (A) 2.4 %; Neutrophils # (A) 15.04 10*3/uL (1.80-7.70); Neutrophils % (A) 93.9 %; Platelet Count 290 10*3/uL (140-440); RBC 2.92 10*6/uL (4.10-5.20); RDW 16.1 % (11.5-14.5); WBC 16.01 10*3/uL (4.50-10.00)
[2025-02-03 08:27] LABS: African American GFR (CKD) 38 (>60 ml/min/1.73 sqM); Anion Gap 11 mmol/L; Blood Urea Nitrogen 44 mg/dL (7-17); Calcium 9.3 mg/dL (8.4-10.2); Carbon Dioxide 24 mmol/L (22-30); Chloride 103 mmol/L (98-107); Glucose 155 mg/dL (74-99); Magnesium 2.0 mg/dL (1.6-2.3); Non-African American GFR(CKD) 33 (>60 ml/min/1.73 sqM); Potassium 3.6 mmol/L (3.5-5.1); Sodium 138 mmol/L (137-145)
[2025-02-03] MEDS: ACETAMINOPHEN TAB 325 MG TAB PO PRN (09:09)
[2025-02-03] MEDS: IPRATROPIUM-ALBUTEROL 3 ML NEB INHALATION SCH (11:53)
--- NOTE | 2025-02-03 12:17 | P.PN ---
Subjective Progress Note Date: 02/03/25 Patient is a 69-year-old female with past medical history significant for coronary artery disease with previous PCI/stents, OR, ischemic cardiomyopathy, hypertension, hyperlipidemia, peripheral vascular disease, COPD, and current everyday smoker. Presented the emergency department by EMS last night. Chief complaint of progressively worsening shortness of breath throughout the day. While in the emergency department, noted to be in some respiratory distress. Placed on BiPAP. Also, she was severely hypertensive, with a blood pressure recorded as high as 214/101 millimeters Hg. Received a one-time dose of 10 mg of IV labetalol. Subsequently, started on IV nitroglycerin infusion. Also, received 40 mg of IVP Lasix once. Chest x-ray remarkable for pulmonary edema with trace bilateral pleural effusions. NT proBNP 53,200. Most recent available echocardiogram from June, for estimating left ventricular ejection fraction of 20 to 25%, as well as, severe pulmonary hypertension. Labs including a CBC with a WBC count of 17.8, hemoglobin 9.5, platelets 213. CMP: Sodium 140, potassium 4.7, chloride 106, serum bicarb 21, BUN 45, creatinine 1.06, glucose 108. Troponin 0.029. Patient currently being evaluated in the emergency department. She is sitting in the bedside recliner. Alert and tries to answer questions, however, BiPAP makes it difficult to communicate. Conversation is limited to yes and no answers. Current BiPAP settings 10/5 and FiO2 up 40%. Nondistressed. Nonlabored breathing. Denies chest pain. Endorses occasional nonproductive cough. Denies any fevers or chills or sick contacts. Denies any sputum production, hemoptysis, chest pain. Does endorse some mild lower extremity swelling. She states she has been compliant with her antihypertensive medications. Nitroglycerin infusing at 45 mics per minute. Most recent blood pressure 170/75 mmHg. The patient is seen today February 03, 2025 in follow-up in the emergency department. She is currently sitting up on a stretcher. Awake and alert in no acute distress. She is currently on nitroglycerin drip at 95 mcg/min. She remains on Lasix 40 mg every 12 hours. Continued on calcium channel blockers and beta- blockers. Initiated on Entresto and Aldactone. NicoDerm patch remains in place. Elations, Pulmicort and Perforomist inhalations, IV Solu-Medrol. She denies any worsening shortness of breath, cough or congestion. She is off the BiPAP and maintaining O2 saturations in the upper 90s on 3 L/min per nasal cannula. She has been afebrile. White count 16.0. Hemoglobin 8.4. Platelets 290. Sodium 138. Potassium 3.6. Bicarb 24. BUN 44. Creatinine 1.59. Glucose 155. She is currently at a -550 mL balance. Objective - Vital Signs Vital signs: Vital Signs Temp 97.8 F 02/03/25 08:31 Pulse 79 02/03/25 12:00 Resp 18 02/03/25 12:00 BP 145/64 02/03/25 11:52 Pulse Ox 98 02/03/25 11:52 FiO2 40 02/03/25 11:57 Intake & Output 02/02/25 02/03/25 02/03/25 18:59 06:59 18:59 Intake Total 173.350 172.8 326.9 Output Total 900 Balance -726.650 172.8 326.9 Intake: Intake, IV Titration 173.350 172.8 326.9 Amount Nitroglycerin-D5w Pmx 50 173.350 172.8 mg In Dextrose/Water 1 250ml.bag @ 5 MCG/MIN 1.5 mls/hr IV .Q24H [facility] Rx#: [id number] Nitroglycerin-D5w Pmx 50 326.9 mg In Dextrose/Water 1 250ml.bag @ 5 MCG/MIN 1.5 mls/hr IV .Q[facility]H [facility] Rx#: [id number] Output: Urine 900 - Exam GENERAL EXAM: Alert, 69-year-old female, on 3 L nasal cannula, fairly comf ortable in no apparent distress. HEAD: Normocephalic. EYES: Normal reaction of pupils, equal size. NOSE: Clear with pink turbinates. THROAT: No erythema or exudates. NECK: No masses, no JVD. CHEST: No chest wall deformity. LUNGS: Equal air entry with no crackles, wheeze, rhonchi or dullness. CVS: S1 and S2 normal with no audible murmur, regular rhythm. ABDOMEN: No hepatosplenomegaly, normal bowel sounds, no guarding or rigidity. SPINE: No scoliosis or deformity SKIN: No rashes CENTRAL NERVOUS SYSTEM: No focal deficits, tone is normal in all 4 extremities. EXTREMITIES: There is no peripheral edema. No clubbing, no cyanosis. Peripheral pulses are intact. - Labs CBC & Chem 7: 02/03/25 06:43 02/03/25 06:43 Labs: Abnormal Lab Results - Last 24 Hours (Table) 02/02/25 02/03/25 02/03/25 Range/Units 06:36 06:43 06:43 WBC 16.01 H (4.50-10.00) 10*3/uL RBC 2.92 L (4.10-5.20) 10*6/uL Hgb 8.4 L (12.0-15.0) g/dL Hct 26.8 L (37.2-46.3) % MCHC 31.3 L (32.0-37.0) g/dL Immature Gran # 0.10 H (0.00-0.04) 10*3/uL Neutrophils # 15.04 H (1.80-7.70) 10*3/uL Lymphocytes # 0.48 L (0.90-5.00) 10*3/uL Eosinophils # 0.00 L (0.04-0.35) 10*3/uL BUN 44 H (7-17) mg/dL Creatinine 1.59 H (0.52-1.04) mg/dL Glucose 155 H (74-99) mg/dL HDL Cholesterol 64.30 H (40.00-60.00) mg/dL Assessment and Plan Assessment: Acute CHF exacerbation, with reduced ejection fraction Hypertensive urgency, currently on IV nitroglycerin infusion Acute hypoxemic respiratory failure, secondary to above, currently requiring BiPAP Acute leukocytosis History of COPD, currently in active History of hyperlipidemia History of coronary disease with previous PCI/stents History of ischemic cardiomyopathy, most recent available echocardiogram from June, for estimating left ventricular ejection fraction of 20 to 25%, as well as, severe pulmonary hypertension History of peripheral vascular disease History of CVA/TIA Chronic obstructive pulmonary disease Current ongoing tobacco dependence, current 1/2 pack/day smoker Plan: The patient was seen and evaluated Chest x-ray, labs and medications reviewed Off BiPAP, currently on oxygen at 3 L/min per nasal cannula Continue DuoNeb inhalations Discontinue Pulmicort and performance inhalations Discontinue Solu-Medrol Remains on a nitroglycerin drip at 95 mcg/min Medications being adjusted per cardiology Remains on IV Lasix Remains on Aldactone Initiated on Entresto Continued on Norvasc Continued on Lopressor Titrate down the FiO2 as tolerated Titrate down the nitroglycerin drip as tolerated We will continue to follow and make further recommendations based on her clinical status I have personally seen and examined the patient, performed the documentation and the assessment and plan as written. Number of minutes spent on the visit: 10 Dictation was produced using [employer] dictation software. Please excuse any grammatical, word or spelling errors.
--- NOTE | 2025-02-03 15:48 | P.PN ---
Subjective Progress Note Date: 02/03/25 Principal diagnosis: Patient seen and examined with the resident at bedside Acute on chronic HFrEF exacerbation Hypertensive urgency, currently better controlled CAD, PAD, CVA, TIA. Last PCI 06/2024 Tobacco smoker We have optimize GDMT. Discontinue IV diuretics. Start p.o. torsemide 20 mg daily. This is a 69-year-old female with a history of significant ischemic cardiomyopathy CHF, COPD, hypertension, CAD, peripheral arterial disease, hypertension, hyperlipidemia. Patient follows in the office with Dr. Spears. Cardiology service has been consulted for CHF exacerbation and hypertensive emergency. The patient presented to the ER in the morning of 02/02/2025 with complaint of worsening shortness of breath on exertion associated with orthopnea and PND since yesterday. Patient reports that she had flulike symptoms about 2- 3 weeks ago and was on outpatient treatment with doxycycline and steroids. Her blood pressure on arrival was 214/101. Patient was started on IV nitroglycerin infusion. Patient was also put on BiPAP. She was previously admitted to the hospital in July 2024 for TIA and chest pain. Echocardiogram July 2024 showed LVEF of 25 to 30%. Severely impaired low ventricle systolic function with segmental wall motion abnormality. Patient also underwent stenting of the proximal LAD on 07/18/2024. In the past she had stenting of the mid RCA and mid LAD. Her cardiac medication at home include lisinopril, Aldactone, Lipitor Lopressor, aspirin and Plavix. At the time of the interview, patient denies chest pain. Currently she is on BiPAP. Patient reports improvement in her shortness of breath. Her heart rate is 71 bpm, respiratory rate is 24, blood pressure is 163/82, saturating 100% on BiPAP. 02/03/2025: Patient seen and examined at the bedside. No acute events overnight. Patient reports improvement in her shortness of breath. Patient reports no chest pain and swelling of legs has improved as well. WBC 16.0, hemoglobin 8.4, sodium 138, potassium 3.6, BUN 44, creatinine 1.59, HbA1c 5.3, LDL 35, HDL 64, TSH 0.744. Pertinent images: No new imaging today Review of systems: Pertinent positives and negatives as discussed in HPI, a complete review of systems was performed and all other systems are negative. Social history: Tobacco: Current everyday smoker Alcohol: Occasional EtOH Recreational drugs: None Travel: No recent travel Physical examination: Vital signs reviewed General: non toxic, no distress, appears at stated age, overweight Neck: No cervical lymphadenopathy, trachea midline, supple, elevated JVP Mouth: no lip lesion, mucus membranes moist Cardiovascular: S1S2 reg, no murmur, positive dorsalis pedis pulse bilateral, 2+ bilateral lower extremity edema Lungs: CTAB with no wheezing or rales or crackles. No use of accessory muscles. Currently on nasal cannula with 3 L Abdominal: soft, nontender to palpation, no guarding Psych: Alert, oriented, appropriate affect Assessment: #Acute on chronic congestive heart failure exacerbation, likely secondary to recent upper respiratory tract infection #COPD exacerbation likely secondary to recent upper respiratory tract infection and CHF #Acute hypoxemic respiratory failure secondary to above, currently on BiPAP #Hypertensive emergency #Leukocytosis #History of coronary artery disease status post previous PCI/stenting #History of PAD #History of CVA/TIA #Nicotine dependence, current everyday smoker #Hypertension, hyperlipidemia Plan: Discontinue IV Lasix Initiate torsemide 20 mg once daily Monitor I's and O's, daily weights, fluid restriction to 2 L daily Continue with dual antiplatelet therapy with aspirin and Plavix Continue with Lopressor 25 mg p.o. twice daily Continue with Aldactone 25 mg p.o. daily Reduce Lipitor to 40 mg p.o. at bedtime Continue Entresto 24-26 mg tablet once daily Optimize GDMT by adding Farxiga Continue amlodipine 2.5 mg once daily DuoNebs as scheduled and [id number] Continue with IV Solu-Medrol 60 mg every 6 hours Continue to monitor electrolytes and renal function Objective - Vital Signs Vital signs: Vital Signs Temp 97.8 F 02/03/25 08:31 Pulse 78 02/03/25 15:27 Resp 18 02/03/25 15:27 BP 133/82 02/03/25 15:17 Pulse Ox 98 02/03/25 15:17 FiO2 40 02/03/25 11:57 Intake & Output 02/02/25 02/03/25 02/03/25 18:59 06:59 18:59 Intake Total 173.350 172.8 413.525 Output Total 900 Balance -726.650 172.8 413.525 Intake: Intake, IV Titration 173.350 172.8 413.525 Amount Nitroglycerin-D5w Pmx 50 173.350 172.8 mg In Dextrose/Water 1 250ml.bag @ 5 MCG/MIN 1.5 mls/hr IV .Q24H [facility] Rx#: [id number] Nitroglycerin-D5w Pmx 50 413.525 mg In Dextrose/Water 1 250ml.bag @ 5 MCG/MIN 1.5 mls/hr IV .Q24H [facility] Rx#: [id number] Output: Urine 900 - Labs CBC & Chem 7: 02/03/25 06:43 02/03/25 06:43 Labs: Abnormal Lab Results - Last 24 Hours (Table) 02/02/25 02/03/25 02/03/25 Range/Units 06:36 06:43 06:43 WBC 16.01 H (4.50-10.00) 10*3/uL RBC 2.92 L (4.10-5.20) 10*6/uL Hgb 8.4 L (12.0-15.0) g/dL Hct 26.8 L (37.2-46.3) % MCHC 31.3 L (32.0-37.0) g/dL Immature Gran # 0.10 H (0.00-0.04) 10*3/uL Neutrophils # 15.04 H (1.80-7.70) 10*3/uL Lymphocytes # 0.48 L (0.90-5.00) 10*3/uL Eosinophils # 0.00 L (0.04-0.35) 10*3/uL BUN 44 H (7-17) mg/dL Creatinine 1.59 H (0.52-1.04) mg/dL Glucose 155 H (74-99) mg/dL HDL Cholesterol 64.30 H (40.00-60.00) mg/dL
--- NOTE | 2025-02-03 18:56 | P.PN ---
Progress Note - Text Progress Note Date: 02/03/25 Chief Complaint: Short of breath This is a pleasant [id number] with Dr. Combs. Chronic medical conditions include CAD with stent, CHF EF of 2025%, severe secondary pulmonary hypertension of COPD, advanced COPD, hyperlipidemia, osteoarthritis, essential hypertension, PAD with history of peripheral stent. Patient presented worsening short of breath. Was brought via EMS to the ER. Patient's breathing is getting worse over last few days. Patient continues smo ke about less than half a pack a day. Daughter at the bedside. Lives with daughter. She was placed on nonrebreather by the EMS. Overnight patient's placed on a BiPAP. Patient had flulike symptoms 2 to 3 weeks ago was treated outpatient with doxycycline and steroids. Her blood pressure running high over 200 systolic hence we will start on IV nitroglycerin infusion. This morning patient seen in the ER. On a BiPAP. Slight cough. Decreased appetite. No fever no chills. February 03: Patient seen earlier by me in the ER. On 3 L nasal cannula. Did eat fairly well. Was still on nitroglycerin drip because of blood pressure. Patient's IV Lasix was discontinued. Will add amlodipine 2.5 mg p.m. dose also. And try to taper off nitroglycerin. Creatinine up to 1.59 Active Medications Acetaminophen (Acetaminophen Tab 325 Mg Tab) 650 mg PO Q6HR PRN PRN Reason: Fever and/ or Mild Pain Last Admin: 02/03/25 18:03 Dose: 650 mg Albuterol/Ipratropium (Ipratropium-Albuterol 3 Ml Neb) 3 ml INHALATION RT-QID PRN PRN Reason: Shortness Of Breath Or Wheezing Last Admin: 02/02/25 15:56 Dose: 3 ml Albuterol/Ipratropium (Ipratropium-Albuterol 3 Ml Neb) 3 ml INHALATION RT-QID [facility] Last Admin: 02/03/25 15:19 Dose: 3 ml Aspirin (Aspirin 81 Mg) 81 mg PO DAILY [facility] Last Admin: 02/03/25 09:08 Dose: 81 mg Atorvastatin Calcium (Atorvastatin 40 Mg Tab) 40 mg PO HS [facility] Last Admin: 02/02/25 20:15 Dose: 40 mg Cholecalciferol (Cholecalciferol 25 Mcg (1000 Iu) Tablet) 50 mcg PO DAILY [facility] Last Admin: 02/03/25 09:09 Dose: 50 mcg Clopidogrel Bisulfate (Clopidogrel 75 Mg Tab) 75 mg PO DAILY [facility] Last Admin: 02/03/25 09:09 Dose: 75 mg Dapagliflozin (Dapagliflozin Propanediol 5 Mg Tablet) 5 mg PO DAILY [facility] Nitroglycerin/Dextrose 50 mg/ (IV Solution) 250 mls @ 1.5 mls/hr IV .Q24H [facility]; Protocol Last Titration: 02/03/25 18:02 Dose: 60 mcg/min, 18 mls/hr Metoprolol Tartrate (Metoprolol Tartrate 25 Mg Tab) 25 mg PO BID [facility] Last Admin: 02/03/25 09:09 Dose: 25 mg Miscellaneous Information (Magnesium Replacement Protocol 1 Each Misc) 1 each MISCELLANE DAILY PRN; Protocol PRN Reason: Per Protocol Naloxone HCl (Naloxone 0.4 Mg/Ml 1 Ml Vial) 0.2 mg IV Q2M PRN PRN Reason: Opioid Reversal Nicotine (Nicotine 14mg/24hr Patch) 1 patch TRANSDERM DAILY [facility] Last Admin: 02/03/25 09:13 Dose: 1 patch Sacubitril/Valsartan (Sacubitril/Valsartan 24 Mg-26 Mg Tablet) 1 each PO BID [facility] Spironolactone (Spironolactone 25 Mg Tab) 25 mg PO DAILY [facility] Last Admin: 02/03/25 09:09 Dose: 25 mg Temazepam (Temazepam 7.5 Mg Cap) 7.5 mg PO HS PRN PRN Reason: Insomnia Last Admin: 02/02/25 20:15 Dose: 7.5 mg Torsemide (Torsemide 20 Mg Tab) 20 mg PO DAILY [facility] Social history: Lives with daughter. Smoked a pack a day was up to 2 packs a day. Close to 50 years. Now less than half a pack a day Physical examination: VITAL SIGNS: 88, 22, 1 3382, 98% on 3 L GENERAL: Reclining in bed, breathing better EYES: Pupils equal. Conjunctiva lonny l. HEENT: External appearance of nose and ears normal, oral cavity grossly normal. NECK: JVD not raised; masses not palpable. HEART: First and second heart sounds are normal; no edema. LUNGS: Respiratory rate increased, decreased breath sound ABDOMEN: Soft, nontender, liver spleen not palpable, no masses palpable. PSYCH: Alert and oriented x3; mood and affect slightly anxious. MUSCULOSKELETAL:No Clubbing/cyanosis;muscles-grossly intact. OA INVESTIGATIONS, reviewed in the clinical context: February 03: White count 16.0 hemoglobin 8.4 platelets 290 potassium 3.6 BUN 44 creatinine 1.59 February 02, 2025: White count 9.9 hemoglobin 9.1 platelets 254 sodium 141 potassium 4 BUN 39 creatinine 1.06 TSH 0.744 Chest x-ray film personally reviewed by me-hyperinflation. Some possible b asilar infiltrates EKG tracing personally reviewed by me-normal sinus rhythm. T wave changes Previous testing 2D echo limited severely impaired left ventricular systolic function. No e vidence of apical thrombus. Assessment and plan: - Acute severe COPD exacerbation in a current smoker: Significant improvement DuoNeb 4 times daily. Perforomist, Pulmicort, IV Solu-Medrol discontinued by pulmonary. - Acute on chronic hypoxic respiratory failure. Secondary to COPD: Much better On BiPAP yesterday. This afternoon on 3 L -Coronary artery disease cardiac s stent. Last intervention June 2024 to LAD Aspirin Plavix Lipitor. -Acute on chronic congestive heart failure/ischemic cardiomyopathy with an EF of 20 to 25%: Better Fluid restriction Aldactone Entresto added by cardiology Today IV Lasix discontinued. Switch to Demadex. -Severe secondary pulmonary hypertension, due to COPD -Chronic nicotine dependence cigarette smoker Nicotine patch -Hyperlipidemia Lipitor -Primary osteoarthritis Tylenol as needed -Essential hypertension, accelerated IV nitroglycerin drip-Taper off Lopressor Entresto Increase amlodipine to 2.5 mg twice daily -PAD with a prior history of peripheral stent Aspirin. Lipitor. Full code Patient is nebulized Pulmicort, IV Solu-Medrol Perforomist all discontinued. IV Lasix discontinued. Oral Demadex. Down to 3 L nasal cannula. Increase amlodipine to 2.5 mg twice daily. Taper off nitroglycerin drip Past Medical History Past Medical History: Heart Failure, COPD, GERD/Reflux, Hyperlipidemia, Hypertension, Myocardial Infarction (MS), Osteoarthritis (OA), Vascular Disorder Additional Past Medical History / Comment(s): OCCASIONAL SOB., VARICOSE VEINS.,STATES LEGS PAINFUL AT TIMES., constipation, Last Myocardial Infarction Date:: 2014 History of Any Multi-Drug Resistant Organisms: MRSA Date of last positivie culture/infection: 2013 MDRO Source:: under nose Past Surgical History: Heart Catheterization With Stent, Orthopedic Surgery Additional Past Surgical History / Comment(s): LT KNEE RECONSTRUCTIVE SX, CURTIS CATARACTS, CYST REMOVED FROM BEHIND LT EAR., BALLOON ANGIOPLASTY WITH STENT LEFT FEMORAL ARTERY (02/2018), 3 cardiact stents, recent aortogram Past Anesthesia/Blood Transfusion Reactions: No Reported Reaction Date of Last Stent Placement:: unknown Past Psychological History: No Psychological Hx Reported Smoking Status: Current every day smoker Past Alcohol Use History: Daily Past Drug Use History: None Reported
[2025-02-03] MEDS: amLODIPine 2.5 MG TAB PO SCH (19:52)
[2025-02-03] MEDS: SACUBITRIL/VALSARTAN 24 MG-26 MG TABLET PO SCH (19:52)
[2025-02-03 21:51] LABS: Glucose,Whole Blood 218 mg/dL (70-110)
[2025-02-03] MEDS: SACUBITRIL/VALSARTAN 24 MG-26 MG TABLET PO STA (23:25)
[2025-02-04 06:31] LABS: Basophils # (A) 0.03 10*3/uL (0.00-0.10); Basophils % (A) 0.1 %; Eosinophils # (A) 0.00 10*3/uL (0.04-0.35); Eosinophils % (A) 0.0 %; HCT 28.5 % (37.2-46.3); HGB 8.7 g/dL (12.0-15.0); Lymphocytes # (A) 0.54 10*3/uL (0.90-5.00); Lymphocytes % (A) 2.4 %; MCH 28.2 pg (27.0-32.0); MCHC 30.5 g/dL (32.0-37.0); MCV 92.2 fL (80.0-97.0); Monocytes # (A) 0.67 10*3/uL (0.20-1.00); Monocytes % (A) 2.9 %; Neutrophils # (A) 21.36 10*3/uL (1.80-7.70); Neutrophils % (A) 93.9 %; Platelet Count 335 10*3/uL (140-440); RBC 3.09 10*6/uL (4.10-5.20); RDW 16.2 % (11.5-14.5); WBC 22.77 10*3/uL (4.50-10.00)
[2025-02-04 06:37] LABS: African American GFR (CKD) 24 (>60 ml/min/1.73 sqM); Anion Gap 11 mmol/L; Blood Urea Nitrogen 60 mg/dL (7-17); Calcium 9.0 mg/dL (8.4-10.2); Carbon Dioxide 26 mmol/L (22-30); Chloride 100 mmol/L (98-107); Glucose 141 mg/dL (74-99); Non-African American GFR(CKD) 20 (>60 ml/min/1.73 sqM); Potassium 4.0 mmol/L (3.5-5.1); Sodium 137 mmol/L (137-145)
[2025-02-04] MEDS: DAPAGLIFLOZIN PROPANEDIOL 5 MG TABLET PO SCH (07:59)
[2025-02-04] MEDS: SACUBITRIL/VALSARTAN 49 MG-51 MG TABLET PO SCH (08:00)
[2025-02-04] MEDS: TORSEMIDE 20 MG TAB PO SCH (08:00)
--- NOTE | 2025-02-04 11:59 | P.PN ---
Subjective Progress Note Date: 02/04/25 Patient is a 69-year-old female with past medical history significant for coronary artery disease with previous PCI/stents, [place], ischemic cardiomyopathy, hypertension, hyperlipidemia, peripheral vascular disease, COPD, and current everyday smoker. Presented the emergency department by EMS last night. Chief complaint of progressively worsening shortness of breath throughout the day. While in the emergency department, noted to be in some respiratory distress. Placed on BiPAP. Also, she was severely hypertensive, with a blood pressure recorded as high as 214/101 millimeters Hg. Received a one-time dose of 10 mg of IV labetalol. Subsequently, started on IV nitroglycerin infusion. Also, received 40 mg of IVP Lasix once. Chest x-ray remarkable for pulmonary edema with trace bilateral pleural effusions. NT proBNP 53,200. Most recent available echocardiogram from June, for estimating left ventricular ejection fraction of 20 to 25%, as well as, severe pulmonary hypertension. Labs including a CBC with a WBC count of 17.8, hemoglobin 9.5, platelets 213. CMP: Sodium 140, potassium 4.7, chloride 106, serum bicarb 21, BUN 45, creatinine 1.06, glucose 108. Troponin 0.029. Patient currently being evaluated in the emergency department. She is sitting in the bedside recliner. Alert and tries to answer questions, however, BiPAP makes it difficult to communicate. Conversation is limited to yes and no answers. Current BiPAP settings 10/5 and FiO2 up 40%. Nondistressed. Nonlabored breathing. Denies chest pain. Endorses occasional nonproductive cough. Denies any fevers or chills or sick contacts. Denies any sputum production, hemoptysis, chest pain. Does endorse some mild lower extremity swelling. She states she has been compliant with her antihypertensive medications. Nitroglycerin infusing at 45 mics per minute. Most recent blood pressure 170/75 mmHg. The patient is seen today February 03, 2025 in follow-up in the emergency department. She is currently sitting up on a stretcher. Awake and alert in no acute distress. She is currently on nitroglycerin drip at 95 mcg/min. She remains on Lasix 40 mg every 12 hours. Continued on calcium channel blockers and beta- blockers. Initiated on Entresto and Aldactone. NicoDerm patch remains in place. Elations, Pulmicort and Perforomist inhalations, IV Solu-Medrol. She denies any worsening shortness of breath, cough or congestion. She is off the BiPAP and maintaining O2 saturations in the upper 90s on 3 L/min per nasal cannula. She has been afebrile. White count 16.0. Hemoglobin 8.4. Platelets 290. Sodium 138. Potassium 3.6. Bicarb 24. BUN 44. Creatinine 1.59. Glucose 155. She is currently at a -550 mL balance. The patient is seen today February 04, 2025 in follow-up in the intensive care unit. She is currently sitting up in bed. Awake and alert in no acute distress. Remains off of BiPAP. Maintaining O2 saturations in the 90s on 2 L/min per nasal cannula. She is still requiring a nitroglycerin drip at 20 mcg/min. Blood pressure medications being adjusted per cardiology. White count 22.7. Hemoglobin 8.7. Platelets 335. Sodium 137. Potassium 4.0. Bicarb 26. BUN 60. Creatinine 2.35. Glucose 141. She remains on DuoNeb and elations. NicoDerm patch in place. Objective - Vital Signs Vital signs: Vital Signs Temp 98.0 F 02/04/25 08:00 Pulse 80 02/04/25 11:30 Resp 24 02/04/25 11:30 BP 156/77 02/04/25 11:30 Pulse Ox 100 02/04/25 11:30 FiO2 40 02/03/25 11:57 Intake & Output 02/03/25 02/04/25 02/04/25 18:59 06:59 18:59 Intake Total 488.025 110.325 282.475 Output Total 200 300 Balance 288.025 -189.675 282.475 Weight 55.8 kg Intake: Intake, IV Titration 488.025 110.325 42.475 Amount Nitroglycerin-D5w Pmx 50 488.025 110.325 42.475 mg In Dextrose/Water 1 250ml.bag @ 5 MCG/MIN 1.5 mls/hr IV .Q24H [facility] Rx#: [id number] Oral 240 Output: Urine 200 300 Other: Voiding Method External Catheter External Catheter - Exam GENERAL EXAM: Alert, 69-year-old female, sitting up in bed, on 2 L nasal cannula, comfortable in no apparent distress. HEAD: Normocephalic. EYES: Normal reaction of pupils, equal size. NOSE: Clear with pink turbinates. THROAT: No erythema or exudates. NECK: No masses, no JVD. CHEST: No chest wall deformity. LUNGS: Equal air entry with no crackles, wheeze, rhonchi or dullness. CVS: S1 and S2 normal with no audible murmur, regular rhythm. ABDOMEN: No hepatosplenomegaly, normal bowel sounds, no guarding or rigidity. SPINE: No scoliosis or deformity SKIN: No rashes CENTRAL NERVOUS SYSTEM: No focal deficits, tone is normal in all 4 extremities. EXTREMITIES: There is no peripheral edema. No clubbing, no cyanosis. Peripheral pulses are intact. - Labs CBC & Chem 7: 02/04/25 05:34 02/04/25 05:34 Labs: Abnormal Lab Results - Last 24 Hours (Table) 02/03/25 02/04/25 02/04/25 Range/Units 21:49 05:34 05:34 WBC 22.77 H (4.50-10.00) 10*3/uL RBC 3.09 L (4.10-5.20) 10*6/uL Hgb 8.7 L (12.0-15.0) g/dL Hct 28.5 L (37.2-46.3) % MCHC 30.5 L (32.0-37.0) g/dL Immature Gran # 0.17 H (0.00-0.04) 10*3/uL Neutrophils # 21.36 H (1.80-7.70) 10*3/uL Lymphocytes # 0.54 L (0.90-5.00) 10*3/uL Eosinophils # 0.00 L (0.04-0.35) 10*3/uL BUN 60 H (7-17) mg/dL Creatinine 2.35 H (0.52-1.04) mg/dL Glucose 141 H (74-99) mg/dL POC Glucose (mg/dL) 218 H (70-110) mg/dL Assessment and Plan Assessment: Acute exacerbation of systolic CHF exacerbation, with reduced ejection fraction Hypertensive urgency, currently on IV nitroglycerin infusion at 20 mics per minute Acute hypoxemic respiratory failure, secondary to above, currently requiring BiPAP Acute leukocytosis History of COPD, currently in active History of hyperlipidemia History of coronary disease with previous PCI/stents History of ischemic cardiomyopathy, most recent available echocardiogram from June, for estimating left ventricular ejection fraction of 20 to 25%, as well as, severe pulmonary hypertension History of peripheral vascular disease History of CVA/TIA Chronic obstructive pulmonary disease Current ongoing tobacco dependence, current 1/2 pack/day smoker Plan: The patient was seen and evaluated Chest x-ray, labs and medications reviewed Off BiPAP, currently on oxygen at 3 L/min per nasal cannula Continue DuoNeb inhalations Remains on a nitroglycerin drip at 20 mcg/min Medications being adjusted per cardiology Remains on Aldactone Initiated on Entresto Continued on Norvasc Continued on Lopressor Titrate down the FiO2 as tolerated Titrate down the nitroglycerin drip as tolerated Educated regarding the importance of complete smoking cessation NicoDerm patch in place We will continue to follow I have personally seen and examined the patient, performed the documentation and the assessment and plan as written. Number of minutes spent on the visit: 10 Dictation was produced using [employer] dictation software. Please excuse any gramm atical, word or spelling errors.
[2025-02-04 12:10] VITALS: BMI 24.0
[2025-02-04] MEDS: ISOSORBIDE MONONITRATE ER 30 MG TAB.ER.24H PO SCH (13:09)
--- NOTE | 2025-02-04 16:30 | P.PN ---
Subjective Progress Note Date: 02/04/25 Dr. Grimaldo's addendum Patient seen and examined with the resident at the bedside and agree with assessment and the plan Patient's kidney function has declined with creatinine trended up. I will stop her nephrotoxic medications like Farxiga, Entresto, Aldactone and torsemide Will optimize her antihypertensives increase her hydralazine Imdur and stop her nitro drip Monitor kidney function, gentle hydration obtain renal ultrasound. This is a 69-year-old female with a history of significant ischemic cardiomyopathy CHF, COPD, hypertension, CAD, peripheral arterial disease, hypertension, hyperlipidemia. Patient follows in the office with Dr. Spears. Cardiology service has been consulted for CHF exacerbation and hypertensive emergency. The patient presented to the ER in the morning of 02/02/2025 with complaint of worsening shortness of breath on exertion associated with orthopnea and PND since yesterday. Patient reports that she had flulike symptoms about 2- 3 weeks ago and was on outpatient treatment with doxycycline and steroids. Her blood pressure on arrival was 214/101. Patient was started on IV nitroglycerin infusion. Patient was also put on BiPAP. She was previously admitted to the hospital in July 2024 for TIA and chest pain. Echocardiogram July 2024 showed LVEF of 25 to 30%. Severely impaired low ventricle systolic function with segmental wall motion abnormality. Patient also underwent stenting of the proximal LAD on 07/18/2024. In the past she had stenting of the mid RCA and mid LAD. Her cardiac medication at home include lisinopril, Aldactone, Lipitor Lopressor, aspirin and Plavix. At the time of the interview, patient denies chest pain. Currently she is on BiPAP. Patient reports improvement in her shortness of breath. Her heart rate is 71 bpm, respiratory rate is 24, blood pressure is 163/82, saturating 100% on BiPAP. 02/03/2025: Patient seen and examined at the bedside. No acute events overnight. Patient reports improvement in her shortness of breath. Patient reports no chest pain and swelling of legs has improved as well. WBC 16.0, hemoglobin 8.4, sodium 138, potassium 3.6, BUN 44, creatinine 1.59, HbA1c 5.3, LDL 35, HDL 64, TSH 0.744. 02/04/2025: Patient seen and examined at the bedside. No acute events overnight. Patient reports improvement in her shortness of breath. Current on 2 L nasal cannula. Patient denies any chest pain, lightheadedness, dizziness. Swelling in the legs is improved. Patient continues to be on nitroglycerin drip. She reports mild headaches. WBC 22.7, hemoglobin 8.7, sodium 137, potassium 4.0, BUN 60, creatinine 2.35. Pertinent images: No new imaging today Review of systems: Pertinent positives and negatives as discussed in HPI, a complete review of systems was performed and all other systems are negative. Social history: Tobacco: Current everyday smoker Alcohol: Occasional EtOH Recreational drugs: None Travel: No recent travel Physical examination: Vital signs reviewed General: non toxic, no distress, appears at stated age, overweight Neck: No cervical lymphadenopathy, trachea midline, supple, elevated JVP Mouth: no lip lesion, mucus membranes moist Cardiovascular: S1S2 reg, no murmur, positive dorsalis pedis pulse bilateral, 1+ bilateral lower extremity edema Lungs: CTAB with no wheezing or rales or crackles. No use of accessory muscles. Currently on nasal cannula with 2 L Abdominal: soft, nontender to palpation, no guarding Psych: Alert, oriented, appropriate affect Assessment: #Acute on chronic congestive heart failure exacerbation, likely secondary to r ecent upper respiratory tract infection #COPD exacerbation likely secondary to recent upper respiratory tract infection and CHF #Acute hypoxemic respiratory failure secondary to above, currently on BiPAP #Hypertensive emergency #Leukocytosis secondary to glucocorticoids #History of coronary artery disease status post previous PCI/stenting #History of PAD #History of CVA/TIA #Nicotine dependence, current everyday smoker #Hypertension, hyperlipidemia Plan: Titrate down on nitroglycerin drip Add hydralazine 50 mg p.o. 4 times daily, Discontinue metoprolol and initiate Coreg 6.25 mg p.o. twice daily Add Imdur 30 mg p.o. daily Increase amlodipine to 5 mg p.o. twice daily Continue torsemide 20 mg once daily Discontinue Entresto and Aldactone in the setting of worsening renal function Monitor I's and O's, daily weights, fluid restriction to 2 L daily Continue with dual antiplatelet therapy with aspirin and Plavix Continue Lipitor 40 mg p.o. at bedtime Continue with Farxiga DuoNebs as scheduled and [id number] Pulmonary following Continue to monitor electrolytes and renal function Objective - Vital Signs Vital signs: Vital Signs Temp 98.0 F 02/04/25 08:00 Pulse 76 02/04/25 16:16 Resp 14 02/04/25 15:00 BP 127/64 02/04/25 15:00 Pulse Ox 97 02/04/25 13:00 FiO2 40 02/03/25 11:57 Intake & Output 02/03/25 02/04/25 02/04/25 18:59 06:59 18:59 Intake Total 488.025 110.325 707.725 Output Total 200 300 250 Balance 288.025 -189.675 457.725 Weight 55.8 kg 55.8 kg Intake: Intake, IV Titration 488.025 110.325 67.725 Amount Nitroglycerin-D5w Pmx 50 488.025 110.325 67.725 mg In Dextrose/Water 1 250ml.bag @ 5 MCG/MIN 1.5 mls/hr IV .Q24H [facility] Rx#: [id number] Oral 640 Output: Urine 200 300 250 Other: Voiding Method External Catheter External Catheter - Labs CBC & Chem 7: 02/05/25 03:36 02/05/25 03:36 Labs: Abnormal Lab Results - Last 24 Hours (Table) 02/03/25 02/04/25 02/04/25 Range/Units 21:49 05:34 05:34 WBC 22.77 H (4.50-10.00) 10*3/uL RBC 3.09 L (4.10-5.20) 10*6/uL Hgb 8.7 L (12.0-15.0) g/dL Hct 28.5 L (37.2-46.3) % MCHC 30.5 L (32.0-37.0) g/dL Immature Gran # 0.17 H (0.00-0.04) 10*3/uL Neutrophils # 21.36 H (1.80-7.70) 10*3/uL Lymphocytes # 0.54 L (0.90-5.00) 10*3/uL Eosinophils # 0.00 L (0.04-0.35) 10*3/uL BUN 60 H (7-17) mg/dL Creatinine 2.35 H (0.52-1.04) mg/dL Glucose 141 H (74-99) mg/dL POC Glucose (mg/dL) 218 H (70-110) mg/dL
--- NOTE | 2025-02-04 19:29 | P.PN ---
Progress Note - Text Progress Note Date: 02/04/25 Chief Complaint: Short of breath This is a pleasant [id number] with Dr. Combs. Chronic medical conditions include CAD with stent, CHF EF of 2025%, severe secondary pulmonary hypertension of COPD, advanced COPD, hyperlipidemia, osteoarthritis, essential hypertension, PAD with history of peripheral stent. Patient presented worsening short of breath. Was brought via EMS to the ER. Patient's breathing is getting worse over last few days. Patient continues smo ke about less than half a pack a day. Daughter at the bedside. Lives with daughter. She was placed on nonrebreather by the EMS. Overnight patient's placed on a BiPAP. Patient had flulike symptoms 2 to 3 weeks ago was treated outpatient with doxycycline and steroids. Her blood pressure running high over 200 systolic hence we will start on IV nitroglycerin infusion. This morning patient seen in the ER. On a BiPAP. Slight cough. Decreased appetite. No fever no chills. February 03: Patient seen earlier by me in the ER. On 3 L nasal cannula. Did eat fairly well. Was still on nitroglycerin drip because of blood pressure. Patient's IV Lasix was discontinued. Will add amlodipine 2.5 mg p.m. dose also. And try to taper off nitroglycerin. Creatinine up to 1.59 February 04: Patient moved to the ICU because of titration of nitroglycerin drip. Amlodipine increased to 5 mg twice daily. Nitroglycerin being tapered down. Eating well. Oxygen down to room air. Worsening of creatinine to 2.35. In view of RENITA. DC Farxiga. Entresto was only discontinued by cardiology. Active Medications Acetaminophen (Acetaminophen Tab 325 Mg Tab) 650 mg PO Q6HR PRN PRN Reason: Fever and/ or Mild Pain Last Admin: 02/04/25 02:11 Dose: 650 mg Albuterol/Ipratropium (Ipratropium-Albuterol 3 Ml Neb) 3 ml INHALATION RT-QID PRN PRN Reason: Shortness Of Breath Or Wheezing Last Admin: 02/02/25 15:56 Dose: 3 ml Albuterol/Ipratropium (Ipratropium-Albuterol 3 Ml Neb) 3 ml INHALATION RT-QID BOYD Last Admin: 02/04/25 16:06 Dose: 3 ml Amlodipine Besylate (Amlodipine 5 Mg Tab) 5 mg PO BID [facility] Aspirin (Aspirin 81 Mg) 81 mg PO DAILY [facility] Last Admin: 02/04/25 07:58 Dose: 81 mg Atorvastatin Calcium (Atorvastatin 40 Mg Tab) 40 mg PO HS [facility] Last Admin: 02/03/25 19:52 Dose: 40 mg Carvedilol (Carvedilol 6.25 Mg Tab) 6.25 mg PO BID-W/MEALS [facility] Last Admin: 02/04/25 17:55 Dose: 6.25 mg Cholecalciferol (Cholecalciferol 25 Mcg (1000 Iu) Tablet) 50 mcg PO DAILY [facility] Last Admin: 02/04/25 07:58 Dose: 50 mcg Clopidogrel Bisulfate (Clopidogrel 75 Mg Tab) 75 mg PO DAILY [facility] Last Admin: 02/04/25 07:58 Dose: 75 mg Dapagliflozin (Dapagliflozin Propanediol 5 Mg Tablet) 5 mg PO DAILY [facility] Last Admin: 02/04/25 07:59 Dose: 5 mg Hydralazine HCl (Hydralazine Hcl 50 Mg Tab) 50 mg PO QID [facility] Last Admin: 02/04/25 17:55 Dose: 50 mg Isosorbide Mononitrate (Isosorbide Mononitrate Er 30 Mg Tab.Er.24h) 30 mg PO DAILY [facility] Last Admin: 02/04/25 13:09 Dose: 30 mg Miscellaneous Information (Magnesium Replacement Protocol 1 Each Misc) 1 each MISCELLANE DAILY PRN; Protocol PRN Reason: Per Protocol Naloxone HCl (Naloxone 0.4 Mg/Ml 1 Ml Vial) 0.2 mg IV Q2M PRN PRN Reason: Opioid Reversal Nicotine (Nicotine 14mg/24hr Patch) 1 patch TRANSDERM DAILY [facility] Last Admin: 02/04/25 07:59 Dose: 1 patch Temazepam (Temazepam 7.5 Mg Cap) 7.5 mg PO HS PRN PRN Reason: Insomnia Last Admin: 02/02/25 20:15 Dose: 7.5 mg Torsemide (Torsemide 20 Mg Tab) 20 mg PO DAILY [facility] Last Admin: 02/04/25 08:00 Dose: 20 mg Social history: Lives with daughter. Smoked a pack a day was up to 2 packs a day. Close to 50 years. Now less than half a pack a day Physical examination: VITAL SIGNS: 68, 20, 135 x 73, 94% room air GENERAL: Reclining in bed, breathing much improved EYES: Pupils equal. Conjunctiva lonny l. HEENT: External appearance of nose and ears normal, oral cavity grossly normal. NECK: JVD not raised; masses not palpable. HEART: First and second heart sounds are normal; no edema. LUNGS: Respiratory rate increased, decreased breath sound ABDOMEN: Soft, nontender, liver spleen not palpable, no masses palpable. PSYCH: Alert and oriented x3; mood and affect slightly anxious. MUSCULOSKELETAL:No Clubbing/cyanosis;muscles-grossly intact. OA INVESTIGATIONS, reviewed in the clinical context: February 04: White count 22.7 hemoglobin 8.7 platelets 335 potassium 4 BUN 60 creatinine 2.35 February 03: White count 16.0 hemoglobin 8.4 platelets 290 potassium 3.6 BUN 44 creatinine 1.59 February 02, 2025: White count 9.9 hemoglobin 9.1 platelets 254 sodium 141 potassium 4 BUN 39 creatinine 1.06 TSH 0.744 Chest x-ray film personally reviewed by me-hyperinflation. Some possible basilar infiltrates EKG tracing personally reviewed by me-normal sinus rhythm. T wave changes Previous testing 2D echo limited severely impaired left ventricular systolic function. No evidence of apical thrombus. Assessment and plan: - Acute severe COPD exacerbation in a current smoker: Significant improvement DuoNeb 4 times daily. - Acute on chronic hypoxic respiratory failure. Secondary to COPD: Much improved On BiPAP-now down to room -Coronary artery disease cardiac s stent. Last intervention June 2024 to LAD Aspirin Plavix Lipitor. -Acute on chronic congestive heart failure/ischemic cardiomyopathy with an EF of 20 to 25%: Better Fluid restriction Aldactone Entresto added by cardiology Initially IV Lasix.. Now Demadex. -Severe secondary pulmonary hypertension, due to COPD -Chronic nicotine dependence cigarette smoker Nicotine patch - Acute kidney injury. Likely ATN. New diagnosis Creatinine is gone up from 1.06-2.35. Entresto was discontinued this morning. Will also stop Farxiga. Gentle hydration IV -Hyperlipidemia Lipitor -Primary osteoarthritis Tylenol as needed -Essential hypertension, accelerated IV nitroglycerin drip- Lopressor Entresto Amlodipine increased to 5 mg twice daily. -PAD with a prior history of peripheral stent Aspirin. Lipitor. Full code Entresto stopped earlier today. Will also stop Farxiga in view of acute kidney injury. Gentle hydration. Follow renal function Past Medical History Past Medical History: Heart Failure, COPD, GERD/Reflux, Hyperlipidemia, Hypertension, Myocardial Infarction (PR), Osteoarthritis (OA), Vascular Disorder Additional Past Medical History / Comment(s): OCCASIONAL SOB., VARICOSE VEINS.,STATES LEGS PAINFUL AT TIMES., constipation, Last Myocardial Infarction Date:: 2014 History of Any Multi-Drug Resistant Organisms: MRSA Date of last positivie culture/infection: 2013 MDRO Source:: under nose Past Surgical History: Heart Catheterization With Stent, Orthopedic Surgery Additional Past Surgical History / Comment(s): LT KNEE RECONSTRUCTIVE SX, CURTIS CATARACTS, CYST REMOVED FROM BEHIND LT EAR., BALLOON ANGIOPLASTY WITH STENT LEFT FEMORAL ARTERY (02/2018), 3 cardiact stents, recent aortogram Past Anesthesia/Blood Transfusion Reactions: No Reported Reaction Date of Last Stent Placement:: unknown Past Psychological History: No Psychological Hx Reported Smoking Status: Current every day smoker Past Alcohol Use History: Daily Past Drug Use History: None Reported
[2025-02-04] MEDS: amLODIPine 5 MG TAB PO SCH (21:09)
[2025-02-04] MEDS: SODIUM CHLORIDE 0.45% 1,000 ML IV SCH (21:09)
[2025-02-05 04:11] LABS: HCT 30.9 % (37.2-46.3); HGB 9.4 g/dL (12.0-15.0); MCH 27.7 pg (27.0-32.0); MCHC 30.4 g/dL (32.0-37.0); MCV 91.2 fL (80.0-97.0); Platelet Count 315 10*3/uL (140-440); RBC 3.39 10*6/uL (4.10-5.20); RDW 15.9 % (11.5-14.5); WBC 19.47 10*3/uL (4.50-10.00)
[2025-02-05 04:30] LABS: African American GFR (CKD) 14 (>60 ml/min/1.73 sqM); Anion Gap 10 mmol/L; Blood Urea Nitrogen 80 mg/dL (7-17); Calcium 8.7 mg/dL (8.4-10.2); Carbon Dioxide 23 mmol/L (22-30); Chloride 99 mmol/L (98-107); Glucose 104 mg/dL (74-99); Non-African American GFR(CKD) 12 (>60 ml/min/1.73 sqM); Potassium 4.5 mmol/L (3.5-5.1); Sodium 132 mmol/L (137-145)
--- NOTE | 2025-02-05 08:17 | US ---
EXAMINATION TYPE: US renal artery duplex complet DATE OF EXAM: 02/05/2025 COMPARISON: CT CLINICAL INDICATION: Female, 69 years old with history of resistant htn; ICU patient within HTN for y ears TECHNIQUE: Grayscale, color Doppler and spectral Doppler imaging of the bilateral renal arteries and kidneys. FINDINGS: MEASUREMENTS: RENAL SIZE: Right Kidney: 6.4 x 2.7 x 2.7cm Left Kidney: 5.0 x 4.1 x 5.0cm Right Kidney: atrophic, no hydronephrosis or lesions seen Left Kidney: No hydronephrosis or lesions seen Abd Aorta: plaque seen throughout scan, proximal portion 3.2cm RESISTANCE INDEX Right: unable to attempt, vessels not seen with doppler Left: unable to attempt, vessels not seen with doppler RA/AO RATIO (< 3.5 ) Right: 5.2 Left: 36.1 RENAL ARTERY VELOCITY ( < 180 cm/s) Right: 27.4 Left: 320.0 Reroller Hand Notes: limited study due to lack of vessels being seen within kidneys, increased velocit ies seen at proximal left renal artery and mid level right renal artery Appropriate color Doppler flow and spectral waveforms to the kidneys bilaterally. Grayscale imaging of the kidneys and show no evidence for hydronephrosis or mass. No renal calculi or cysts visualized. IMPRESSION: High-grade renal artery stenosis on the left X-Ray Franco Booker, , 02/05/2025 8:15 AM
--- NOTE | 2025-02-05 10:15 | P.PN ---
Subjective Progress Note Date: 02/05/25 Patient is a 69-year-old female with past medical history significant for coronary artery disease with previous PCI/stents, CO, ischemic cardiomyopathy, hypertension, hyperlipidemia, peripheral vascular disease, COPD, and current everyday smoker. Presented the emergency department by EMS last night. Chief complaint of progressively worsening shortness of breath throughout the day. While in the emergency department, noted to be in some respiratory distress. Placed on BiPAP. Also, she was severely hypertensive, with a blood pressure recorded as high as 214/101 millimeters Hg. Received a one-time dose of 10 mg of IV labetalol. Subsequently, started on IV nitroglycerin infusion. Also, received 40 mg of IVP Lasix once. Chest x-ray remarkable for pulmonary edema with trace bilateral pleural effusions. NT proBNP 53,200. Most recent available echocardiogram from June, for estimating left ventricular ejection fraction of 20 to 25%, as well as, severe pulmonary hypertension. Labs including a CBC with a WBC count of 17.8, hemoglobin 9.5, platelets 213. CMP: Sodium 140, potassium 4.7, chloride 106, serum bicarb 21, BUN 45, creatinine 1.06, glucose 108. Troponin 0.029. Patient currently being evaluated in the emergency department. She is sitting in the bedside recliner. Alert and tries to answer questions, however, BiPAP makes it difficult to communicate. Conversation is limited to yes and no answers. Current BiPAP settings 10/5 and FiO2 up 40%. Nondistressed. Nonlabored breathing. Denies chest pain. Endorses occasional nonproductive cough. Denies any fevers or chills or sick contacts. Denies any sputum production, hemoptysis, chest pain. Does endorse some mild lower extremity swelling. She states she has been compliant with her antihypertensive medications. Nitroglycerin infusing at 45 mics per minute. Most recent blood pressure 170/75 mmHg. The patient is seen today February 03, 2025 in follow-up in the emergency department. She is currently sitting up on a stretcher. Awake and alert in no acute distress. She is currently on nitroglycerin drip at 95 mcg/min. She remains on Lasix 40 mg every 12 hours. Continued on calcium channel blockers and beta- blockers. Initiated on Entresto and Aldactone. NicoDerm patch remains in place. Elations, Pulmicort and Perforomist inhalations, IV Solu-Medrol. She denies any worsening shortness of breath, cough or congestion. She is off the BiPAP and maintaining O2 saturations in the upper 90s on 3 L/min per nasal cannula. She has been afebrile. White count 16.0. Hemoglobin 8.4. Platelets 290. Sodium 138. Potassium 3.6. Bicarb 24. BUN 44. Creatinine 1.59. Glucose 155. She is currently at a -550 mL balance. The patient is seen today February 04, 2025 in follow-up in the intensive care unit. She is currently sitting up in bed. Awake and alert in no acute distress. Remains off of BiPAP. Maintaining O2 saturations in the 90s on 2 L/min per nasal cannula. She is still requiring a nitroglycerin drip at 20 mcg/min. Blood pressure medications being adjusted per cardiology. White count 22.7. Hemoglobin 8.7. Platelets 335. Sodium 137. Potassium 4.0. Bicarb 26. BUN 60. Creatinine 2.35. Glucose 141. She remains on DuoNeb and elations. NicoDerm patch in place. The patient is seen today February 05, 2025 in follow-up in the intensive care unit. She is awake and alert in no acute distress. Resting fairly comfortably in bed. Denies any worsening shortness of breath, cough or congestion. She is maintaining good O2 saturations in the 90s on room air oxygen. She remains on DuoNeb inhalations. NicoDerm patch in place. She has been weaned off the nitroglycerin drip. Currently on Imdur, Coreg, amlodipine, Apresoline. Receiving 0.45% saline at 50 mL/h. White count 19.4. Hemoglobin 9.4. Platelets 315. Sodium 132. Potassium 4.5. Bicarb 23. BUN 80. Creatinine 3.54. Glucose 104. Renal ultrasound does reveal a high-grade renal artery stenosis on the left. Objective - Vital Signs Vital signs: Vital Signs Temp 98.1 F 02/05/25 09:42 Pulse 73 02/05/25 09:42 Resp 16 02/05/25 09:42 BP 96/57 02/05/25 09:42 Pulse Ox 96 02/05/25 09:42 FiO2 40 02/03/25 11:57 Intake & Output 0702/05/25 02/05/25 18:59 06:59 18:59 Intake Total 1107.725 750 50 Output Total 400 500 Balance 707.725 250 50 Weight 55.8 kg 52 kg Intake: IV 550 50 Sodium Chloride 0.45% 1, 550 50 000 ml @ 50 mls/hr IV . Q20H BOYD Rx#:[id number] Intake, IV Titration 67.725 Amount Nitroglycerin-D5w Pmx 50 67.725 mg In Dextrose/Water 1 250ml.bag @ 5 MCG/MIN 1.5 mls/hr IV .Q24H BOYD Rx#: [id number] Oral 1040 200 Output: Urine 400 500 Other: Voiding Method External Catheter Bedside Commode Toilet External Catheter External Catheter # Voids 1 0 # Bowel Movements 1 - Exam GENERAL EXAM: Alert, 69-year-old female, resting in bed, on 2 L nasal cannula, in no apparent distress. HEAD: Normocephalic. EYES: Normal reaction of pupils, equal size. NOSE: Clear with pink turbinates. THROAT: No erythema or exudates. NECK: No masses, no JVD. CHEST: No chest wall deformity. LUNGS: Equal air entry with no crackles, wheeze, rhonchi or dullness. CVS: S1 and S2 normal with no audible murmur, regular rhythm. ABDOMEN: No hepatosplenomegaly, normal bowel sounds, no guarding or rigidity. SPINE: No scoliosis or deformity SKIN: No rashes CENTRAL NERVOUS SYSTEM: No focal deficits, tone is normal in all 4 extremities. EXTREMITIES: There is no peripheral edema. No clubbing, no cyanosis. Peripheral pulses are intact. - Labs CBC & Chem 7: 02/05/25 03:36 02/05/25 03:36 Labs: Abnormal Lab Results - Last 24 Hours (Table) 02/05/25 02/05/25 Range/Units 03:36 03:36 WBC 19.47 H (4.50-10.00) 10*3/uL RBC 3.39 L (4.10-5.20) 10*6/uL Hgb 9.4 L (12.0-15.0) g/dL Hct 30.9 L (37.2-46.3) % MCHC 30.4 L (32.0-37.0) g/dL Sodium 132 L (137-145) mmol/L BUN 80 H (7-17) mg/dL Creatinine 3.54 H (0.52-1.04) mg/dL Glucose 104 H (74-99) mg/dL Assessment and Plan Assessment: Acute exacerbation of systolic CHF exacerbation, with reduced ejection fraction Hypertensive urgency, currently on IV nitroglycerin infusion at 20 mics per minute secondary to high-grade renal artery stenosis on the left Acute hypoxemic respiratory failure, secondary to above, currently requiring BiPAP Acute leukocytosis Acute kidney injury History of COPD, currently in active History of hyperlipidemia History of coronary disease with previous PCI/stents History of ischemic cardiomyopathy, most recent available echocardiogram from June, for estimating left ventricular ejection fraction of 20 to 25%, as well as, severe pulmonary hypertension History of peripheral vascular disease History of CVA/TIA Chronic obstructive pulmonary disease Current ongoing tobacco dependence, current 1/2 pack/day smoker Plan: The patient was seen and evaluated Renal artery duplex, labs and medications reviewed Left-sided renal artery stenosis, high-grade Worsening kidney function Consult to nephrology Weaned off nitroglycerin drip Remains on Imdur, amlodipine, Coreg, Apresoline Aldactone and Entresto discontinued Farxiga discontinued Currently on oxygen at 2 L/min per nasal cannula Continue DuoNeb inhalations Titrate down the FiO2 as tolerated Again educated regarding smoking cessation NicoDerm patch in place To transfer to 3 S. today We will continue to follow I have personally seen and examined the patient, performed the documentation and the assessment and plan as written. Number of minutes spent on the visit: 10 Dictation was produced using [employer] dictation software. Please excuse any grammatical, word or spelling errors.
--- NOTE | 2025-02-05 17:52 | P.PN ---
Subjective Progress Note Date: 02/05/25 Seen and examined with the resident. I agree with assessment and plan Concerns of left renal artery stenosis on sclerotic right kidney Essential hypertension, worsening kidney function, will hold all nephrotoxic medications. Blood pressure is low now, will cut back on antihypertensives. Monitor kidney function consult nephrology Once kidney function stabilizes/improves, consider left renal artery stenting. This is a 69-year-old female with a history of significant ischemic cardiomyopathy CHF, COPD, hypertension, CAD, peripheral arterial disease, hypertension, hyperlipidemia. Patient follows in the office with Dr. Spears. Cardiology service has been consulted for CHF exacerbation and hypertensive emergency. The patient presented to the ER in the morning of 02/02/2025 with complaint of worsening shortness of breath on exertion associated with orthopnea and PND since yesterday. Patient reports that she had flulike symptoms about 2- 3 weeks ago and was on outpatient treatment with doxycycline and steroids. Her blood pressure on arrival was 214/101. Patient was started on IV nitroglycerin infusion. Patient was also put on BiPAP. She was previously admitted to the hospital in July 2024 for TIA and chest pain. Echocardiogram July 2024 showed LVEF of 25 to 30%. Severely impaired low ventricle systolic function with segmental wall motion abnormality. Patient also underwent stenting of the proximal LAD on 07/18/2024. In the past she had stenting of the mid RCA and mid LAD. Her cardiac medication at home include lisinopril, Aldactone, Lipitor Lopressor, aspirin and Plavix. At the time of the interview, patient denies chest pain. Currently she is on BiPAP. Patient reports improvement in her shortness of breath. Her heart rate is 71 bpm, respiratory rate is 24, blood pressure is 163/82, saturating 100% on BiPAP. 02/03/2025: Patient seen and examined at the bedside. No acute events overnight. Patient reports improvement in her shortness of breath. Patient reports no chest pain and swelling of legs has improved as well. WBC 16.0, hemoglobin 8.4, sodium 138, potassium 3.6, BUN 44, creatinine 1.59, HbA1c 5.3, LDL 35, HDL 64, TSH 0.744. 02/04/2025: Patient seen and examined at the bedside. No acute events overnight. Patient reports improvement in her shortness of breath. Current on 2 L nasal cannula. Patient denies any chest pain, lightheadedness, dizziness. Swelling in the legs is improved. Patient continues to be on nitroglycerin drip. She reports mild headaches. WBC 22.7, hemoglobin 8.7, sodium 137, potassium 4.0, BUN 60, creatinine 2.35. 02/05/2025: Patient seen and examined at the bedside. Nitroglycerin drip has been discontinued. Patient has been transferred out of the ICU. Blood pressure is much better. Patient denies chest pain or shortness of breath. Patient is currently on amlodipine, Coreg, hydralazine. Her kidney function continues to worsen. Renal artery duplex ultrasound shows high-grade renal stenosis on the left. Right kidney is atrophic. WBC 19.4, hemoglobin 9.4, sodium 132, potassium 4.6, BUN 80, creatinine 3.54. Review of systems: Pertinent positives and negatives as discussed in HPI, a complete review of systems was performed and all other systems are negative. Social history: Tobacco: Current everyday smoker Alcohol: Occasional EtOH Recreational drugs: None Travel: No recent travel Physical examination: Vital signs reviewed General: non toxic, no distress, appears at stated age, overweight Neck: No cervical lymphadenopathy, trachea midline, supple, elevated JVP Mouth: no lip lesion, mucus membranes moist Cardiovascular: S1S2 reg, no murmur, positive dorsalis pedis pulse bilateral, 1+ bilateral lower extremity edema Lungs: CTAB with no wheezing or rales or crackles. No use of accessory muscles. Currently on nasal cannula with 2 L Abdominal: soft, nontender to palpation, no guarding Psych: Alert, oriented, appropriate affect Assessment: #Acute on chronic CKD secondary to high-grade left renal stenosis #Acute on chronic congestive heart failure exacerbation, likely secondary to recent upper respiratory tract infection #COPD exacerbation likely secondary to recent upper respiratory tract infection and CHF #Acute hypoxemic respiratory failure, resolved, currently on room air #Hypertensive emergency, resolved, currently normotensive #Leukocytosis secondary to glucocorticoids #History of coronary artery disease status post previous PCI/stenting #History of PAD #History of CVA/TIA #Nicotine dependence, current everyday smoker #Hypertension, hyperlipidemia Plan: Decrease hydralazine to 25 mg 4 times daily Continue Coreg 6.25 mg p.o. twice daily Continue amlodipine 5 mg p.o. twice daily Consult nephrology Avoid nephrotoxic agents Patient will need renal angioplasty and stenting Monitor I's and O's, daily weights, fluid restriction to 2 L daily Continue with dual antiplatelet therapy with aspirin and Plavix Continue Lipitor 40 mg p.o. at bedtime DuoNebs as needed Pulmonary following Continue to monitor electrolytes and renal function Objective - Vital Signs Vital signs: Vital Signs Temp 97.8 F 02/05/25 15:45 Pulse 78 02/05/25 15:45 Resp 20 02/05/25 15:45 BP 119/68 02/05/25 16:54 Pulse Ox 99 02/05/25 15:45 FiO2 40 02/03/25 11:57 Intake & Output 02/04/25 02/05/25 02/05/25 18:59 06:59 18:59 Intake Total 1107.725 750 530 Output Total 400 500 200 Balance 707.725 250 330 Weight 55.8 kg 52 kg Intake: IV 550 50 Sodium Chloride 0.45% 1, 550 50 000 ml @ 50 mls/hr IV . Q20H BOYD Rx#:[id number] Intake, IV Titration 67.725 Amount Nitroglycerin-D5w Pmx 50 67.725 mg In Dextrose/Water 1 250ml.bag @ 5 MCG/MIN 1.5 mls/hr IV .Q24H BOYD Rx#: [id number] Oral 1040 200 480 Output: Urine 400 500 200 Other: Voiding Method External Catheter Bedside Commode Toilet External Catheter # Voids 1 1 # Bowel Movements 1 - Labs CBC & Chem 7: 02/05/25 03:36 02/05/25 03:36 Labs: Abnormal Lab Results - Last 24 Hours (Table) 02/05/25 02/05/25 Range/Units 03:36 03:36 WBC 19.47 H (4.50-10.00) 10*3/uL RBC 3.39 L (4.10-5.20) 10*6/uL Hgb 9.4 L (12.0-15.0) g/dL Hct 30.9 L (37.2-46.3) % MCHC 30.4 L (32.0-37.0) g/dL Sodium 132 L (137-145) mmol/L BUN 80 H (7-17) mg/dL Creatinine 3.54 H (0.52-1.04) mg/dL Glucose 104 H (74-99) mg/dL
--- NOTE | 2025-02-05 19:38 | P.PN ---
Progress Note - Text Progress Note Date: 02/05/25 Chief Complaint: Short of breath This is a pleasant [id number] with Dr. Combs. Chronic medical conditions include CAD with stent, CHF EF of 2025%, severe secondary pulmonary hypertension of COPD, advanced COPD, hyperlipidemia, osteoarthritis, essential hypertension, PAD with history of peripheral stent. Patient presented worsening short of breath. Was brought via EMS to the ER. Patient's breathing is getting worse over last few days. Patient continues smo ke about less than half a pack a day. Daughter at the bedside. Lives with daughter. She was placed on nonrebreather by the EMS. Overnight patient's placed on a BiPAP. Patient had flulike symptoms 2 to 3 weeks ago was treated outpatient with doxycycline and steroids. Her blood pressure running high over 200 systolic hence we will start on IV nitroglycerin infusion. This morning patient seen in the ER. On a BiPAP. Slight cough. Decreased appetite. No fever no chills. February 03: Patient seen earlier by me in the ER. On 3 L nasal cannula. Did eat fairly well. Was still on nitroglycerin drip because of blood pressure. Patient's IV Lasix was discontinued. Will add amlodipine 2.5 mg p.m. dose also. And try to taper off nitroglycerin. Creatinine up to 1.59 February 04: Patient moved to the ICU because of titration of nitroglycerin drip. Amlodipine increased to 5 mg twice daily. Nitroglycerin being tapered down. Eating well. Oxygen down to room air. Worsening of creatinine to 2.35. In view of RENITA. DC Farxiga. Entresto was only discontinued by cardiology. February 05: Patient is taken off nitroglycerin drip. Medications adjusted. Blood pressure is soft and bit on the lower side. Dose of hydralazine cut back. Otherwise patient is feeling better. Worsening renal function. Patient been on 50 cc of saline since last night. Nephrology consulted. Active Medications Acetaminophen (Acetaminophen Tab 325 Mg Tab) 650 mg PO Q6HR PRN PRN Reason: Fever and/ or Mild Pain Last Admin: 02/05/25 15:50 Dose: 650 mg Albuterol/Ipratropium (Ipratropium-Albuterol 3 Ml Neb) 3 ml INHALATION RT-QID PRN PRN Reason: Shortness Of Breath Or Wheezing Last Admin: 02/02/25 15:56 Dose: 3 ml Albuterol/Ipratropium (Ipratropium-Albuterol 3 Ml Neb) 3 ml INHALATION RT-QID [facility] Last Admin: 02/05/25 15:18 Dose: 3 ml Amlodipine Besylate (Amlodipine 5 Mg Tab) 5 mg PO DAILY [facility] Aspirin (Aspirin 81 Mg) 81 mg PO DAILY [facility] Last Admin: 02/05/25 08:03 Dose: 81 mg Atorvastatin Calcium (Atorvastatin 40 Mg Tab) 40 mg PO HS [facility] Last Admin: 02/04/25 21:09 Dose: 40 mg Carvedilol (Carvedilol 6.25 Mg Tab) 6.25 mg PO BID-W/MEALS [facility] Last Admin: 02/05/25 16:58 Dose: 6.25 mg Cholecalciferol (Cholecalciferol 25 Mcg (1000 Iu) Tablet) 50 mcg PO DAILY [facility] Last Admin: 02/05/25 08:03 Dose: 50 mcg Clopidogrel Bisulfate (Clopidogrel 75 Mg Tab) 75 mg PO DAILY [facility] Last Admin: 02/05/25 08:03 Dose: 75 mg Hydralazine HCl (Hydralazine Hcl 25 Mg Tab) 25 mg PO QID [facility] Last Admin: 02/05/25 16:58 Dose: 25 mg Sodium Chloride (Saline 0.45%) 1,000 mls @ 50 mls/hr IV .Q20H [facility] Last Admin: 02/05/25 12:10 Dose: 50 mls/hr Miscellaneous Information (Magnesium Replacement Protocol 1 Each Misc) 1 each MISCELLANE DAILY PRN; Protocol PRN Reason: Per Protocol Naloxone HCl (Naloxone 0.4 Mg/Ml 1 Ml Vial) 0.2 mg IV Q2M PRN PRN Reason: Opioid Reversal Nicotine (Nicotine 14mg/24hr Patch) 1 patch TRANSDERM DAILY [facility] Last Admin: 02/05/25 08:03 Dose: 1 patch Temazepam (Temazepam 7.5 Mg Cap) 7.5 mg PO HS PRN PRN Reason: Insomnia Last Admin: 02/02/25 20:15 Dose: 7.5 mg Social history: Lives with daughter. Smoked a pack a day was up to 2 packs a day. Close to 50 years. Now less than half a pack a day Physical examination: VITAL SIGNS: 97.8, 78, 20, 142 x 66, 99% room air GENERAL: Reclining in bed, breathing better EYES: Pupils equal. Conjunctiva lonny l. HEENT: External appearance of nose and ears normal, oral cavity grossly normal. NECK: JVD not raised; masses not palpable. HEART: First and second heart sounds are normal; no edema. LUNGS: Respiratory rate normal, decreased breath sound ABDOMEN: Soft, nontender, liver spleen not palpable, no masses palpable. PSYCH: Alert and oriented x3; mood and affect slightly anxious. MUSCULOSKELETAL:No Clubbing/cyanosis;muscles-grossly intact. OA INVESTIGATIONS, reviewed in the clinical context: February 05: White count 9.4 hemoglobin 9.4 potassium 4.5 BN 80 creatinine 3.54 February 04: White count 22.7 hemoglobin 8.7 platelets 335 potassium 4 BUN 60 creatinine 2.35 February 03: White count 16.0 hemoglobin 8.4 platelets 290 potassium 3.6 BUN 44 creatinine 1.59 February 02, 2025: White count 9.9 hemoglobin 9.1 platelets 254 sodium 141 potassium 4 BUN 39 creatinine 1.06 TSH 0.744 Chest x-ray film personally reviewed by me-hyperinflation. Some possible basilar infiltrates EKG tracing personally reviewed by me-normal sinus rhythm. T wave changes Previous testing 2D echo limited severely impaired left ventricular systolic function. No evidence of apical thrombus. Assessment and plan: - Acute severe COPD exacerbation in a current smoker: Significant improvement DuoNeb 4 times daily. - Acute on chronic hypoxic respiratory failure. Secondary to COPD: Much improved On BiPAP-now down to room air -Coronary artery disease cardiac s stent. Last intervention June 2024 to LAD Aspirin Plavix Lipitor. -Acute on chronic congestive heart failure/ischemic cardiomyopathy with an EF of 20 to 25%: Better Fluid restriction Aldactone Entresto was initially added then discontinued because of renal function Initially IV Lasix.. Now Demadex. -Severe secondary pulmonary hypertension, due to COPD -Chronic nicotine dependence cigarette smoker Nicotine patch - Acute kidney injury. Likely ATN. Patient was started on Aldactone and Entresto. Also became hypotensive. Worsening Creatinine is gone up from 1.06- 3.54 Entresto Farxiga Aldactone discontinued.. Gentle hydration IV to continue Nephrology consulted -Hyperlipidemia Lipitor -Primary osteoarthritis Tylenol as needed -Essential hypertension, accelerated IV nitroglycerin drip- Currently amlodipine 5 mg a day. Coreg 6.25 twice daily. Hydralazine 25 mg 3 times daily. -PAD with a prior history of peripheral stent Aspirin. Lipitor. Full code Blood pressure medications were adjusted by cardiology. Continue gentle hydration. Nephrology consulted. Past Medical History Past Medical History: Heart Failure, COPD, GERD/Reflux, Hyperlipidemia, Hypertension, Myocardial Infarction ([place]), Osteoarthritis (OA), Vascular Disorder Additional Past Medical History / Comment(s): OCCASIONAL SOB., VARICOSE VEINS.,STATES LEGS PAINFUL AT TIMES., constipation, Last Myocardial Infarction Date:: 2014 History of Any Multi-Drug Resistant Organisms: MRSA Date of last positivie culture/infection: 2013 MDRO Source:: under nose Past Surgical History: Heart Catheterization With Stent, Orthopedic Surgery Additional Past Surgical History / Comment(s): LT KNEE RECONSTRUCTIVE SX, CURTIS CATARACTS, CYST REMOVED FROM BEHIND LT EAR., BALLOON ANGIOPLASTY WITH STENT LEFT FEMORAL ARTERY (02/2018), 3 cardiact stents, recent aortogram Past Anesthesia/Blood Transfusion Reactions: No Reported Reaction Date of Last Stent Placement:: unknown Past Psychological History: No Psychological Hx Reported Smoking Status: Current every day smoker Past Alcohol Use History: Daily Past Drug Use History: None Reported
[2025-02-06] MEDS: amLODIPine 5 MG TAB PO SCH (07:57)
--- NOTE | 2025-02-06 11:01 | P.NPCON ---
History of Present Illness - Reason for Consult acute renal failure - History of Present Illness Patient is a 69-year-old female with history of COPD, hypertension, pulmonary hypertension and coronary artery disease who is admitted to the hospital with complaints of shortness of breath. Patient complained of fatigue and muscle aches for 2 to 3 weeks prior to admission and was treated with doxycycline and steroids. Serum creatinine was 1.0 on initial admission and has progressively increased to 3.5 today. Blood pressure noted to be low with systolic in the 90s recently with extremely elevated blood pressures on initial admission with systolic around 214. Patient has been voiding Patient was maintained on KAREN inhibitors at home which are now discontinued. Renal artery duplex performed during hospitalization showed high-grade left renal artery stenosis. Both kidneys were noted to be on the smaller side at 6.4 cm and 5 cm. No IV contrast noted during hospitalization. Diuretics and SGLT2 inhibitors have been discontinued. Started on IV fluids at 50 cc an hour 2 days ago. Past Medical History Past Medical History: Atrial Fibrillation, Coronary Artery Disease (CAD), Heart Failure, COPD, CVA/TIA, GERD/Reflux, Hyperlipidemia, Hypertension, Myocardial Infarction ([place]), Osteoarthritis (OA), Vascular Disorder Additional Past Medical History / Comment(s): OCCASIONAL SOB, VARICOSE VEINS, STATES LEGS PAINFUL AT TIMES., constipation, TIA (07/2024), ischemic cardiomyopathy, ND with multiple stents (LAD & RCA) Last Myocardial Infarction Date:: 2023 History of Any Multi-Drug Resistant Organisms: MRSA Date of last positivie culture/infection: 2013 MDRO Source:: under nose Past Surgical History: Heart Catheterization With Stent, Orthopedic Surgery Additional Past Surgical History / Comment(s): LT KNEE RECONSTRUCTIVE SX, CURTIS CATARACTS, CYST REMOVED FROM BEHIND LT EAR., BALLOON ANGIOPLASTY WITH STENT LEFT FEMORAL ARTERY (02/2018), 3 cardiact stents, recent aortogram Past Anesthesia/Blood Transfusion Reactions: No Reported Reaction Date of Last Stent Placement:: 06/2024 Past Psychological History: No Psychological Hx Reported Additional Psychological History / Comment(s): denies Smoking Status: Current every day smoker Past Alcohol Use History: Occasional Additional Past Alcohol Use History / Comment(s): STARTED SMOKING AGE 19, SMOKES LESS THAN 1PPD. DRINKS 1-2 drinks occassionally Past Drug Use History: None Reported - Past Family History Sister(s) Family Medical History: Deep Vein Thrombosis (DVT) Mother Family Medical History: Cancer Father Family Medical History: No Reported History Medications and Allergies Home Medications Medication Instructions Recorded Confirmed Type Metoprolol Tartrate [Lopressor] 25 mg PO BID #60 tab 07/17/15 02/02/25 Rx Atorvastatin [Lipitor] 80 mg PO HS #30 tab 08/05/15 02/02/25 Rx Albuterol Sulfate [Ventolin HFA] 2 puff INHALATION RT-Q6H PRN 06/06/20 02/02/25 History Clover-3/Dha/Epa/Fish Oil [Fish Oil 1 cap PO DAILY 01/27/22 02/02/25 History 1,000 mg Softgel] Ipratropium-Albuterol Nebulize 3 ml INHALATION RT-QID PRN 03/30/23 02/02/25 History [Duoneb 0.5 mg-3 mg/3 ml Soln] Aspirin [Adult Low Dose Aspirin EC] 81 mg PO DAILY 30 Days #30 tab 07/20/24 02/02/25 Rx Cholecalciferol (Vitamin D3) 50 mcg PO DAILY 02/02/25 02/02/25 History [Vitamin D3 (50 Mcg = 2000 Iu)] Clopidogrel [Plavix] 75 mg PO DAILY 02/02/25 02/02/25 History Spironolactone [Aldactone] 25 mg PO DAILY 02/02/25 02/02/25 History lisinopriL [Zestril] 10 mg PO DAILY 02/02/25 02/02/25 History Allergies Allergy/AdvReac Type Severity Reaction Status Date / Time cephalexin monohydrate Allergy Rash/Hives Verified 02/02/25 07:43 [From Keflex] Physical Exam Vitals: Vital Signs Temp Pulse Pulse Resp BP Pulse Ox 02/06/25 07:49 98.4 F 74 20 104/57 95 02/06/25 04:00 98.0 F 88 14 117/65 96 02/06/25 00:00 98.1 F 88 16 123/72 97 02/05/25 20:56 86 20 02/05/25 20:49 88 20 02/05/25 20:00 97.7 F 88 18 107/59 96 02/05/25 16:54 119/68 02/05/25 15:45 97.8 F 78 20 142/66 99 02/05/25 15:28 80 02/05/25 15:18 78 02/05/25 13:39 76 02/05/25 12:00 97.6 F 76 18 108/61 96 Intake and Output 02/05/25 02/06/25 02/06/25 22:59 06:59 14:59 Intake Total 240 118 Output Total 200 225 Balance 40 -225 118 Intake: Oral 240 118 Output: Urine 200 225 Other: Voiding Method Toilet Toilet Toilet # Voids 1 # Bowel Movements 1 Weight 51.5 kg 51.5 kg Patient is awake, comfortable, no acute distress Alert oriented x 3 Examination of the heart S1 and S2 Examination of the lungs bilateral breath sounds are heard Abdomen is soft nontender Examination of lower extremity shows no evidence of edema [employer]INGUAL MEDICAL ASSISTANT exam grossly intact Results - Lab Results Most recent lab results Calcium 8.7 mg/dL (8.4-10.2) 02/05/25 03:36 Magnesium 2.0 mg/dL (1.6-2.3) 02/04/25 05:34 02/05/25 03:36 02/05/25 03:36 Assessment and Plan Assessment: 1. Acute kidney injury, most likely ATN associated with fluctuating blood pressures in the setting of use of KAREN inhibitors and severe left renal artery stenosis, nonoliguric. Check UA. Ultrasound did not show any significant obstructive uropathy. Previous creatinine 0.89 on 08/04/2024 2. Significant left renal artery stenosis noted on renal artery duplex. Patient will need further imaging/angiogram as outpatient once renal function stabilizes. 3. Hypertensive urgency on initial admission with blood pressures noted to be significantly low 4. Acute on chronic CHF with decreased ejection fraction at 25 to 30% 5. Acute hypoxic respiratory failure on initial admission, currently improved Plan: Continue with IV fluids for now Check bladder scan rule out urine retention Avoid hypotension Hold Norvasc for now as blood pressure remains low. May need further decrease in dose of hydralazine Repeat labs in a.m. Accurate I's and O's Avoid nephrotoxic agents Patient will need outpatient follow-up Thank you for the consultation. We will continue to follow the patient with you during her hospitalization.
--- NOTE | 2025-02-06 11:32 | CA ---
Transthoracic Echo Report Name: Taya Key Age: 69 Gender: F : 1955 Exam Date: 02/05/2025 13:35 Exam Location: [facility] Ht (in): 60 Wt (lb): 114 Ordering Physician: César Grimaldo MD ([id number]) Attending/Referring Phys: Frame Polisher Iesha Augustin, CLARISSA Procedure CPT: Indications: Hfref, Left DANELLE Cardiac Hx: Technical Quality: Fair Contrast 1: Definity Total Dose (mL): 2 Contrast 2: Total Dose (mL): MEASUREMENTS (Male / Female) Normal Values 2D ECHO LV Diastolic Diameter PLAX 4.4 cm 4.2 - 5.9 / 3.9 - 5.3 cm LV Systolic Diameter PLAX 3.5 cm IVS Diastolic Thickness 1.2 cm 0.6 - 1.0 / 0.6 - 0.9 cm LVPW Diastolic Thickness 1.2 cm 0.6 - 1.0 / 0.6 - 0.9 cm LV Relative Wall Thickness 0.5 RV Internal Dim ED PLAX 2.0 cm LA Systolic Diameter LX 3.2 cm 3.0 - 4.0 / 2.7 - 3.8 cm LV Diastolic Volume MOD BP 50.1 cm??? 67 - 155 / 56 - 104 cm??? LV Systolic Volume MOD BP 29.5 cm??? 22 - 58 / 19 - 49 cm??? LV Ejection Fraction MOD BP 41.0 % >= 55 % LV Cardiac Index MOD BP 1079.1 cm???/min???m??? LV Diastolic Volume MOD 4C 41.6 cm??? LV Systolic Volume MOD 4C 15.0 cm??? LV Ejection Fraction MOD 4C 63.9 % LV Cardiac Index MOD 4C 1395.9 cm???/min???m??? LV Diastolic Length 4C 6.9 cm LV Systolic Length 4C 3.2 cm LV Diastolic Volume MOD 2C 55.7 cm??? LV Systolic Volume MOD 2C 30.2 cm??? LV Ejection Fraction MOD 2C 45.8 % LV Cardiac Index MOD 2C 1340.6 cm???/min???m??? LV Diastolic Length 2C 7.5 cm LV Systolic Length 2C 6.6 cm M-MODE Aortic Root Diameter MM 3.2 cm LA Systolic Diameter MM 3.6 cm LA Ao Ratio MM 1.1 AV Cusp Separation MM 1.5 cm FINDINGS Left Ventricle Left ventricular ejection fraction is estimated at 45-50 %. Mildly increased septal wall thickness. Mildly increased posterior wall thickness. [place] akinetic. Left ventricular cavity size normal. Right Ventricle Normal right ventricular size and function. Right Atrium Left Atrium Mild left atrial dilatation. Mitral Valve Aortic Valve Tricuspid Valve Pulmonic Valve Pericardium Aorta Normal size aortic root and proximal ascending aorta. CONCLUSIONS Reason: Hypertensive urgency, CHF exacerbation LVH with left ventricular ejection fraction at the lower limits of normal of 45 to 50% with distal septal and apical akinesis, small segment Previewed by: Dr. Reji Timmons MD (Electronically Signed) Final Date: 06 February 2025 11:31
[2025-02-06] MEDS: LACTULOSE 20 GM/30 ML CUP PO ONE (11:34)
[2025-02-06 12:52] LABS: African American GFR (CKD) 14 (>60 ml/min/1.73 sqM); Anion Gap 13 mmol/L; Blood Urea Nitrogen 93 mg/dL (7-17); Calcium 9.2 mg/dL (8.4-10.2); Carbon Dioxide 18 mmol/L (22-30); Chloride 104 mmol/L (98-107); Glucose 84 mg/dL (74-99); Non-African American GFR(CKD) 12 (>60 ml/min/1.73 sqM); Potassium 4.7 mmol/L (3.5-5.1); Sodium 135 mmol/L (137-145)
--- NOTE | 2025-02-06 13:37 | P.PN ---
Subjective Progress Note Date: 02/06/25 Principal diagnosis: Shortness of breath. Patient is a 69-year-old female with past medical history significant for coronary artery disease with previous PCI/stents, [place], ischemic cardiomyopathy, hypertension, hyperlipidemia, peripheral vascular disease, COPD, and current everyday smoker. Presented the emergency department by EMS last night. Chief complaint of progressively worsening shortness of breath throughout the day. While in the emergency department, noted to be in some respiratory distress. Placed on BiPAP. Also, she was severely hypertensive, with a blood pressure recorded as high as 214/101 millimeters Hg. Received a one-time dose of 10 mg of IV labetalol. Subsequently, started on IV nitroglycerin infusion. Also, received 40 mg of IVP Lasix once. Chest x-ray remarkable for pulmonary edema with trace bilateral pleural effusions. NT proBNP 53,200. Most recent available echocardiogram from June, for estimating left ventricular ejection fraction of 20 to 25%, as well as, severe pulmonary hypertension. Labs including a CBC with a WBC count of 17.8, hemoglobin 9.5, platelets 213. CMP: Sodium 140, potassium 4.7, chloride 106, serum bicarb 21, BUN 45, creatinine 1.06, glucose 108. Troponin 0.029. Patient currently being evaluated in the emergency department. She is sitting in the bedside recliner. Alert and tries to answer questions, however, BiPAP makes it difficult to communicate. Conversation is limited to yes and no answers. Current BiPAP settings 10/5 and FiO2 up 40%. Nondistressed. Nonlabored breathing. Denies chest pain. Endorses occasional nonproductive cough. Denies any fevers or chills or sick contacts. Denies any sputum production, hemoptysis, chest pain. Does endorse some mild lower extremity swelling. She states she has been compliant with her antihypertensive medications. Nitroglycerin infusing at 45 mics per minute. Most recent blood pressure 170/75 mmHg. The patient is seen today February 03, 2025 in follow-up in the emergency department. She is currently sitting up on a stretcher. Awake and alert in no acute distress. She is currently on nitroglycerin drip at 95 mcg/min. She remains on Lasix 40 mg every 12 hours. Continued on calcium channel blockers and beta- blockers. Initiated on Entresto and Aldactone. NicoDerm patch remains in place. Elations, Pulmicort and Perforomist inhalations, IV Solu-Medrol. She denies any worsening shortness of breath, cough or congestion. She is off the BiPAP and maintaining O2 saturations in the upper 90s on 3 L/min per nasal cannula. She has been afebrile. White count 16.0. Hemoglobin 8.4. Platelets 290. Sodium 138. Potassium 3.6. Bicarb 24. BUN 44. Creatinine 1.59. Glucose 155. She is currently at a -550 mL balance. The patient is seen today February 04, 2025 in follow-up in the intensive care unit. She is currently sitting up in bed. Awake and alert in no acute distress. Remains off of BiPAP. Maintaining O2 saturations in the 90s on 2 L/min per nasal cannula. She is still requiring a nitroglycerin drip at 20 mcg/min. Blo od pressure medications being adjusted per cardiology. White count 22.7. Hemoglobin 8.7. Platelets 335. Sodium 137. Potassium 4.0. Bicarb 26. BUN 60. Creatinine 2.35. Glucose 141. She remains on DuoNeb and elations. NicoDerm patch in place. The patient is seen today February 05, 2025 in follow-up in the intensive care unit. She is awake and alert in no acute distress. Resting fairly comfortably in bed. Denies any worsening shortness of breath, cough or congestion. She is maintaining good O2 saturations in the 90s on room air oxygen. She remains on DuoNeb inhalations. NicoDerm patch in place. She has been weaned off the nitroglycerin drip. Currently on Imdur, Coreg, amlodipine, Apresoline. Receiving 0.45% saline at 50 mL/h. White count 19.4. Hemoglobin 9.4. Platelets 315. Sodium 132. Potassium 4.5. Bicarb 23. BUN 80. Creatinine 3.54. Glucose 104. Renal ultrasound does reveal a high-grade renal artery stenosis on the left. Progress note dated February 06, 2025. 69-year-old female seen today in room 369. She is on room air. She is getting half-normal saline at 50 cc an hour. She is resting comfortably in bed. No shortness of breath, cough, wheezing, chest tightness, or phlegm production. She certainly looks much better. Current laboratory data includes a sodium 135, potassium 4.7, chlorides 104, CO2 18, anion gap 13, BUN 93, creatinine 3.60. The rest of the labs are normal. No recent chest x-ray to report. Objective - Vital Signs Vital signs: Vital Signs Temp 98.2 F 02/06/25 11:31 Pulse 72 02/06/25 13:14 Resp 16 02/06/25 11:31 BP 132/62 02/06/25 11:31 Pulse Ox 99 02/06/25 11:31 FiO2 40 02/03/25 11:57 Intake & Output 02/05/25 02/06/25 02/06/25 18:59 06:59 18:59 Intake Total 530 118 Output Total 200 225 Balance 330 -225 118 Weight 51.5 kg 51.5 kg Intake: IV 50 Sodium Chloride 0.45% 1, 50 000 ml @ 50 mls/hr IV . Q20H BOYD Rx#:[id number] Oral 480 118 Output: Urine 200 225 Other: Voiding Method Toilet Toilet Toilet # Voids 1 1 # Bowel Movements 1 - Exam No acute distress, oriented 3. Currently on room air. HEENT examination is grossly unremarkable. Mucous membranes are moist. No oral lesions. Neck supple. Full range of motion. No adenopathy thyromegaly or neck vein distention. Cardiovascular examination reveals regular rhythm rate. S1-S2 normal. No S3 or S4. No discernible murmur noted. Lungs reveal clear breath sounds. Breath sounds are equal bilaterally. No adventitious lung sounds including wheezes rhonchi or crackles. Abdomen soft bowel sounds are heard. No masses or tenderness. Extremities are intact. No cyanosis clubbing or edema. Skin is without rash or lesion. Neurologic examination is brief but nonfocal. - Labs CBC & Chem 7: 02/05/25 03:36 02/06/25 12:18 Labs: Abnormal Lab Results - Last 24 Hours (Table) 02/06/25 Range/Units 12:18 Sodium 135 L (137-145) mmol/L Carbon Dioxide 18 L (22-30) mmol/L BUN 93 H (7-17) mg/dL Creatinine 3.60 H (0.52-1.04) mg/dL Assessment and Plan Assessment: Acute exacerbation of systolic CHF exacerbation. Hypertensive urgency, resolved. Renal artery stenosis. Acute hypoxemic respiratory failure, secondary to above. Acute leukocytosis. Acute kidney injury. History of COPD, currently in active. History of hyperlipidemia. History of coronary disease with previous PCI/stents. History of ischemic cardiomyopathy. History of peripheral vascular disease. History of CVA/TIA. Chronic obstructive pulmonary disease. Current ongoing tobacco dependence, current 1/2 pack/day smoker. Plan: Plan dated February 06, 2025. The patient is seen today in room 369. The patient is on room air. The patient is getting half-normal saline at 50 cc an hour. Labs, x-rays, and all medications are reviewed. The patient is doing much better. He was admitted with diagnosis of hypertensive urgency/emergency. Currently, her blood pressure is well-controlled. In the emergency department, the patient was on IV nitroglycerin, at relatively higher doses, but, has been weaned off the nitroglycerin, and now is on all oral medications. We will continue to follow make recommendations. Prognosis is guarded. Dictation was produced using [employer] software. Please excuse any grammatical, word or spelling errors. Time with Patient: Less than 30
--- NOTE | 2025-02-06 16:59 | P.PN ---
Progress Note - Text Progress Note Date: 02/06/25 Chief Complaint: Short of breath This is a pleasant [id number] with Dr. Combs. Chronic medical conditions include CAD with stent, CHF EF of 2025%, severe secondary pulmonary hypertension of COPD, advanced COPD, hyperlipidemia, osteoarthritis, essential hypertension, PAD with history of peripheral stent. Patient presented worsening short of breath. Was brought via EMS to the ER. Patient's breathing is getting worse over last few days. Patient continues smo ke about less than half a pack a day. Daughter at the bedside. Lives with daughter. She was placed on nonrebreather by the EMS. Overnight patient's placed on a BiPAP. Patient had flulike symptoms 2 to 3 weeks ago was treated outpatient with doxycycline and steroids. Her blood pressure running high over 200 systolic hence we will start on IV nitroglycerin infusion. This morning patient seen in the ER. On a BiPAP. Slight cough. Decreased appetite. No fever no chills. February 03: Patient seen earlier by me in the ER. On 3 L nasal cannula. Did eat fairly well. Was still on nitroglycerin drip because of blood pressure. Patient's IV Lasix was discontinued. Will add amlodipine 2.5 mg p.m. dose also. And try to taper off nitroglycerin. Creatinine up to 1.59 February 04: Patient moved to the ICU because of titration of nitroglycerin drip. Amlodipine increased to 5 mg twice daily. Nitroglycerin being tapered down. Eating well. Oxygen down to room air. Worsening of creatinine to 2.35. In view of RENITA. DC Farxiga. Entresto was only discontinued by cardiology. February 05: Patient is taken off nitroglycerin drip. Medications adjusted. Blood pressure is soft and bit on the lower side. Dose of hydralazine cut back. Otherwise patient is feeling better. Worsening renal function. Patient been on 50 cc of saline since last night. Nephrology consulted. February 06: Patient weaned off nitroglycerin drip. Blood pressure medications been adjusted. Getting saline at 50 cc an hour. Creatinine up to 3.60. Nephrology following. Breathing better Active Medications Acetaminophen (Acetaminophen Tab 325 Mg Tab) 650 mg PO Q6HR PRN PRN Reason: Fever and/ or Mild Pain Last Admin: 02/05/25 15:50 Dose: 650 mg Albuterol/Ipratropium (Ipratropium-Albuterol 3 Ml Neb) 3 ml INHALATION RT-QID PRN PRN Reason: Shortness Of Breath Or Wheezing Last Admin: 02/02/25 15:56 Dose: 3 ml Albuterol/Ipratropium (Ipratropium-Albuterol 3 Ml Neb) 3 ml INHALATION RT-QID [facility] Last Admin: 02/06/25 16:16 Dose: Not Given Aspirin (Aspirin 81 Mg) 81 mg PO DAILY [facility] Last Admin: 02/06/25 07:56 Dose: 81 mg Atorvastatin Calcium (Atorvastatin 40 Mg Tab) 40 mg PO HS [facility] Last Admin: 02/05/25 20:22 Dose: 40 mg Carvedilol (Carvedilol 6.25 Mg Tab) 6.25 mg PO BID-W/MEALS [facility] Last Admin: 02/06/25 06:17 Dose: 6.25 mg Cholecalciferol (Cholecalciferol 25 Mcg (1000 Iu) Tablet) 50 mcg PO DAILY [facility] Last Admin: 02/06/25 07:57 Dose: 50 mcg Clopidogrel Bisulfate (Clopidogrel 75 Mg Tab) 75 mg PO DAILY [facility] Last Admin: 02/06/25 07:56 Dose: 75 mg Hydralazine HCl (Hydralazine Hcl 25 Mg Tab) 25 mg PO TID [facility] Last Admin: 02/06/25 15:06 Dose: 25 mg Sodium Chloride (Saline 0.45%) 1,000 mls @ 50 mls/hr IV .Q20H [facility] Last Admin: 02/06/25 07:56 Dose: 50 mls/hr Miscellaneous Information (Magnesium Replacement Protocol 1 Each Misc) 1 each MISCELLANE DAILY PRN; Protocol PRN Reason: Per Protocol Naloxone HCl (Naloxone 0.4 Mg/Ml 1 Ml Vial) 0.2 mg IV Q2M PRN PRN Reason: Opioid Reversal Nicotine (Nicotine 14mg/24hr Patch) 1 patch TRANSDERM DAILY [facility] Last Admin: 02/06/25 07:57 Dose: Not Given Temazepam (Temazepam 7.5 Mg Cap) 7.5 mg PO HS PRN PRN Reason: Insomnia Last Admin: 02/02/25 20:15 Dose: 7.5 mg Social history: Lives with daughter. Smoked a pack a day was up to 2 packs a day. Close to 50 years. Now less than half a pack a day Physical examination: VITAL SIGNS: 97.8, 71, 16, 134 x 73, 98% room air GENERAL: Breathing better EYES: Pupils equal. Conjunctiva lonny l. HEENT: External appearance of nose and ears normal, oral cavity grossly normal. NECK: JVD not raised; masses not palpable. HEART: First and second heart sounds are normal; no edema. LUNGS: Respiratory rate increased decreased breath sound ABDOMEN: Soft, nontender, liver spleen not palpable, no masses palpable. PSYCH: Alert and oriented x3; mood and affect slightly anxious. MUSCULOSKELETAL:No Clubbing/cyanosis;muscles-grossly intact. OA INVESTIGATIONS, reviewed in the clinical context: February 06: Potassium 4.7 BUN 93 creatinine 3.6 February 05: White count 9.4 hemoglobin 9.4 potassium 4.5 BN 80 creatinine 3.54 February 04: White count 22.7 hemoglobin 8.7 platelets 335 potassium 4 BUN 60 creatinine 2.35 February 03: White count 16.0 hemoglobin 8.4 platelets 290 potassium 3.6 BUN 44 creatinine 1.59 February 02, 2025: White count 9.9 hemoglobin 9.1 platelets 254 sodium 141 potassium 4 BUN 39 creatinine 1.06 TSH 0.744 Chest x-ray film personally reviewed by me-hyperinflation. Some possible basilar infiltrates EKG tracing personally reviewed by me-normal sinus rhythm. T wave changes Previous testing 2D echo limited severely impaired left ventricular systolic function. No evidence of apical thrombus. Assessment and plan: - Acute severe COPD exacerbation in a current smoker: Better DuoNeb 4 times daily. - Acute on chronic hypoxic respiratory failure. Secondary to COPD: Much improved On BiPAP-now down to room air -Coronary artery disease cardiac s stent. Last intervention June 2024 to LAD Aspirin Plavix Lipitor. -Acute on chronic congestive heart failure/ischemic cardiomyopathy with an EF of 20 to 25%: Better Fluid restriction Aldactone Entresto was initially added then discontinued because of renal function Initially IV Lasix.. Now Demadex. -Severe secondary pulmonary hypertension, due to COPD -Chronic nicotine dependence cigarette smoker Nicotine patch - Acute kidney injury. Likely ATN. Patient was started on Aldactone and Entresto. Also became hypotensive. Not improving Creatinine is gone up from 1.06- 3.54 Entresto Farxiga Aldactone discontinued.. Gentle hydration IV to continue Nephrology following -Hyperlipidemia Lipitor -Primary osteoarthritis Tylenol as needed -Essential hypertension, accelerated IV nitroglycerin drip- Currently amlodipine 5 mg a day. Coreg 6.25 twice daily. Hydralazine 25 mg 3 times daily. -PAD with a prior history of peripheral stent Aspirin. Lipitor. Full code Follow renal function closely. Continue gentle hydration. Past Medical History Past Medical History: Heart Failure, COPD, GERD/Reflux, Hyperlipidemia, Hypertension, Myocardial Infarction (GA), Osteoarthritis (OA), Vascular Disorder Additional Past Medical History / Comment(s): OCCASIONAL SOB., VARICOSE VEINS.,STATES LEGS PAINFUL AT TIMES., constipation, Last Myocardial Infarction Date:: 2014 History of Any Multi-Drug Resistant Organisms: MRSA Date of last positivie culture/infection: 2013 MDRO Source:: under nose Past Surgical History: Heart Catheterization With Stent, Orthopedic Surgery Additional Past Surgical History / Comment(s): LT KNEE RECONSTRUCTIVE SX, CURTIS CATARACTS, CYST REMOVED FROM BEHIND LT EAR., BALLOON ANGIOPLASTY WITH STENT LEFT FEMORAL ARTERY (02/2018), 3 cardiact stents, recent aortogram Past Anesthesia/Blood Transfusion Reactions: No Reported Reaction Date of Last Stent Placement:: unknown Past Psychological History: No Psychological Hx Reported Smoking Status: Current every day smoker Past Alcohol Use History: Daily Past Drug Use History: None Reported
--- NOTE | 2025-02-06 18:02 | P.PN ---
Subjective Progress Note Date: 02/06/25 This is a 69-year-old female with a history of significant ischemic cardiomyopathy CHF, COPD, hypertension, CAD, peripheral arterial disease, hypertension, hyperlipidemia. Patient follows in the office with Dr. Spears. Cardiology service has been consulted for CHF exacerbation and hypertensive emergency. The patient presented to the ER in the morning of 02/02/2025 with complaint of worsening shortness of breath on exertion associated with orthopnea and PND since yesterday. Patient reports that she had flulike symptoms about 2- 3 weeks ago and was on outpatient treatment with doxycycline and steroids. Her blood pressure on arrival was 214/101. Patient was started on IV nitroglycerin infusion. Patient was also put on BiPAP. She was previously admitted to the hospital in July 2024 for TIA and chest pain. At the time of the interview, patient denies chest pain. Currently she is on BiPAP. Patient reports improvement in her shortness of breath. Her heart rate is 71 bpm, respiratory rate is 24, blood pressure is 163/82, saturating 100% on BiPAP. Prior cardiac testing Echocardiogram July 2024 showed LVEF of 25 to 30%. Severely impaired low ventricle systolic function with segmental wall motion abnormality. Cath proximal LAD PCI on 07/18/2024. In the past she had stenting of the mid RCA and mid LAD. Her cardiac medication at home include lisinopril, Aldactone, Lipitor Lopressor, aspirin and Plavix. 02/03/2025: Patient seen and examined at the bedside. No acute events overnight. Patient reports improvement in her shortness of breath. Patient reports no chest pain and swelling of legs has improved as well. WBC 16.0, hemoglobin 8.4, sodium 138, potassium 3.6, BUN 44, creatinine 1.59, HbA1c 5.3, LDL 35, HDL 64, TSH 0.744. 02/04/2025: Patient seen and examined at the bedside. No acute events overnight. Patient reports improvement in her shortness of breath. Current on 2 L nasal cannula. Patient denies any chest pain, lightheadedness, dizziness. Swelling in the legs is improved. Patient continues to be on nitroglycerin drip. She reports mild headaches. WBC 22.7, hemoglobin 8.7, sodium 137, potassium 4.0, BUN 60, creatinine 2.35. 02/05/2025: Patient seen and examined at the bedside. Nitroglycerin drip has been discontinued. Patient has been transferred out of the ICU. Blood pressure is much better. Patient denies chest pain or shortness of breath. Patient is currently on amlodipine, Coreg, hydralazine. Her kidney function continues to worsen. Renal artery duplex ultrasound shows high-grade renal stenosis on the left. Right kidney is atrophic. WBC 19.4, hemoglobin 9.4, sodium 132, potassium 4.6, BUN 80, creatinine 3.54. 02/06/2025 Transferred out of ICU kidney function has been declining. Creatinine is 3.5 yesterday, 3.6 today. Somewhat stabilizing. Apparently after getting antihypertensives her blood pressure dropped. We also obtain renal Doppler which showed severely obstructed left renal artery with reduced bilateral kidney size, suggestive of diminished blood supply to both kidneys. Social history: Tobacco: Current everyday smoker Alcohol: Occasional EtOH Recreational drugs: None Travel: No recent travel Physical examination: S1-S2 audible, no significant murmurs audible, minimal bilateral lower extremity edema, no significant JVP Diminished respiratory effort with no significant wheezing or rhonchi Abdominal soft nondistended nontender, Alert oriented no focal neurological deficits Assessment: # Hypertensive emergency on admission, currently resolved # RENITA worsened with antihypertensives # Severe left renal artery stenosis. Small bilateral kidneys # Mild HFpEF exacerbation from hypertensive emergency, currently resolved # COPD # History of CAD status post PCI to LAD in 06/2024, NRC in the past # History of PAD # History of CVA/TIA # Nicotine dependence, current everyday smoker Plan: Continue aspirin, Plavix, Lipitor 40 Coreg 6.25 twice daily Discontinue amlodipine, reduce hydralazine to 25 3 times daily Monitor kidney function. Once kidney function stabilizes and improves, consider left renal artery intervention with Dr. Spears Monitor blood pressure closely Nephrology is following. Gentle IV hydration. Look for signs of CHF Objective - Vital Signs Vital signs: Vital Signs Temp 97.8 F 02/06/25 15:05 Pulse 71 02/06/25 15:05 Resp 16 02/06/25 15:05 BP 134/63 02/06/25 15:05 Pulse Ox 99 02/06/25 15:05 FiO2 40 02/03/25 11:57 Intake & Output 02/05/25 02/06/25 02/06/25 18:59 06:59 18:59 Intake Total 530 118 Output Total 200 225 Balance 330 -225 118 Weight 51.5 kg 51.5 kg Intake: IV 50 Sodium Chloride 0.45% 1, 50 000 ml @ 50 mls/hr IV . Q20H [facility] Rx#:[id number] Oral 480 118 Output: Urine 200 225 Other: Voiding Method Toilet Toilet Toilet # Voids 1 1 # Bowel Movements 1 - Labs CBC & Chem 7: 02/05/25 03:36 02/06/25 12:18 Labs: Abnormal Lab Results - Last 24 Hours (Table) 02/06/25 Range/Units 12:18 Sodium 135 L (137-145) mmol/L Carbon Dioxide 18 L (22-30) mmol/L BUN 93 H (7-17) mg/dL Creatinine 3.60 H (0.52-1.04) mg/dL
[2025-02-06 18:44] LABS: Bacteria,Urine Rare /hpf; Bilirubin,Urine Negative (Negative); Blood,Urine Negative (Negative); Color,Urine Colorless; Glucose,Urine (UA) Trace (Negative); Granular Casts,Urine 4 /lpf (0); Hyaline Casts,Urine 7 /lpf (0-2); Ketones,Urine Negative (Negative); Leukocyte Esterase,Urine Moderate (Negative); Mucus,Urine Rare /hpf; Nitrite,Urine Negative (Negative); PH, Urine 5.5 (5.0-8.0); Protein,Urine Negative (Negative); RBC,Urine 3 /hpf (0-5); Specific Gravity,Urine 1.011 (1.001-1.035); Squamous Epithelial Cell,Urine <1 /hpf (0-4); Urobilinogen,Urine <2.0 mg/dL (<2.0); WBC,Urine 16 /hpf (0-5)
[2025-02-06] MEDS: ONDANSETRON 4 MG/2 ML VIAL IVP PRN (22:43)
[2025-02-07 07:46] LABS: African American GFR (CKD) 13 (>60 ml/min/1.73 sqM); Anion Gap 13 mmol/L; Calcium 9.3 mg/dL (8.4-10.2); Carbon Dioxide 18 mmol/L (22-30); Chloride 106 mmol/L (98-107); Glucose 85 mg/dL (74-99); Non-African American GFR(CKD) 11 (>60 ml/min/1.73 sqM); Potassium 5.9 mmol/L (3.5-5.1); Sodium 137 mmol/L (137-145)
[2025-02-07 07:54] LABS: Blood Urea Nitrogen 103 mg/dL (7-17)
--- NOTE | 2025-02-07 10:46 | P.PN ---
Subjective Progress Note Date: 02/07/25 Principal diagnosis: Shortness of breath. Patient is a 69-year-old female with past medical history significant for coronary artery disease with previous PCI/stents, NM, ischemic cardiomyopathy, hypertension, hyperlipidemia, peripheral vascular disease, COPD, and current everyday smoker. Presented the emergency department by EMS last night. Chief complaint of progressively worsening shortness of breath throughout the day. While in the emergency department, noted to be in some respiratory distress. Placed on BiPAP. Also, she was severely hypertensive, with a blood pressure recorded as high as 214/101 millimeters Hg. Received a one-time dose of 10 mg of IV labetalol. Subsequently, started on IV nitroglycerin infusion. Also, received 40 mg of IVP Lasix once. Chest x-ray remarkable for pulmonary edema with trace bilateral pleural effusions. NT proBNP 53,200. Most recent available echocardiogram from June, for estimating left ventricular ejection fraction of 20 to 25%, as well as, severe pulmonary hypertension. Labs including a CBC with a WBC count of 17.8, hemoglobin 9.5, platelets 213. CMP: Sodium 140, potassium 4.7, chloride 106, serum bicarb 21, BUN 45, creatinine 1.06, glucose 108. Troponin 0.029. Patient currently being evaluated in the emergency department. She is sitting in the bedside recliner. Alert and tries to answer questions, however, BiPAP makes it difficult to communicate. Conversation is limited to yes and no answers. Current BiPAP settings 10/5 and FiO2 up 40%. Nondistressed. Nonlabored breathing. Denies chest pain. Endorses occasional nonproductive cough. Denies any fevers or chills or sick contacts. Denies any sputum production, hemoptysis, chest pain. Does endorse some mild lower extremity swelling. She states she has been compliant with her antihypertensive medications. Nitroglycerin infusing at 45 mics per minute. Most recent blood pressure 170/75 mmHg. The patient is seen today February 03, 2025 in follow-up in the emergency department. She is currently sitting up on a stretcher. Awake and alert in no acute distress. She is currently on nitroglycerin drip at 95 mcg/min. She remains on Lasix 40 mg every 12 hours. Continued on calcium channel blockers and beta- blockers. Initiated on Entresto and Aldactone. NicoDerm patch remains in place. Elations, Pulmicort and Perforomist inhalations, IV Solu-Medrol. She denies any worsening shortness of breath, cough or congestion. She is off the BiPAP and maintaining O2 saturations in the upper 90s on 3 L/min per nasal cannula. She has been afebrile. White count 16.0. Hemoglobin 8.4. Platelets 290. Sodium 138. Potassium 3.6. Bicarb 24. BUN 44. Creatinine 1.59. Glucose 155. She is currently at a -550 mL balance. The patient is seen today February 04, 2025 in follow-up in the intensive care unit. She is currently sitting up in bed. Awake and alert in no acute distress. Remains off of BiPAP. Maintaining O2 saturations in the 90s on 2 L/min per nasal cannula. She is still requiring a nitroglycerin drip at 20 mcg/min. Blo od pressure medications being adjusted per cardiology. White count 22.7. Hemoglobin 8.7. Platelets 335. Sodium 137. Potassium 4.0. Bicarb 26. BUN 60. Creatinine 2.35. Glucose 141. She remains on DuoNeb and elations. NicoDerm patch in place. The patient is seen today February 05, 2025 in follow-up in the intensive care unit. She is awake and alert in no acute distress. Resting fairly comfortably in bed. Denies any worsening shortness of breath, cough or congestion. She is maintaining good O2 saturations in the 90s on room air oxygen. She remains on DuoNeb inhalations. NicoDerm patch in place. She has been weaned off the nitroglycerin drip. Currently on Imdur, Coreg, amlodipine, Apresoline. Receiving 0.45% saline at 50 mL/h. White count 19.4. Hemoglobin 9.4. Platelets 315. Sodium 132. Potassium 4.5. Bicarb 23. BUN 80. Creatinine 3.54. Glucose 104. Renal ultrasound does reveal a high-grade renal artery stenosis on the left. Progress note dated February 06, 2025. 69-year-old female seen today in room 369. She is on room air. She is getting half-normal saline at 50 cc an hour. She is resting comfortably in bed. No shortness of breath, cough, wheezing, chest tightness, or phlegm production. She certainly looks much better. Current laboratory data includes a sodium 135, potassium 4.7, chlorides 104, CO2 18, anion gap 13, BUN 93, creatinine 3.60. The rest of the labs are normal. No recent chest x-ray to report. Progress note dated February 07, 2025. 69-year-old female seen again in room 369. She is resting comfortably in bed. She is on room air. She is getting half-normal saline at 50 cc an hour, which could be discontinued. She is eating and drinking appropriately. From our perspective, the patient could be considered for possible discharge. Will leave that up to the primary service. Her respiratory status is now very stable. Current labs include a sodium 137, potassium 5.9, chlorides 106, CO2 18, BUN is 103, and creatinine 3.87. Objective - Vital Signs Vital signs: Vital Signs Temp 98 F 02/07/25 08:00 Pulse 74 02/07/25 09:09 Resp 22 02/07/25 08:00 BP 151/67 02/07/25 08:00 Pulse Ox 98 02/07/25 09:01 FiO2 40 02/03/25 11:57 Intake & Output 02/06/25 02/07/25 02/07/25 18:59 06:59 18:59 Intake Total 358 540 340 Output Total 1000 Balance 358 -460 340 Weight 51.5 kg 58.9 kg Intake: Oral 358 540 340 Output: Urine 1000 Other: Voiding Method Toilet Toilet Toilet # Bowel Movements 2 - Exam No acute distress, oriented 3. Currently on room air. HEENT examination is grossly unremarkable. Mucous membranes are moist. No oral lesions. Neck supple. Full range of motion. No adenopathy thyromegaly or neck vein distention. Cardiovascular examination reveals regular rhythm rate. S1-S2 normal. No S3 or S4. No discernible murmur noted. Lungs reveal clear breath sounds. Breath sounds are equal bilaterally. No adventitious lung sounds including wheezes rhonchi or crackles. Abdomen soft bowel sounds are heard. No masses or tenderness. Extremities are intact. No cyanosis clubbing or edema. Skin is without rash or lesion. Neurologic examination is brief but nonfocal. - Labs CBC & Chem 7: 02/05/25 03:36 02/07/25 06:35 Labs: Abnormal Lab Results - Last 24 Hours (Table) 0702/06/25 02/07/25 Range/Units 12:18 18:25 06:35 Sodium 135 L (137-145) mmol/L Potassium 5.9 H (3.5-5.1) mmol/L Carbon Dioxide 18 L 18 L (22-30) mmol/L BUN 93 H 103 H* (7-17) mg/dL Creatinine 3.60 H 3.87 H (0.52-1.04) mg/dL Urine Glucose (UA) Trace H (Negative) Ur Leukocyte Esterase Moderate H (Negative) Urine WBC 16 H (0-5) /hpf Urine Bacteria Rare H (None) /hpf Hyaline Casts 7 H (0-2) /lpf Urine Mucus Rare H (None) /hpf Assessment and Plan Assessment: Acute exacerbation of systolic CHF exacerbation. Hypertensive urgency, resolved. Renal artery stenosis. Acute hypoxemic respiratory failure, secondary to above. Acute leukocytosis. Acute kidney injury. History of COPD, currently in active. History of hyperlipidemia. History of coronary disease with previous PCI/stents. History of ischemic cardiomyopathy. History of peripheral vascular disease. History of CVA/TIA. Chronic obstructive pulmonary disease. Current ongoing tobacco dependence, current 1/2 pack/day smoker. Plan: Plan dated February 06, 2025. The patient is seen today in room 369. The patient is on room air. The patient is getting half-normal saline at 50 cc an hour. Labs, x-rays, and all medications are reviewed. The patient is doing much better. He was admitted with diagnosis of hypertensive urgency/emergency. Currently, her blood pressure is well-controlled. In the emergency department, the patient was on IV nitroglycerin, at relatively higher doses, but, has been weaned off the nitroglycerin, and now is on all oral medications. We will continue to follow make recommendations. Prognosis is guarded. Dictation was produced using [employer] software. Please excuse any grammatical, word or spelling errors. Plan dated February 07, 2025. The patient is seen today in room 369. She is resting comfortably in bed. She is not on any supplemental oxygen. Labs, x-rays, medications are all reviewed. Her vital signs are much better controlled. From the pulmonary standpoint, the patient is stable could be considered for possible discharge. Will leave that up to the primary service. No additional recommendations at this time. Prognosis is guarded. Dictation was produced using [employer] software. Please excuse any grammatical, word or spelling errors. Time with Patient: Less than 30
--- NOTE | 2025-02-07 12:13 | P.PN ---
Subjective Progress Note Date: 02/07/25 Patient seen in follow-up for RENITA. Renal function still worsening to 3.8. States she feels fine and would like to go home soon. Patient is awake, comfortable, no acute distress Alert oriented x 3 Examination of the heart S1 and S2 Examination of the lungs bilateral breath sounds are heard Abdomen is soft nontender Examination of lower extremity shows no evidence of edema Objective - Vital Signs Vital signs: Vital Signs Temp 98 F 02/07/25 08:00 Pulse 74 02/07/25 09:09 Resp 22 02/07/25 08:00 BP 151/67 02/07/25 08:00 Pulse Ox 98 02/07/25 09:01 FiO2 40 02/03/25 11:57 Intake & Output 02/06/25 02/07/25 02/07/25 18:59 06:59 18:59 Intake Total 358 540 340 Output Total 1000 Balance 358 -460 340 Weight 51.5 kg 58.9 kg Intake: Oral 358 540 340 Output: Urine 1000 Other: Voiding Method Toilet Toilet Toilet # Bowel Movements 2 - Labs CBC & Chem 7: 02/05/25 03:36 02/07/25 06:35 Labs: Abnormal Lab Results - Last 24 Hours (Table) 02/06/25 02/06/25 02/07/25 Range/Units 12:18 18:25 06:35 Sodium 135 L (137-145) mmol/L Potassium 5.9 H (3.5-5.1) mmol/L Carbon Dioxide 18 L 18 L (22-30) mmol/L BUN 93 H 103 H* (7-17) mg/dL Creatinine 3.60 H 3.87 H (0.52-1.04) mg/dL Urine Glucose (UA) Trace H (Negative) Ur Leukocyte Esterase Moderate H (Negative) Urine WBC 16 H (0-5) /hpf Urine Bacteria Rare H (None) /hpf Hyaline Casts 7 H (0-2) /lpf Urine Mucus Rare H (None) /hpf Assessment and Plan Assessment: 1. Acute kidney injury, most likely ATN associated with fluctuating blood pressures in the setting of use of KAREN inhibitors and severe left renal artery stenosis, nonoliguric. UA showed hylaine casts. Ultrasound did not show any significant obstructive uropathy. Previous creatinine 0.89 on 08/04/2024 2. Significant left renal artery stenosis noted on renal artery duplex. Patient will need further imaging/angiogram as outpatient once renal function stabilizes. 3. Hypertensive urgency on initial admission with blood pressures noted to be significantly low 4. Acute on chronic CHF with decreased ejection fraction at 25 to 30% 5. Acute hypoxic respiratory failure on initial admission, currently improved 6. Hyperkalemia-related to RENITA Plan: IVF were discontinued Urine output 1L BP seems improved Repeat labs in a.m. Start [facility] for high potassium
--- NOTE | 2025-02-07 12:22 | P.PN ---
Subjective Progress Note Date: 02/07/25 This is a 69-year-old female with a history of significant ischemic cardiomyopathy CHF, COPD, hypertension, CAD, peripheral arterial disease, hypertension, hyperlipidemia. Patient follows in the office with Dr. Spears. Cardiology service has been consulted for CHF exacerbation and hypertensive emergency. The patient presented to the ER in the morning of 02/02/2025 with complaint of worsening shortness of breath on exertion associated with orthopnea and PND since yesterday. Patient reports that she had flulike symptoms about 2- 3 weeks ago and was on outpatient treatment with doxycycline and steroids. Her blood pressure on arrival was 214/101. Patient was started on IV nitroglycerin infusion. Patient was also put on BiPAP. She was previously admitted to the hospital in July 2024 for TIA and chest pain. At the time of the interview, patient denies chest pain. Currently she is on BiPAP. Patient reports improvement in her shortness of breath. Her heart rate is 71 bpm, respiratory rate is 24, blood pressure is 163/82, saturating 100% on BiPAP. Prior cardiac testing Echocardiogram July 2024 showed LVEF of 25 to 30%. Severely impaired low ventricle systolic function with segmental wall motion abnormality. Cath proximal LAD PCI on 07/18/2024. In the past she had stenting of the mid RCA and mid LAD. Her cardiac medication at home include lisinopril, Aldactone, Lipitor Lopressor, aspirin and Plavix. 02/03/2025: Patient seen and examined at the bedside. No acute events overnight. Patient reports improvement in her shortness of breath. Patient reports no chest pain and swelling of legs has improved as well. WBC 16.0, hemoglobin 8.4, sodium 138, potassium 3.6, BUN 44, creatinine 1.59, HbA1c 5.3, LDL 35, HDL 64, TSH 0.744. 02/04/2025: Patient seen and examined at the bedside. No acute events overnight. Patient reports improvement in her shortness of breath. Current on 2 L nasal cannula. Patient denies any chest pain, lightheadedness, dizziness. Swelling in the legs is improved. Patient continues to be on nitroglycerin drip. She reports mild headaches. WBC 22.7, hemoglobin 8.7, sodium 137, potassium 4.0, BUN 60, creatinine 2.35. 02/05/2025: Patient seen and examined at the bedside. Nitroglycerin drip has been discontinued. Patient has been transferred out of the ICU. Blood pressure is much better. Patient denies chest pain or shortness of breath. Patient is currently on amlodipine, Coreg, hydralazine. Her kidney function continues to worsen. Renal artery duplex ultrasound shows high-grade renal stenosis on the left. Right kidney is atrophic. WBC 19.4, hemoglobin 9.4, sodium 132, potassium 4.6, BUN 80, creatinine 3.54. 02/06/2025 Transferred out of ICU kidney function has been declining. Creatinine is 3.5 yesterday, 3.6 today. Somewhat stabilizing. Apparently after getting antihypertensives her blood pressure dropped. We also obtain renal Doppler which showed severely obstructed left renal artery with reduced bilateral kidney size, suggestive of diminished blood supply to both kidneys. 02/07/2025 Kidney function is still worsening BUN is 103, creatinine is 3.8, 1 L urine output Getting gentle IV hydration Appears euvolemic. Denies any chest pain chest pressure BP 147/61, heart rate 74 Sinus notedly Physical examination: S1-S2 audible, no significant murmurs audible, minimal bilateral lower extremity edema, no significant JVP Diminished respiratory effort with no significant wheezing or rhonchi Abdominal soft nondistended nontender, Alert oriented no focal neurological deficits Assessment: # Hypertensive emergency on admission, currently resolved # RENITA worsened with antihypertensives # Severe left renal artery stenosis. Small bilateral kidneys # Mild HFpEF exacerbation from hypertensive emergency, currently resolved # COPD # History of CAD status post PCI to LAD in 06/2024, NRC in the past # History of PAD # History of CVA/TIA # Nicotine dependence, current everyday smoker Plan: Continue aspirin, Plavix, Lipitor 40 Coreg 6.25 twice daily, hydralazine to 25 3 times daily Monitor kidney function. If it does not improve or stabilizes tomorrow I would highly recommend temporary hemodialysis and PTCA of right renal artery stenosis. Monitor blood pressure closely Nephrology is following. Gentle IV hydration. Look for signs of CHF. At this time appears euvolemic Objective - Vital Signs Vital signs: Vital Signs Temp 98 F 02/07/25 12:15 Pulse 65 02/07/25 12:15 Resp 20 02/07/25 12:15 BP 147/61 02/07/25 12:15 Pulse Ox 97 02/07/25 12:15 FiO2 40 02/03/25 11:57 Intake & Output 02/06/25 02/07/25 02/07/25 18:59 06:59 18:59 Intake Total 358 540 340 Output Total 1000 Balance 358 -460 340 Weight 51.5 kg 58.9 kg Intake: Oral 358 540 340 Output: Urine 1000 Other: Voiding Method Toilet Toilet Toilet # Bowel Movements 2 - Labs CBC & Chem 7: 02/05/25 03:36 02/07/25 06:35 Labs: Abnormal Lab Results - Last 24 Hours (Table) 02/06/25 02/06/25 02/07/25 Range/Units 12:18 18:25 06:35 Sodium 135 L (137-145) mmol/L Potassium 5.9 H (3.5-5.1) mmol/L Carbon Dioxide 18 L 18 L (22-30) mmol/L BUN 93 H 103 H* (7-17) mg/dL Creatinine 3.60 H 3.87 H (0.52-1.04) mg/dL Urine Glucose (UA) Trace H (Negative) Ur Leukocyte Esterase Moderate H (Negative) Urine WBC 16 H (0-5) /hpf Urine Bacteria Rare H (None) /hpf Hyaline Casts 7 H (0-2) /lpf Urine Mucus Rare H (None) /hpf
[2025-02-07] MEDS: SODIUM ZIRCONIUM CYCLOSILICATE 10 GM PACKET PO SCH (12:36)
--- NOTE | 2025-02-07 14:56 | P.PN ---
Progress Note - Text Progress Note Date: 02/07/25 Chief Complaint: Short of breath This is a pleasant [id number] with Dr. Combs. Chronic medical conditions include CAD with stent, CHF EF of 2025%, severe secondary pulmonary hypertension of COPD, advanced COPD, hyperlipidemia, osteoarthritis, essential hypertension, PAD with history of peripheral stent. Patient presented worsening short of breath. Was brought via EMS to the ER. Patient's breathing is getting worse over last few days. Patient continues smo ke about less than half a pack a day. Daughter at the bedside. Lives with daughter. She was placed on nonrebreather by the EMS. Overnight patient's placed on a BiPAP. Patient had flulike symptoms 2 to 3 weeks ago was treated outpatient with doxycycline and steroids. Her blood pressure running high over 200 systolic hence we will start on IV nitroglycerin infusion. This morning patient seen in the ER. On a BiPAP. Slight cough. Decreased appetite. No fever no chills. February 03: Patient seen earlier by me in the ER. On 3 L nasal cannula. Did eat fairly well. Was still on nitroglycerin drip because of blood pressure. Patient's IV Lasix was discontinued. Will add amlodipine 2.5 mg p.m. dose also. And try to taper off nitroglycerin. Creatinine up to 1.59 February 04: Patient moved to the ICU because of titration of nitroglycerin drip. Amlodipine increased to 5 mg twice daily. Nitroglycerin being tapered down. Eating well. Oxygen down to room air. Worsening of creatinine to 2.35. In view of RENITA. DC Farxiga. Entresto was only discontinued by cardiology. February 05: Patient is taken off nitroglycerin drip. Medications adjusted. Blood pressure is soft and bit on the lower side. Dose of hydralazine cut back. Otherwise patient is feeling better. Worsening renal function. Patient been on 50 cc of saline since last night. Nephrology consulted. February 06: Patient weaned off nitroglycerin drip. Blood pressure medications been adjusted. Getting saline at 50 cc an hour. Creatinine up to 3.60. Nephrology following. Breathing better February 07: Sitting edge of bed. Family visiting. Breathing stable. Creatinine up to 3.87. Potassium 5.9. Nephrology following. Lokelma ordered. Changed to renal diet. Discussed with the patient and daughter. Blood pressure reasonably controlled Active Medications Acetaminophen (Acetaminophen Tab 325 Mg Tab) 650 mg PO Q6HR PRN PRN Reason: Fever and/ or Mild Pain Last Admin: 02/07/25 08:52 Dose: 650 mg Albuterol/Ipratropium (Ipratropium-Albuterol 3 Ml Neb) 3 ml INHALATION RT-QID PRN PRN Reason: Shortness Of Breath Or Wheezing Last Admin: 02/02/25 15:56 Dose: 3 ml Albuterol/Ipratropium (Ipratropium-Albuterol 3 Ml Neb) 3 ml INHALATION RT-QID [facility] Last Admin: 02/07/25 12:40 Dose: 3 ml Aspirin (Aspirin 81 Mg) 81 mg PO DAILY [facility] Last Admin: 02/07/25 08:52 Dose: 81 mg Atorvastatin Calcium (Atorvastatin 40 Mg Tab) 40 mg PO HS [facility] Last Admin: 02/06/25 22:43 Dose: 40 mg Carvedilol (Carvedilol 6.25 Mg Tab) 6.25 mg PO BID-W/MEALS [facility] Last Admin: 02/07/25 08:53 Dose: 6.25 mg Cholecalciferol (Cholecalciferol 25 Mcg (1000 Iu) Tablet) 50 mcg PO DAILY [facility] Last Admin: 02/07/25 08:52 Dose: 50 mcg Clopidogrel Bisulfate (Clopidogrel 75 Mg Tab) 75 mg PO DAILY [facility] Last Admin: 02/07/25 08:52 Dose: 75 mg Hydralazine HCl (Hydralazine Hcl 25 Mg Tab) 25 mg PO TID [facility] Last Admin: 02/07/25 08:52 Dose: 25 mg Miscellaneous Information (Magnesium Replacement Protocol 1 Each Misc) 1 each MISCELLANE DAILY PRN; Protocol PRN Reason: Per Protocol Naloxone HCl (Naloxone 0.4 Mg/Ml 1 Ml Vial) 0.2 mg IV Q2M PRN PRN Reason: Opioid Reversal Nicotine (Nicotine 14mg/24hr Patch) 1 patch TRANSDERM DAILY [facility] Last Admin: 02/07/25 08:53 Dose: 1 patch Ondansetron HCl (Ondansetron 4 Mg/2 Ml Vial) 4 mg IVP Q8HR PRN PRN Reason: Nausea And Vomiting Last Admin: 02/06/25 22:43 Dose: 4 mg Sodium Zirconium Cyclosilicate (Sodium Zirconium Cyclosilicate 10 Gm Packet) 10 gm PO BID [facility] Stop: 02/09/25 21:01 Last Admin: 02/07/25 12:36 Dose: 10 gm Temazepam (Temazepam 7.5 Mg Cap) 7.5 mg PO HS PRN PRN Reason: Insomnia Last Admin: 02/02/25 20:15 Dose: 7.5 mg Social history: Lives with daughter. Smoked a pack a day was up to 2 packs a day. Close to 50 years. Now less than half a pack a day Physical examination: VITAL SIGNS: 98, is a 65, 20, 147 x 61, 97% room air GENERAL: Comfortable edge of the bed EYES: Pupils equal. Conjunctiva lonny l. HEENT: External appearance of nose and ears normal, oral cavity grossly normal. NECK: JVD not raised; masses not palpable. HEART: First and second heart sounds are normal; no edema. LUNGS: Respiratory rate normal decreased breath sound ABDOMEN: Soft, nontender, liver spleen not palpable, no masses palpable. PSYCH: Alert and oriented x3; mood and affect slightly anxious. MUSCULOSKELETAL:No Clubbing/cyanosis;muscles-grossly intact. OA INVESTIGATIONS, reviewed in the clinical context: February 07: Potassium 5.9 BUN 103 creatinine 3.87 February 06: Potassium 4.7 BUN 93 creatinine 3.6 February 05: White count 9.4 hemoglobin 9.4 potassium 4.5 BN 80 creatinine 3.54 February 04: White count 22.7 hemoglobin 8.7 platelets 335 potassium 4 BUN 60 creatinine 2.35 February 03: White count 16.0 hemoglobin 8.4 platelets 290 potassium 3.6 BUN 44 creatinine 1.59 February 02, 2025: White count 9.9 hemoglobin 9.1 platelets 254 sodium 141 potassium 4 BUN 39 creatinine 1.06 TSH 0.744 Chest x-ray film personally reviewed by me-hyperinflation. Some possible basilar infiltrates EKG tracing personally reviewed by me-normal sinus rhythm. T wave changes Previous testing 2D echo limited severely impaired left ventricular systolic function. No evidence of apical thrombus. Assessment and plan: - Acute severe COPD exacerbation in a current smoker: Better DuoNeb 4 times daily. - Acute on chronic hypoxic respiratory failure. Secondary to COPD: Much improved On BiPAP-now down to room air -Coronary artery disease cardiac s stent. Last intervention June 2024 to LAD Aspirin Plavix Lipitor. -Acute on chronic congestive heart failure/ischemic cardiomyopathy with an EF of 20 to 25%: Better Fluid restriction Aldactone Entresto was initially added then discontinued because of renal function Initially IV Lasix.. Now Demadex-currently on hold. -Severe secondary pulmonary hypertension, due to COPD -Chronic nicotine dependence cigarette smoker Nicotine patch - Acute kidney injury. Likely ATN. Patient was started on Aldactone and Entresto. Also became hypotensive. Not improving Creatinine is gone up from 1.06- 3.54 Entresto Farxiga Aldactone discontinued.. Nephrology following -Hyperlipidemia Lipitor -Primary osteoarthritis Tylenol as needed -Essential hypertension, now controlled IV nitroglycerin drip-initially Currently amlodipine 5 mg a day. Coreg 6.25 twice daily. Hydralazine 25 mg 3 times daily. -PAD with a prior history of peripheral stent Aspirin. Lipitor. Full code Follow renal function. Discussed with patient and her daughter Past Medical History Past Medical History: Heart Failure, COPD, GERD/Reflux, Hyperlipidemia, Hypertension, Myocardial Infarction (ID), Osteoarthritis (OA), Vascular Disorder Additional Past Medical History / Comment(s): OCCASIONAL SOB., VARICOSE VEINS.,STATES LEGS PAINFUL AT TIMES., constipation, Last Myocardial Infarction Date:: 2014 History of Any Multi-Drug Resistant Organisms: MRSA Date of last positivie culture/infection: 2013 MDRO Source:: under nose Past Surgical History: Heart Catheterization With Stent, Orthopedic Surgery Additional Past Surgical History / Comment(s): LT KNEE RECONSTRUCTIVE SX, CURTIS CATARACTS, CYST REMOVED FROM BEHIND LT EAR., BALLOON ANGIOPLASTY WITH STENT LEFT FEMORAL ARTERY (02/2018), 3 cardiact stents, recent aortogram Past Anesthesia/Blood Transfusion Reactions: No Reported Reaction Date of Last Stent Placement:: unknown Past Psychological History: No Psychological Hx Reported Smoking Status: Current every day smoker Past Alcohol Use History: Daily Past Drug Use History: None Reported
[2025-02-08 07:32] LABS: African American GFR (CKD) 14 (>60 ml/min/1.73 sqM); Anion Gap 9 mmol/L; Calcium 8.9 mg/dL (8.4-10.2); Carbon Dioxide 20 mmol/L (22-30); Chloride 108 mmol/L (98-107); Glucose 86 mg/dL (74-99); Non-African American GFR(CKD) 12 (>60 ml/min/1.73 sqM); Potassium 5.4 mmol/L (3.5-5.1); Sodium 137 mmol/L (137-145)
[2025-02-08 08:50] LABS: Blood Urea Nitrogen 105 mg/dL (7-17)
--- NOTE | 2025-02-08 12:31 | P.PN ---
Subjective Progress Note Date: 02/08/25 Patient seen in follow-up for RENITA. No new complaints. Patient is awake, comfortable, no acute distress Alert oriented x 3 Examination of the heart S1 and S2 Examination of the lungs bilateral breath sounds are heard Abdomen is soft nontender Examination of lower extremity shows no evidence of edema Objective - Vital Signs Vital signs: Vital Signs Temp 97.6 F 02/08/25 08:18 Pulse 96 02/08/25 08:42 Resp 14 02/08/25 08:18 BP 153/71 02/08/25 08:18 Pulse Ox 99 02/08/25 08:18 FiO2 40 02/03/25 11:57 Intake & Output 02/07/25 02/08/25 02/08/25 18:59 06:59 18:59 Intake Total 700 310 240 Output Total 300 700 Balance 400 310 -460 Weight 54.9 kg Intake: IV 10 Invasive Line 4 10 Oral 700 300 240 Output: Urine 300 700 Other: Voiding Method Toilet Toilet # Voids 1 - Labs CBC & Chem 7: 02/05/25 03:36 02/08/25 06:44 Labs: Abnormal Lab Results - Last 24 Hours (Table) 02/08/25 Range/Units 06:44 Potassium 5.4 H (3.5-5.1) mmol/L Chloride 108 H (98-107) mmol/L Carbon Dioxide 20 L (22-30) mmol/L BUN 105 H* (7-17) mg/dL Creatinine 3.57 H (0.52-1.04) mg/dL Assessment and Plan Assessment: 1. Acute kidney injury, most likely ATN associated with fluctuating blood pressures in the setting of use of KAREN inhibitors and severe left renal artery stenosis, non-oliguric. UA showed hylaine casts. Ultrasound did not show any significant obstructive uropathy. Previous creatinine 0.89 on 08/04/2024 2. Significant left renal artery stenosis noted on renal artery duplex. Patient will need further imaging/angiogram as outpatient once renal function stabilizes. 3. Hypertensive urgency on initial admission with blood pressures noted to be significantly low 4. Acute on chronic CHF with decreased ejection fraction at 25 to 30% 5. Acute hypoxic respiratory failure on initial admission, currently improved 6. Hyperkalemia-related to RENITA improving Plan: IVF discontinued Renal function peaked yesterday and improving 3.5 today. Avoid large BP fluctuations Repeat labs in a.m. Continue Lokelma for high potassium
--- NOTE | 2025-02-08 17:20 | P.PN ---
Progress Note - Text Progress Note Date: 02/08/25 Chief Complaint: Short of breath This is a pleasant [id number] with Dr. Combs. Chronic medical conditions include CAD with stent, CHF EF of 2025%, severe secondary pulmonary hypertension of COPD, advanced COPD, hyperlipidemia, osteoarthritis, essential hypertension, PAD with history of peripheral stent. Patient presented worsening short of breath. Was brought via EMS to the ER. Patient's breathing is getting worse over last few days. Patient continues smo ke about less than half a pack a day. Daughter at the bedside. Lives with daughter. She was placed on nonrebreather by the EMS. Overnight patient's placed on a BiPAP. Patient had flulike symptoms 2 to 3 weeks ago was treated outpatient with doxycycline and steroids. Her blood pressure running high over 200 systolic hence we will start on IV nitroglycerin infusion. This morning patient seen in the ER. On a BiPAP. Slight cough. Decreased appetite. No fever no chills. February 03: Patient seen earlier by me in the ER. On 3 L nasal cannula. Did eat fairly well. Was still on nitroglycerin drip because of blood pressure. Patient's IV Lasix was discontinued. Will add amlodipine 2.5 mg p.m. dose also. And try to taper off nitroglycerin. Creatinine up to 1.59 February 04: Patient moved to the ICU because of titration of nitroglycerin drip. Amlodipine increased to 5 mg twice daily. Nitroglycerin being tapered down. Eating well. Oxygen down to room air. Worsening of creatinine to 2.35. In view of RENITA. DC Farxiga. Entresto was only discontinued by cardiology. February 05: Patient is taken off nitroglycerin drip. Medications adjusted. Blood pressure is soft and bit on the lower side. Dose of hydralazine cut back. Otherwise patient is feeling better. Worsening renal function. Patient been on 50 cc of saline since last night. Nephrology consulted. February 06: Patient weaned off nitroglycerin drip. Blood pressure medications been adjusted. Getting saline at 50 cc an hour. Creatinine up to 3.60. Nephrology following. Breathing better February 07: Sitting edge of bed. Family visiting. Breathing stable. Creatinine up to 3.87. Potassium 5.9. Nephrology following. Lokelma ordered. Changed to renal diet. Discussed with the patient and daughter. Blood pressure reasonably controlled February 08: Comfortable. Creatinine escalated off. Will give gentle hydration half saline 50 cc an hour overnight. Active Medications Acetaminophen (Acetaminophen Tab 325 Mg Tab) 650 mg PO Q6HR PRN PRN Reason: Fever and/ or Mild Pain Last Admin: 02/08/25 04:03 Dose: 650 mg Albuterol/Ipratropium (Ipratropium-Albuterol 3 Ml Neb) 3 ml INHALATION RT-QID P RN PRN Reason: Shortness Of Breath Or Wheezing Last Admin: 02/02/25 15:56 Dose: 3 ml Albuterol/Ipratropium (Ipratropium-Albuterol 3 Ml Neb) 3 ml INHALATION RT-QID FORMERLY [facility], [facility]1983 Last Admin: 02/08/25 15:47 Dose: 3 ml Aspirin (Aspirin 81 Mg) 81 mg PO DAILY FOR[facility], [facility] Last Admin: 02/08/25 08:24 Dose: 81 mg Atorvastatin Calcium (Atorvastatin 40 Mg Tab) 40 mg PO HS FOR[facility], [facility]1983 Last Admin: 02/07/25 23:00 Dose: 40 mg Carvedilol (Carvedilol 6.25 Mg Tab) 6.25 mg PO BID-W/MEALS FORMER[facility], [facility]1983 Last Admin: 02/08/25 07:00 Dose: 6.25 mg Cholecalciferol (Cholecalciferol 25 Mcg (1000 Iu) Tablet) 50 mcg PO DAILY FOR[facility], [facility]1983 Last Admin: 02/08/25 08:28 Dose: 50 mcg Clopidogrel Bisulfate (Clopidogrel 75 Mg Tab) 75 mg PO DAILY [facility], [facility] Last Admin: 02/08/25 08:24 Dose: 75 mg Hydralazine HCl (Hydralazine Hcl 25 Mg Tab) 25 mg PO TID [facility], [facility] Last Admin: 02/08/25 16:01 Dose: 25 mg Miscellaneous Information (Magnesium Replacement Protocol 1 Each Misc) 1 each MISCELLANE DAILY PRN; Protocol PRN Reason: Per Protocol Naloxone HCl (Naloxone 0.4 Mg/Ml 1 Ml Vial) 0.2 mg IV Q2M PRN PRN Reason: Opioid Reversal Nicotine (Nicotine 14mg/24hr Patch) 1 patch TRANSDERM DAILY [facility], [facility] Last Admin: 02/08/25 08:25 Dose: 1 patch Ondansetron HCl (Ondansetron 4 Mg/2 Ml Vial) 4 mg IVP Q8HR PRN PRN Reason: Nausea And Vomiting Last Admin: 02/06/25 22:43 Dose: 4 mg Sodium Zirconium Cyclosilicate (Sodium Zirconium Cyclosilicate 10 Gm Packet) 10 gm PO BID BOYD Stop: 02/09/25 21:01 Last Admin: 02/08/25 08:24 Dose: 10 gm Temazepam (Temazepam 7.5 Mg Cap) 7.5 mg PO HS PRN PRN Reason: Insomnia Last Admin: 02/08/25 04:02 Dose: 7.5 mg Social history: Lives with daughter. Smoked a pack a day was up to 2 packs a day. Close to 50 years. Now less than half a pack a day Physical examination: VITAL SIGNS: 97.6, 94, 14, 157 x 70, 100% room air GENERAL: Comfortable edge of the bed EYES: Pupils equal. Conjunctiva lonny l. HEENT: External appearance of nose and ears normal, oral cavity grossly normal. NECK: JVD not raised; masses not palpable. HEART: First and second heart sounds are normal; no edema. LUNGS: Respiratory rate normal decreased breath sound ABDOMEN: Soft, nontender, liver spleen not palpable, no masses palpable. PSYCH: Alert and oriented x3; mood and affect slightly anxious. MUSCULOSKELETAL:No Clubbing/cyanosis;muscles-grossly intact. OA INVESTIGATIONS, reviewed in the clinical context: February 08: Creatinine 3.57. BUN 105 potassium 5.4 February 07: Potassium 5.9 BUN 103 creatinine 3.87 February 06: Potassium 4.7 BUN 93 creatinine 3.6 February 05: White count 9.4 hemoglobin 9.4 potassium 4.5 BN 80 creatinine 3.54 February 04: White count 22.7 hemoglobin 8.7 platelets 335 potassium 4 BUN 60 creatinine 2.35 February 03: White count 16.0 hemoglobin 8.4 platelets 290 potassium 3.6 BUN 44 creatinine 1.59 February 02, 2025: White count 9.9 hemoglobin 9.1 platelets 254 sodium 141 potassium 4 BUN 39 creatinine 1.06 TSH 0.744 Chest x-ray film personally reviewed by me-hyperinflation. Some possible basi lar infiltrates EKG tracing personally reviewed by me-normal sinus rhythm. T wave changes Previous testing 2D echo limited severely impaired left ventricular systolic function. No evid ence of apical thrombus. Assessment and plan: - Acute severe COPD exacerbation in a current smoker: Better DuoNeb 4 times daily. - Acute on chronic hypoxic respiratory failure. Secondary to COPD: Much improved On BiPAP-now down to room air -Coronary artery disease cardiac s stent. Last intervention June 2024 to LAD Aspirin Plavix Lipitor. -Acute on chronic congestive heart failure/ischemic cardiomyopathy with an EF of 20 to 25%: Better Fluid restriction Aldactone Entresto was initially added then discontinued because of renal function Initially IV Lasix.. Now Demadex-currently on hold. -Severe secondary pulmonary hypertension, due to COPD -Chronic nicotine dependence cigarette smoker Nicotine patch - Acute kidney injury. Likely ATN. Patient was started on Aldactone and Entresto. Also became hypotensive. Leveled off Creatinine is gone up from 1.06- 3.54 Entresto Farxiga Aldactone discontinued.. Nephrology following -Hyperlipidemia Lipitor -Primary osteoarthritis Tylenol as needed -Essential hypertension, now controlled IV nitroglycerin drip-initially Currently amlodipine 5 mg a day. Coreg 6.25 twice daily. Hydralazine 25 mg 3 times daily. -PAD with a prior history of peripheral stent Aspirin. Lipitor. Full code Gentle hydration overnight with half saline. Follow labs Past Medical History Past Medical History: Heart Failure, COPD, GERD/Reflux, Hyperlipidemia, Hypertension, Myocardial Infarction (AL), Osteoarthritis (OA), Vascular Disorder Additional Past Medical History / Comment(s): OCCASIONAL SOB., VARICOSE VEINS.,STATES LEGS PAINFUL AT TIMES., constipation, Last Myocardial Infarction Date:: 2014 History of Any Multi-Drug Resistant Organisms: MRSA Date of last positivie culture/infection: 2013 MDRO Source:: under nose Past Surgical History: Heart Catheterization With Stent, Orthopedic Surgery Additional Past Surgical History / Comment(s): LT KNEE RECONSTRUCTIVE SX, CURTIS CATARACTS, CYST REMOVED FROM BEHIND LT EAR., BALLOON ANGIOPLASTY WITH STENT LEFT FEMORAL ARTERY (02/2018), 3 cardiact stents, recent aortogram Past Anesthesia/Blood Transfusion Reactions: No Reported Reaction Date of Last Stent Placement:: unknown Past Psychological History: No Psychological Hx Reported Smoking Status: Current every day smoker Past Alcohol Use History: Daily Past Drug Use History: None Reported
[2025-02-08] MEDS: SODIUM CHLORIDE 0.45% 1,000 ML IV SCH (18:06)
--- NOTE | 2025-02-08 23:24 | P.PN ---
Subjective Progress Note Date: 02/08/25 This is a 69-year-old female with a history of significant ischemic cardiomyopathy CHF, COPD, hypertension, CAD, peripheral arterial disease, hypertension, hyperlipidemia. Patient follows in the office with Dr. Spears. Cardiology service has been consulted for CHF exacerbation and hypertensive emergency. The patient presented to the ER in the morning of 02/02/2025 with complaint of worsening shortness of breath on exertion associated with orthopnea and PND since yesterday. Patient reports that she had flulike symptoms about 2- 3 weeks ago and was on outpatient treatment with doxycycline and steroids. Her blood pressure on arrival was 214/101. Patient was started on IV nitroglycerin infusion. Patient was also put on BiPAP. She was previously admitted to the hospital in July 2024 for TIA and chest pain. At the time of the interview, patient denies chest pain. Currently she is on BiPAP. Patient reports improvement in her shortness of breath. Her heart rate is 71 bpm, respiratory rate is 24, blood pressure is 163/82, saturating 100% on BiPAP. Prior cardiac testing Echocardiogram July 2024 showed LVEF of 25 to 30%. Severely impaired low ventricle systolic function with segmental wall motion abnormality. Cath proximal LAD PCI on 07/18/2024. In the past she had stenting of the mid RCA and mid LAD. Her cardiac medication at home include lisinopril, Aldactone, Lipitor Lopressor, aspirin and Plavix. 02/03/2025: Patient seen and examined at the bedside. No acute events overnight. Patient reports improvement in her shortness of breath. Patient reports no chest pain and swelling of legs has improved as well. WBC 16.0, hemoglobin 8.4, sodium 138, potassium 3.6, BUN 44, creatinine 1.59, HbA1c 5.3, LDL 35, HDL 64, TSH 0.744. 02/04/2025: Patient seen and examined at the bedside. No acute events overnight. Patient reports improvement in her shortness of breath. Current on 2 L nasal cannula. Patient denies any chest pain, lightheadedness, dizziness. Swelling in the legs is improved. Patient continues to be on nitroglycerin drip. She reports mild headaches. WBC 22.7, hemoglobin 8.7, sodium 137, potassium 4.0, BUN 60, creatinine 2.35. 02/05/2025: Patient seen and examined at the bedside. Nitroglycerin drip has been discontinued. Patient has been transferred out of the ICU. Blood pressure is much better. Patient denies chest pain or shortness of breath. Patient is currently on amlodipine, Coreg, hydralazine. Her kidney function continues to worsen. Renal artery duplex ultrasound shows high-grade renal stenosis on the left. Right kidney is atrophic. WBC 19.4, hemoglobin 9.4, sodium 132, potassium 4.6, BUN 80, creatinine 3.54. 02/06/2025 Transferred out of ICU kidney function has been declining. Creatinine is 3.5 yesterday, 3.6 today. Somewhat stabilizing. Apparently after getting antihypertensives her blood pressure dropped. We also obtain renal Doppler which showed severely obstructed left renal artery with reduced bilateral kidney size, suggestive of diminished blood supply to both kidneys. 02/07/2025 Kidney function is still worsening BUN is 103, creatinine is 3.8, 1 L urine output Getting gentle IV hydration Appears euvolemic. Denies any chest pain chest pressure BP 147/61, heart rate 74 Sinus notedly 02/08/2025 BP 157/70, heart rate 94, sinus rhythm on telemetry BUN 105, creatinine 3.57 yesterday was 3.8. Patient is very eager to go home Physical examination: S1-S2 audible, no significant murmurs audible, minimal bilateral lower extremity edema, no significant JVP Diminished respiratory effort with no significant wheezing or rhonchi Abdominal soft nondistended nontender, Alert oriented no focal neurological deficits Assessment: # Hypertensive emergency on admission, currently resolved # RENITA worsened with antihypertensives # Severe left renal artery stenosis. Small bilateral kidneys # Mild HFpEF exacerbation from hypertensive emergency, currently resolved # COPD # History of CAD status post PCI to LAD in 06/2024, NRC in the past # History of PAD # History of CVA/TIA # Nicotine dependence, current everyday smoker Plan: Continue aspirin, Plavix, Lipitor 40 Coreg 6.25 twice daily, hydralazine to 25 3 times daily Monitor kidney function. Clinical assessment I feel patient would benefit from left renal artery intervention. For this she might need temporary hemodialysis. Appreciate nephrology recommendations tomorrow on this. If uncorrected she may continue to have labile blood pressure Objective - Vital Signs Vital signs: Vital Signs Temp 97.7 F 02/08/25 20:00 Pulse 94 02/08/25 20:00 Resp 16 07/13/25 20:00 BP 162/69 02/08/25 20:00 Pulse Ox 100 02/08/25 20:00 FiO2 40 02/03/25 11:57 Intake & Output 02/08/25 02/08/25 02/09/25 06:59 18:59 06:59 Intake Total 310 448 Output Total 1500 Balance 310 -1052 Weight 54.9 kg Intake: IV 10 Invasive Line 4 10 Oral 300 448 Output: Urine 1500 Other: Voiding Method Toilet Toilet # Voids 1 - Labs CBC & Chem 7: 02/05/25 03:36 02/08/25 06:44 Labs: Abnormal Lab Results - Last 24 Hours (Table) 02/08/25 Range/Units 06:44 Potassium 5.4 H (3.5-5.1) mmol/L Chloride 108 H (98-107) mmol/L Carbon Dioxide 20 L (22-30) mmol/L BUN 105 H* (7-17) mg/dL Creatinine 3.57 H (0.52-1.04) mg/dL
[2025-02-09 07:10] LABS: African American GFR (CKD) 18 (>60 ml/min/1.73 sqM); Anion Gap 10 mmol/L; Blood Urea Nitrogen 99 mg/dL (7-17); Calcium 8.8 mg/dL (8.4-10.2); Carbon Dioxide 20 mmol/L (22-30); Chloride 107 mmol/L (98-107); Glucose 94 mg/dL (74-99); Non-African American GFR(CKD) 15 (>60 ml/min/1.73 sqM); Potassium 4.8 mmol/L (3.5-5.1); Sodium 137 mmol/L (137-145)
--- NOTE | 2025-02-09 10:35 | P.PN ---
Subjective Patient is seen in follow-up for acute kidney injury. Renal function improving. Receiving gentle IV hydration. Denies chest pain or shortness of breath. Admits to good urine output. Vital signs are stable. General: No acute distress. HEENT: Head exam is unremarkable. LUNGS: No audible rhonchi or wheezes. HEART: Rate and Rhythm are regular. ABDOMEN: Nontender. EXTREMITITES: No edema. Objective - Vital Signs Vital signs: Vital Signs Temp 97.6 F 02/09/25 08:00 Pulse 96 02/09/25 09:40 Resp 18 02/09/25 08:00 BP 151/65 02/09/25 08:00 Pulse Ox 98 02/09/25 08:00 FiO2 40 02/03/25 11:57 Intake & Output 02/08/25 02/09/25 02/09/25 18:59 06:59 18:59 Intake Total 448 240 Output Total 1500 500 900 Balance -1052 -500 -660 Weight 55.4 kg Intake: Oral 448 240 Output: Urine 1500 500 900 Other: Voiding Method Toilet Toilet - Labs CBC & Chem 7: 02/05/25 03:36 02/09/25 06:25 Labs: Abnormal Lab Results - Last 24 Hours (Table) 02/09/25 Range/Units 06:25 Carbon Dioxide 20 L (22-30) mmol/L BUN 99 H (7-17) mg/dL Creatinine 2.98 H (0.52-1.04) mg/dL Assessment and Plan Plan: Assessment: 1. Acute kidney injury secondary to hemodynamic ATN. Renal function improving. No proteinuria on UA. 2. Left renal artery stenosis. Further imaging/angiogram once renal function improves. Unclear if stenting will be of significant benefit in view of atrophic kidneys. 3. Acute on chronic systolic CHF ejection fraction of 45-50 %. 4. Benign hypertension. 5. Hyperkalemia secondary to acute kidney injury. Improved. Plan: Increase dose of Coreg to 12.5 mg twice daily. Avoid nephrotoxins. Continue to monitor renal function and urine output.
--- NOTE | 2025-02-09 14:39 | P.PN ---
Progress Note - Text Progress Note Date: 02/09/25 Chief Complaint: Short of breath This is a pleasant [id number] with Dr. Combs. Chronic medical conditions include CAD with stent, CHF EF of 2025%, severe secondary pulmonary hypertension of COPD, advanced COPD, hyperlipidemia, osteoarthritis, essential hypertension, PAD with history of peripheral stent. Patient presented worsening short of breath. Was brought via EMS to the ER. Patient's breathing is getting worse over last few days. Patient continues smo ke about less than half a pack a day. Daughter at the bedside. Lives with daughter. She was placed on nonrebreather by the EMS. Overnight patient's placed on a BiPAP. Patient had flulike symptoms 2 to 3 weeks ago was treated outpatient with doxycycline and steroids. Her blood pressure running high over 200 systolic hence we will start on IV nitroglycerin infusion. This morning patient seen in the ER. On a BiPAP. Slight cough. Decreased appetite. No fever no chills. February 03: Patient seen earlier by me in the ER. On 3 L nasal cannula. Did eat fairly well. Was still on nitroglycerin drip because of blood pressure. Patient's IV Lasix was discontinued. Will add amlodipine 2.5 mg p.m. dose also. And try to taper off nitroglycerin. Creatinine up to 1.59 February 04: Patient moved to the ICU because of titration of nitroglycerin drip. Amlodipine increased to 5 mg twice daily. Nitroglycerin being tapered down. Eating well. Oxygen down to room air. Worsening of creatinine to 2.35. In view of RENITA. DC Farxiga. Entresto was only discontinued by cardiology. February 05: Patient is taken off nitroglycerin drip. Medications adjusted. Blood pressure is soft and bit on the lower side. Dose of hydralazine cut back. Otherwise patient is feeling better. Worsening renal function. Patient been on 50 cc of saline since last night. Nephrology consulted. February 06: Patient weaned off nitroglycerin drip. Blood pressure medications been adjusted. Getting saline at 50 cc an hour. Creatinine up to 3.60. Nephrology following. Breathing better February 07: Sitting edge of bed. Family visiting. Breathing stable. Creatinine up to 3.87. Potassium 5.9. Nephrology following. Lokelma ordered. Changed to renal diet. Discussed with the patient and daughter. Blood pressure reasonably controlled February 08: Comfortable. Creatinine escalated off. Will give gentle hydration half saline 50 cc an hour overnight. February 09: Comfortable. No new issues. Creatinine 2.98. Getting saline to 50 cc an hour. Will continue for now 24 hours. Discussed with the patient. Active Medications Acetaminophen (Acetaminophen Tab 325 Mg Tab) 650 mg PO Q6HR PRN PRN Reason: Fever and/ or Mild Pain Last Admin: 02/08/25 20:41 Dose: 650 mg Albuterol/Ipratropium (Ipratropium-Albuterol 3 Ml Neb) 3 ml INHALATION RT-QID PRN PRN Reason: Shortness Of Breath Or Wheezing Last Admin: 02/02/25 15:56 Dose: 3 ml Albuterol/Ipratropium (Ipratropium-Albuterol 3 Ml Neb) 3 ml INHALATION RT-QID [facility] Last Admin: 02/09/25 13:05 Dose: 3 ml Aspirin (Aspirin 81 Mg) 81 mg PO DAILY [facility] Last Admin: 02/09/25 08:26 Dose: 81 mg Atorvastatin Calcium (Atorvastatin 40 Mg Tab) 40 mg PO HS [facility] Last Admin: 02/08/25 20:41 Dose: 40 mg Carvedilol (Carvedilol 6.25 Mg Tab) 12.5 mg PO BID-W/MEALS [facility] Cholecalciferol (Cholecalciferol 25 Mcg (1000 Iu) Tablet) 50 mcg PO DAILY [facility] Last Admin: 02/09/25 08:26 Dose: 50 mcg Clopidogrel Bisulfate (Clopidogrel 75 Mg Tab) 75 mg PO DAILY [facility] Last Admin: 02/09/25 08:26 Dose: 75 mg Hydralazine HCl (Hydralazine Hcl 25 Mg Tab) 25 mg PO TID [facility] Last Admin: 02/09/25 08:26 Dose: 25 mg Sodium Chloride (Saline 0.45%) 1,000 mls @ 50 mls/hr IV .Q20H [facility] Last Admin: 02/09/25 08:26 Dose: 50 mls/hr Miscellaneous Information (Magnesium Replacement Protocol 1 Each Misc) 1 each MISCELLANE DAILY PRN; Protocol PRN Reason: Per Protocol Naloxone HCl (Naloxone 0.4 Mg/Ml 1 Ml Vial) 0.2 mg IV Q2M PRN PRN Reason: Opioid Reversal Nicotine (Nicotine 14mg/24hr Patch) 1 patch TRANSDERM DAILY [facility] Last Admin: 02/09/25 08:26 Dose: 1 patch Ondansetron HCl (Ondansetron 4 Mg/2 Ml Vial) 4 mg IVP Q8HR PRN PRN Reason: Nausea And Vomiting Last Admin: 02/06/25 22:43 Dose: 4 mg Sodium Zirconium Cyclosilicate (Sodium Zirconium Cyclosilicate 10 Gm Packet) 10 gm PO BID BOYD Stop: 02/09/25 21:01 Last Admin: 02/09/25 08:26 Dose: 10 gm Temazepam (Temazepam 7.5 Mg Cap) 7.5 mg PO HS PRN PRN Reason: Insomnia Last Admin: 02/08/25 04:02 Dose: 7.5 mg Social history: Lives with daughter. Smoked a pack a day was up to 2 packs a day. Close to 50 years. Now less than half a pack a day Physical examination: VITAL SIGNS: Afebrile, 89, 16, 145 x 73, 98% room air GENERAL: Comfortable EYES: Pupils equal. Conjunctiva lonny l. HEENT: External appearance of nose and ears normal, oral cavity grossly normal. NECK: JVD not raised; masses not palpable. HEART: First and second heart sounds are normal; no edema. LUNGS: Respiratory rate normal decreased breath sound ABDOMEN: Soft, nontender, liver spleen not palpable, no masses palpable. PSYCH: Alert and oriented x3; mood and affect slightly anxious. MUSCULOSKELETAL:No Clubbing/cyanosis;muscles-grossly intact. OA INVESTIGATIONS, reviewed in the clinical context: February 09: Creatinine 2.98 February 08: Creatinine 3.57. BUN 105 potassium 5.4 February 07: Potassium 5.9 BUN 103 creatinine 3.87 February 06: Potassium 4.7 BUN 93 creatinine 3.6 February 05: White count 9.4 hemoglobin 9.4 potassium 4.5 BN 80 creatinine 3.54 February 04: White count 22.7 hemoglobin 8.7 platelets 335 potassium 4 BUN 60 creatinine 2.35 February 03: White count 16.0 hemoglobin 8.4 platelets 290 potassium 3.6 BUN 44 creatinine 1.59 February 02, 2025: White count 9.9 hemoglobin 9.1 platelets 254 sodium 141 potassium 4 BUN 39 creatinine 1.06 TSH 0.744 Chest x-ray film personally reviewed by me-hyperinflation. Some possible basilar infiltrates EKG tracing personally reviewed by me-normal sinus rhythm. T wave changes Previous testing 2D echo limited severely impaired left ventricular systolic function. No evidence of apical thrombus. Assessment and plan: - Acute severe COPD exacerbation in a current smoker: Better DuoNeb 4 times daily. - Acute on chronic hypoxic respiratory failure. Secondary to COPD: Much improved On BiPAP-now down to room air -Coronary artery disease cardiac s stent. Last intervention June 2024 to LAD Aspirin Plavix Lipitor. -Acute on chronic congestive heart failure/ischemic cardiomyopathy with an EF of 20 to 25%: Better Fluid restriction Aldactone Entresto was initially added then discontinued because of renal function Initially IV Lasix.. Now Demadex-currently on hold. -Severe secondary pulmonary hypertension, due to COPD -Chronic nicotine dependence cigarette smoker Nicotine patch - Acute kidney injury. Likely ATN. Patient was started on Aldactone and Entresto. Also became hypotensive. Slowly improving Creatinine is gone up from 1.06- 3.54 Entresto Farxiga Aldactone discontinued.. Nephrology following -Hyperlipidemia Lipitor -Primary osteoarthritis Tylenol as needed -Essential hypertension, now controlled IV nitroglycerin drip-initially Currently amlodipine 5 mg a day. Coreg 6.25 twice daily. Hydralazine 25 mg 3 times daily. -PAD with a prior history of peripheral stent Aspirin. Lipitor. Full code Continue gentle hydration. Repeat creatinine tomorrow. Past Medical History Past Medical History: Heart Failure, COPD, GERD/Reflux, Hyperlipidemia, Hypertension, Myocardial Infarction ([place]), Osteoarthritis (OA), Vascular Disorder Additional Past Medical History / Comment(s): OCCASIONAL SOB., VARICOSE VEINS.,STATES LEGS PAINFUL AT TIMES., constipation, Last Myocardial Infarction Date:: 2014 History of Any Multi-Drug Resistant Organisms: MRSA Date of last positivie culture/infection: 2013 MDRO Source:: under nose Past Surgical History: Heart Catheterization With Stent, Orthopedic Surgery Additional Past Surgical History / Comment(s): LT KNEE RECONSTRUCTIVE SX, CURTIS CATARACTS, CYST REMOVED FROM BEHIND LT EAR., BALLOON ANGIOPLASTY WITH STENT LEFT FEMORAL ARTERY (02/2018), 3 cardiact stents, recent aortogram Past Anesthesia/Blood Transfusion Reactions: No Reported Reaction Date of Last Stent Placement:: unknown Past Psychological History: No Psychological Hx Reported Smoking Status: Current every day smoker Past Alcohol Use History: Daily Past Drug Use History: None Reported
--- NOTE | 2025-02-09 15:05 | P.PN ---
Subjective Progress Note Date: 02/09/25 This is a 69-year-old female with a history of significant ischemic cardiomyopathy CHF, COPD, hypertension, CAD, peripheral arterial disease, hypertension, hyperlipidemia. Patient follows in the office with Dr. Spears. Cardiology service has been consulted for CHF exacerbation and hypertensive emergency. The patient presented to the ER in the morning of 02/02/2025 with complaint of worsening shortness of breath on exertion associated with orthopnea and PND since yesterday. Patient reports that she had flulike symptoms about 2- 3 weeks ago and was on outpatient treatment with doxycycline and steroids. Her blood pressure on arrival was 214/101. Patient was started on IV nitroglycerin infusion. Patient was also put on BiPAP. She was previously admitted to the hospital in July 2024 for TIA and chest pain. At the time of the interview, patient denies chest pain. Currently she is on BiPAP. Patient reports improvement in her shortness of breath. Her heart rate is 71 bpm, respiratory rate is 24, blood pressure is 163/82, saturating 100% on BiPAP. Prior cardiac testing Echocardiogram July 2024 showed LVEF of 25 to 30%. Severely impaired low ventricle systolic function with segmental wall motion abnormality. Cath proximal LAD PCI on 07/18/2024. In the past she had stenting of the mid RCA and mid LAD. Her cardiac medication at home include lisinopril, Aldactone, Lipitor Lopressor, aspirin and Plavix. 02/03/2025: Patient seen and examined at the bedside. No acute events overnight. Patient reports improvement in her shortness of breath. Patient reports no chest pain and swelling of legs has improved as well. WBC 16.0, hemoglobin 8.4, sodium 138, potassium 3.6, BUN 44, creatinine 1.59, HbA1c 5.3, LDL 35, HDL 64, TSH 0.744. 02/04/2025: Patient seen and examined at the bedside. No acute events overnight. Patient reports improvement in her shortness of breath. Current on 2 L nasal cannula. Patient denies any chest pain, lightheadedness, dizziness. Swelling in the legs is improved. Patient continues to be on nitroglycerin drip. She reports mild headaches. WBC 22.7, hemoglobin 8.7, sodium 137, potassium 4.0, BUN 60, creatinine 2.35. 02/05/2025: Patient seen and examined at the bedside. Nitroglycerin drip has been discontinued. Patient has been transferred out of the ICU. Blood pressure is much better. Patient denies chest pain or shortness of breath. Patient is currently on amlodipine, Coreg, hydralazine. Her kidney function continues to worsen. Renal artery duplex ultrasound shows high-grade renal stenosis on the left. Right kidney is atrophic. WBC 19.4, hemoglobin 9.4, sodium 132, potassium 4.6, BUN 80, creatinine 3.54. 02/06/2025 Transferred out of ICU kidney function has been declining. Creatinine is 3.5 yesterday, 3.6 today. Somewhat stabilizing. Apparently after getting antihypertensives her blood pressure dropped. We also obtain renal Doppler which showed severely obstructed left renal artery with reduced bilateral kidney size, suggestive of diminished blood supply to both kidneys. 02/07/2025 Kidney function is still worsening BUN is 103, creatinine is 3.8, 1 L urine output Getting gentle IV hydration Appears euvolemic. Denies any chest pain chest pressure BP 147/61, heart rate 74 Sinus notedly 02/08/2025 BP 157/70, heart rate 94, sinus rhythm on telemetry BUN 105, creatinine 3.57 yesterday was 3.8. Patient is very eager to go home 02/09/2025: Patient seen and examined at the bedside. No acute events overnight. Patient denies shortness of breath or chest pain. Patient reports good urine output. Her blood pressure is stable and the 150s over 60s. Sodium 137, potassium 4.8, BUN 9 9, creatinine 2.98. Kidney function is improving. Physical examination: S1-S2 audible, no significant murmurs audible, minimal bilateral lower extremity edema, no significant JVP Diminished respiratory effort with no significant wheezing or rhonchi Abdominal soft nondistended nontender, Alert oriented no focal neurological deficits Assessment: # Hypertensive emergency on admission, currently resolved # RENITA worsened with antihypertensives # Severe left renal artery stenosis. Small bilateral kidneys # Mild HFpEF exacerbation from hypertensive emergency, currently resolved # COPD # History of CAD status post PCI to LAD in 06/2024, NRC in the past # History of PAD # History of CVA/TIA # Nicotine dependence, current everyday smoker Plan: Continue aspirin, Plavix, Lipitor 40 Coreg increased to 12.5 mg p.o. twice daily Continue with, hydralazine to 25 3 times daily Monitor kidney function. Will continue to medically manage her hypertension. For now patient is not a great candidate for intervention regarding left renal artery stenosis given her kidney function is still not optimized. Nephrology following. Appreciate nephrology recommendations. Objective - Vital Signs Vital signs: Vital Signs Temp 97.6 F 02/09/25 08:00 Pulse 92 02/09/25 13:14 Resp 16 02/09/25 11:49 BP 145/73 02/09/25 11:49 Pulse Ox 98 02/09/25 11:49 FiO2 40 02/03/25 11:57 Intake & Output 02/08/25 02/09/25 02/09/25 18:59 06:59 18:59 Intake Total 448 240 Output Total 1500 500 900 Balance -1052 -500 -660 Weight 55.4 kg Intake: Oral 448 240 Output: Urine 1500 500 900 Other: Voiding Method Toilet Toilet - Labs CBC & Chem 7: 02/05/25 03:36 02/09/25 06:25 Labs: Abnormal Lab Results - Last 24 Hours (Table) 02/09/25 Range/Units 06:25 Carbon Dioxide 20 L (22-30) mmol/L BUN 99 H (7-17) mg/dL Creatinine 2.98 H (0.52-1.04) mg/dL
--- NOTE | 2025-02-09 17:00 | P.PN ---
Subjective Progress Note Date: 02/09/25 On today's evaluation of 02/09/2025, the patient is being seen for a follow-up. This is a 69-year-old female patient with known history of coronary artery disease with previous stenting, previous [place], ischemic cardiomyopathy, hypertension hyperlipidemia peripheral vascular disease and COPD and a chronic smoker. The patient presented with worsening shortness of breath and initially was supported with the BiPAP and his blood pressure at time of admission was quite elevated. He was treated accordingly and his blood pressure was managed and controlled. Echocardiogram from June 2024 showed impaired ejection fraction of 20 to 25% with severe pulmonary hypertension. The patient had a chest x-ray at time of admission on 02/02/2025 this was consistent with COPD and trace bilateral pleural effusion/CHF. This morning, the patient is on room air oxygen with a pulse ox of 95%. Doing well. No specific complaints. He is on half-normal saline at rate of 50 cc an hour. He is maintained on DuoNeb about treatment [id number]. Is also on Coreg 12.5 mg p.o. twice a day, aspirin and Plavix and Lipitor. His blood pressure remains slightly elevated and the patient is being seen by cardiology., Clinically the patient is feeling better. Aldactone and Entresto was initially added and later on discontinued because of renal function. The patient was also taken off the IV Lasix and patient was given Demadex. Subsequently, Demadex was also discontinued due to renal dysfunction. He is on Coreg 12.5 mg p.o. twice a day and hydralazine 25 mg p.o. 3 times daily. Blood work from today shows improvement in renal function. Creatinine is down to 2.9 with a BUN of 99. Sodium is at 137, potassium is at 4.8, chloride is 107 with a bicarb of 20.. Noted the patient presented to us with a normal renal function and the creatinine peaked at 3.8 and currently is down to 2.98. Objective - Vital Signs Vital signs: Vital Signs Temp 97.6 F 02/09/25 08:00 Pulse 96 02/09/25 09:40 Resp 18 02/09/25 08:00 BP 151/65 02/09/25 08:00 Pulse Ox 98 02/09/25 08:00 FiO2 40 02/03/25 11:57 Intake & Output 07/02/09/25 02/09/25 18:59 06:59 18:59 Intake Total 448 240 Output Total 1500 500 900 Balance -1052 -500 -928 Weight 55.4 kg Intake: Oral 448 240 Output: Urine 1500 500 900 Other: Voiding Method Toilet Toilet - Exam GENERAL EXAM: Alert, 69-year-old female, resting in bed, on 2 L nasal cannula, in no apparent distress. HEAD: Normocephalic. EYES: Normal reaction of pupils, equal size. NOSE: Clear with pink turbinates. THROAT: No erythema or exudates. NECK: No masses, no JVD. CHEST: No chest wall deformity. LUNGS: Equal air entry with no crackles, wheeze, rhonchi or dullness. CVS: S1 and S2 normal with no audible murmur, regular rhythm. ABDOMEN: No hepatosplenomegaly, normal bowel sounds, no guarding or rigidity. SPINE: No scoliosis or deformity SKIN: No rashes CENTRAL NERVOUS SYSTEM: No focal deficits, tone is normal in all 4 extremities. EXTREMITIES: There is no peripheral edema. No clubbing, no cyanosis. Peripheral pulses are intact. - Labs CBC & Chem 7: 02/05/25 03:36 02/09/25 06:25 Labs: Abnormal Lab Results - Last 24 Hours (Table) 02/09/25 Range/Units 06:25 Carbon Dioxide 20 L (22-30) mmol/L BUN 99 H (7-17) mg/dL Creatinine 2.98 H (0.52-1.04) mg/dL Assessment and Plan Plan: Acute hypoxic respiratory failure, improved and the patient is currently on room air oxygen. Initially supported with the BiPAP and there has been gradual i mprovement in oxygenation during the course of this current hospitalization. Acute exacerbation of systolic CHF exacerbation, being optimized, impaired LV function with an ejection fraction of 20-25%, consistent with ischemic cardiomyopathy Hypertensive urgency, resolved. Blood pressure remains borderline elevated. Maintained on a combination of Coreg and hydralazine. Off diuretics Renal artery stenosis. Acute kidney injury, creatinine is improving and and the patient is currently off diuretics. COPD, currently in active. Hyperlipidemia. History of coronary disease with previous PCI/stents. History of peripheral vascular disease. History of CVA/TIA. Chronic obstructive pulmonary disease. Current ongoing tobacco dependence, current 1/2 pack/day smoker. Plan: Patient currently on room air oxygen Renal function is improved compared to yesterday Continue Coreg and hydralazine Monitor blood pressure Hold diuretics for now Gentle hydration with half-normal saline rate of 50 cc an hour Repeat blood work in a.m. Overall respiratory status is stable. Will continue to follow. Time with Patient: Greater than 30
[2025-02-09] MEDS: LACTULOSE 20 GM/30 ML CUP PO ONE (17:23)
[2025-02-10] MEDS: CALCIUM CARBONATE 500 MG CHEWABLE PO PRN (03:41)
--- NOTE | 2025-02-10 10:20 | P.PN ---
Subjective Patient is seen in follow-up for acute kidney injury. Renal function improving. Receiving gentle IV hydration. Denies chest pain or shortness of breath. Admits to good urine output. Blood pressure stable this morning. Vital signs are stable. General: No acute distress. HEENT: Head exam is unremarkable. LUNGS: No audible rhonchi or wheezes. HEART: Rate and Rhythm are regular. ABDOMEN: Nontender. EXTREMITITES: No edema. Objective - Vital Signs Vital signs: Vital Signs Temp 97.7 F 02/10/25 08:00 Pulse 104 H 02/10/25 08:46 Resp 17 02/10/25 08:00 BP 145/62 02/10/25 08:00 Pulse Ox 97 02/10/25 08:00 FiO2 40 02/03/25 11:57 Intake & Output 02/09/25 02/10/25 02/10/25 18:59 06:59 18:59 Intake Total 780 480 Output Total 1800 500 400 Balance -1020 -500 80 Weight 59.5 kg Intake: Oral 780 480 Output: Urine 1800 500 400 Other: Voiding Method Toilet Toilet Toilet - Labs CBC & Chem 7: 02/05/25 03:36 02/09/25 06:25 Assessment and Plan Plan: Assessment: 1. Acute kidney injury secondary to hemodynamic ATN. Renal function improving. No proteinuria on UA. 2. Left renal artery stenosis. Further imaging/angiogram once renal function improves. Unclear if stenting will be of significant benefit in view of a trophic kidneys. 3. Acute on chronic systolic CHF ejection fraction of 45-50 %. 4. Benign hypertension. 5. Hyperkalemia secondary to acute kidney injury. Improved. Plan: Increase dose of hydralazine to 50 mg. Avoid nephrotoxins. Continue to monitor renal function and urine output.
--- NOTE | 2025-02-10 11:11 | XR ---
EXAMINATION TYPE: XR chest 1V DATE OF EXAM: 02/10/2025 11:05 AM COMPARISON: Chest radiographs from 02/02/2025. CLINICAL INDICATION: Female, 69 years old with history of CHF, FU; [facility] TECHNIQUE: XR chest 1V Frontal view of the chest. FINDINGS: Lungs/Pleura: No evidence of focal consolidation or pneumothorax. Blunting of the costophrenic angles is present. Pulmonary vascularity: Pulmonary vascular congestion. Heart/mediastinum: Cardiomediastinal silhouette is enlarged. Atherosclerotic calcifications are seen in the aorta. Musculoskeletal: No acute osseous pathology. IMPRESSION: Cardiomegaly, pulmonary vascular congestion and bilateral pleural effusions. Correlate with BNP for c ongestive heart failure. [facility], , 02/10/2025 11:08 AM
[2025-02-10 11:17] LABS: African American GFR (CKD) 22 (>60 ml/min/1.73 sqM); Anion Gap 7 mmol/L; Blood Urea Nitrogen 88 mg/dL (7-17); Calcium 9.4 mg/dL (8.4-10.2); Carbon Dioxide 22 mmol/L (22-30); Chloride 109 mmol/L (98-107); Glucose 91 mg/dL (74-99); Non-African American GFR(CKD) 19 (>60 ml/min/1.73 sqM); Potassium 4.6 mmol/L (3.5-5.1); Sodium 138 mmol/L (137-145)
--- NOTE | 2025-02-10 13:19 | P.PN ---
Subjective Progress Note Date: 02/10/25 This is a 69-year-old female with a history of significant ischemic cardiomyopathy CHF, COPD, hypertension, CAD, peripheral arterial disease, hypertension, hyperlipidemia. Patient follows in the office with Dr. Spears. Cardiology service has been consulted for CHF exacerbation and hypertensive emergency. The patient presented to the ER in the morning of 02/02/2025 with complaint of worsening shortness of breath on exertion associated with orthopnea and PND since yesterday. Patient reports that she had flulike symptoms about 2- 3 weeks ago and was on outpatient treatment with doxycycline and steroids. Her blood pressure on arrival was 214/101. Patient was started on IV nitroglycerin infusion. Patient was also put on BiPAP. She was previously admitted to the hospital in July 2024 for TIA and chest pain. At the time of the interview, patient denies chest pain. Currently she is on BiPAP. Patient reports improvement in her shortness of breath. Her heart rate is 71 bpm, respiratory rate is 24, blood pressure is 163/82, saturating 100% on BiPAP. Prior cardiac testing Echocardiogram July 2024 showed LVEF of 25 to 30%. Severely impaired low ventricle systolic function with segmental wall motion abnormality. Cath proximal LAD PCI on 07/18/2024. In the past she had stenting of the mid RCA and mid LAD. Her cardiac medication at home include lisinopril, Aldactone, Lipitor Lopressor, aspirin and Plavix. 02/03/2025: Patient seen and examined at the bedside. No acute events overnight. Patient reports improvement in her shortness of breath. Patient reports no chest pain and swelling of legs has improved as well. WBC 16.0, hemoglobin 8.4, sodium 138, potassium 3.6, BUN 44, creatinine 1.59, HbA1c 5.3, LDL 35, HDL 64, TSH 0.744. 02/04/2025: Patient seen and examined at the bedside. No acute events overnight. Patient reports improvement in her shortness of breath. Current on 2 L nasal cannula. Patient denies any chest pain, lightheadedness, dizziness. Swelling in the legs is improved. Patient continues to be on nitroglycerin drip. She reports mild headaches. WBC 22.7, hemoglobin 8.7, sodium 137, potassium 4.0, BUN 60, creatinine 2.35. 02/05/2025: Patient seen and examined at the bedside. Nitroglycerin drip has been discontinued. Patient has been transferred out of the ICU. Blood pressure is much better. Patient denies chest pain or shortness of breath. Patient is currently on amlodipine, Coreg, hydralazine. Her kidney function continues to worsen. Renal artery duplex ultrasound shows high-grade renal stenosis on the left. Right kidney is atrophic. WBC 19.4, hemoglobin 9.4, sodium 132, potassium 4.6, BUN 80, creatinine 3.54. 02/06/2025 Transferred out of ICU kidney function has been declining. Creatinine is 3.5 yesterday, 3.6 today. Somewhat stabilizing. Apparently after getting antihypertensives her blood pressure dropped. We also obtain renal Doppler which showed severely obstructed left renal artery with reduced bilateral kidney size, suggestive of diminished blood supply to both kidneys. 02/07/2025 Kidney function is still worsening BUN is 103, creatinine is 3.8, 1 L urine output Getting gentle IV hydration Appears euvolemic. Denies any chest pain chest pressure BP 147/61, heart rate 74 Sinus notedly 02/08/2025 BP 157/70, heart rate 94, sinus rhythm on telemetry BUN 105, creatinine 3.57 yesterday was 3.8. Patient is very eager to go home 02/09/2025: Patient seen and examined at the bedside. No acute events overnight. Patient denies shortness of breath or chest pain. Patient reports good urine output. Her blood pressure is stable and the 150s over 60s. Sodium 137, potassium 4.8, BUN 9 9, creatinine 2.98. Kidney function is improving. 02/10/2025: Patient seen and examined at the bedside. No acute events overnight. Patient denies shortness of breath or chest pain. Patient reports good urine output. K idney function is improving. Sodium 138, potassium 4.6, BUN 88, creatinine 2.45. Physical examination: S1-S2 audible, no significant murmurs audible, minimal bilateral lower extremity edema, no significant JVP Diminished respiratory effort with no significant wheezing or rhonchi Abdominal soft nondistended nontender, Alert oriented no focal neurological deficits Assessment: # Hypertensive emergency on admission, currently resolved # RENITA worsened with antihypertensives # Severe left renal artery stenosis. Small bilateral kidneys # Mild HFpEF exacerbation from hypertensive emergency, currently resolved # COPD # History of CAD status post PCI to LAD in 06/2024, NRC in the past # History of PAD # History of CVA/TIA # Nicotine dependence, current everyday smoker Plan: Continue aspirin, Plavix, Lipitor 40 Coreg 12.5 mg p.o. twice daily hydralazine increased to 50 3 times daily Monitor kidney function. Will continue to medically manage her hypertension. For now patient is not a great candidate for intervention regarding left renal artery stenosis given her kidney function is still not optimized. Nephrology following. Appreciate nephrology recommendations. Objective - Vital Signs Vital signs: Vital Signs Temp 97.7 F 02/10/25 08:00 Pulse 100 02/10/25 12:12 Resp 17 02/10/25 08:00 BP 145/62 02/10/25 08:00 Pulse Ox 97 02/10/25 08:00 FiO2 40 02/03/25 11:57 Intake & Output 02/09/25 02/10/25 02/10/25 18:59 06:59 18:59 Intake Total 780 480 Output Total 1800 500 400 Balance -1020 -500 80 Weight 59.5 kg Intake: Oral 780 480 Output: Urine 1800 500 400 Other: Voiding Method Toilet Toilet Toilet - Labs CBC & Chem 7: 02/05/25 03:36 02/10/25 10:35 Labs: Abnormal Lab Results - Last 24 Hours (Table) 02/10/25 Range/Units 10:35 Chloride 109 H (98-107) mmol/L BUN 88 H (7-17) mg/dL Creatinine 2.45 H (0.52-1.04) mg/dL
--- NOTE | 2025-02-10 13:57 | P.PN ---
Subjective Progress Note Date: 02/10/25 On today's evaluation of 02/09/2025, the patient is being seen for a follow-up. This is a 69-year-old female patient with known history of coronary artery disease with previous stenting, previous OR, ischemic cardiomyopathy, hypertension hyperlipidemia peripheral vascular disease and COPD and a chronic smoker. The patient presented with worsening shortness of breath and initially was supported with the BiPAP and his blood pressure at time of admission was quite elevated. He was treated accordingly and his blood pressure was managed and controlled. Echocardiogram from June 2024 showed impaired ejection fraction of 20 to 25% with severe pulmonary hypertension. The patient had a chest x-ray at time of admission on 02/02/2025 this was consistent with COPD and trace bilateral pleural effusion/CHF. This morning, the patient is on room air oxygen with a pulse ox of 95%. Doing well. No specific complaints. He is on half-normal saline at rate of 50 cc an hour. He is maintained on DuoNeb about treatment [id number]. Is also on Coreg 12.5 mg p.o. twice a day, aspirin and Plavix and Lipitor. His blood pressure remains slightly elevated and the patient is being seen by cardiology., Clinically the patient is feeling better. Aldactone and Entresto was initially added and later on discontinued because of renal function. The patient was also taken off the IV Lasix and patient was given Demadex. Subsequently, Demadex was also discontinued due to renal dysfunction. He is on Coreg 12.5 mg p.o. twice a day and hydralazine 25 mg p.o. 3 times daily. Blood work from today shows improvement in renal function. Creatinine is down to 2.9 with a BUN of 99. Sodium is at 137, potassium is at 4.8, chloride is 107 with a bicarb of 20.. Noted the patient presented to us with a normal renal function and the creatinine peaked at 3.8 and currently is down to 2.98. On 02/10/2025, the patient is being seen for a follow-up. The patient is currently on room air oxygen. The patient is calm and comfortable. The patient is currently off diuretics as the patient has sustained acute kidney injury on top of chronic kidney failure. The patient remains on half-normal citrate at 50 cc an hour and follow-up blood work from today shows a BUN of 18 and a creatinine of 2.4. The serum bicarb is at 22 and a sodium level is at 138. Meanwhile, the patient remains on a combination of aspirin and Plavix. The patient is also on Coreg 12.5 mg p.o. twice a day and hydralazine 25 mg p.o. 3 t imes daily. As stated, the patient is on room air oxygen. No other significant events overnight. A repeat chest x-ray was done on 02/10/2025 and the patient continues to have cardiomegaly and pulm vessel congestion and bilateral pleural effusion consistent with CHF. No major edema lower extremities. The patient has advanced cardiomyopathy with impaired LV function with an ejection fraction of 20 to 25%. The patient is also known to have COPD. The patient is known to have coronary artery disease with previous coronary stenting, hypertension hyperlipidemia peripheral vascular disease. Objective - Vital Signs Vital signs: Vital Signs Temp 97.7 F 02/10/25 08:00 Pulse 104 H 02/10/25 08:46 Resp 17 02/10/25 08:00 BP 145/62 02/10/25 08:00 Pulse Ox 97 02/10/25 08:00 FiO2 40 02/03/25 11:57 Intake & Output 02/09/25 02/10/25 02/10/25 18:59 06:59 18:59 Intake Total 780 480 Output Total 1800 500 400 Balance -1020 -500 80 Weight 59.5 kg Intake: Oral 780 480 Output: Urine 1800 500 400 Other: Voiding Method Toilet Toilet Toilet - Exam GENERAL EXAM: Alert, 69-year-old female, resting in bed, on 2 L nasal cannula, in no apparent distress. HEAD: Normocephalic. EYES: Normal reaction of pupils, equal size. NOSE: Clear with pink turbinates. THROAT: No erythema or exudates. NECK: No masses, no JVD. CHEST: No chest wall deformity. LUNGS: Equal air entry with no crackles, wheeze, rhonchi or dullness. CVS: S1 and S2 normal with no audible murmur, regular rhythm. ABDOMEN: No hepatosplenomegaly, normal bowel sounds, no guarding or rigidity. SPINE: No scoliosis or deformity SKIN: No rashes CENTRAL NERVOUS SYSTEM: No focal deficits, tone is normal in all 4 extremities. EXTREMITIES: There is no peripheral edema. No clubbing, no cyanosis. Peripheral pulses are intact. - Labs CBC & Chem 7: 02/05/25 03:36 02/10/25 10:35 Assessment and Plan Plan: Acute hypoxic respiratory failure, improved and the patient is currently on room air oxygen. Initially supported with the BiPAP and there has been gradual impro vement in oxygenation during the course of this current hospitalization. The patient is currently on room air oxygen. Acute exacerbation of systolic CHF exacerbation, being optimized, impaired LV fu nction with an ejection fraction of 20-25%, consistent with ischemic cardiomyopathy Hypertensive urgency, resolved. Blood pressure remains borderline elevated. Maintained on a combination of Coreg and hydralazine. Off diuretics Renal artery stenosis. Acute kidney injury, creatinine is improving and and the patient is currently off diuretics. The patient's renal function is improving and the patient is currently on half-normal citrate at 50 cc an hour. COPD, currently in active. Hyperlipidemia. History of coronary disease with previous PCI/stents. History of peripheral vascular disease. History of CVA/TIA. Chronic obstructive pulmonary disease. Current ongoing tobacco dependence, current 1/2 pack/day smoker. Plan: Patient currently on room air oxygen Renal function i continues to improve Continue Coreg and hydralazine Monitor blood pressure Hold diuretics for now Gentle hydration with half-normal saline rate of 50 cc an hour Repeat blood work in a.m. Chest x-ray is showing small bilateral pleural effusion and cardiomegaly consistent with CHF Overall respiratory status is stable. Will continue to follow.
--- NOTE | 2025-02-10 17:53 | P.PN ---
Progress Note - Text Progress Note Date: 02/10/25 Chief Complaint: Short of breath This is a pleasant [id number] with Dr. Combs. Chronic medical conditions include CAD with stent, CHF EF of 2025%, severe secondary pulmonary hypertension of COPD, advanced COPD, hyperlipidemia, osteoarthritis, essential hypertension, PAD with history of peripheral stent. Patient presented worsening short of breath. Was brought via EMS to the ER. Patient's breathing is getting worse over last few days. Patient continues smo ke about less than half a pack a day. Daughter at the bedside. Lives with daughter. She was placed on nonrebreather by the EMS. Overnight patient's placed on a BiPAP. Patient had flulike symptoms 2 to 3 weeks ago was treated outpatient with doxycycline and steroids. Her blood pressure running high over 200 systolic hence we will start on IV nitroglycerin infusion. This morning patient seen in the ER. On a BiPAP. Slight cough. Decreased appetite. No fever no chills. February 03: Patient seen earlier by me in the ER. On 3 L nasal cannula. Did eat fairly well. Was still on nitroglycerin drip because of blood pressure. Patient's IV Lasix was discontinued. Will add amlodipine 2.5 mg p.m. dose also. And try to taper off nitroglycerin. Creatinine up to 1.59 February 04: Patient moved to the ICU because of titration of nitroglycerin drip. Amlodipine increased to 5 mg twice daily. Nitroglycerin being tapered down. Eating well. Oxygen down to room air. Worsening of creatinine to 2.35. In view of RENITA. DC Farxiga. Entresto was only discontinued by cardiology. February 05: Patient is taken off nitroglycerin drip. Medications adjusted. Blood pressure is soft and bit on the lower side. Dose of hydralazine cut back. Otherwise patient is feeling better. Worsening renal function. Patient been on 50 cc of saline since last night. Nephrology consulted. February 06: Patient weaned off nitroglycerin drip. Blood pressure medications been adjusted. Getting saline at 50 cc an hour. Creatinine up to 3.60. Nephrology following. Breathing better February 07: Sitting edge of bed. Family visiting. Breathing stable. Creatinine up to 3.87. Potassium 5.9. Nephrology following. Lokelma ordered. Changed to renal diet. Discussed with the patient and daughter. Blood pressure reasonably controlled February 08: Comfortable. Creatinine escalated off. Will give gentle hydration half saline 50 cc an hour overnight. February 09: Comfortable. No new issues. Creatinine 2.98. Getting saline to 50 cc an hour. Will continue for now 24 hours. Discussed with the patient. February 10: Oral intake fair. Getting saline at 50 cc an hour. Creatinine 2.45. Not sleeping well. Add Ambien at night scheduled. DC Restoril. Blood pressure running on the higher side. Hydralazine adjusted. Active Medications Acetaminophen (Acetaminophen Tab 325 Mg Tab) 650 mg PO Q6HR PRN PRN Reason: Fever and/ or Mild Pain Last Admin: 02/10/25 16:54 Dose: 650 mg Albuterol/Ipratropium (Ipratropium-Albuterol 3 Ml Neb) 3 ml INHALATION RT-QID PRN PRN Reason: Shortness Of Breath Or Wheezing Last Admin: 02/02/25 15:56 Dose: 3 ml Albuterol/Ipratropium (Ipratropium-Albuterol 3 Ml Neb) 3 ml INHALATION RT-QID [facility] Last Admin: 02/10/25 16:05 Dose: 3 ml Aspirin (Aspirin 81 Mg) 81 mg PO DAILY [facility] Last Admin: 02/10/25 08:08 Dose: 81 mg Atorvastatin Calcium (Atorvastatin 40 Mg Tab) 40 mg PO HS [facility] Last Admin: 02/09/25 21:39 Dose: 40 mg Calcium Carbonate/Glycine (Calcium Carbonate 500 Mg Chewable) 500 mg PO QID PRN PRN Reason: Heartburn Last Admin: 02/10/25 16:54 Dose: 500 mg Carvedilol (Carvedilol 6.25 Mg Tab) 12.5 mg PO BID-W/MEALS [facility] Last Admin: 02/10/25 16:52 Dose: 12.5 mg Cholecalciferol (Cholecalciferol 25 Mcg (1000 Iu) Tablet) 50 mcg PO DAILY [facility] Last Admin: 02/10/25 08:08 Dose: 50 mcg Clopidogrel Bisulfate (Clopidogrel 75 Mg Tab) 75 mg PO DAILY [facility] Last Admin: 02/10/25 08:08 Dose: 75 mg Hydralazine HCl (Hydralazine Hcl 50 Mg Tab) 50 mg PO TID [facility] Last Admin: 02/10/25 15:02 Dose: 50 mg Sodium Chloride (Saline 0.45%) 1,000 mls @ 50 mls/hr IV .Q20H [facility] Last Admin: 02/10/25 03:40 Dose: 50 mls/hr Miscellaneous Information (Magnesium Replacement Protocol 1 Each Misc) 1 each MISCELLANE DAILY PRN; Protocol PRN Reason: Per Protocol Naloxone HCl (Naloxone 0.4 Mg/Ml 1 Ml Vial) 0.2 mg IV Q2M PRN PRN Reason: Opioid Reversal Nicotine (Nicotine 14mg/24hr Patch) 1 patch TRANSDERM DAILY [facility] Last Admin: 02/10/25 08:08 Dose: 1 patch Ondansetron HCl (Ondansetron 4 Mg/2 Ml Vial) 4 mg IVP Q8HR PRN PRN Reason: Nausea And Vomiting Last Admin: 02/10/25 01:27 Dose: 4 mg Zolpidem Tartrate (Zolpidem 5 Mg Tab) 5 mg PO [facility] Social history: Lives with daughter. Smoked a pack a day was up to 2 packs a day. Close to 50 years. Now less than half a pack a day Physical examination: VITAL SIGNS: 97.7, 100, 16, 160 x 60, 99% room GENERAL: Comfortable EYES: Pupils equal. Conjunctiva lonny l. HEENT: External appearance of nose and ears normal, oral cavity grossly normal. NECK: JVD not raised; masses not palpable. HEART: First and second heart sounds are normal; no edema. LUNGS: Respiratory rate normal decreased breath sound ABDOMEN: Soft, nontender, liver spleen not palpable, no masses palpable. PSYCH: Alert and oriented x3; mood and affect slightly anxious. MUSCULOSKELETAL:No Clubbing/cyanosis;muscles-grossly intact. OA INVESTIGATIONS, reviewed in the clinical context: February 10: Creatinine 2.45 February 07: Potassium 5.9 BUN 103 creatinine 3.87 February 02, 2025: White count 9.9 hemoglobin 9.1 platelets 254 sodium 141 potassium 4 BUN 39 creatinine 1.06 TSH 0.744 Chest x-ray film personally reviewed by me-hyperinflation. Some possible basilar infiltrates EKG tracing personally reviewed by me-normal sinus rhythm. T wave changes Previous testing 2D echo limited severely impaired left ventricular systolic function. No evidence of apical thrombus. Assessment and plan: - Acute severe COPD exacerbation in a current smoker: Better DuoNeb 4 times daily. - Acute on chronic hypoxic respiratory failure. Secondary to COPD: Much improved On BiPAP-now down to room air -Coronary artery disease cardiac s stent. Last intervention June 2024 to LAD Aspirin Plavix Lipitor. -Acute on chronic congestive heart failure/ischemic cardiomyopathy with an EF of 20 to 25%: Better Fluid restriction Aldactone Entresto was initially added then discontinued because of renal function Initially IV Lasix.. Now Demadex-currently on hold. -Severe secondary pulmonary hypertension, due to COPD -Chronic nicotine dependence cigarette smoker Nicotine patch - Acute kidney injury. Likely ATN. Patient was started on Aldactone and Entresto. Also became hypotensive. Improving Creatinine is gone up from 1.06-peaked at 3.87. Coming down Entresto Farxiga Aldactone discontinued.. Nephrology following -Hyperlipidemia Lipitor -Primary osteoarthritis Tylenol as needed -Essential hypertension, uncontrolled IV nitroglycerin drip-initially Currently amlodipine 5 mg a day. Coreg 6.25 twice daily. Hydralazine increased today to 50 mg 3 times daily. -PAD with a prior history of peripheral stent Aspirin. Lipitor. - Insomnia Add Ambien 5 mg nightly Full code Continue gentle hydration. Hydralazine increased. Discussed with patient. Past Medical History Past Medical History: Heart Failure, COPD, GERD/Reflux, Hyperlipidemia, Hypertension, Myocardial Infarction (NE), Osteoarthritis (OA), Vascular Disorder Additional Past Medical History / Comment(s): OCCASIONAL SOB., VARICOSE VEINS.,STATES LEGS PAINFUL AT TIMES., constipation, Last Myocardial Infarction Date:: 2014 History of Any Multi-Drug Resistant Organisms: MRSA Date of last positivie culture/infection: 2013 MDRO Source:: under nose Past Surgical History: Heart Catheterization With Stent, Orthopedic Surgery Additional Past Surgical History / Comment(s): LT KNEE RECONSTRUCTIVE SX, CURTIS CATARACTS, CYST REMOVED FROM BEHIND LT EAR., BALLOON ANGIOPLASTY WITH STENT LEFT FEMORAL ARTERY (02/2018), 3 cardiact stents, recent aortogram Past Anesthesia/Blood Transfusion Reactions: No Reported Reaction Date of Last Stent Placement:: unknown Past Psychological History: No Psychological Hx Reported Smoking Status: Current every day smoker Past Alcohol Use History: Daily Past Drug Use History: None Reported
[2025-02-10] MEDS: ZOLPIDEM 5 MG TAB PO SCH (20:12)
[2025-02-11 08:01] LABS: African American GFR (CKD) 30 (>60 ml/min/1.73 sqM); Anion Gap 7 mmol/L; Blood Urea Nitrogen 75 mg/dL (7-17); Calcium 9.1 mg/dL (8.4-10.2); Carbon Dioxide 22 mmol/L (22-30); Chloride 110 mmol/L (98-107); Glucose 99 mg/dL (74-99); Magnesium 1.7 mg/dL (1.6-2.3); Non-African American GFR(CKD) 26 (>60 ml/min/1.73 sqM); Potassium 4.4 mmol/L (3.5-5.1); Sodium 139 mmol/L (137-145)
--- NOTE | 2025-02-11 09:58 | P.PN ---
Subjective Patient is seen in follow-up for acute kidney injury. Renal function improving. Receiving gentle IV hydration. Denies chest pain or shortness of breath. Admits to good urine output. Blood pressure stable this morning. Vital signs are stable. General: No acute distress. HEENT: Head exam is unremarkable. LUNGS: No audible rhonchi or wheezes. HEART: Rate and Rhythm are regular. ABDOMEN: Nontender. EXTREMITITES: No edema. Objective - Vital Signs Vital signs: Vital Signs Temp 98.5 F 02/11/25 08:00 Pulse 80 02/11/25 09:01 Resp 16 02/11/25 08:00 BP 133/70 02/11/25 08:00 Pulse Ox 94 L 02/11/25 08:00 FiO2 40 02/03/25 11:57 Intake & Output 02/10/25 02/11/25 02/11/25 18:59 06:59 18:59 Intake Total 1138 Output Total 1050 1000 Balance 88 -1000 Weight 55.4 kg Intake: Oral 1138 Output: Urine 1050 1000 Other: Voiding Method Toilet Toilet # Voids 1 # Bowel Movements 1 - Labs CBC & Chem 7: 02/05/25 03:36 02/11/25 07:01 Labs: Abnormal Lab Results - Last 24 Hours (Table) 02/10/25 02/11/25 Range/Units 10:35 07:01 Chloride 109 H 110 H (98-107) mmol/L BUN 88 H 75 H (7-17) mg/dL Creatinine 2.45 H 1.91 H (0.52-1.04) mg/dL Assessment and Plan Plan: Assessment: 1. Acute kidney injury secondary to hemodynamic ATN. Renal function improving. No proteinuria on UA. Baseline creatinine near 1. 2. Left renal artery stenosis. Further imaging/angiogram once renal function improves. Unclear if stenting will be of significant benefit in view of atrophic kidneys. 3. Acute on chronic systolic CHF ejection fraction of 45-50 %. 4. Benign hypertension. Stable. 5. Hyperkalemia secondary to acute kidney injury. Improved. Plan: Avoid nephrotoxins. Continue to monitor renal function and urine output.
--- NOTE | 2025-02-11 14:20 | P.PN ---
Subjective Progress Note Date: 02/11/25 On today's evaluation of 02/09/2025, the patient is being seen for a follow-up. This is a 69-year-old female patient with known history of coronary artery disease with previous stenting, previous ID, ischemic cardiomyopathy, hypertension hyperlipidemia peripheral vascular disease and COPD and a chronic smoker. The patient presented with worsening shortness of breath and initially was supported with the BiPAP and his blood pressure at time of admission was quite elevated. He was treated accordingly and his blood pressure was managed and controlled. Echocardiogram from June 2024 showed impaired ejection fraction of 20 to 25% with severe pulmonary hypertension. The patient had a chest x-ray at time of admission on 02/02/2025 this was consistent with COPD and trace bilateral pleural effusion/CHF. This morning, the patient is on room air oxygen with a pulse ox of 95%. Doing well. No specific complaints. He is on half-normal saline at rate of 50 cc an hour. He is maintained on DuoNeb about treatment [id number]. Is also on Coreg 12.5 mg p.o. twice a day, aspirin and Plavix and Lipitor. His blood pressure remains slightly elevated and the patient is being seen by cardiology., Clinically the patient is feeling better. Aldactone and Entresto was initially added and later on discontinued because of renal function. The patient was also taken off the IV Lasix and patient was given Demadex. Subsequently, Demadex was also discontinued due to renal dysfunction. He is on Coreg 12.5 mg p.o. twice a day and hydralazine 25 mg p.o. 3 times daily. Blood work from today shows improvement in renal function. Creatinine is down to 2.9 with a BUN of 99. Sodium is at 137, potassium is at 4.8, chloride is 107 with a bicarb of 20.. Noted the patient presented to us with a normal renal function and the creatinine peaked at 3.8 and currently is down to 2.98. On 02/10/2025, the patient is being seen for a follow-up. The patient is currently on room air oxygen. The patient is calm and comfortable. The patient is currently off diuretics as the patient has sustained acute kidney injury on top of chronic kidney failure. The patient remains on half-normal citrate at 50 cc an hour and follow-up blood work from today shows a BUN of 18 and a creatinine of 2.4. The serum bicarb is at 22 and a sodium level is at 138. Meanwhile, the patient remains on a combination of aspirin and Plavix. The patient is also on Coreg 12.5 mg p.o. twice a day and hydralazine 25 mg p.o. 3 t imes daily. As stated, the patient is on room air oxygen. No other significant events overnight. A repeat chest x-ray was done on 02/10/2025 and the patient continues to have cardiomegaly and pulm vessel congestion and bilateral pleural effusion consistent with CHF. No major edema lower extremities. The patient has advanced cardiomyopathy with impaired LV function with an ejection fraction of 20 to 25%. The patient is also known to have COPD. The patient is known to have coronary artery disease with previous coronary stenting, hypertension hyperlipidemia peripheral vascular disease. On 02/11/2025, the patient is being seen for a follow-up. The patient is doing well. No specific complaints. She is being hydrated gently with half-normal saline rate of 50 cc an hour. She is on room air oxygen with a pulse ox of 97%. Renal function continues to improve and the creatinine is down to 1.9 with a BUN of 75. Sodium is 139. Rest of the medications are essentially unchanged. Noted the patient is currently off diuretics. No significant respiratory distress. No chest pain. No cough or sputum production. No significant edema in lower extremities. Objective - Vital Signs Vital signs: Vital Signs Temp 98.5 F 02/11/25 08:00 Pulse 80 02/11/25 09:01 Resp 16 02/11/25 08:00 BP 133/70 02/11/25 08:00 Pulse Ox 94 L 02/11/25 08:00 FiO2 40 02/03/25 11:57 Intake & Output 02/10/25 02/11/25 02/11/25 18:59 06:59 18:59 Intake Total 1138 Output Total 1050 1000 Balance 88 -1000 Weight 55.4 kg Intake: Oral 1138 Output: Urine 1050 1000 Other: Voiding Method Toilet Toilet # Voids 1 # Bowel Movements 1 - Labs CBC & Chem 7: 02/05/25 03:36 02/11/25 07:01 Labs: Abnormal Lab Results - Last 24 Hours (Table) 02/10/25 02/11/25 Range/Units 10:35 07:01 Chloride 109 H 110 H (98-107) mmol/L BUN 88 H 75 H (7-17) mg/dL Creatinine 2.45 H 1.91 H (0.52-1.04) mg/dL Assessment and Plan Plan: Acute hypoxic respiratory failure, improved and the patient is currently on room air oxygen. Initially supported with the BiPAP and there has been gradual improvement in oxygenation during the course of this current hospitalization. The patient is currently on room air oxygen. Acute exacerbation of systolic CHF exacerbation, being optimized, impaired LV function with an ejection fraction of 20-25%, consistent with ischemic cardiomyopathy Hypertensive urgency, resolved. Blood pressure remains borderline elevated. Maintained on a combination of Coreg and hydralazine. Off diuretics Renal artery stenosis. Acute kidney injury, creatinine is improving and and the patient is currently off diuretics. The patient's renal function is improving and the patient is currently on half-normal citrate at 50 cc an hour. COPD, currently in active. Hyperlipidemia. History of coronary disease with previous PCI/stents. History of peripheral vascular disease. History of CVA/TIA. Chronic obstructive pulmonary disease. Current ongoing tobacco dependence, current 1/2 pack/day smoker. Plan: Patient currently on room air oxygen, no change in respiratory status over the past 48 hours. Renal function continues to improve and the patient's creatinine is improving on a daily basis. Continue Coreg and hydralazine Monitor blood pressure Hold diuretics for now Gentle hydration with half-normal saline rate of 50 cc an hour Repeat blood work in a.m. Chest x-ray is showing small bilateral pleural effusion and cardiomegaly consistent with CHF Overall respiratory status is stable. Will continue to follow.
--- NOTE | 2025-02-11 14:36 | P.PN ---
Progress Note - Text Progress Note Date: 02/11/25 Chief Complaint: Short of breath This is a pleasant [id number] with Dr. Cmobs. Chronic medical conditions include CAD with stent, CHF EF of 2025%, severe secondary pulmonary hypertension of COPD, advanced COPD, hyperlipidemia, osteoarthritis, essential hypertension, PAD with history of peripheral stent. Patient presented worsening short of breath. Was brought via EMS to the ER. Patient's breathing is getting worse over last few days. Patient continues smo ke about less than half a pack a day. Daughter at the bedside. Lives with daughter. She was placed on nonrebreather by the EMS. Overnight patient's placed on a BiPAP. Patient had flulike symptoms 2 to 3 weeks ago was treated outpatient with doxycycline and steroids. Her blood pressure running high over 200 systolic hence we will start on IV nitroglycerin infusion. This morning patient seen in the ER. On a BiPAP. Slight cough. Decreased appetite. No fever no chills. February 03: Patient seen earlier by me in the ER. On 3 L nasal cannula. Did eat fairly well. Was still on nitroglycerin drip because of blood pressure. Patient's IV Lasix was discontinued. Will add amlodipine 2.5 mg p.m. dose also. And try to taper off nitroglycerin. Creatinine up to 1.59 February 04: Patient moved to the ICU because of titration of nitroglycerin drip. Amlodipine increased to 5 mg twice daily. Nitroglycerin being tapered down. Eating well. Oxygen down to room air. Worsening of creatinine to 2.35. In view of RENITA. DC Farxiga. Entresto was only discontinued by cardiology. February 05: Patient is taken off nitroglycerin drip. Medications adjusted. Blood pressure is soft and bit on the lower side. Dose of hydralazine cut back. Otherwise patient is feeling better. Worsening renal function. Patient been on 50 cc of saline since last night. Nephrology consulted. February 06: Patient weaned off nitroglycerin drip. Blood pressure medications been adjusted. Getting saline at 50 cc an hour. Creatinine up to 3.60. Nephrology following. Breathing better February 07: Sitting edge of bed. Family visiting. Breathing stable. Creatinine up to 3.87. Potassium 5.9. Nephrology following. Lokelma ordered. Changed to renal diet. Discussed with the patient and daughter. Blood pressure reasonably controlled February 08: Comfortable. Creatinine escalated off. Will give gentle hydration half saline 50 cc an hour overnight. February 09: Comfortable. No new issues. Creatinine 2.98. Getting saline to 50 cc an hour. Will continue for now 24 hours. Discussed with the patient. February 10: Oral intake fair. Getting saline at 50 cc an hour. Creatinine 2.45. Not sleeping well. Add Ambien at night scheduled. DC Restoril. Blood pressure running on the higher side. Hydralazine adjusted. February 11: Did not sleep well-increased dose of Ambien to 7.5 mg.. Discussed. Told her to be up in a chair and walk in the hallway. And also do sleep hygiene. Creatinine 1.91. Dose of Coreg further adjusted. Active Medications Acetaminophen (Acetaminophen Tab 325 Mg Tab) 650 mg PO Q6HR PRN PRN Reason: Fever and/ or Mild Pain Last Admin: 02/11/25 06:18 Dose: 650 mg Albuterol/Ipratropium (Ipratropium-Albuterol 3 Ml Neb) 3 ml INHALATION RT-QID PRN PRN Reason: Shortness Of Breath Or Wheezing Last Admin: 02/02/25 15:56 Dose: 3 ml Albuterol/Ipratropium (Ipratropium-Albuterol 3 Ml Neb) 3 ml INHALATION RT-QID [facility] Last Admin: 02/11/25 11:56 Dose: 3 ml Aspirin (Aspirin 81 Mg) 81 mg PO DAILY [facility] Last Admin: 02/11/25 09:24 Dose: 81 mg Atorvastatin Calcium (Atorvastatin 40 Mg Tab) 40 mg PO HS [facility] Last Admin: 02/10/25 20:12 Dose: 40 mg Calcium Carbonate/Glycine (Calcium Carbonate 500 Mg Chewable) 500 mg PO QID PRN PRN Reason: Heartburn Last Admin: 02/11/25 06:18 Dose: 500 mg Carvedilol (Carvedilol 12.5 Mg Tab) 25 mg PO BID-W/MEALS [facility] Cholecalciferol (Cholecalciferol 25 Mcg (1000 Iu) Tablet) 50 mcg PO DAILY [facility] Last Admin: 02/11/25 09:24 Dose: 50 mcg Clopidogrel Bisulfate (Clopidogrel 75 Mg Tab) 75 mg PO DAILY [facility] Last Admin: 02/11/25 09:24 Dose: 75 mg Hydralazine HCl (Hydralazine Hcl 50 Mg Tab) 50 mg PO TID [facility] Last Admin: 02/11/25 09:24 Dose: 50 mg Sodium Chloride (Saline 0.45%) 1,000 mls @ 50 mls/hr IV .Q20H [facility] Last Admin: 02/11/25 00:54 Dose: 50 mls/hr Miscellaneous Information (Magnesium Replacement Protocol 1 Each Misc) 1 each MISCELLANE DAILY PRN; Protocol PRN Reason: Per Protocol Naloxone HCl (Naloxone 0.4 Mg/Ml 1 Ml Vial) 0.2 mg IV Q2M PRN PRN Reason: Opioid Reversal Nicotine (Nicotine 14mg/24hr Patch) 1 patch TRANSDERM DAILY [facility] Last Admin: 02/11/25 09:24 Dose: 1 patch Ondansetron HCl (Ondansetron 4 Mg/2 Ml Vial) 4 mg IVP Q8HR PRN PRN Reason: Nausea And Vomiting Last Admin: 02/11/25 04:16 Dose: 4 mg Zolpidem Tartrate (Zolpidem 5 Mg Tab) 5 mg PO HS [facility] Last Admin: 02/10/25 20:12 Dose: 5 mg Social history: Lives with daughter. Smoked a pack a day was up to 2 packs a day. Close to 50 years. Now less than half a pack a day Physical examination: VITAL SIGNS: 98.4, 92, 20, 170 x 62, 97% room air GENERAL: Resting in bed EYES: Pupils equal. Conjunctiva lonny l. HEENT: External appearance of nose and ears normal, oral cavity grossly normal. NECK: JVD not raised; masses not palpable. HEART: First and second heart sounds are normal; no edema. LUNGS: Respiratory rate normal decreased breath sound ABDOMEN: Soft, nontender, liver spleen not palpable, no masses palpable. PSYCH: Alert and oriented x3; mood and affect slightly anxious. MUSCULOSKELETAL:No Clubbing/cyanosis;muscles-grossly intact. OA INVESTIGATIONS, reviewed in the clinical context: February 11: Potassium 4.4 BUN 35 creatinine 1.9 February 10: Creatinine 2.45 February 07: Potassium 5.9 BUN 103 creatinine 3.87 February 02, 2025: White count 9.9 hemoglobin 9.1 platelets 254 sodium 141 potassium 4 BUN 39 creatinine 1.06 TSH 0.744 Chest x-ray film personally reviewed by me-hyperinflation. Some possible basilar infiltrates EKG tracing personally reviewed by me-normal sinus rhythm. T wave changes Previous testing 2D echo limited severely impaired left ventricular systolic function. No evidence of apical thrombus. Assessment and plan: - Acute severe COPD exacerbation in a current smoker: Better DuoNeb 4 times daily. - Acute on chronic hypoxic respiratory failure. Secondary to COPD: Much improved On BiPAP-now down to room air -Coronary artery disease cardiac s stent. Last intervention June 2024 to LAD Aspirin Plavix Lipitor. -Acute on chronic congestive heart failure/ischemic cardiomyopathy with an EF of 20 to 25%: Better Fluid restriction Aldactone Entresto was initially added then discontinued because of renal function Initially IV Lasix.. Now Demadex-currently on hold. -Severe secondary pulmonary hypertension, due to COPD -Chronic nicotine dependence cigarette smoker Nicotine patch - Acute kidney injury. Likely ATN. Patient was started on Aldactone and Entresto. Also became hypotensive. Improving Creatinine is gone up from 1.06-peaked at 3.87. Coming down Entresto Farxiga Aldactone discontinued.. Nephrology following -Hyperlipidemia Lipitor -Primary osteoarthritis Tylenol as needed -Essential hypertension, uncontrolled IV nitroglycerin drip-initially Currently amlodipine 5 mg a day. Increase Coreg 25 mg twice daily. Hydralazine increased today to 50 mg 3 times daily. -PAD with a prior history of peripheral stent Aspirin. Lipitor. - Insomnia Ambien 7.5 mg nightly Full code Continue gentle hydration. Coreg increased. Increase Ambien to 7.5 nightly Past Medical History Past Medical History: Heart Failure, COPD, GERD/Reflux, Hyperlipidemia, Hypertension, Myocardial Infarction ([place]), Osteoarthritis (OA), Vascular Disorder Additional Past Medical History / Comment(s): OCCASIONAL SOB., VARICOSE VEINS.,STATES LEGS PAINFUL AT TIMES., constipation, Last Myocardial Infarction Date:: 2014 History of Any Multi-Drug Resistant Organisms: MRSA Date of last positivie culture/infection: 2013 MDRO Source:: under nose Past Surgical History: Heart Catheterization With Stent, Orthopedic Surgery Additional Past Surgical History / Comment(s): LT KNEE RECONSTRUCTIVE SX, CURTIS CATARACTS, CYST REMOVED FROM BEHIND LT EAR., BALLOON ANGIOPLASTY WITH STENT LEFT FEMORAL ARTERY (02/2018), 3 cardiact stents, recent aortogram Past Anesthesia/Blood Transfusion Reactions: No Reported Reaction Date of Last Stent Placement:: unknown Past Psychological History: No Psychological Hx Reported Smoking Status: Current every day smoker Past Alcohol Use History: Daily Past Drug Use History: None Reported
--- NOTE | 2025-02-11 19:19 | P.PN ---
Subjective Progress Note Date: 02/11/25 This is a 69-year-old female with a history of significant ischemic cardiomyopathy CHF, COPD, hypertension, CAD, peripheral arterial disease, hypertension, hyperlipidemia. Patient follows in the office with Dr. Spears. Cardiology service has been consulted for CHF exacerbation and hypertensive emergency. The patient presented to the ER in the morning of 02/02/2025 with complaint of worsening shortness of breath on exertion associated with orthopnea and PND since yesterday. Patient reports that she had flulike symptoms about 2- 3 weeks ago and was on outpatient treatment with doxycycline and steroids. Her blood pressure on arrival was 214/101. Patient was started on IV nitroglycerin infusion. Patient was also put on BiPAP. She was previously admitted to the hospital in July 2024 for TIA and chest pain. At the time of the interview, patient denies chest pain. Currently she is on BiPAP. Patient reports improvement in her shortness of breath. Her heart rate is 71 bpm, respiratory rate is 24, blood pressure is 163/82, saturating 100% on BiPAP. Prior cardiac testing Echocardiogram July 2024 showed LVEF of 25 to 30%. Severely impaired low ventricle systolic function with segmental wall motion abnormality. Cath proximal LAD PCI on 07/18/2024. In the past she had stenting of the mid RCA and mid LAD. Her cardiac medication at home include lisinopril, Aldactone, Lipitor Lopressor, aspirin and Plavix. 02/03/2025: Patient seen and examined at the bedside. No acute events overnight. Patient reports improvement in her shortness of breath. Patient reports no chest pain and swelling of legs has improved as well. WBC 16.0, hemoglobin 8.4, sodium 138, potassium 3.6, BUN 44, creatinine 1.59, HbA1c 5.3, LDL 35, HDL 64, TSH 0.744. 02/04/2025: Patient seen and examined at the bedside. No acute events overnight. Patient reports improvement in her shortness of breath. Current on 2 L nasal cannula. Patient denies any chest pain, lightheadedness, dizziness. Swelling in the legs is improved. Patient continues to be on nitroglycerin drip. She reports mild headaches. WBC 22.7, hemoglobin 8.7, sodium 137, potassium 4.0, BUN 60, creatinine 2.35. 02/05/2025: Patient seen and examined at the bedside. Nitroglycerin drip has been discontinued. Patient has been transferred out of the ICU. Blood pressure is much better. Patient denies chest pain or shortness of breath. Patient is currently on amlodipine, Coreg, hydralazine. Her kidney function continues to worsen. Renal artery duplex ultrasound shows high-grade renal stenosis on the left. Right kidney is atrophic. WBC 19.4, hemoglobin 9.4, sodium 132, potassium 4.6, BUN 80, creatinine 3.54. 02/06/2025 Transferred out of ICU kidney function has been declining. Creatinine is 3.5 yesterday, 3.6 today. Somewhat stabilizing. Apparently after getting antihypertensives her blood pressure dropped. We also obtain renal Doppler which showed severely obstructed left renal artery with reduced bilateral kidney size, suggestive of diminished blood supply to both kidneys. 02/07/2025 Kidney function is still worsening BUN is 103, creatinine is 3.8, 1 L urine output Getting gentle IV hydration Appears euvolemic. Denies any chest pain chest pressure BP 147/61, heart rate 74 Sinus notedly 02/08/2025 BP 157/70, heart rate 94, sinus rhythm on telemetry BUN 105, creatinine 3.57 yesterday was 3.8. Patient is very eager to go home 02/09/2025: Patient seen and examined at the bedside. No acute events overnight. Patient denies shortness of breath or chest pain. Patient reports good urine output. Her blood pressure is stable and the 150s over 60s. Sodium 137, potassium 4.8, BUN 9 9, creatinine 2.98. Kidney function is improving. 02/10/2025: Patient seen and examined at the bedside. No acute events overnight. Patient denies shortness of breath or chest pain. Patient reports good urine output. Kidney function is improving. Sodium 138, potassium 4.6, BUN 88, creatinine 2.45. 02/12/2025: Patient seen and examined at the bedside. No acute events overnight. Patient denies chest pain shortness of breath. Continues to have good urine output. Renal function is improving. BUN 35, creatinine 1.91, magnesium 1.7 Physical examination: S1-S2 audible, no significant murmurs audible, minimal bilateral lower extremity edema, no significant JVP Diminished respiratory effort with no significant wheezing or rhonchi Abdominal soft nondistended nontender, Alert oriented no focal neurological deficits Assessment: # Hypertensive emergency on admission, currently resolved # RENITA worsened with antihypertensives # Severe left renal artery stenosis. Small bilateral kidneys # Mild HFpEF exacerbation from hypertensive emergency, currently resolved # COPD # History of CAD status post PCI to LAD in 06/2024, NRC in the past # History of PAD # History of CVA/TIA # Nicotine dependence, current everyday smoker Plan: Continue aspirin, Plavix, Lipitor 40 Increase Coreg to 25 mg twice daily Continue hydralazine 50 3 times daily Monitor kidney function. Will continue to medically manage her hypertension. For now patient is not a great candidate for intervention regarding left renal artery stenosis given her kidney function is still not optimized. Nephrology following. Appreciate nephrology recommendations. Objective - Vital Signs Vital signs: Vital Signs Temp 98.4 F 02/11/25 12:00 Pulse 80 02/11/25 16:39 Resp 20 02/11/25 12:00 BP 149/71 02/11/25 16:00 Pulse Ox 99 02/11/25 16:00 FiO2 40 02/03/25 11:57 Intake & Output 02/11/25 02/11/25 02/12/25 06:59 18:59 06:59 Intake Total 920 Output Total 1000 Balance -1000 920 Weight 55.4 kg Intake: Oral 920 Output: Urine 1000 Other: Voiding Method Toilet Toilet # Voids 3 # Bowel Movements 1 - Labs CBC & Chem 7: 02/05/25 03:36 02/11/25 07:01 Labs: Abnormal Lab Results - Last 24 Hours (Table) 02/11/25 Range/Units 07:01 Chloride 110 H (98-107) mmol/L BUN 75 H (7-17) mg/dL Creatinine 1.91 H (0.52-1.04) mg/dL
[2025-02-11] MEDS: ZOLPIDEM 5 MG TAB PO SCH (20:30)
[2025-02-12 07:54] LABS: African American GFR (CKD) 29 (>60 ml/min/1.73 sqM); Anion Gap 9 mmol/L; Blood Urea Nitrogen 72 mg/dL (7-17); Calcium 9.6 mg/dL (8.4-10.2); Carbon Dioxide 20 mmol/L (22-30); Chloride 109 mmol/L (98-107); Glucose 102 mg/dL (74-99); Magnesium 1.7 mg/dL (1.6-2.3); Non-African American GFR(CKD) 25 (>60 ml/min/1.73 sqM); Potassium 4.9 mmol/L (3.5-5.1); Sodium 138 mmol/L (137-145)
--- NOTE | 2025-02-12 10:09 | P.PN ---
Subjective Progress Note Date: 02/12/25 This is a 69-year-old female with a history of significant ischemic cardiomyopathy CHF, COPD, hypertension, CAD, peripheral arterial disease, hypertension, hyperlipidemia. Patient follows in the office with Dr. Spears. Cardiology service has been consulted for CHF exacerbation and hypertensive emergency. The patient presented to the ER in the morning of 02/02/2025 with complaint of worsening shortness of breath on exertion associated with orthopnea and PND since yesterday. Patient reports that she had flulike symptoms about 2- 3 weeks ago and was on outpatient treatment with doxycycline and steroids. Her blood pressure on arrival was 214/101. Patient was started on IV nitroglycerin infusion. Patient was also put on BiPAP. She was previously admitted to the hospital in July 2024 for TIA and chest pain. At the time of the interview, patient denies chest pain. Currently she is on BiPAP. Patient reports improvement in her shortness of breath. Her heart rate is 71 bpm, respiratory rate is 24, blood pressure is 163/82, saturating 100% on BiPAP. Prior cardiac testing Echocardiogram July 2024 showed LVEF of 25 to 30%. Severely impaired low ventricle systolic function with segmental wall motion abnormality. Cath proximal LAD PCI on 07/18/2024. In the past she had stenting of the mid RCA and mid LAD. Her cardiac medication at home include lisinopril, Aldactone, Lipitor Lopressor, aspirin and Plavix. 02/03/2025: Patient seen and examined at the bedside. No acute events overnight. Patient reports improvement in her shortness of breath. Patient reports no chest pain and swelling of legs has improved as well. WBC 16.0, hemoglobin 8.4, sodium 138, potassium 3.6, BUN 44, creatinine 1.59, HbA1c 5.3, LDL 35, HDL 64, TSH 0.744. 02/04/2025: Patient seen and examined at the bedside. No acute events overnight. Patient reports improvement in her shortness of breath. Current on 2 L nasal cannula. Patient denies any chest pain, lightheadedness, dizziness. Swelling in the legs is improved. Patient continues to be on nitroglycerin drip. She reports mild headaches. WBC 22.7, hemoglobin 8.7, sodium 137, potassium 4.0, BUN 60, creatinine 2.35. 02/05/2025: Patient seen and examined at the bedside. Nitroglycerin drip has been discontinued. Patient has been transferred out of the ICU. Blood pressure is much better. Patient denies chest pain or shortness of breath. Patient is currently on amlodipine, Coreg, hydralazine. Her kidney function continues to worsen. Renal artery duplex ultrasound shows high-grade renal stenosis on the left. Right kidney is atrophic. WBC 19.4, hemoglobin 9.4, sodium 132, potassium 4.6, BUN 80, creatinine 3.54. 02/06/2025 Transferred out of ICU kidney function has been declining. Creatinine is 3.5 yesterday, 3.6 today. Somewhat stabilizing. Apparently after getting antihypertensives her blood pressure dropped. We also obtain renal Doppler which showed severely obstructed left renal artery with reduced bilateral kidney size, suggestive of diminished blood supply to both kidneys. 02/07/2025 Kidney function is still worsening BUN is 103, creatinine is 3.8, 1 L urine output Getting gentle IV hydration Appears euvolemic. Denies any chest pain chest pressure BP 147/61, heart rate 74 Sinus notedly 02/08/2025 BP 157/70, heart rate 94, sinus rhythm on telemetry BUN 105, creatinine 3.57 yesterday was 3.8. Patient is very eager to go home 02/09/2025: Patient seen and examined at the bedside. No acute events overnight. Patient denies shortness of breath or chest pain. Patient reports good urine output. Her blood pressure is stable and the 150s over 60s. Sodium 137, potassium 4.8, BUN 9 9, creatinine 2.98. Kidney function is improving. 02/10/2025: Patient seen and examined at the bedside. No acute events overnight. Patient denies shortness of breath or chest pain. Patient reports good urine output. K idney function is improving. Sodium 138, potassium 4.6, BUN 88, creatinine 2.45. 02/11/2025: Patient seen and examined at the bedside. No acute events overnight. Patient denies chest pain shortness of breath. Continues to have good urine output. Renal function is improving. BUN 35, creatinine 1.91, magnesium 1.7 02/12/2025: Patient seen and examined at the bedside. Patient reports no acute events overnight. Denies chest pain, shortness of breath. Reports good urine output. Renal function is stable today. Sodium 138, potassium 4.9, BUN 38, creatinine 1.98 Physical examination: S1-S2 audible, no significant murmurs audible, minimal bilateral lower extremity edema, no significant JVP Bilateral wheezing with no rales or crackles and no use of accessory muscles. Abdominal soft nondistended nontender, Alert oriented no focal neurological deficits Assessment: # Hypertensive emergency on admission, currently resolved # RENITA worsened with antihypertensives, improving # Severe left renal artery stenosis. Small bilateral kidneys # Mild HFpEF exacerbation from hypertensive emergency, currently resolved # COPD # History of CAD status post PCI to LAD in 06/2024, NRC in the past # History of PAD # History of CVA/TIA # Nicotine dependence, current everyday smoker Plan: Continue aspirin, Plavix, Lipitor 40 Continue Coreg 25 mg twice daily Continue hydralazine 50 3 times daily Add isosorbide dinitrate 10 mg 3 times daily Monitor kidney function. Will continue to medically manage her hypertension. For now patient is not a great candidate for intervention regarding left renal a rtery stenosis given her kidney function is still not optimized. Nephrology following. Appreciate nephrology recommendations. Dictation was produced using [employer] dictation software. Please excuse any grammatical, word or spelling errors. Alvino Baires MD PGY 2 Objective - Vital Signs Vital signs: Vital Signs Temp 98.1 F 02/12/25 08:00 Pulse 80 02/12/25 09:08 Resp 20 02/12/25 08:00 BP 150/70 02/12/25 08:00 Pulse Ox 99 02/12/25 09:01 FiO2 40 02/03/25 11:57 Intake & Output 02/11/25 02/12/25 02/12/25 18:59 06:59 18:59 Intake Total 920 Balance 920 Weight 56.7 kg Intake: Oral 920 Other: Voiding Method Toilet Toilet # Voids 3 1 # Bowel Movements 1 - Labs CBC & Chem 7: 02/05/25 03:36 02/12/25 06:30 Labs: Abnormal Lab Results - Last 24 Hours (Table) 02/12/25 Range/Units 06:30 Chloride 109 H (98-107) mmol/L Carbon Dioxide 20 L (22-30) mmol/L BUN 72 H (7-17) mg/dL Creatinine 1.98 H (0.52-1.04) mg/dL Glucose 102 H (74-99) mg/dL
--- NOTE | 2025-02-12 10:55 | P.PN ---
Subjective Patient is seen in follow-up for acute kidney injury. Renal function stable. Receiving gentle IV hydration. Denies chest pain or shortness of breath. Admits to good urine output. Wants to go home. Vital signs are stable. General: No acute distress. HEENT: Head exam is unremarkable. LUNGS: No audible rhonchi or wheezes. HEART: Rate and Rhythm are regular. ABDOMEN: Nontender. EXTREMITITES: Trace edema. Objective - Vital Signs Vital signs: Vital Signs Temp 98.1 F 02/12/25 08:00 Pulse 80 02/12/25 09:08 Resp 20 02/12/25 08:00 BP 150/70 02/12/25 08:00 Pulse Ox 99 02/12/25 09:01 FiO2 40 02/03/25 11:57 Intake & Output 02/11/25 02/12/25 02/12/25 18:59 06:59 18:59 Intake Total 920 Balance 920 Weight 56.7 kg Intake: Oral 920 Other: Voiding Method Toilet Toilet # Voids 3 1 # Bowel Movements 1 - Labs CBC & Chem 7: 02/05/25 03:36 02/12/25 06:30 Labs: Abnormal Lab Results - Last 24 Hours (Table) 02/12/25 Range/Units 06:30 Chloride 109 H (98-107) mmol/L Carbon Dioxide 20 L (22-30) mmol/L BUN 72 H (7-17) mg/dL Creatinine 1.98 H (0.52-1.04) mg/dL Glucose 102 H (74-99) mg/dL Assessment and Plan Plan: Assessment: 1. Acute kidney injury secondary to hemodynamic ATN. Renal function improved. No proteinuria on UA. Baseline creatinine near 1. 2. Left renal artery stenosis. Further imaging/angiogram once renal function improves. Unclear if stenting will be of significant benefit in view of atrophic kidneys. 3. Acute on chronic systolic CHF ejection fraction of 45-50 %. 4. Benign hypertension. Stable. 5. Hyperkalemia secondary to acute kidney injury. Improved. Plan: Avoid nephrotoxins. Continue to monitor renal function and urine output. Follow-up outpatient 1 to 2 weeks postdischarge. Hep-Lock IV fluids. Add amlodipine 5 mg once daily.
[2025-02-12] MEDS: IOPAMIDOL CONTRAST (ORAL USE) VIAL PO PRN (11:59)
--- NOTE | 2025-02-12 13:41 | CT ---
EXAMINATION TYPE: CT abdomen pelvis wo con DATE OF EXAM: 02/12/2025 COMPARISON: 06/06/2020 CLINICAL INDICATION: Female, 69 years old with history of abdominal pain; PHH, Abdominal pain TECHNIQUE: CT scan of the abdomen and pelvis is performed without oral or IV contrast. CT DLP: [address] CTDI: mGy Automated exposure control for dose reduction was used. FINDINGS: Within the limitations of a non-contrast study, the following observations are made. There is a small right pleural effusion.. Gallbladder is normal and there is no gallstone, wall thickening, pericholecystic fluid or distention . There is no biliary ductal dilatation. There is no organomegaly of the liver, pancreas, spleen or adrenal glands. There are no renal calcifications or hydronephrosis. There is marked right renal atrophy and right pe rinephric stranding. There are left renal vascular calcifications. The caliber of the abdominal aorta is normal and there is no retroperitoneal adenopathy or hemorrhage . The bowel loops are normal in caliber is no evidence of obstruction. No inflammatory changes are iden tified in the mesentery and there is no free intraperitoneal air or fluid. There is no pelvic mass, free fluid, abscess or adenopathy. There is mild diverticulosis of the colon without CT evidence of diverticulitis. The osseous structures and soft tissues are unremarkable. IMPRESSION: 1. Small right pleural effusion. 2. Marked right renal atrophy. 3. Mild diverticulosis without acute diverticulitis. [facility], , 02/12/2025 1:39 PM
[2025-02-12] MEDS: amLODIPine 5 MG TAB PO SCH (15:30)
[2025-02-12] MEDS: methylPREDNISolone SOD SUCCI 40 MG/ML 1 ML VIAL IV SCH (16:18)
[2025-02-12] MEDS: ISOSORBIDE DINITRATE 10 MG TAB PO SCH (16:19)
[2025-02-12] MEDS: MAG HYDROX/AL HYDROX/SIMETH 30 ML CUP PO PRN (16:25)
--- NOTE | 2025-02-12 17:55 | XR ---
EXAMINATION TYPE: XR chest 1V DATE OF EXAM: 02/12/2025 5:45 PM COMPARISON: Chest radiographs from 02/10/2025 TECHNIQUE: XR chest 1V Frontal and lateral views of the chest. CLINICAL INDICATION:Female, 69 years old with history of shortness of breath; FINDINGS: Lungs/Pleura: No evidence of focal consolidation or pneumothorax. Blunting of the costophrenic angles is present. Hyperinflation with chronic interstitial prominence. Heart/mediastinum: Cardiomediastinal silhouette is prominent in size. Atherosclerotic calcifications are seen in the aorta end of the arterial structures. Musculoskeletal: No acute osseous pathology. IMPRESSION: Trace bilateral pleural effusions with chronic interstitial prominence and background COPD. Prominenc e of the heart. Superimposed pulmonary vascular congestion is possible. Correlate for CHF exacerbatio n. [facility], , 02/12/2025 5:53 PM
[2025-02-12] MEDS: FUROSEMIDE 10 MG/ML 10 ML VIAL IV STA (18:37)
[2025-02-12] MEDS: methylPREDNISolone SOD SUCCI 125 MG/2 ML VIAL IV SCH (18:38)
[2025-02-12] MEDS: FAMOTIDINE 20 MG/2 ML VIAL IV STA (18:38)
--- NOTE | 2025-02-12 20:11 | P.PN ---
Progress Note - Text Progress Note Date: 02/12/25 Chief Complaint: Short of breath This is a pleasant [id number]-rrucmyt with Dr. Combs. Chronic medical conditions include CAD with stent, CHF EF of 2025%, severe secondary pulmonary hypertension of COPD, advanced COPD, hyperlipidemia, osteoarthritis, essential hypertension, PAD with history of peripheral stent. Patient presented worsening short of breath. Was brought via EMS to the ER. Patient's breathing is getting worse over last few days. Patient continues smo ke about less than half a pack a day. Daughter at the bedside. Lives with daughter. She was placed on nonrebreather by the EMS. Overnight patient's placed on a BiPAP. Patient had flulike symptoms 2 to 3 weeks ago was treated outpatient with doxycycline and steroids. Her blood pressure running high over 200 systolic hence we will start on IV nitroglycerin infusion. This morning patient seen in the ER. On a BiPAP. Slight cough. Decreased appetite. No fever no chills. February 03: Patient seen earlier by me in the ER. On 3 L nasal cannula. Did eat fairly well. Was still on nitroglycerin drip because of blood pressure. Patient's IV Lasix was discontinued. Will add amlodipine 2.5 mg p.m. dose also. And try to taper off nitroglycerin. Creatinine up to 1.59 February 04: Patient moved to the ICU because of titration of nitroglycerin drip. Amlodipine increased to 5 mg twice daily. Nitroglycerin being tapered down. Eating well. Oxygen down to room air. Worsening of creatinine to 2.35. In view of RENITA. DC Farxiga. Entresto was only discontinued by cardiology. February 05: Patient is taken off nitroglycerin drip. Medications adjusted. Blood pressure is soft and bit on the lower side. Dose of hydralazine cut back. Otherwise patient is feeling better. Worsening renal function. Patient been on 50 cc of saline since last night. Nephrology consulted. February 06: Patient weaned off nitroglycerin drip. Blood pressure medications been adjusted. Getting saline at 50 cc an hour. Creatinine up to 3.60. Nephrology following. Breathing better February 07: Sitting edge of bed. Family visiting. Breathing stable. Creatinine up to 3.87. Potassium 5.9. Nephrology following. Lokelma ordered. Changed to renal diet. Discussed with the patient and daughter. Blood pressure reasonably controlled February 08: Comfortable. Creatinine escalated off. Will give gentle hydration half saline 50 cc an hour overnight. February 09: Comfortable. No new issues. Creatinine 2.98. Getting saline to 50 cc an hour. Will continue for now 24 hours. Discussed with the patient. February 10: Oral intake fair. Getting saline at 50 cc an hour. Creatinine 2.45. Not sleeping well. Add Ambien at night scheduled. DC Restoril. Blood pressure running on the higher side. Hydralazine adjusted. February 11: Did not sleep well-increased dose of Ambien to 7.5 mg.. Discussed. Told her to be up in a chair and walk in the hallway. And also do sleep hygiene. Creatinine 1.91. Dose of Coreg further adjusted. February 12: Patient was seen this morning. Was a bit tired. He was stable. He is complaining of some abdominal discomfort. Has had bowel movements. CT scan was ordered by pulmonary. Did not show any major finding. Patient then became short of breath wheezing. DuoNeb IV Solu-Medrol nebulized Pulmicort was ordered. Pulmonary was informed. Also given a dose of IV Lasix. Discharge was held. Active Medications Acetaminophen (Acetaminophen Tab 325 Mg Tab) 650 mg PO Q6HR PRN PRN Reason: Fever and/ or Mild Pain Last Admin: 02/12/25 02:24 Dose: 650 mg Al Hydroxide/Mg Hydroxide (Mag Hydrox/Al Hydrox/Simeth 30 Ml Cup) 30 ml PO Q4HR PRN PRN Reason: GI Upset Last Admin: 02/12/25 16:25 Dose: 30 ml Albuterol/Ipratropium (Ipratropium-Albuterol 3 Ml Neb) 3 ml INHALATION RT-QID PRN PRN Reason: Shortness Of Breath Or Wheezing Last Admin: 02/02/25 15:56 Dose: 3 ml Albuterol/Ipratropium (Ipratropium-Albuterol 3 Ml Neb) 3 ml INHALATION RT-Q4H [facility] Amlodipine Besylate (Amlodipine 5 Mg Tab) 5 mg PO DAILY [facility] Last Admin: 02/12/25 15:30 Dose: 5 mg Aspirin (Aspirin 81 Mg) 81 mg PO DAILY [facility] Last Admin: 02/12/25 08:30 Dose: 81 mg Atorvastatin Calcium (Atorvastatin 40 Mg Tab) 40 mg PO HS [facility] Last Admin: 02/12/25 20:05 Dose: 40 mg Budesonide (Budesonide 1 Mg/2 Ml Nebu) 1 mg INHALATION RT-BID [facility] Calcium Carbonate/Glycine (Calcium Carbonate 500 Mg Chewable) 500 mg PO QID PRN PRN Reason: Heartburn Last Admin: 02/12/25 02:24 Dose: 500 mg Carvedilol (Carvedilol 12.5 Mg Tab) 25 mg PO BID-W/MEALS [facility] Last Admin: 02/12/25 17:05 Dose: 25 mg Cholecalciferol (Cholecalciferol 25 Mcg (1000 Iu) Tablet) 50 mcg PO DAILY [facility] Last Admin: 02/12/25 08:30 Dose: 50 mcg Clopidogrel Bisulfate (Clopidogrel 75 Mg Tab) 75 mg PO DAILY [facility] Last Admin: 02/12/25 08:30 Dose: 75 mg Hydralazine HCl (Hydralazine Hcl 50 Mg Tab) 50 mg PO TID [facility] Last Admin: 02/12/25 20:05 Dose: Not Given Isosorbide Dinitrate (Isosorbide Dinitrate 10 Mg Tab) 10 mg PO 0800,1300,1800 [facility] Last Admin: 02/12/25 16:19 Dose: 10 mg Methylprednisolone Sodium Succinate (Methylprednisolone Sod Succi 125 Mg/2 Ml Vial) 60 mg IV Q6HR [facility] Stop: 02/13/25 12:01 Last Admin: 02/12/25 18:38 Dose: 60 mg Miscellaneous Information (Magnesium Replacement Protocol 1 Each Misc) 1 each MISCELLANE DAILY PRN; Protocol PRN Reason: Per Protocol Naloxone HCl (Naloxone 0.4 Mg/Ml 1 Ml Vial) 0.2 mg IV Q2M PRN PRN Reason: Opioid Reversal Nicotine (Nicotine 14mg/24hr Patch) 1 patch TRANSDERM DAILY [facility] Last Admin: 02/12/25 08:29 Dose: 1 patch Ondansetron HCl (Ondansetron 4 Mg/2 Ml Vial) 4 mg IVP Q8HR PRN PRN Reason: Nausea And Vomiting Last Admin: 02/11/25 04:16 Dose: 4 mg Zolpidem Tartrate (Zolpidem 5 Mg Tab) 7.5 mg PO HS [facility] Last Admin: 02/12/25 20:05 Dose: 7.5 mg Social history: Lives with daughter. Smoked a pack a day was up to 2 packs a day. Close to 50 years. Now less than half a pack a day Physical examination: VITAL SIGNS: 98.2, 111, 32, 92% on 2 L. GENERAL: In bed, short of breath EYES: Pupils equal. Conjunctiva lonny l. HEENT: External appearance of nose and ears normal, oral cavity grossly normal. NECK: JVD not raised; masses not palpable. HEART: First and second heart sounds are normal; no edema. LUNGS: Respiratory rate increased, some accessory muscle working, not able to fully speak in full sentences. Diminished breath sounds wheezing ABDOMEN: Soft, nontender, liver spleen not palpable, no masses palpable. PSYCH: Alert and oriented x3; mood and affect slightly anxious. MUSCULOSKELETAL:No Clubbing/cyanosis;muscles-grossly intact. OA INVESTIGATIONS, reviewed in the clinical context: February 12: White count 4.9 BUN 72 creatinine 1.98 February 11: Potassium 4.4 BUN 35 creatinine 1.9 February 10: Creatinine 2.45 February 07: Potassium 5.9 BUN 103 creatinine 3.87 February 02, 2025: White count 9.9 hemoglobin 9.1 platelets 254 sodium 141 potassium 4 BUN 39 creatinine 1.06 TSH 0.744 Chest x-ray film personally reviewed by me-hyperinflation. Some possible basilar infiltrates EKG tracing personally reviewed by me-normal sinus rhythm. T wave changes Previous testing 2D echo limited severely impaired left ventricular systolic function. No evidence of apical thrombus. Assessment and plan: - Acute severe COPD exacerbation in a current smoker: Acute worsening today DuoNeb, nebulized Pulmicort, IV Solu-Medrol reinitiated - Acute on chronic hypoxic respiratory failure. Secondary to COPD: Worsening today Placed on oxygen again today -Coronary artery disease cardiac s stent. Last intervention June 2024 to LAD Aspirin Plavix Lipitor. -Acute on chronic congestive heart failure/ischemic cardiomyopathy with an EF of 20 to 25%: Better Fluid restriction Aldactone Entresto was initially added then discontinued because of renal function Initially IV Lasix.. Now Demadex-currently on hold. -Severe secondary pulmonary hypertension, due to COPD -Chronic nicotine dependence cigarette smoker Nicotine patch - Acute kidney injury. Likely ATN. Patient was started on Aldactone and Entresto. Also became hypotensive. Improving Creatinine is gone up from 1.06-peaked at 3.87. Coming down Entresto Farxiga Aldactone discontinued.. Nephrology following -Hyperlipidemia Lipitor -Primary osteoarthritis Tylenol as needed -Essential hypertension, uncontrolled IV nitroglycerin drip-initially Currently amlodipine 5 mg a day. Increase Coreg 25 mg twice daily. Hydralazine increased today to 50 mg 3 times daily. -PAD with a prior history of peripheral stent Aspirin. Lipitor. - Insomnia Ambien 7.5 mg nightly Full code DuoNeb, nebulized Pulmicort, IV Solu-Medrol, 1 dose of IV Lasix given. Past Medical History Past Medical History: Heart Failure, COPD, GERD/Reflux, Hyperlipidemia, Hypertension, Myocardial Infarction ([place]), Osteoarthritis (OA), Vascular Disorder Additional Past Medical History / Comment(s): OCCASIONAL SOB., VARICOSE VEINS.,STATES LEGS PAINFUL AT TIMES., constipation, Last Myocardial Infarction Date:: 2014 History of Any Multi-Drug Resistant Organisms: MRSA Date of last positivie culture/infection: 2013 MDRO Source:: under nose Past Surgical History: Heart Catheterization With Stent, Orthopedic Surgery Additional Past Surgical History / Comment(s): LT KNEE RECONSTRUCTIVE SX, CURTIS CATARACTS, CYST REMOVED FROM BEHIND LT EAR., BALLOON ANGIOPLASTY WITH STENT LEFT FEMORAL ARTERY (02/2018), 3 cardiact stents, recent aortogram Past Anesthesia/Blood Transfusion Reactions: No Reported Reaction Date of Last Stent Placement:: unknown Past Psychological History: No Psychological Hx Reported Smoking Status: Current every day smoker Past Alcohol Use History: Daily Past Drug Use History: None Reported
--- NOTE | 2025-02-12 20:12 | P.PN ---
Subjective Progress Note Date: 02/12/25 On today's evaluation of 02/09/2025, the patient is being seen for a follow-up. This is a 69-year-old female patient with known history of coronary artery disease with previous stenting, previous [place], ischemic cardiomyopathy, hypertension hyperlipidemia peripheral vascular disease and COPD and a chronic smoker. The patient presented with worsening shortness of breath and initially was supported with the BiPAP and his blood pressure at time of admission was quite elevated. He was treated accordingly and his blood pressure was managed and controlled. Echocardiogram from June 2024 showed impaired ejection fraction of 20 to 25% with severe pulmonary hypertension. The patient had a chest x-ray at time of admission on 02/02/2025 this was consistent with COPD and trace bilateral pleural effusion/CHF. This morning, the patient is on room air oxygen with a pulse ox of 95%. Doing well. No specific complaints. He is on half-normal saline at rate of 50 cc an hour. He is maintained on DuoNeb about treatment [id number]. Is also on Coreg 12.5 mg p.o. twice a day, aspirin and Plavix and Lipitor. His blood pressure remains slightly elevated and the patient is being seen by cardiology., Clinically the patient is feeling better. Aldactone and Entresto was initially added and later on discontinued because of renal function. The patient was also taken off the IV Lasix and patient was given Demadex. Subsequently, Demadex was also discontinued due to renal dysfunction. He is on Coreg 12.5 mg p.o. twice a day and hydralazine 25 mg p.o. 3 times daily. Blood work from today shows improvement in renal function. Creatinine is down to 2.9 with a BUN of 99. Sodium is at 137, potassium is at 4.8, chloride is 107 with a bicarb of 20.. Noted the patient presented to us with a normal renal function and the creatinine peaked at 3.8 and currently is down to 2.98. On 02/10/2025, the patient is being seen for a follow-up. The patient is currently on room air oxygen. The patient is calm and comfortable. The patient is currently off diuretics as the patient has sustained acute kidney injury on top of chronic kidney failure. The patient remains on half-normal citrate at 50 cc an hour and follow-up blood work from today shows a BUN of 18 and a creatinine of 2.4. The serum bicarb is at 22 and a sodium level is at 138. Meanwhile, the patient remains on a combination of aspirin and Plavix. The patient is also on Coreg 12.5 mg p.o. twice a day and hydralazine 25 mg p.o. 3 t imes daily. As stated, the patient is on room air oxygen. No other significant events overnight. A repeat chest x-ray was done on 02/10/2025 and the patient continues to have cardiomegaly and pulm vessel congestion and bilateral pleural effusion consistent with CHF. No major edema lower extremities. The patient has advanced cardiomyopathy with impaired LV function with an ejection fraction of 20 to 25%. The patient is also known to have COPD. The patient is known to have coronary artery disease with previous coronary stenting, hypertension hyperlipidemia peripheral vascular disease. On 02/11/2025, the patient is being seen for a follow-up. The patient is doing well. No specific complaints. She is being hydrated gently with half-normal saline rate of 50 cc an hour. She is on room air oxygen with a pulse ox of 97%. Renal function continues to improve and the creatinine is down to 1.9 with a BUN of 75. Sodium is 139. Rest of the medications are essentially unchanged. Noted the patient is currently off diuretics. No significant respiratory distress. No chest pain. No cough or sputum production. No significant edema in lower extremities. On 02/12/2025, the patient is being seen for a follow-up. On today's evaluation, the patient remains on room air oxygen. Nevertheless, she is complaining of some vague lower abdominal pain. She had a bowel movement within the past 24 hours. No nausea. No emesis. No diarrhea. No fever or chills. Abdomen is nontender. BS 72 lactate of 1.9. Sodium level at 138 and the patient remains on half-normal saline at the rate of 50 cc an hour. Rest of the medications are essentially unchanged. Based on her underlying and ongoing abdominal pain, the patient was given a CAT scan of the abdomen and pelvis that showed small right- sided pleural effusion, marked right renal atrophy and evidence of mild diverticulosis without diverticulitis. Following the CAT scan, the patient experienced some increased shortness of breath. A stat chest x-ray was done and showed trace pleural effusion and chronic interstitial prominence with background COPD. Note that the CAT scan of the abdomen and pelvis was done with oral contrast only and no IV contrast was given. The patient is currently having some increased difficulty breathing and she is placed on oxygen 2 L/min nasal cannula. No skin rashes. No significant hypotension. Objective - Vital Signs Vital signs: Vital Signs Temp 98.1 F 02/12/25 08:00 Pulse 80 02/12/25 09:08 Resp 20 02/12/25 08:00 BP 150/70 02/12/25 08:00 Pulse Ox 99 02/12/25 09:01 FiO2 40 02/03/25 11:57 Intake & Output 02/11/25 02/12/25 02/12/25 18:59 06:59 18:59 Intake Total 920 Balance 920 Weight 56.7 kg Intake: Oral 920 Other: Voiding Method Toilet Toilet # Voids 3 1 # Bowel Movements 1 - Exam GENERAL EXAM: Alert, 69-year-old female, resting in bed, on 2 L nasal cannula, in no apparent distress. HEAD: Normocephalic. EYES: Normal reaction of pupils, equal size. NOSE: Clear with pink turbinates. THROAT: No erythema or exudates. NECK: No masses, no JVD. CHEST: No chest wall deformity. LUNGS: Equal air entry with no crackles, wheeze, rhonchi or dullness. CVS: S1 and S2 normal with no audible murmur, regular rhythm. ABDOMEN: No hepatosplenomegaly, normal bowel sounds, no guarding or rigidity. SPINE: No scoliosis or deformity SKIN: No rashes CENTRAL NERVOUS SYSTEM: No focal deficits, tone is normal in all 4 extremities. EXTREMITIES: There is no peripheral edema. No clubbing, no cyanosis. Peripheral pulses are intact. - Labs CBC & Chem 7: 02/05/25 03:36 02/12/25 06:30 Labs: Abnormal Lab Results - Last 24 Hours (Table) 02/12/25 Range/Units 06:30 Chloride 109 H (98-107) mmol/L Carbon Dioxide 20 L (22-30) mmol/L BUN 72 H (7-17) mg/dL Creatinine 1.98 H (0.52-1.04) mg/dL Glucose 102 H (74-99) mg/dL Assessment and Plan Plan: Acute hypoxic respiratory failure, improved and the patient is currently on room air oxygen. Initially supported with the BiPAP and there has been gradual improvement in oxygenation during the course of this current hospitalization. The patient is currently on 2 L of oxygen by nasal cannula Acute on chronic shortness of breath, rule out possibility of CHF exacerbation. Rule out contrast related reaction. Abdominal pain, CAT scan of the abdomen showed no significant acute abnormalities and the patient has mild diverticulosis. Acute exacerbation of systolic CHF exacerbation, being optimized, impaired LV function with an ejection fraction of 20-25%, consistent with ischemic cardiomyopathy Hypertensive urgency, resolved. Blood pressure remains borderline elevated. Maintained on a combination of Coreg and hydralazine. Off diuretics Renal artery stenosis. Acute kidney injury, creatinine is improving and and the patient is currently off diuretics. The patient's renal function is improving and the patient is currently on half-normal citrate at 50 cc an hour. COPD, currently in active. Hyperlipidemia. History of coronary disease with previous PCI/stents. History of peripheral vascular disease. History of CVA/TIA. Chronic obstructive pulmonary disease. Current ongoing tobacco dependence, current 1/2 pack/day smoker. Plan: Patient currently on 2 L of oxygen by nasal cannula Give 60 mg of IV Lasix x 1 Give IV Solu-Medrol 60 mg IV push q. 6 hours x 4 doses Renal function stable Continue Coreg and hydralazine Monitor blood pressure Hold diuretics for now Gentle hydration with half-normal saline rate of 50 cc an hour Repeat blood work in a.m. Chest x-ray is showing small bilateral pleural effusion and cardiomegaly consistent with CHF Monitor abdominal pain Overall respiratory status is stable. Will continue to follow.
[2025-02-12] MEDS: IPRATROPIUM-ALBUTEROL 3 ML NEB INHALATION SCH (20:17)
[2025-02-12] MEDS: BUDESONIDE 1 MG/2 ML NEBU INHALATION SCH (20:19)
[2025-02-12] MEDS ORDERED: IPRATROPIUM-ALBUTEROL 3 ML NEB INHALATION PRN (23:52)
[2025-02-13] MEDS: IPRATROPIUM-ALBUTEROL 3 ML NEB INHALATION SCH (09:53)
--- NOTE | 2025-02-13 10:44 | P.PN ---
Subjective Patient is seen in follow-up for acute kidney injury. Renal function stable as of yesterday. Off IV fluids. Receiving a breathing treatment. Vital signs are stable. General: No acute distress. HEENT: Head exam is unremarkable. LUNGS: No audible rhonchi or wheezes. HEART: Rate and Rhythm are regular. ABDOMEN: Nontender. EXTREMITITES: Trace edema. Objective - Vital Signs Vital signs: Vital Signs Temp 97.6 F 02/13/25 09:07 Pulse 94 02/13/25 10:04 Resp 22 02/13/25 10:04 BP 150/66 02/13/25 09:07 Pulse Ox 96 02/13/25 09:54 FiO2 40 02/03/25 11:57 Intake & Output 02/12/25 02/13/25 02/13/25 18:59 06:59 18:59 Intake Total 10 Output Total 500 200 Balance -500 -190 Weight 56.8 kg Intake: IV 10 Invasive Line 5 10 Output: Urine 500 200 Other: Voiding Method Toilet Toilet # Voids 1 # Bowel Movements 1 - Labs CBC & Chem 7: 02/05/25 03:36 02/12/25 06:30 Assessment and Plan Plan: Assessment: 1. Acute kidney injury secondary to hemodynamic ATN. Renal function improved. Creatinine stable at 1.98 yesterday. No proteinuria on UA. Baseline creatinine near 1. 2. Left renal artery stenosis. Further imaging/angiogram once renal function improves. Unclear if stenting will be of significant benefit in view of atrophic kidneys. 3. Acute on chronic systolic CHF ejection fraction of 45-50 %. 4. Benign hypertension. Stable. 5. Hyperkalemia secondary to acute kidney injury. Improved. 6. Tobacco abuse. Strongly advised smoking cessation. 7. Volume overload. Plan: Add Lasix 40 mg orally once daily. She did receive a dose of IV Lasix yesterday. Avoid nephrotoxins. Continue to monitor renal function and urine output. Follow-up outpatient 1 to 2 weeks postdischarge.
[2025-02-13] MEDS: FUROSEMIDE 40 MG TAB PO SCH (11:07)
--- NOTE | 2025-02-13 11:20 | P.PN ---
Subjective Progress Note Date: 02/13/25 This is a 69-year-old female with a history of significant ischemic cardiomyopathy CHF, COPD, hypertension, CAD, peripheral arterial disease, hypertension, hyperlipidemia. Patient follows in the office with Dr. Spears. Cardiology service has been consulted for CHF exacerbation and hypertensive emergency. The patient presented to the ER in the morning of 02/02/2025 with complaint of worsening shortness of breath on exertion associated with orthopnea and PND since yesterday. Patient reports that she had flulike symptoms about 2- 3 weeks ago and was on outpatient treatment with doxycycline and steroids. Her blood pressure on arrival was 214/101. Patient was started on IV nitroglycerin infusion. Patient was also put on BiPAP. She was previously admitted to the hospital in July 2024 for TIA and chest pain. At the time of the interview, patient denies chest pain. Currently she is on BiPAP. Patient reports improvement in her shortness of breath. Her heart rate is 71 bpm, respiratory rate is 24, blood pressure is 163/82, saturating 100% on BiPAP. Prior cardiac testing Echocardiogram July 2024 showed LVEF of 25 to 30%. Severely impaired low ventricle systolic function with segmental wall motion abnormality. Cath proximal LAD PCI on 07/18/2024. In the past she had stenting of the mid RCA and mid LAD. Her cardiac medication at home include lisinopril, Aldactone, Lipitor Lopressor, aspirin and Plavix. 02/03/2025: Patient seen and examined at the bedside. No acute events overnight. Patient reports improvement in her shortness of breath. Patient reports no chest pain and swelling of legs has improved as well. WBC 16.0, hemoglobin 8.4, sodium 138, potassium 3.6, BUN 44, creatinine 1.59, HbA1c 5.3, LDL 35, HDL 64, TSH 0.744. 02/04/2025: Patient seen and examined at the bedside. No acute events overnight. Patient reports improvement in her shortness of breath. Current on 2 L nasal cannula. Patient denies any chest pain, lightheadedness, dizziness. Swelling in the legs is improved. Patient continues to be on nitroglycerin drip. She reports mild headaches. WBC 22.7, hemoglobin 8.7, sodium 137, potassium 4.0, BUN 60, creatinine 2.35. 02/05/2025: Patient seen and examined at the bedside. Nitroglycerin drip has been discontinued. Patient has been transferred out of the ICU. Blood pressure is much better. Patient denies chest pain or shortness of breath. Patient is currently on amlodipine, Coreg, hydralazine. Her kidney function continues to worsen. Renal artery duplex ultrasound shows high-grade renal stenosis on the left. Right kidney is atrophic. WBC 19.4, hemoglobin 9.4, sodium 132, potassium 4.6, BUN 80, creatinine 3.54. 02/06/2025 Transferred out of ICU kidney function has been declining. Creatinine is 3.5 yesterday, 3.6 today. Somewhat stabilizing. Apparently after getting antihypertensives her blood pressure dropped. We also obtain renal Doppler which showed severely obstructed left renal artery with reduced bilateral kidney size, suggestive of diminished blood supply to both kidneys. 02/07/2025 Kidney function is still worsening BUN is 103, creatinine is 3.8, 1 L urine output Getting gentle IV hydration Appears euvolemic. Denies any chest pain chest pressure BP 147/61, heart rate 74 Sinus notedly 02/08/2025 BP 157/70, heart rate 94, sinus rhythm on telemetry BUN 105, creatinine 3.57 yesterday was 3.8. Patient is very eager to go home 02/09/2025: Patient seen and examined at the bedside. No acute events overnight. Patient denies shortness of breath or chest pain. Patient reports good urine output. Her blood pressure is stable and the 150s over 60s. Sodium 137, potassium 4.8, BUN 9 9, creatinine 2.98. Kidney function is improving. 02/10/2025: Patient seen and examined at the bedside. No acute events overnight. Patient denies shortness of breath or chest pain. Patient reports good urine output. Kidney function is improving. Sodium 138, potassium 4.6, BUN 88, creatinine 2.45. 02/11/2025: Patient seen and examined at the bedside. No acute events overnight. Patient denies chest pain shortness of breath. Continues to have good urine output. Renal function is improving. BUN 35, creatinine 1.91, magnesium 1.7 02/12/2025: Patient seen and examined at the bedside. Patient reports no acute events overnight. Denies chest pain, shortness of breath. Reports good urine output. Renal function is stable today. Sodium 138, potassium 4.9, BUN 38, creatinine 1.98 02/13/2025: Patient seen and examined at bedside. Patient reports no acute events overnight. Denies chest pain and shortness of breath. Reports good urine output. Blood pressure is in 150s over 60s. Currently on hydralazine 50 p.o. 3 times daily and amlodipine 5 mg p.o. daily. Anticipated discharge in 24 to 48 hours. Physical examination: S1-S2 audible, no significant murmurs audible, minimal bilateral lower extremity edema, no significant JVP Bilateral wheezing with no rales or crackles and no use of accessory muscles. Abdominal soft nondistended nontender, Alert oriented no focal neurological deficits Assessment: # Hypertensive emergency on admission, currently resolved # RENITA worsened with antihypertensives, improving # Severe left renal artery stenosis. Small bilateral kidneys # Mild HFpEF exacerbation from hypertensive emergency, currently resolved # COPD # History of CAD status post PCI to LAD in 06/2024, NRC in the past # History of PAD # History of CVA/TIA # Nicotine dependence, current everyday smoker Plan: Continue aspirin, Plavix, Lipitor 40 Continue Coreg 25 mg twice daily Continue hydralazine 50 3 times daily Add isosorbide dinitrate 10 mg 3 times daily Monitor kidney function. Will continue to medically manage her hypertension. For now patient is not a great candidate for intervention regarding left renal artery stenosis given her kidney function is still not optimized. Nephrology following. Appreciate nephrology recommendations. Outpatient follow-up with Dr. Spears within 1 to 2 weeks posthospital discharge. Dictation was produced using [employer] dictation software. Please excuse any grammatical, word or spelling errors. Alvino Baires MD PGY 2 Objective - Vital Signs Vital signs: Vital Signs Temp 97.6 F 02/13/25 09:07 Pulse 94 02/13/25 10:04 Resp 22 02/13/25 10:04 BP 150/66 02/13/25 09:07 Pulse Ox 96 02/13/25 09:54 FiO2 40 02/03/25 11:57 Intake & Output 02/12/25 02/13/25 02/13/25 18:59 06:59 18:59 Intake Total 10 Output Total 500 200 Balance -500 -190 Weight 56.8 kg Intake: IV 10 Invasive Line 5 10 Output: Urine 500 200 Other: Voiding Method Toilet Toilet # Voids 1 # Bowel Movements 1 - Labs CBC & Chem 7: 02/05/25 03:36 02/12/25 06:30
--- NOTE | 2025-02-13 13:46 | P.PN ---
Subjective Progress Note Date: 02/13/25 On today's evaluation of 02/09/2025, the patient is being seen for a follow-up. This is a 69-year-old female patient with known history of coronary artery disease with previous stenting, previous KS, ischemic cardiomyopathy, hypertension hyperlipidemia peripheral vascular disease and COPD and a chronic smoker. The patient presented with worsening shortness of breath and initially was supported with the BiPAP and his blood pressure at time of admission was quite elevated. He was treated accordingly and his blood pressure was managed and controlled. Echocardiogram from June 2024 showed impaired ejection fraction of 20 to 25% with severe pulmonary hypertension. The patient had a chest x-ray at time of admission on 02/02/2025 this was consistent with COPD and trace bilateral pleural effusion/CHF. This morning, the patient is on room air oxygen with a pulse ox of 95%. Doing well. No specific complaints. He is on half-normal saline at rate of 50 cc an hour. He is maintained on DuoNeb about treatment [id number]. Is also on Coreg 12.5 mg p.o. twice a day, aspirin and Plavix and Lipitor. His blood pressure remains slightly elevated and the patient is being seen by cardiology., Clinically the patient is feeling better. Aldactone and Entresto was initially added and later on discontinued because of renal function. The patient was also taken off the IV Lasix and patient was given Demadex. Subsequently, Demadex was also discontinued due to renal dysfunction. He is on Coreg 12.5 mg p.o. twice a day and hydralazine 25 mg p.o. 3 times daily. Blood work from today shows improvement in renal function. Creatinine is down to 2.9 with a BUN of 99. Sodium is at 137, potassium is at 4.8, chloride is 107 with a bicarb of 20.. Noted the patient presented to us with a normal renal function and the creatinine peaked at 3.8 and currently is down to 2.98. On 02/10/2025, the patient is being seen for a follow-up. The patient is currently on room air oxygen. The patient is calm and comfortable. The patient is currently off diuretics as the patient has sustained acute kidney injury on top of chronic kidney failure. The patient remains on half-normal citrate at 50 cc an hour and follow-up blood work from today shows a BUN of 18 and a creatinine of 2.4. The serum bicarb is at 22 and a sodium level is at 138. Meanwhile, the patient remains on a combination of aspirin and Plavix. The patient is also on Coreg 12.5 mg p.o. twice a day and hydralazine 25 mg p.o. 3 t imes daily. As stated, the patient is on room air oxygen. No other significant events overnight. A repeat chest x-ray was done on 02/10/2025 and the patient continues to have cardiomegaly and pulm vessel congestion and bilateral pleural effusion consistent with CHF. No major edema lower extremities. The patient has advanced cardiomyopathy with impaired LV function with an ejection fraction of 20 to 25%. The patient is also known to have COPD. The patient is known to have coronary artery disease with previous coronary stenting, hypertension hyperlipidemia peripheral vascular disease. On 02/11/2025, the patient is being seen for a follow-up. The patient is doing well. No specific complaints. She is being hydrated gently with half-normal saline rate of 50 cc an hour. She is on room air oxygen with a pulse ox of 97%. Renal function continues to improve and the creatinine is down to 1.9 with a BUN of 75. Sodium is 139. Rest of the medications are essentially unchanged. Noted the patient is currently off diuretics. No significant respiratory distress. No chest pain. No cough or sputum production. No significant edema in lower extremities. On 02/12/2025, the patient is being seen for a follow-up. On today's evaluation, the patient remains on room air oxygen. Nevertheless, she is complaining of some vague lower abdominal pain. She had a bowel movement within the past 24 hours. No nausea. No emesis. No diarrhea. No fever or chills. Abdomen is nontender. BS 72 lactate of 1.9. Sodium level at 138 and the patient remains on half-normal saline at the rate of 50 cc an hour. Rest of the medications are essentially unchanged. Based on her underlying and ongoing abdominal pain, the patient was given a CAT scan of the abdomen and pelvis that showed small right- sided pleural effusion, marked right renal atrophy and evidence of mild diverticulosis without diverticulitis. Following the CAT scan, the patient experienced some increased shortness of breath. A stat chest x-ray was done and showed trace pleural effusion and chronic interstitial prominence with background COPD. Note that the CAT scan of the abdomen and pelvis was done with oral contrast only and no IV contrast was given. The patient is currently having some increased difficulty breathing and she is placed on oxygen 2 L/min nasal cannula. No skin rashes. No significant hypotension. On 02/13/2025, the patient is being seen for a follow-up. The patient is feeling well. No significant complaints. Abdominal pain is subsided. No significant shortness of breath. CAT scan of the abdomen was completed yesterday and it shows small right-sided pleural effusion, right renal atrophy and evidence of diverticulosis without any diverticulitis. BUN 72 with a creatinine of 1.9. Sodium was 138 and a potassium level is at 4.9. IV fluids are currently at KVO. She remains on Coreg 25 mg p.o. twice a day and Lasix 40 mg in the morning. She was given additional dose of Lasix 20 mg IV push today. Remains on Norvasc 5 mg p.o. daily. Remains on aspirin and Plavix. Resting comfortably on a chair. She is currently on 2 L of oxygen by nasal cannula with a pulse ox of 98%. Objective - Vital Signs Vital signs: Vital Signs Temp 97.3 F L 02/13/25 11:10 Pulse 92 02/13/25 11:10 Resp 20 02/13/25 11:10 BP 138/65 02/13/25 11:10 Pulse Ox 98 02/13/25 11:10 FiO2 40 02/03/25 11:57 Intake & Output 02/12/25 02/13/25 02/13/25 18:59 06:59 18:59 Intake Total 10 Output Total 500 200 Balance -500 -190 Weight 56.8 kg Intake: IV 10 Invasive Line 5 10 Output: Urine 500 200 Other: Voiding Method Toilet Toilet # Voids 1 1 # Bowel Movements 1 1 - Exam GENERAL EXAM: Alert, 69-year-old female, resting in bed, on 2 L nasal cannula, in no apparent distress. HEAD: Normocephalic. EYES: Normal reaction of pupils, equal size. NOSE: Clear with pink turbinates. THROAT: No erythema or exudates. NECK: No masses, no JVD. CHEST: No chest wall deformity. LUNGS: Equal air entry with no crackles, wheeze, rhonchi or dullness. CVS: S1 and S2 normal with no audible murmur, regular rhythm. ABDOMEN: No hepatosplenomegaly, normal bowel sounds, no guarding or rigidity. SPINE: No scoliosis or deformity SKIN: No rashes CENTRAL NERVOUS SYSTEM: No focal deficits, tone is normal in all 4 extremities. EXTREMITIES: There is no peripheral edema. No clubbing, no cyanosis. Peripheral pulses are intact. - Labs CBC & Chem 7: 02/05/25 03:36 02/12/25 06:30 Assessment and Plan Plan: Acute hypoxic respiratory failure, improved and the patient is currently on room air oxygen. Initially supported with the BiPAP and there has been gradual improvement in oxygenation during the course of this current hospitalization. The patient is currently on 2 L of oxygen by nasal cannula Acute on chronic shortness of breath, rule out possibility of CHF exacerbation. Rule out contrast related reaction. Abdominal pain, CAT scan of the abdomen showed no significant acute abnormalities and the patient has mild diverticulosis. Acute exacerbation of systolic CHF exacerbation, being optimized, impaired LV function with an ejection fraction of 20-25%, consistent with ischemic cardiomyopathy Hypertensive urgency, resolved. Blood pressure remains borderline elevated. Maintained on a combination of Coreg and hydralazine. Off diuretics Renal artery stenosis. Acute kidney injury, creatinine is improving and and the patient is currently off diuretics. The patient's renal function is improving and the patient is currently on half-normal citrate at 50 cc an hour. COPD, currently in active. Hyperlipidemia. History of coronary disease with previous PCI/stents. History of peripheral vascular disease. History of CVA/TIA. Chronic obstructive pulmonary disease. Current ongoing tobacco dependence, current 1/2 pack/day smoker. Plan: Patient currently on 2 L of oxygen by nasal cannula Continue oral Lasix Respiratory status is stable Renal function stable Continue Coreg and hydralazine Monitor blood pressure Hold diuretics for now Renal function remains stable Chest x-ray is showing small bilateral pleural effusion and cardiomegaly consistent with CHF Overall respiratory status is stable. Will continue to follow.
[2025-02-13] MEDS: FUROSEMIDE 10 MG/ML 2 ML VIAL IV ONE (13:56)
[2025-02-13 15:04] LABS: African American GFR (CKD) 27 (>60 ml/min/1.73 sqM); Anion Gap 15 mmol/L; Blood Urea Nitrogen 83 mg/dL (7-17); Calcium 9.9 mg/dL (8.4-10.2); Carbon Dioxide 17 mmol/L (22-30); Chloride 103 mmol/L (98-107); Glucose 187 mg/dL (74-99); Non-African American GFR(CKD) 23 (>60 ml/min/1.73 sqM); Potassium 4.8 mmol/L (3.5-5.1); Sodium 135 mmol/L (137-145)
[2025-02-13 15:44] VITALS: BP 128/58; RESP 18; TEMP 97.4
[2025-02-13 16:44] VITALS: PULSE 90
--- NOTE | 2025-02-14 19:25 | P.DS ---
Providers Date of admission: 02/02/25 03:35 Expected date of discharge: 02/13/25 Attending physician: Antonio Dc Consults: 02/02/25 02:22 Consult Physician Stat Consulting Provider: Nicolás Rose Consult Reason/Comments: CHF exacerbation requiring BiPAP, hypertensive urgency requiring nitro drip Do you want consulting provider notified?: Yes, Notify in am Consult Physician Urgent Consulting Provider: [facility] Consult Reason/Comments: CHF exacerbation Do you want consulting provider notified?: Yes, Notify in am 02/05/25 10:10 Consult Physician Routine Consulting Provider: Susie Elizalde Consult Reason/Comments: RENITA, DANELLE Do you want consulting provider notified?: Yes Primary care physician: [facility] Course: Chief Complaint: Short of breath This is a pleasant [id number] with Dr. Combs. Chronic medical conditions include CAD with stent, CHF EF of 2025%, severe secondary pulmonary hypertension of COPD, advanced COPD, hyperlipidemia, osteoarthritis, essential hypertension, PAD with history of peripheral stent. Patient presented worsening short of breath. Was brought via EMS to the ER. Patient's breathing is getting worse over last few days. Patient continues smoke about less than half a pack a day. Daughter at the bedside. Lives with daughter. She was placed on nonrebreather by the EMS. Overnight patient's placed on a BiPAP. Patient had flulike symptoms 2 to 3 weeks ago was treated outpatient with doxycycline and steroids. Her blood pressure running high over 200 systolic hence we will start on IV nitroglycerin infusion. This morning patient seen in the ER. On a BiPAP. Slight cough. Decreased appetite. No fever no chills. February 03: Patient seen earlier by me in the ER. On 3 L nasal cannula. Did eat fairly well. Was still on nitroglycerin drip because of blood pressure. Patient's IV Lasix was discontinued. Will add amlodipine 2.5 mg p.m. dose also. And try to taper off nitroglycerin. Creatinine up to 1.59 February 04: Patient moved to the ICU because of titration of nitroglycerin drip. Amlodipine increased to 5 mg twice daily. Nitroglycerin being tapered down. Eating well. Oxygen down to room air. Worsening of creatinine to 2.35. In view of RENITA. ABDON Levine. Entresto was only discontinued by cardiology. February 05: Patient is taken off nitroglycerin drip. Medications adjusted. Blood pressure is soft and bit on the lower side. Dose of hydralazine cut back. Otherwise patient is feeling better. Worsening renal function. Patient been on 50 cc of saline since last night. Nephrology consulted. February 06: Patient weaned off nitroglycerin drip. Blood pressure medications been adjusted. Getting saline at 50 cc an hour. Creatinine up to 3.60. Nephrology following. Breathing better February 07: Sitting edge of bed. Family visiting. Breathing stable. Creatinine up to 3.87. Potassium 5.9. Nephrology following. Lokelma ordered. Changed to renal diet. Discussed with the patient and daughter. Blood pressure reasonably controlled February 08: Comfortable. Creatinine escalated off. Will give gentle hydration half saline 50 cc an hour overnight. February 09: Comfortable. No new issues. Creatinine 2.98. Getting saline to 50 cc an hour. Will continue for now 24 hours. Discussed with the patient. February 10: Oral intake fair. Getting saline at 50 cc an hour. Creatinine 2.45. Not sleeping well. Add Ambien at night scheduled. DC Restoril. Blood pressure running on the higher side. Hydralazine adjusted. February 11: Did not sleep well-increased dose of Ambien to 7.5 mg.. Discussed. Told her to be up in a chair and walk in the hallway. And also do sleep hygiene. Creatinine 1.91. Dose of Coreg further adjusted. February 12: Patient was seen this morning. Was a bit tired. He was stable. He is complaining of some abdominal discomfort. Has had bowel movements. CT scan was ordered by pulmonary. Did not show any major finding. Patient then became short of breath wheezing. DuoNeb IV Solu-Medrol nebulized Pulmicort was ordered. Pulmonary was informed. Also given a dose of IV Lasix. Discharge was held. February 13: Patient doing much better today. Breathing much improved. Medications reviewed. Symbicort added. DuoNeb 3 times a day. Questions answered. Home oxygen has been set up. Social history: Lives with daughter. Smoked a pack a day was up to 2 packs a day. Close to 50 years. Now less than half a pack a day Physical examination: VITAL SIGNS: 97.4, 91, 18, 128 x 58, 94% on 2 L GENERAL: In bed, doing much better EYES: Pupils equal. Conjunctiva lonny l. HEENT: External appearance of nose and ears normal, oral cavity grossly normal. NECK: JVD not raised; masses not palpable. HEART: First and second heart sounds are normal; no edema. LUNGS: Respiratory rate i normal air entry much better ABDOMEN: Soft, nontender, liver spleen not palpable, no masses palpable. PSYCH: Alert and oriented x3; mood and affect slightly anxious. MUSCULOSKELETAL:No Clubbing/cyanosis;muscles-grossly intact. OA INVESTIGATIONS, reviewed in the clinical context: February 13: Creatinine 2.12 February 12: White count 4.9 BUN 72 creatinine 1.98 February 11: Potassium 4.4 BUN 35 creatinine 1.9 February 10: Creatinine 2.45 February 07: Potassium 5.9 BUN 103 creatinine 3.87 February 02, 2025: White count 9.9 hemoglobin 9.1 platelets 254 sodium 141 potassium 4 BUN 39 creatinine 1.06 TSH 0.744 Chest x-ray film personally reviewed by me-hyperinflation. Some possible basilar infiltrates EKG tracing personally reviewed by me-normal sinus rhythm. T wave changes Previous testing 2D echo limited severely impaired left ventricular systolic function. No evidence of apical thrombus. Assessment and plan: - Acute severe COPD exacerbation in a current smoker: Improved DuoNeb, nebulized Pulmicort, IV Solu-Medrol reinitiated Discharged on albuterol as needed. Symbicort. - Acute on chronic hypoxic respiratory failure. Secondary to COPD: Improved Placed on oxygen again today - Chronic hypoxic respiratory failure underlying COPD Discharge on oxygen -Coronary artery disease cardiac s stent. Last intervention June 2024 to LAD Aspirin Plavix Lipitor. -Acute on chronic congestive heart failure/ischemic cardiomyopathy with an EF of 20 to 25%: Better Fluid restriction Aldactone Entresto was initially added then discontinued because of renal function Initially IV Lasix.. Discharged on Lasix. -Severe secondary pulmonary hypertension, due to COPD -Chronic nicotine dependence cigarette smoker Nicotine patch - Acute kidney injury. Likely ATN. Patient was started on Aldactone and Entresto. Also became hypotensive. Better Creatinine is gone up from 1.06-peaked at 3.87. Coming down Entresto Farxiga Aldactone discontinued.. Nephrology following. Follow-up outpatient -Hyperlipidemia Lipitor -Primary osteoarthritis Tylenol as needed -Essential hypertension, uncontrolled IV nitroglycerin drip-initially Currently amlodipine 5 mg a day. Coreg 25 mg twice daily. Hydralazine-o 50 mg 3 times daily. -PAD with a prior history of peripheral stent Aspirin. Lipitor. - Insomnia, from hospitalization Ambien 7.5 mg nightly Full code Disposition: Home Past Medical History Past Medical History: Heart Failure, COPD, GERD/Reflux, Hyperlipidemia, Hypertension, Myocardial Infarction (GA), Osteoarthritis (OA), Vascular Disorder Additional Past Medical History / Comment(s): OCCASIONAL SOB., VARICOSE VEINS.,STATES LEGS PAINFUL AT TIMES., constipation, Last Myocardial Infarction Date:: 2014 History of Any Multi-Drug Resistant Organisms: MRSA Date of last positivie culture/infection: 2013 MDRO Source:: under nose Past Surgical History: Heart Catheterization With Stent, Orthopedic Surgery Additional Past Surgical History / Comment(s): LT KNEE RECONSTRUCTIVE SX, CURTIS CATARACTS, CYST REMOVED FROM BEHIND LT EAR., BALLOON ANGIOPLASTY WITH STENT LEFT FEMORAL ARTERY (02/2018), 3 cardiact stents, recent aortogram Past Anesthesia/Blood Transfusion Reactions: No Reported Reaction Date of Last Stent Placement:: unknown Past Psychological History: No Psychological Hx Reported Smoking Status: Current every day smoker Past Alcohol Use History: Daily Past Drug Use History: None Reported Plan - Discharge Summary Discharge Rx Participant: No New Discharge Prescriptions: New carvediloL [Coreg] 25 mg PO BID #60 tablet Nicotine 14Mg/24Hr Patch [Habitrol] 1 patch TRANSDERM DAILY #30 patch Furosemide [Lasix] 40 mg PO DAILY #30 tab Atorvastatin [Lipitor] 40 mg PO HS #30 tab Budesonide/Formoterol Fumarate [Symbicort 160-4.5 Mcg Inhaler] 1 puff INHALATION BID #10.2 gm Acetaminophen Tab [Tylenol] 650 mg PO Q6HR PRN tab PRN Reason: Fever and/ or Mild Pain hydrALAZINE HCL [Apresoline] 50 mg PO TID #90 tab Isosorbide Mononitrate ER [Imdur] 30 mg PO DAILY #30 tab amLODIPine [Norvasc] 5 mg PO DAILY #30 tab Continue Albuterol Sulfate [Ventolin HFA] 2 puff INHALATION RT-Q6H PRN PRN Reason: Shortness Of Breath Clopidogrel [Plavix] 75 mg PO DAILY Aspirin [Adult Low Dose Aspirin EC] 81 mg PO DAILY 30 Days #30 tab Cholecalciferol (Vitamin D3) [Vitamin D3 (50 Mcg = 2000 Iu)] 50 mcg PO DAILY Changed Ipratropium-Albuterol Nebulize [Duoneb 0.5 mg-3 mg/3 ml Soln] 3 ml INHALATION TID #0 Discontinued Metoprolol Tartrate [Lopressor] 25 mg PO BID #60 tab Atorvastatin [Lipitor] 80 mg PO HS #30 tab Spironolactone [Aldactone] 25 mg PO DAILY [place]-3/Dha/Epa/Fish Oil [Fish Oil 1,000 mg Softgel] 1 cap PO DAILY lisinopriL [Zestril] 10 mg PO DAILY Discharge Medication List Albuterol Sulfate [Ventolin HFA] 2 puff INHALATION RT-Q6H PRN 06/06/20 [History] Aspirin [Adult Low Dose Aspirin EC] 81 mg PO DAILY 30 Days #30 tab 07/20/24 [Rx] Cholecalciferol (Vitamin D3) [Vitamin D3 (50 Mcg = 2000 Iu)] 50 mcg PO DAILY 02/02/25 [History] Clopidogrel [Plavix] 75 mg PO DAILY 02/02/25 [History] Acetaminophen Tab [Tylenol] 650 mg PO Q6HR PRN tab 02/13/25 [Rx] Atorvastatin [Lipitor] 40 mg PO HS #30 tab 02/13/25 [Rx] Budesonide/Formoterol Fumarate [Symbicort 160-4.5 Mcg Inhaler] 1 puff INHALATION BID #10.2 gm 02/13/25 [Rx] Furosemide [Lasix] 40 mg PO DAILY #30 tab 02/13/25 [Rx] Ipratropium-Albuterol Nebulize [Duoneb 0.5 mg-3 mg/3 ml Soln] 3 ml INHALATION TID #0 02/13/25 [Rx] Isosorbide Mononitrate ER [Imdur] 30 mg PO DAILY #30 tab 02/13/25 [Rx] Nicotine 14Mg/24Hr Patch [Habitrol] 1 patch TRANSDERM DAILY #30 patch 02/13/25 [Rx] amLODIPine [Norvasc] 5 mg PO DAILY #30 tab 02/13/25 [Rx] carvediloL [Coreg] 25 mg PO BID #60 tablet 02/13/25 [Rx] hydrALAZINE HCL [Apresoline] 50 mg PO TID #90 tab 02/13/25 [Rx] Follow up Appointment(s)/Referral(s): Mal Combs DO [Primary Care Provider] - 02/20/25 2:40 pm (SUNDAY) Peng Lambert MD [STAFF PHYSICIAN] - 1 Week (Offices will call with a follow up appointment date and time) [facility] [NON-STAFF] - 1 Week Mateo Cisneros DO [Doctor of Osteopathic Medicine] - 03/04/25 2:00 pm ( SUNDAY) Patient Instructions/Handouts: Heart Failure (DC), COPD (Chronic Obstructive Pulmonary Disease) (DC) Discharge Disposition: HOME SELF-CARE
== END 2025-02-13 17:49 | disposition home or self-care (01) | DRG 291 ==
LOC: EC 22:41 → 2SICU 02-02 03:35 → 3SCARD 02-05 09:41
PROVIDERS: ADMIT Hospitalist; ATTEND Hospitalist
DX: I13.0 Hypertensive heart and chronic kidney disease with heart failure and stage 1 through stage 4 chronic kidney disease, or unspecified chronic kidney disease (principal); I50.33 Acute on chronic diastolic (congestive) heart failure; N17.0 Acute kidney failure with tubular necrosis; J96.21 Acute and chronic respiratory failure with hypoxia; J44.1 Chronic obstructive pulmonary disease with (acute) exacerbation; I16.1 Hypertensive emergency; I27.20 Pulmonary hypertension, unspecified; I73.9 Peripheral vascular disease, unspecified; N18.9 Chronic kidney disease, unspecified; I48.91 Unspecified atrial fibrillation; Z95.820 Peripheral vascular angioplasty status with implants and grafts; E78.5 Hyperlipidemia, unspecified; M19.91 Primary osteoarthritis, unspecified site; Z71.6 Tobacco abuse counseling; I70.1 Atherosclerosis of renal artery; N26.1 Atrophy of kidney (terminal); K57.30 Diverticulosis of large intestine without perforation or abscess without bleeding; I25.5 Ischemic cardiomyopathy; E87.5 Hyperkalemia; F17.210 Nicotine dependence, cigarettes, uncomplicated; G47.00 Insomnia, unspecified; I25.10 Atherosclerotic heart disease of native coronary artery without angina pectoris; Z79.02 Long term (current) use of antithrombotics/antiplatelets; Z79.51 Long term (current) use of inhaled steroids; Z79.82 Long term (current) use of aspirin; Z79.899 Other long term (current) drug therapy; I25.2 Old myocardial infarction; Z95.5 Presence of coronary angioplasty implant and graft; Z86.73 Personal history of transient ischemic attack (TIA), and cerebral infarction without residual deficits
CPT/HCPCS: 36415; 71045; 71046; 74176; 80048; 80053; 80061; 81001; 83036; 83605; 83735; 83880; 84443; 84484; 85025; 85027; 85610; 85730; 93005; 93308; 93975; 94640; 94660; 94760; 96361; 96365; 96366; 96367; 96375; 96376; 99291